=== PATIENT | male | born 1930 | race Caucasian/White ===

== ENCOUNTER 2016-08-24 18:02 | Inpatient (IN) | payer OTHER, BC ==
[2016-08-24] MEDS ORDERED: ASPIRIN 81 MG CHEWABLE TABLETS PO ONE (18:15)
--- NOTE | 2016-08-24 18:15 | PDOC ---
History of Present Illness <Heidi Handy - Last Filed: 08/24/16 23:27> <ColeKarine - Last Filed: 08/25/16 03:20> - General Stated Complaint: DEFIBRILLATOR SHOCK Time Seen by Provider: 08/24/16 18:14 - History of Present Illness Initial Comments: 08/24/16 19:49 Patient is an 86 year old male with a past medical hx of [place] (1999) on coumadin, Coronary disease, s/p cardiac stents, Defibrillator pacemaker, CHF, HTN, HLD, ulcerative colitis s/p colectomy and kidney stones who presents to the ED complaining of lightheadedness and and pain at the ICD site. [place] defibrillator go off. He notes he was seen here on 08/03 for the same complaint. He states he was feeling fine and had no complaints prior to his defibrillator going off, but is now experiencing pain at the ICD site and lightheadedness. The patient denies SOB, fever, chills The patient denies nausea, vomiting, diarrhea The patient denies dysuria, frequency Allergies: Azithromycin, codeine Past surgical history: Right colectomy, pacemaker, cardiac stents Social history: No alcohol, tobacco or drug use PCP - Dr. Love Barrel Drum Cutter: Dr. Ramirez (Heidi Handy) Past History <Heidi Handy - Last Filed: 08/24/16 23:27> - Past Medical History Anemia: No Asthma: No Cancer: Yes (MOLE TO BACK: 1972) Cardiac Disorders: Yes (CAD, [place] w/ stents) CVA: No COPD: No CHF: Yes Dementia: No Diabetes: No GI Disorders: Yes (ulcerative colitis with total colectomy and ileostomy) Disorders: Yes (kidney stones) HTN: Yes Hypercholesterolemia: Yes Liver Disease: No Psychiatric Problems: Yes (ANXIETY/DEPRESSION.) Seizures: No Thyroid Disease: No - Surgical History Abdominal Surgery: Yes Appendectomy: No Cardiac Surgery: Yes (pacemaker/defibrillator 2008) Cholecystectomy: No GI Surgery: Yes (total colectomy.) Lung Surgery: No Neurologic Surgery: No Orthopedic Surgery: Yes (PINS IN FRACTURED ARM AND WRIST) - Immunization History Immunization Up to Date: Yes - Psycho/Social/Smoking Cessation Hx Anxiety: Yes Suicidal Ideation: No Smoking Status: Yes Smoking History: Former smoker Have you smoked in the past 12 months: No Number of Cigarettes Smoked Daily: 0 If you are a former smoker, when did you quit?: 1972 Information on smoking cessation initiated: No Hx Alcohol Use: No Drug/Substance Use Hx: No Substance Use Type: None Hx Substance Use Treatment: No <Karine Galvan - Last Filed: 08/25/16 03:20> - Past Medical History Allergies/Adverse Reactions: Allergies Allergy/AdvReac Type Severity Reaction Status Date / Time azithromycin [From Zithromax] AdvReac Mild Vomiting Verified 08/24/16 18:05 codeine [Codeine] AdvReac Mild Verified 08/24/16 18:05 dust Allergy Severe Itching Uncoded 08/24/16 18:05 Home Medications: Ambulatory Orders Aspirin Coated [Ecotrin -] 81 mg PO DAILY 12/12/13 Furosemide [Lasix -] 20 mg PO DAILY 12/12/13 Metoprolol Succinate [Toprol XL -] 25 mg PO DAILY 12/12/13 Simvastatin [Zocor -] 20 mg PO HS 12/12/13 Alprazolam [Xanax] 0.5 mg PO BID 12/20/14 Dicyclomine HCl [Bentyl] 20 mg PO DAILY 12/20/14 Spironolactone 25 mg PO DAILY 01/13/15 Venlafaxine HCl ER [Effexor Xr -] 37.5 mg PO BID 01/13/15 Warfarin Sodium [Coumadin] 5 mg PO MOTUWETHFR 01/13/15 Cholestyramine (with Sugar) [Cholestyramine Powder] 378 gm PO BID 03/17/16 Vitamin B Complex [B Complex] 1 each PO DAILY 03/17/16 Gabapentin 100 mg PO QID #120 capsule 03/18/16 Tamsulosin HCl [Flomax] 0.4 mg PO DAILY 08/03/16 Warfarin Sodium [Coumadin] 2.5 mg PO SUSA 08/03/16 Cardiac Specific PMH - Complaint Specific PMHX Abdominal Aortic Aneurysm: No Cardiac Arrhythmia: Yes Pacemaker: Yes <Karine Galvan - Last Filed: 08/25/16 03:20> Review of Systems - Review of Systems Able to Perform ROS?: Yes <Heidi Handy - Last Filed: 08/24/16 23:27> <Karine Galvan - Last Filed: 08/25/16 03:20> - Review of Systems Comments:: 08/24/16 19:50 CONSTITUTIONAL: Absent: fever, chills, diaphoresis, generalized weakness, malaise, loss of appetite HEENT: Absent: rhinorrhea, nasal congestion, throat pain, throat swelling, difficulty swallowing, mouth swelling, ear pain, eye pain, visual Changes CARDIOVASCULAR: +Chest pain Absent: syncope, palpitations, irregular heart rate, lightheadedness, peripheral edema RESPIRATORY: Absent: cough, shortness of breath, dyspnea with exertion, orthopnea, wheezing, stridor, hemoptysis GASTROINTESTINAL: Absent: abdominal pain, abdominal distension, nausea, vomiting, diarrhea, constipation, melena, hematochezia GENITOURINARY: Absent: dysuria, frequency, urgency, hesitancy, hematuria, flank pain, genital pain MUSCULOSKELETAL: Absent: myalgia, arthralgia, joint swelling SKIN: Absent: rash, itching, pallor HEMATOLOGIC/IMMUNOLOGIC: Absent: easy bleeding, easy bruising, lymphadenopathy, frequent infections ENDOCRINE: Absent: unexplained weight gain, unexplained weight loss, heat intolerance, cold intolerance NEUROLOGIC: +Lightheadedness Absent: headache, focal weakness or paresthesias, dizziness, unsteady gait, seizure, mental status changes, bladder or bowel incontinence PSYCHIATRIC: Absent: anxiety, depression, suicidal or homicidal ideation, hallucinations. (Heidi Handy) *Physical Exam <Heidi Handy - Last Filed: 08/24/16 23:27> <Karine Galvan - Last Filed: 08/25/16 03:20> - Vital Signs Last Vital Signs Temp Pulse Resp BP Pulse Ox 99 F 62 18 111/70 100 08/24/16 18:07 08/24/16 18:07 08/24/16 18:07 08/24/16 18:07 08/24/16 18:15 - Physical Exam Comments: 08/24/16 20:17 GENERAL: Well developed, well nourished. Awake and alert. No acute distress. HEENT: Normocephalic, atraumatic. PERRLA, EOMI. No conjunctival pallor. Sclera are non- icteric. Moist mucous membranes. Oropharynx is clear. NECK: Supple. Full ROM. No JVD. Carotid pulses 2+ and symmetric, without bruits. No thyromegaly. No lymphadenopathy. CARDIOVASCULAR: Regular rate and rhythm. No murmurs, rubs, or gallops. Distal pulses are 2+ and symmetric. PULMONARY: No evidence of respiratory distress. Lungs clear to auscultation bilaterally. No wheezing, rales or rhonchi. ABDOMINAL: Soft. Non-tender. Non-distended. No rebound or guarding. No organomegaly. Normoactive bowel sounds. MUSCULOSKELETAL Normal range of motion at all joints. No bony deformities or tenderness. No CVA tenderness. EXTREMITIES: +1 pitting edema lower extremities. No cyanosis. No clubbing.No calf tenderness. SKIN: Warm and dry. Normal capillary refill. No rashes. No jaundice. NEUROLOGICAL: Alert, awake, appropriate. Cranial nerves 2-12 intact. No deficits to light touch and temperature in face, upper extremities and lower extremities. No motor deficits in the in face, upper extremities and lower extremities. Normoreflexic in the upper and lower extremities. Normal speech. Gait is normal without ataxia. PSYCHIATRIC: Cooperative. Good eye contact. Appropriate mood and affect. (Heidi Handy) Heart Score/ECG Review <Heidi Handy - Last Filed: 08/24/16 23:27> - History History: Slightly suspicious - Electrocardiogram EKG: Non specific repolarization disturbance - Age Age: >/= 65 - Risk Factors Risk Factors Heart Score: Yes Hx Hypercholesterolemia, Yes Hx Hypertension Based on the list above the patient has:: >/=3 risk factors or Hx atherosclerotic disease - Troponin Troponin: </= normal limit (pt has electronic paced rhythm @ 104 /he had his ICD fo off this afternoon) - Score Heart Score - Total: 5 <Karine Galvan - Last Filed: 08/25/16 03:20> - ECG Impressions Comment:: 08/24/16 18:56 EKG performed at 1812. Read and interpreted by Dr. Galvan. Electronic ventricular pacemaker. Rate of 104 bpm. (Heidi Handy) ED Treatment Course - LABORATORY CBC & Chemistry Diagram: 08/24/16 18:44 08/24/16 19:22 <Heidi Handy - Last Filed: 08/24/16 23:27> - LABORATORY CBC & Chemistry Diagram: 08/24/16 18:44 08/24/16 19:22 <Karine Galvan - Last Filed: 08/25/16 03:20> - ADDITIONAL ORDERS Additional order review: Laboratory Results 08/24/16 08/24/16 08/24/16 19:22 19:22 18:44 INR Sodium 142 Cancelled Potassium 4.3 Cancelled Chloride 114 H Cancelled Carbon Dioxide 21 Cancelled Anion Gap 7 L Cancelled BUN 24 H Cancelled Creatinine 1.6 H D Cancelled Creat Clearance w eGFR 41.29 Cancelled Random Glucose 105 Cancelled Calcium 8.5 Cancelled Magnesium 2.1 Cancelled Total Bilirubin 0.3 D Cancelled AST 21 Cancelled ALT 21 Cancelled Alkaline Phosphatase 48 Cancelled Creatine Kinase 74 Cancelled Troponin I 0.04 D Cancelled B-Natriuretic Peptide Cancelled Total Protein 6.5 Cancelled Albumin 3.6 Cancelled 08/24/16 18:44 INR 1.28 H Sodium Potassium Chloride Carbon Dioxide Anion Gap BUN Creatinine Creat Clearance w eGFR Random Glucose Calcium Magnesium Total Bilirubin AST ALT Alkaline Phosphatase Creatine Kinase Troponin I B-Natriuretic Peptide Total Protein Albumin 08/24/16 18:44 RBC 4.53 MCV 87.0 MCHC 31.8 L RDW 15.2 MPV 8.8 Neutrophils % 74.7 Lymphocytes % 15.2 D Monocytes % 8.1 Eosinophils % 1.3 D Basophils % 0.7 - RADIOLOGY Radiology Studies Ordered: Category Date Time Status CHEST X-RAY PORTABLE* [RAD] Stat Radiology 08/24/16 18:16 Completed Radiograph Interpretation: 08/24/16 20:44 Chest X-Ray Since 08/03/2016, the cardiac silhouette remains slightly enlarged with unfolding of the aortic arch. Minimal bibasal atelectatic changes are present. Left-sided pacer with leads again noted unchanged in position. Mild degenerative changes in the right shoulder joint Impression: No significant interval change. Mild cardiomegaly without evidence of acute lung disease Reported By: Stephanie Donato MD 08/24/16 0309 (Heidi Handy) - Medications Given in the ED: ED Medications Discontinued Medications Generic Name Dose Route Start Last Admin Trade Name Freq PRN Reason Stop Dose Admin Aspirin 162 mg 08/24/16 18:15 08/24/16 18:22 Asa - PO 08/24/16 18:16 162 mg ONCE ONE Administration Medical Decision Making <Heidi Handy - Last Filed: 08/24/16 23:27> <Karine Galvan - Last Filed: 08/25/16 03:20> - Medical Decision Making 08/24/16 23:[address] Valle at 21:30, awaiting call back Dr. Valle called back at 21:47, patients case was discussed. (Heidi Handy) 08/25/16 03:18 86-year-old male with an ICD that discharged today is being admitted for interrogation of his ICD by [employer]. I did speak with someone from [employer] and they expect to see him later in the morning No signs of acute ischemia on EKG Patient had negative cardiac enzymes Labs reviewed Case discussed with Lauri Kyle and Dr. Valle -admitted to telemetry (Karine Galvan) *DC/Admit/Observation/Transfer <Heidi Handy - Last Filed: 08/24/16 23:27> - Discharge Dispostion Admit: Yes <Karine Galvan - Last Filed: 08/25/16 03:20> Diagnosis at time of Disposition: ICD (implantable cardioverter-defibrillator) discharge Coronary artery disease Qualifiers: Coronary Disease-Associated Artery/Lesion type: [place] artery [place] vs. transplanted heart: [place] heart Associated angina: without angina Qualified Code(s): I25.10 - Atherosclerotic heart disease of [place] coronary artery without angina pectoris - Discharge Dispostion Decision to Admit order Date/Time: Decision to Admit Order Category Date Time Status Decision to Admit to Hospital Routine Phy Order 08/24/16 20:24 Ordered - Referrals - Attestations Scribe Attestion: 08/24/16 19:50 Documentation prepared by Heidi Handy, acting as medical supply technician for Karine Galvan MD/. (Heidi Handy)
[2016-08-24] MEDS ORDERED: ASPIRIN 81 MG CHEWABLE TABLETS ONE (18:22)
[2016-08-24 18:51] LABS: BASOPHIL 0.7 % (0-2.0); EOSINOPHIL 1.3 % (0-4.5); MCH 27.7 pg (25.7-33.7); MCHC 31.8 g/dl (32.0-35.9); MEAN PLT VOLUME 8.8 fl (7.5-11.1); NEUTROPHILS 74.7 % (42.8-82.8); PLATELET COUNT 168 K/MM3 (134-434); RDW 15.2 % (11.9-15.9); WHITE BLOOD COUNT 5.6 K/mm3 (4.0-10.0)
[2016-08-24 19:01] LABS: INR 1.28 (0.82-1.09); PROTHROMBIN TIME (PATIENT) 14.2 SEC (9.98-11.88)
--- NOTE | 2016-08-24 19:28 | CONSULT ---
Consult Consult Specialty:: Cardiology Referred by:: Douglas Love MD Reason for Consultation:: Post ICD discharge - History of Present Illness Chief Complaint: Post ICD discharge History of Present Illness: Patient is a 86 year old male with past medical history of CAD s/p anterior wall DE, s/p PCI, angina pectoris, HTN/HCVD, paroxysmal afib, CKD, LV systolic dysfunction with h/o failure s/p HYDROLOGY PROFESSOR-D pacemaker, TIA, gout, s/p total colectomy for ulcerative colitis, s/p right nephrectomy for carcinoma recent hospitalization for appropriate ICD discharge referable to [place] 175 failed ATP burst, received 31 J shock presents for same. He denies dyspnea, true syncope, orthopnea, PND, LE edema or change in exercise capacity. Reports medication and diet compliance, had Toprol XL uptitrated during previous hospitalization. Allergies: Azithromycin, codeine Past surgical history: Right colectomy, pacemaker, cardiac stents Social history: No alcohol, tobacco or drug use PCP - Dr. Love Supervisor Nut Processing: Dr. Ramirez Orthopedics - Dr. Hein - History Source History Provided By: Patient Limitations to Obtaining History: No Limitations - Past Medical History Cardio/Vascular: Yes: AFIB, CAD, CHF, DE Gastrointestinal: Yes: GERD, Inflamatory Bowel Disease - Past Surgical History Past Surgical History: Yes: Colectomy, Nephrectomy (Right ), Permanent Pacemaker , Stent - Alcohol/Substance Use Hx Alcohol Use: No - Smoking History Smoking history: Former smoker Have you smoked in the past 12 months: No Aproximately how many cigarettes per day: 0 If you are a former smoker, when did you quit?: 1972 Home Medications - Allergies Allergies/Adverse Reactions: Allergies Allergy/AdvReac Type Severity Reaction Status Date / Time azithromycin [From Zithromax] AdvReac Mild Vomiting Verified 08/24/16 18:05 codeine [Codeine] AdvReac Mild Verified 08/24/16 18:05 dust Allergy Severe Itching Uncoded 08/24/16 18:05 - Home Medications Home Medications: Ambulatory Orders Aspirin Coated [Ecotrin -] 81 mg PO DAILY 12/12/13 Furosemide [Lasix -] 20 mg PO DAILY 12/12/13 Metoprolol Succinate [Toprol XL -] 25 mg PO DAILY 12/12/13 Simvastatin [Zocor -] 20 mg PO HS 12/12/13 Alprazolam [Xanax] 0.5 mg PO BID 12/20/14 Dicyclomine HCl [Bentyl] 20 mg PO DAILY 12/20/14 Spironolactone 25 mg PO DAILY 01/13/15 Venlafaxine HCl ER [Effexor Xr -] 37.5 mg PO BID 01/13/15 Warfarin Sodium [Coumadin] 5 mg PO MOTUWETHFR 01/13/15 Cholestyramine (with Sugar) [Cholestyramine Powder] 378 gm PO BID 03/17/16 Vitamin B Complex [B Complex] 1 each PO DAILY 03/17/16 Gabapentin 100 mg PO QID #120 capsule 03/18/16 Tamsulosin HCl [Flomax] 0.4 mg PO DAILY 08/03/16 Warfarin Sodium [Coumadin] 2.5 mg PO SUSA 08/03/16 Review of Systems - Review of Systems Cardiovascular: reports: Other (ICD discharge) Vital Signs: Vital Signs Temperature 99 F 08/24/16 18:07 Pulse Rate 62 08/24/16 18:07 Respiratory Rate 18 08/24/16 18:07 Blood Pressure 111/70 08/24/16 18:07 O2 Sat by Pulse Oximetry (%) 100 08/24/16 18:15 Constitutional: Yes: No Distress, Calm Neck: Yes: Supple Respiratory: Yes: Regular, Diminished Gastrointestinal: Yes: Normal Bowel Sounds, Soft Cardiovascular: Yes: Regular Rate and Rhythm JVD: No Carotid Bruit: No Heart Sounds: Yes: S1, S2 Murmur: Yes: Systolic Murmur, Grade 1 Edema: No - Other Data Labs, Other Data: CBC, BMP 08/24/16 18:44 08/24/16 18:44 INR, PTT INR 1.28 (0.82-1.09) H 08/24/16 18:44 Troponin, BNP 08/24/16 18:44 Troponin I Cancelled B-Natriuretic Peptide Cancelled Troponin, BNP 08/24/16 18:44 Troponin I Cancelled B-Natriuretic Peptide Cancelled NSR @ 104 Problem List - Problems (1) Coronary artery disease Code(s): I25.10 - ATHSCL HEART DISEASE OF [place] CORONARY ARTERY W/O ANG PCTRS Qualifiers: Coronary Disease-Associated Artery/Lesion type: [place] artery [place] vs. transplanted heart: [place] heart Associated angina: without angina Qualified Code(s): I25.10 - Atherosclerotic heart disease of [place] coronary artery without angina pectoris (2) Hyperlipidemia Code(s): E78.5 - HYPERLIPIDEMIA, UNSPECIFIED Qualifiers: Hyperlipidemia type: pure hypercholesterolemia Qualified Code(s): E78.0 - Pure hypercholesterolemia (3) Hypertensive cardiomegaly without heart failure Code(s): I11.9 - HYPERTENSIVE HEART DISEASE WITHOUT HEART FAILURE (4) ICD (implantable cardioverter-defibrillator) discharge Code(s): Z45.02 - ENCNTR FOR ADJUST AND MGMT OF AUTOMATIC IMPLNTBL CARD DEFIB (5) Old anterior myocardial infarction Code(s): I25.2 - OLD MYOCARDIAL INFARCTION (6) Paroxysmal atrial fibrillation Code(s): I48.0 - PAROXYSMAL ATRIAL FIBRILLATION (7) S/P coronary angioplasty Code(s): Z98.61 - CORONARY ANGIOPLASTY STATUS (8) Sustained VT (ventricular tachycardia) Code(s): I47.2 - VENTRICULAR TACHYCARDIA (9) Systolic dysfunction without heart failure Code(s): I51.9 - HEART DISEASE, UNSPECIFIED Assessment/Plan 1. s/p ICD discharge awaiting device interrogation 2. CAD h/o anterior wall DE s/p PCI 3. LV systolic dysfunction with h/o failure s/p HYDROLOGY PROFESSOR-D 4. PAF->SR on anticoagulation with subtherapeutic INR 5. CKD 6. h/o TIA 7. HTN, chol 8. BPH s/p green laser TURP 9. Acute on CKD improved P:1. Continue Lasix 20 qd, increase Toprol XL 25 bid, Lipitor 10 qhs, cholestyramine 4 gm tid, Aldactone 25 qd, resume losartan 25 qd once renal fxn stabilizes, dose coumadin 5 qhs per INR, d/c ASA while on coumadin as CAD is stable 2. F/u ICD interrogration 3. If VT recurs despite medical therapy, for consideration of VT ablation vs antiarrhythmic therapy. 4. Thank you for consultative opportunity
[2016-08-24 19:59] LABS: ALBUMIN 3.6 g/dl (3.4-5.0); BILIRUBIN,TOTAL 0.3 mg/dL (0.2-1.0); CALCIUM 8.5 mg/dL (8.5-10.1); CREATININE 1.6 mg/dL (0.7-1.3); TOT PROT 6.5 g/dl (6.4-8.2)
[2016-08-24 20:12] LABS: MAGNESIUM 2.1 mg/dL (1.8-2.4); TROPONIN I 0.04 ng/ml (0.00-0.05)
[2016-08-24] MEDS ORDERED: METOPROLOL SUCCINATE 25 MG TAB.SR.24H (FP) PO SCH (22:00)
[2016-08-24] MEDS ORDERED: METOPROLOL SUCCINATE 50 MG TAB.SR.24H (FP) ONE (22:11)
[2016-08-25 00:10] LABS: TROPONIN I 0.04 ng/ml (0.00-0.05)
[2016-08-25 03:36] LABS: TROPONIN I 0.05 ng/ml (0.00-0.05)
[2016-08-25] MEDS: CHOLESTYRAMINE/SUCROSE 4 GM PACKET PO SCH ×3 (08:47→17:25)
[2016-08-25] MEDS: TAMSULOSIN HCL 0.4 MG CAP.ER.24H (FP) PO SCH (08:47)
[2016-08-25] MEDS: ALPRAZolam 0.25 MG TABLET PO SCH ×3 (08:54→22:53)
[2016-08-25] MEDS ORDERED: ALPRAZolam 0.25 MG TABLET ONE (08:54)
[2016-08-25 08:57] LABS: BASOPHIL 0.7 % (0-2.0); MCH 28.7 pg (25.7-33.7); MCHC 32.7 g/dl (32.0-35.9); MEAN CELL VOLUME 87.8 fl (80-96); MEAN PLT VOLUME 8.4 fl (7.5-11.1); NEUTROPHILS 68.1 % (42.8-82.8); PLATELET COUNT 147 K/MM3 (134-434); RDW 15.3 % (11.9-15.9)
[2016-08-25 09:12] LABS: INR 1.25 (0.82-1.09); PROTHROMBIN TIME (PATIENT) 13.8 SEC (9.98-11.88)
[2016-08-25 09:24] LABS: ALBUMIN 4.1 g/dl (3.4-5.0); BILIRUBIN,TOTAL 0.9 mg/dL (0.2-1.0); CREATININE 1.3 mg/dL (0.7-1.3); TOT PROT 7.3 g/dl (6.4-8.2)
--- NOTE | 2016-08-25 09:57 | PN ---
Progress Note, Physician History of Present Illness: SCANNER OPERATOR-D interrogation confirms VT @ 176 bpm post ATPx1 and 31J shock 08/24/2016. No further events in house. - Current Medication List Current Medications: Active Medications Alprazolam (Xanax -) 0.5 mg PO BID [facility] Last Admin: 08/25/16 08:54 Dose: 0.5 mg Atorvastatin Calcium (Lipitor -) 10 mg PO HS [facility] Cholestyramine Resin (Questran Packet -) 4 gm PO TIDCM [facility] Last Admin: 08/25/16 08:47 Dose: 4 gm Furosemide (Lasix -) 20 mg PO DAILY [facility] Metoprolol Succinate (Toprol Xl -) 25 mg PO BID [facility] Spironolactone (Aldactone -) 25 mg PO DAILY [facility] Tamsulosin HCl (Flomax -) 0.4 mg PO DAILY@0830 [facility] Last Admin: 08/25/16 08:47 Dose: 0.4 mg Venlafaxine HCl (Effexor Xr -) 37.5 mg PO BID [facility] Warfarin Sodium (Coumadin -) 5 mg PO DAILY@1800 [facility] - Objective Vital Signs: Vital Signs Temperature 97 F L 08/25/16 07:44 Pulse Rate 80 08/25/16 07:44 Respiratory Rate 18 08/25/16 07:44 Blood Pressure 158/83 08/25/16 07:44 O2 Sat by Pulse Oximetry (%) 99 08/25/16 07:44 Constitutional: Yes: No Distress, Calm Neck: Yes: Supple Cardiovascular: Yes: Regular Rate and Rhythm, Murmur (1/6 SM) Respiratory: Yes: Regular, CTA Bilaterally Gastrointestinal: Yes: Normal Bowel Sounds, Soft Edema: No Labs: CBC, BMP 08/25/16 08:10 08/25/16 08:10 INR, PTT INR 1.25 (0.82-1.09) H 08/25/16 08:10 Problem List - Problems (1) Coronary artery disease Code(s): I25.10 - ATHSCL HEART DISEASE OF [place] CORONARY ARTERY W/O ANG PCTRS Qualifiers: Coronary Disease-Associated Artery/Lesion type: [place] artery [place] vs. transplanted heart: [place] heart Associated angina: without angina Qualified Code(s): I25.10 - Atherosclerotic heart disease of [place] coronary artery without angina pectoris (2) Hyperlipidemia Code(s): E78.5 - HYPERLIPIDEMIA, UNSPECIFIED Qualifiers: Hyperlipidemia type: pure hypercholesterolemia Qualified Code(s): E78.0 - Pure hypercholesterolemia (3) Hypertensive cardiomegaly without heart failure Code(s): I11.9 - HYPERTENSIVE HEART DISEASE WITHOUT HEART FAILURE (4) ICD (implantable cardioverter-defibrillator) discharge Code(s): Z45.02 - ENCNTR FOR ADJUST AND MGMT OF AUTOMATIC IMPLNTBL CARD DEFIB (5) Old anterior myocardial infarction Code(s): I25.2 - OLD MYOCARDIAL INFARCTION (6) Paroxysmal atrial fibrillation Code(s): I48.0 - PAROXYSMAL ATRIAL FIBRILLATION (7) S/P coronary angioplasty Code(s): Z98.61 - CORONARY ANGIOPLASTY STATUS (8) Sustained VT (ventricular tachycardia) Code(s): I47.2 - VENTRICULAR TACHYCARDIA (9) Systolic dysfunction without heart failure Code(s): I51.9 - HEART DISEASE, UNSPECIFIED Assessment/Plan 1. s/p ICD discharge awaiting device interrogation 2. CAD h/o anterior wall [place] s/p PCI 3. LV systolic dysfunction with h/o failure s/p SCANNER OPERATOR-D 4. PAF->SR on anticoagulation with subtherapeutic INR 5. CKD 6. h/o TIA 7. HTN, chol 8. BPH s/p green laser TURP 9. Acute on CKD improved P:1. Continue Lasix 20 qd, Toprol XL 25 bid, Lipitor 10 qhs, cholestyramine 4 gm tid, Aldactone 25 qd, resume losartan 25 qd now that renal fxn stabilized, dose coumadin 5 qhs per INR, d/c ASA while on coumadin as CAD is stable, consider Entresto as outpatient 2. If VT recurs despite medical therapy, for consideration of VT ablation vs antiarrhythmic therapy.
[2016-08-25] MEDS: FUROSEMIDE 20 MG TABLET (FP) PO SCH (09:59)
[2016-08-25] MEDS: VENLAFAXINE HCL 37.5 MG E.R. CAPSULE (FP) PO SCH ×2 (09:59→22:53)
[2016-08-25] MEDS: SPIRONOLACTONE 25 MG TABLET (FP) PO SCH (09:59)
[2016-08-25] MEDS: METOPROLOL SUCCINATE 25 MG TAB.SR.24H (FP) PO SCH ×2 (09:59→22:53)
[2016-08-25] MEDS: WARFARIN NA 5 MG TABLET (UD) PO SCH ×2 (10:00→17:22)
[2016-08-25] MEDS ORDERED: LOSARTAN POTASSIUM 25 MG TABLET PO SCH (10:15)
[2016-08-25] MEDS ORDERED: WARFARIN NA 5 MG TABLET (UD) PO ONE (10:15)
--- NOTE | 2016-08-25 10:18 | PN ---
Progress Note, Physician Chief Complaint: Pt seen and examined no new complaints today no chest pain,no dizziness - Current Medication List Current Medications: Active Medications Alprazolam (Xanax -) 0.5 mg PO BID [facility] Last Admin: 08/25/16 09:59 Dose: Not Given Atorvastatin Calcium (Lipitor -) 10 mg PO HS [facility] Cholestyramine Resin (Questran Packet -) 4 gm PO TIDCM [facility] Last Admin: 08/25/16 08:47 Dose: 4 gm Furosemide (Lasix -) 20 mg PO DAILY [facility] Last Admin: 08/25/16 09:59 Dose: 20 mg Losartan Potassium (Cozaar -) 25 mg PO DAILY [facility] Metoprolol Succinate (Toprol Xl -) 25 mg PO BID [facility] Last Admin: 08/25/16 09:59 Dose: 25 mg Spironolactone (Aldactone -) 25 mg PO DAILY [facility] Last Admin: 08/25/16 09:59 Dose: 25 mg Tamsulosin HCl (Flomax -) 0.4 mg PO DAILY@0830 [facility] Last Admin: 08/25/16 08:47 Dose: 0.4 mg Venlafaxine HCl (Effexor Xr -) 37.5 mg PO BID [facility] Last Admin: 08/25/16 09:59 Dose: 37.5 mg Warfarin Sodium (Coumadin -) 5 mg PO DAILY@1800 [facility] Last Admin: 08/25/16 10:00 Dose: 5 mg Warfarin Sodium (Coumadin -) 5 mg PO NOW ONE Stop: 08/25/16 10:16 - Objective Vital Signs: Vital Signs Temperature 97 F L 08/25/16 07:44 Pulse Rate 80 08/25/16 07:44 Respiratory Rate 18 08/25/16 07:44 Blood Pressure 158/83 08/25/16 07:44 O2 Sat by Pulse Oximetry (%) 99 08/25/16 07:44 Constitutional: Yes: No Distress Eyes: Yes: Conjunctiva Clear HENT: Yes: Atraumatic Neck: Yes: Supple, Trachea Midline Cardiovascular: Yes: Regular Rate and Rhythm Respiratory: Yes: Regular, CTA Bilaterally Gastrointestinal: Yes: Normal Bowel Sounds, Soft Musculoskeletal: Yes: WNL Extremities: Yes: WNL Edema: No Peripheral Pulses WNL: Yes Neurological: Yes: WNL, Alert, Oriented Psychiatric: Yes: WNL, Alert Labs: CBC, BMP 08/25/16 08:10 08/25/16 08:10 INR, PTT INR 1.25 (0.82-1.09) H 08/25/16 08:10 Assessment/Plan S/p Icd discharge HTN CAD,hypercholestrolemia,s/p angioplasty PAF PLAN for ICD interrogation continue medications ,monitor labs Will f/u cardiology rec
[2016-08-25] MEDS ORDERED: LOSARTAN POTASSIUM 25 MG TABLET ONE (10:31)
--- NOTE | 2016-08-25 10:53 | HP ---
DATE OF ADMISSION: DATE OF DICTATION: 08/25/2016 HISTORY OF PRESENT ILLNESS: Patient is an 86-year-old male with a past medical history of coronary artery disease, [place] with stent placement, patient is on Coumadin, status post a defibrillator, pacemaker, congestive heart failure, hypertension, hypercholesterolemia, ulcerative colitis, status post colectomy, kidney stone, presented to the emergency room with the complaints of lightheadedness and slight pain at the ICD site. As per the patient[place] he felt his defibrillator go off and patient came to the emergency room for evaluation. Patient had a similar episode on August 03. Patient experienced mild pain at the ICD site and lightheadedness. No history of chest pain per se, shortness of breath, or palpitation. No fever. No chills. No nausea. No vomiting. No diarrhea. No dysuria. PAST MEDICAL HISTORY: History of skin change to the mole on the back, coronary artery disease, status post stent placement, congestive heart failure, ulcerative colitis, status post colectomy, kidney stone, hypertension, hypercholesterolemia, anxiety, depression. SURGICAL HISTORY: Had a history of a colectomy, pacemaker placement, cardiac stent placement. SOCIAL HISTORY: No alcohol. No tobacco. No drug. Patient lives with the . ALLERGIES: AZITHROMYCIN and CODEINE. REVIEW OF SYSTEMS: General: Patient has slight lightheadedness and pain at the ICD site. Cardiovascular: History of coronary artery disease. No chest pain. No palpitation. Respiratory: Nothing significant. Gastroenterology: No diarrhea. No vomiting. History of ulcerative colitis. Genitourinary: History of kidney stone. Neurological: Patient had history of anxiety. PHYSICAL EXAMINATION:Vital Signs: On examination of the patient in the emergency room, temperature 99 per minute, pulse rate 62, blood pressure 111/70, respiration 18, saturation 100%. General: Patient well developed, awake, alert, no acute distress. Chest: Clear. Pacemaker palpable on the left side of the chest wall. Cardiovascular: Regular heart rate. No murmur. Abdomen: Soft and nontender. No distention. Bowel sounds present. Extremities: No edema. MEDICATIONS: Reviewed. Patient is on aspirin 81 mg, Lasix 20 mg daily, Toprol XL 25 mg p.o. daily, Zocor 20 mg p.o. h.s., Xanax 0.5 mg p.o. b.i.d., Bentyl 20 mg p.o. daily, spironolactone 25 mg p.o. daily, Effexor XR 37.5 mg p.o. b.i.d., Coumadin 5 mg p.o., cholestyramine powder 378 g p.o. b.i.d., vitamin B complex, gabapentin 100 mg p.o. q.i.d., Flomax 0.4 mg p.o. daily. LABORATORIES: CBC: Normal. CMP: BUN 24, creatinine 1.6, sugar 105, magnesium level 2.1, AST, ALT normal. Cardiac enzymes: Troponin 0.04. Total protein 6.5. EKG: Electronic ventricular pacemaker, rate 104 per minute. Chest x-ray shows cardiomegaly, no acute infiltrate, pacemaker in place. Patient was seen by Cardiology in the emergency room and they recommended to increase the Toprol dose 25 mg p.o. b.i.d. and continue Lipitor and Aldactone 25 mg p.o. daily and recommended to hold the valsartan until the BUN and creatinine are stable, so patient admitted to telemetry with admitting diagnoses of: 1. Defibrillator went off, implantable cardioverter-defibrillator shocked. 2. Hypertension. 3. Coronary artery disease. 4. Hypercholesterolemia. 5. Atrial fibrillation. 6. Status post implantable cardioverter-defibrillator discharge. PLAN: Patient awaiting for the device interrogation. Continue the medication. on hold. Coumadin 5 mg p.o. h.s. Continue the home medication except the valsartan. Patient stable. Rinku [id number]
[2016-08-25 11:14] VITALS: BMI 11.9
[2016-08-25] MEDS ORDERED: PT OWN MED DRAWER 7, Y5N ONE ×2 (17:23→17:59)
[2016-08-25] MEDS ORDERED: ATORVASTATIN CA 10 MG TABLET (FP) PO SCH (22:00)
[2016-08-26] MEDS ORDERED: CHOLESTYRAMINE/ASPARTAME 4 GM PACKET PO SCH (03:09)
[2016-08-26 07:47] LABS: INR 1.28 (0.82-1.09); PROTHROMBIN TIME (PATIENT) 14.1 SEC (9.98-11.88)
[2016-08-26] MEDS ORDERED: PT OWN MED DRAWER 7, Y5N ONE ×2 (08:15→09:28)
[2016-08-26 08:26] VITALS: BP 103/45; PULSE 76; TEMP 97.6
[2016-08-26] MEDS: TAMSULOSIN HCL 0.4 MG CAP.ER.24H (FP) PO SCH (08:30)
[2016-08-26 09:19] LABS: MCH 28.2 pg (25.7-33.7); MCHC 32.3 g/dl (32.0-35.9); MEAN CELL VOLUME 87.2 fl (80-96); MEAN PLT VOLUME 8.8 fl (7.5-11.1); PLATELET COUNT 131 K/MM3 (134-434); RDW 14.9 % (11.9-15.9); WHITE BLOOD COUNT 5.3 K/mm3 (4.0-10.0)
--- NOTE | 2016-08-26 09:19 | PN ---
Progress Note, Physician Chief Complaint: Pt seen and examined,s/p interrogation of pacemaker no new complaints today no chest pain,no dizziness - Current Medication List Current Medications: Active Medications Alprazolam (Xanax -) 0.5 mg PO BID [facility] Last Admin: 08/25/16 22:53 Dose: 0.5 mg Atorvastatin Calcium (Lipitor -) 10 mg PO HS [facility] Last Admin: 08/25/16 22:53 Dose: 10 mg Cholestyramine Resin (Questran Light Packet -) 4 gm PO TIDCM [facility] Last Admin: 08/26/16 08:29 Dose: 4 gm Furosemide (Lasix -) 20 mg PO DAILY [facility] Last Admin: 08/25/16 09:59 Dose: 20 mg Metoprolol Succinate (Toprol Xl -) 25 mg PO BID [facility] Last Admin: 08/25/16 22:53 Dose: 25 mg Spironolactone (Aldactone -) 25 mg PO DAILY [facility] Last Admin: 08/25/16 09:59 Dose: 25 mg Tamsulosin HCl (Flomax -) 0.4 mg PO DAILY@0830 [facility] Last Admin: 08/26/16 08:30 Dose: 0.4 mg Venlafaxine HCl (Effexor Xr -) 37.5 mg PO BID [facility] Last Admin: 08/25/16 22:53 Dose: 37.5 mg Warfarin Sodium (Coumadin -) 5 mg PO DAILY@1800 [facility] Last Admin: 08/25/16 17:22 Dose: Not Given - Objective Vital Signs: Vital Signs Temperature 97.6 F 08/26/16 08:25 Pulse Rate 76 08/26/16 08:25 Respiratory Rate 16 08/26/16 08:25 Blood Pressure 103/45 08/26/16 08:25 O2 Sat by Pulse Oximetry (%) 95 08/26/16 08:25 Constitutional: Yes: No Distress Eyes: Yes: Conjunctiva Clear HENT: Yes: Atraumatic Neck: Yes: Supple, Trachea Midline Cardiovascular: Yes: Regular Rate and Rhythm Respiratory: Yes: Regular, CTA Bilaterally Gastrointestinal: Yes: Normal Bowel Sounds, Soft Musculoskeletal: Yes: WNL Extremities: Yes: WNL Edema: No Peripheral Pulses WNL: Yes Neurological: Yes: WNL, Alert, Oriented ...Motor Strength: WNL Psychiatric: Yes: WNL Labs: CBC, BMP 08/25/16 08:10 INR, PTT INR 1.28 (0.82-1.09) H 08/26/16 05:35 Assessment/Plan S/p Icd discharge,s/p interrogation,assymptomatic HTN CAD,hypercholestrolemia,s/p angioplasty PAF PLAN d/c home continue medications f/u with cardiology as OP
[2016-08-26] MEDS: ALPRAZolam 0.25 MG TABLET PO SCH (09:32)
[2016-08-26] MEDS: SPIRONOLACTONE 25 MG TABLET (FP) PO SCH (09:32)
[2016-08-26] MEDS: FUROSEMIDE 20 MG TABLET (FP) PO SCH (09:32)
[2016-08-26] MEDS: METOPROLOL SUCCINATE 25 MG TAB.SR.24H (FP) PO SCH (09:32)
--- NOTE | 2016-08-26 09:32 | PN ---
Progress Note, Physician Chief Complaint: Events noted Not in distress this am History of Present Illness: Patient was seen and examined. Awake and alert. Chart was reviewed Denies chest pain, SOB or palpitation. No further ICD therapy in hospital. ICD interrogation noted - Current Medication List Current Medications: Active Medications Alprazolam (Xanax -) 0.5 mg PO BID [facility] Last Admin: 08/25/16 22:53 Dose: 0.5 mg Atorvastatin Calcium (Lipitor -) 10 mg PO HS [facility] Last Admin: 08/25/16 22:53 Dose: 10 mg Cholestyramine Resin (Questran Light Packet -) 4 gm PO TIDCM [facility] Last Admin: 08/26/16 08:29 Dose: 4 gm Furosemide (Lasix -) 20 mg PO DAILY [facility] Last Admin: 08/25/16 09:59 Dose: 20 mg Metoprolol Succinate (Toprol Xl -) 25 mg PO BID [facility] Last Admin: 08/25/16 22:53 Dose: 25 mg Spironolactone (Aldactone -) 25 mg PO DAILY [facility] Last Admin: 08/25/16 09:59 Dose: 25 mg Tamsulosin HCl (Flomax -) 0.4 mg PO DAILY@0830 [facility] Last Admin: 08/26/16 08:30 Dose: 0.4 mg Venlafaxine HCl (Effexor Xr -) 37.5 mg PO BID [facility] Last Admin: 08/25/16 22:53 Dose: 37.5 mg Warfarin Sodium (Coumadin -) 5 mg PO DAILY@1800 [facility] Last Admin: 08/25/16 17:22 Dose: Not Given - Objective Vital Signs: Vital Signs Temperature 97.6 F 08/26/16 08:25 Pulse Rate 76 08/26/16 08:25 Respiratory Rate 16 08/26/16 08:25 Blood Pressure 103/45 08/26/16 08:25 O2 Sat by Pulse Oximetry (%) 95 08/26/16 08:25 Neck: Yes: Supple Cardiovascular: Yes: Regular Rate and Rhythm, Murmur (Soft SM), S1, S2 Respiratory: Yes: CTA Bilaterally Gastrointestinal: Yes: Normal Bowel Sounds, Soft. No: Tenderness Edema: No Additional Findings/Remarks: - Review of Systems Constitutional: denies: Chills, Fever Cardiovascular: denies: Chest Pain, Palpitations, Shortness of Breath Respiratory: denies: SOB. denies: Cough, Hemoptysis, Orthopnea, PND Gastrointestinal: denies: Abdominal Pain, Constipation, Diarrhea, Melena, Nausea , Rectal Bleeding, Vomiting Genitourinary: denies: Dysuria Musculoskeletal: denies: Joint Pain Neurological: denies: Dizziness, Headache, Seizure, Syncope Labs: CBC, BMP 08/26/16 09:04 08/25/16 08:10 INR, PTT INR 1.28 (0.82-1.09) H 08/26/16 05:35 Problem List - Problems (1) Coronary artery disease Code(s): I25.10 - ATHSCL HEART DISEASE OF [place] CORONARY ARTERY W/O ANG PCTRS Qualifiers: Coronary Disease-Associated Artery/Lesion type: robinson artery [place] vs. transplanted heart: robinson heart Associated angina: without angina Qualified Code(s): I25.10 - Atherosclerotic heart disease of robinson coronary artery without angina pectoris (2) ICD (implantable cardioverter-defibrillator) discharge Code(s): Z45.02 - ENCNTR FOR ADJUST AND MGMT OF AUTOMATIC IMPLNTBL CARD DEFIB (3) [id number] kidney injury Code(s): N17.9 - ACUTE KIDNEY FAILURE, UNSPECIFIED N18.9 - CHRONIC KIDNEY DISEASE, UNSPECIFIED (4) Hyperlipidemia Code(s): E78.5 - HYPERLIPIDEMIA, UNSPECIFIED Qualifiers: Hyperlipidemia type: pure hypercholesterolemia Qualified Code(s): E78.0 - Pure hypercholesterolemia (5) Hypertensive cardiomegaly without heart failure Code(s): I11.9 - HYPERTENSIVE HEART DISEASE WITHOUT HEART FAILURE (6) Old anterior myocardial infarction Code(s): I25.2 - OLD MYOCARDIAL INFARCTION (7) Paroxysmal atrial fibrillation Code(s): I48.0 - PAROXYSMAL ATRIAL FIBRILLATION (8) S/P coronary angioplasty Code(s): Z98.61 - CORONARY ANGIOPLASTY STATUS (9) Systolic dysfunction without heart failure Code(s): I51.9 - HEART DISEASE, UNSPECIFIED Assessment/Plan 1. Post ICD discharge - due to PSVT 2. CAD h/o anterior wall [place] s/p PCI 3. LV systolic dysfunction with h/o failure s/p CORPORATE SAFETY COORDINATOR-D 4. PAF now in sinus rhythm on anticoagulation 5. CKD 6. History of TIA 7. HTN 8. Hypercholesterolemia 9. BPH s/p green laser TURP 10. Acute on CKD PLAN: 1. Continue Lasix 20 mg QD, Toprol XL 25 mg BID (increased), Lipitor 10 mg QHS, Cholestyramine 4 gm TID, Aldactone 25 mg QD. 2. Resume losartan 25 mg QD once renal function stabilizes in 2-3 days. Continue Coumadin per INR. Consider Entresto as outpatient 3. Consider further evaluation such as EP study +/- ablation as outpatient. Patient is to follow up with Dr. Ramirez in the office Discharge home Alberto Cabral MD.
[2016-08-26] MEDS: VENLAFAXINE HCL 37.5 MG E.R. CAPSULE (FP) PO SCH (09:33)
--- NOTE | 2016-08-26 09:56 | DS ---
Physical Examination Vital Signs: Vital Signs Temperature 97.6 F 08/26/16 08:25 Pulse Rate 76 08/26/16 08:25 Respiratory Rate 16 08/26/16 08:25 Blood Pressure 103/45 08/26/16 08:25 O2 Sat by Pulse Oximetry (%) 95 08/26/16 08:25 Labs: CBC, BMP 08/26/16 09:04 08/25/16 08:10 Discharge Summary Reason For Visit: ICD/CAD Current Active Problems Coronary artery disease (Acute) ICD (implantable cardioverter-defibrillator) discharge (Acute) HTN Hypercholestrolemia Hospital Course: PT admitted withICD discharge and slight discomfort at chest Labs were nl,cardiac enzymes were negative,Ekg and xray chest were NL Pt was followed by cardiology.Creatinine level was 1.6 so losartan held .Toprol dose increased to 25 mg po bid S/P ICD interrogation done.Pt has no complaints today.Pt was stable on the floor ,discharged home in a stable condition and rec to f/u with cardiology as OP Condition: Good - Instructions Referrals: Douglas Love MD [Primary Care Provider] - Disposition: HOME - Home Medications Comprehensive Discharge Medication List: Ambulatory Orders Aspirin Coated [Ecotrin -] 81 mg PO DAILY 12/12/13 Furosemide [Lasix -] 20 mg PO DAILY 12/12/13 Simvastatin [Zocor -] 20 mg PO HS 12/12/13 Alprazolam [Xanax] 0.5 mg PO BID 12/20/14 Dicyclomine HCl [Bentyl] 20 mg PO DAILY 12/20/14 Spironolactone 25 mg PO DAILY 01/13/15 Venlafaxine HCl ER [Effexor Xr -] 37.5 mg PO BID 01/13/15 Warfarin Sodium [Coumadin] 5 mg PO MOTUWETHFR 01/13/15 Cholestyramine (with Sugar) [Cholestyramine Powder] 378 gm PO BID 03/17/16 Vitamin B Complex [B Complex] 1 each PO DAILY 03/17/16 Gabapentin 100 mg PO QID #120 capsule 03/18/16 Tamsulosin HCl [Flomax] 0.4 mg PO DAILY 08/03/16 Metoprolol Succinate [Toprol XL -] 25 mg PO BID #30 tab.sr.24h 08/26/16
[2016-08-26 11:05] LABS: ALBUMIN 3.5 g/dl (3.4-5.0); BILIRUBIN,TOTAL 0.6 mg/dL (0.2-1.0); CALCIUM 8.4 mg/dL (8.5-10.1); CREATININE 1.3 mg/dL (0.7-1.3); TOT PROT 6.2 g/dl (6.4-8.2)
[2016-08-26 11:09] LABS: TROPONIN I 0.02 ng/ml (0.00-0.05)
--- NOTE | 2016-08-26 15:17 | EKG ---
Test Reason : Blood Pressure : / mmHG Vent. Rate : 104 BPM Atrial Rate : 104 BPM P-R Int : 082 ms QRS Dur : 174 ms QT Int : 418 ms P-R-T Axes : 000 254 071 degrees QTc Int : 549 ms POOR DATA QUALITY, INTERPRETATION MAY BE ADVERSELY AFFECTED ELECTRONIC VENTRICULAR PACEMAKER WHEN COMPARED WITH ECG OF 03-AUG-2016 18:16, VENT. RATE HAS INCREASED BY 2 BPM Confirmed by SHANE DOVE, DARREN ([id number]) on 08/26/2016 3:17:08 PM Referred By: Confirmed By:DARREN LYNN MD
== END 2016-08-26 12:53 | disposition home or self-care (01) | DRG 309 ==
LOC: JER 18:02 → JERBED 20:51 → J4W 08-25 12:00
PROVIDERS: ADMIT Family Medicine; ATTEND Family Medicine
DX: I47.1 Supraventricular tachycardia (principal); N17.9 Acute kidney failure, unspecified; I13.10 Hypertensive heart and chronic kidney disease without heart failure, with stage 1 through stage 4 chronic kidney disease, or unspecified chronic kidney disease; N18.9 Chronic kidney disease, unspecified; I25.118 Atherosclerotic heart disease of native coronary artery with other forms of angina pectoris; I48.0 Paroxysmal atrial fibrillation; M10.9 Gout, unspecified; K21.9 Gastro-esophageal reflux disease without esophagitis; I25.2 Old myocardial infarction; N40.0 Benign prostatic hyperplasia without lower urinary tract symptoms; E78.00 Pure hypercholesterolemia, unspecified; Z87.891 Personal history of nicotine dependence; Z90.5 Acquired absence of kidney; Z86.73 Personal history of transient ischemic attack (TIA), and cerebral infarction without residual deficits; Z95.0 Presence of cardiac pacemaker; Z95.5 Presence of coronary angioplasty implant and graft
CPT/HCPCS: 36415; 71010-TC; 80053; 82550; 83735; 84484; 85025; 85027; 85610; 93005; 93010; 99285-25

== ENCOUNTER 2016-09-23 19:32 | Inpatient (IN) | payer OTHER, BC, MEDICARE ==
--- NOTE | 2016-09-23 19:33 | PDOC ---
History of Present Illness - General History Source: EMS, Family Exam Limitations: Clinical Condition - History of Present Illness Initial Comments: 09/23/16 20:12 The patient is an 86 year old male, with a significant past medical history of AFib(on coumadin and aspirin), CAD, GA (stents), CHF, ulcerative colitis(total colectomy and ileostomy), kidney stones, HTN, HLD, anxiety, and depression, who presents to the emergency department BIBA s/p possible unwitnessed CVA. Per EMS , the patient was found to have focal weakness to the right upper and lower extremities and aphasia. As per son in law, the last time the patient was seen awake and fully oriented was at 14:00 before he went to take a nap. EMS states when the patient awoke he experienced slurred speech, left sided facial droop, and right sided hemiplegia. The family reports the patient is normally able to ambulate on his own and is verbally responsive. The patient is on a pacemaker/ defibrillator. EMS states, the family reports the patient defibrillator fired off 2 times within the past 2 weeks, and is usually seen at [facility] for this. The patients history is limited due to current clinical condition. Allergies: Azithromycin, codeine, dust Past Surgical History: Pacemaker/defibrillator (2008), total colectomy, and pins in fractured arm and wrist Social History: Non-smoker. No ETOH or drug use reported. PCP: Dr. Love ([phone]) Fur Blowing Machine Attendant: Dr. Ramirez ([phone]) Neurologist: Dr. Garcia ([phone]) <Dayron Martin - Last Filed: 09/23/16 20:45> - General History Source: Patient, EMS <RolandOli avilez - Last Filed: 09/29/16 19:46> - General Stated Complaint: STROKE Time Seen by Provider: 09/23/16 19:33 NIH Stroke Scale - Last Known Well Date/Time & Onset Date Last Known Well: 09/23/16 Time Last Known Well: 14:00 - Initial Evaluation Level of consciousness: Alert Ask patient the month and their age: Answers one correctly Ask patient to open & close eyes; make fist and let go: Obeys one correctly Best gaze (horizontal eye movement): Partial gaze palsy Visual field testing: No visual field loss Facial paresis (Show teeth/raise eyebrows/close eyes tight): Minor paralysis ( flattened nasolabial fold, asymmetry on smiling) Motor Function: Left Arm: Some effort against gravity Motor Function: Right Arm: No movement Motor Function: Left Leg: Normal (extends leg 30 degrees for 5 seconds without drift) Motor Function: Right Leg: No movement Limb Ataxia: Present in two limbs Sensory(Use pinprick test arms,legs,trunk,face/side to side): Normal Best language (Describe picture, name items, read sentences): Mild to moderate aphasia Dysarthria (read several words): Mild to moderate slurring of words Extinction and Inattention: No abnormality - Total Score NIH Stroke Scale Score: 18 <Oli Solorio - Last Filed: 09/29/16 19:46> tPA Exclusion checklist 3-4.5h - Time Elapsed Date last known well: 09/23/16 Time last known well: 14:00 Elaspsed time: 6 Day(s) and 5 Hour(s) and 43 Minutes - Thrombolytic Therapy Candidate Is patient eligible for thrombolytic therapy: No - Exclusion Criteria 3-4.5 hr SBP greater than 185 or DBP greater than 110mmHg despite tx: No Recent IC/spinal surgery,head trauma or stroke<3mos.: No Hx IC hemorrhage, IC neoplasm, AV malformation or aneurysm: No Active internal bleeding: No Blding diathesis(low plt ct, inc PTT,INR>1.7 or use of NOAC): No CT demonstrates multilobar infarct(>1/3 cerebral hemiphere): No Arterial puncture at noncompressible site in previous 7 days: No Blood glucose concentration less than 50mg/dL (2.7mmol/L): No - Relative Exclusion Criteria 3-4.5 hr Life expectancy <1 yr or severe co-morbid illness: No : No Patient/family refused: No Rapid improvement: No Stroke severity too mild: No Recent acute GA (w/in previous 3 months): No Seizure at onset with postictal residual neuro impairments: No Major surgery or serious trauma w/in previous 14 days: No Recent GI or hemorrhage (w/in previous 21 days): No - Add'l Relative Exclusion 3-4.5 hr Age > 80: No Hx of both diabetes AND prior ischemic stroke: No Taking an oral anticoagulant regardless of INR: No NIHSS >25: No - Ineligibility reason(s) Reasons No tPA given: Outside of window - delayed arrival (spoke to Dr. Cobb covereing Dr. 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) Cardiac Disorders: Yes (CAD, GA w/ stents) CVA: No COPD: No CHF: Yes Dementia: No Diabetes: No GI Disorders: Yes (ulcerative colitis with total colectomy and ileostomy) Disorders: Yes (kidney stones) HTN: Yes Hypercholesterolemia: Yes Liver Disease: No Psychiatric Problems: Yes (ANXIETY/DEPRESSION.) Seizures: No Thyroid Disease: No - Surgical History Abdominal Surgery: Yes Appendectomy: No Cardiac Surgery: Yes (pacemaker/defibrillator 2008) Cholecystectomy: No GI Surgery: Yes (total colectomy.) Lung Surgery: No Neurologic Surgery: No Orthopedic Surgery: Yes (PINS IN FRACTURED ARM AND WRIST) - Immunization History Immunization Up to Date: Yes - Psycho/Social/Smoking Cessation Hx Anxiety: Yes Suicidal Ideation: No Smoking Status: Yes Smoking History: Former smoker Have you smoked in the past 12 months: No Number of Cigarettes Smoked Daily: 0 If you are a former smoker, when did you quit?: 1972 Hx Alcohol Use: No Drug/Substance Use Hx: No Substance Use Type: None Hx Substance Use Treatment: No <Oli Solorio - Last Filed: 09/29/16 19:46> - Past Medical History Allergies/Adverse Reactions: Allergies Allergy/AdvReac Type Severity Reaction Status Date / Time azithromycin [From Zithromax] AdvReac Mild Vomiting Verified 09/23/16 19:53 codeine [Codeine] AdvReac Mild Verified 09/23/16 19:53 dust Allergy Severe Itching Uncoded 09/23/16 19:53 Home Medications: Ambulatory Orders Aspirin Coated [Ecotrin -] 81 mg PO DAILY 12/12/13 Furosemide [Lasix -] 20 mg PO DAILY 12/12/13 Simvastatin [Zocor -] 20 mg PO HS 12/12/13 Dicyclomine HCl [Bentyl] 20 mg PO DAILY 05/01/15 Spironolactone 25 mg PO DAILY 01/13/15 Venlafaxine HCl ER [Effexor Xr -] 37.5 mg PO BID 01/13/15 Warfarin Sodium [Coumadin] 5 mg PO [id number] 01/13/15 Cholestyramine (with Sugar) [Cholestyramine Powder] 378 gm PO BID 03/17/16 Vitamin B Complex [B Complex] 1 each PO DAILY 03/17/16 Tamsulosin HCl [Flomax] 0.4 mg PO DAILY 08/03/16 Metoprolol Succinate [Toprol XL -] 25 mg PO BID #30 tab.sr.24h 08/26/16 Acetaminophen [Tylenol -] 500 mg PO Q4H PRN 09/23/16 Alprazolam [Alprazolam Xr] 0.5 mg PO BID 09/23/16 Amiodarone HCl 200 mg PO DAILY 09/23/16 Cholecalciferol (Vitamin D3) [Vitamin D3 -] 400 unit PO DAILY 09/23/16 Warfarin Sodium [Coumadin] 2.5 mg PO SUTUTH 09/23/16 Review of Systems - Review of Systems Able to Perform ROS?: No Comments:: 09/23/16 20:13 Limited due to clinical condition. <Dayron Martin - Last Filed: 09/23/16 20:45> *Physical Exam - Vital Signs Last Vital Signs Temp Pulse Resp BP Pulse Ox 74 18 150/77 98 09/23/16 19:51 09/23/16 19:51 09/23/16 19:51 09/23/16 19:51 - Physical Exam Comments: 09/23/16 20:26 GENERAL: Well developed, well nourished. Awake and alert. HEENT: Normocephalic, atraumatic. PERRLA, EOMI. No conjunctival pallor. Sclera are non- icteric. Moist mucous membranes. Oropharynx is clear. NECK: Supple. Full ROM. No JVD. Carotid pulses 2+ and symmetric, without bruits. No thyromegaly. No lymphadenopathy. CARDIOVASCULAR: Regular rate and rhythm. No murmurs, rubs, or gallops. Distal pulses are 2+ and symmetric. PULMONARY: No evidence of respiratory distress. Lungs clear to auscultation bilaterally. No wheezing, rales or rhonchi. ABDOMINAL: Soft. Non-tender. Non-distended. No rebound or guarding. No organomegaly. Normoactive bowel sounds. MUSCULOSKELETAL Normal range of motion at all joints. No bony deformities or tenderness. No CVA tenderness. EXTREMITIES: No cyanosis. No clubbing. No edema. No calf tenderness. SKIN: Warm and dry. Normal capillary refill. No rashes. No jaundice. NEUROLOGICAL: Slurred speech. Slight left sided facial droop. Right upper and lower extremity hemiplegia. 3/5 strength in the left upper extremity, and 5/5 strength in the left lower extremity. PSYCHIATRIC: Cooperative. Good eye contact. Appropriate mood and affect. <Dayron Martin - Last Filed: 09/23/16 20:45> Heart Score/ECG Review - ECG Impressions Comment:: 09/23/16 20:45 Vent. Rate: 77 bpm IMPRESSION: AV dial-paced rhythm. Biventricular pacemaker detected. <Dayron Martin - Last Filed: 09/23/16 20:45> ED Treatment Course - LABORATORY CBC & Chemistry Diagram: 09/23/16 19:14 09/23/16 19:14 - ADDITIONAL ORDERS Additional order review: 09/23/16 19:14 RBC 4.28 MCV 87.1 MCHC 32.5 RDW 14.9 MPV 8.2 Neutrophils % 74.8 Lymphocytes % 15.6 D Monocytes % 7.3 Eosinophils % 1.9 Basophils % 0.4 - RADIOLOGY Radiograph Interpretation: 09/23/16 20:28 EXAM: Head CT INTERPRETED BY: Dr. Donato REVIEWED BY: Dr. Solorio IMPRESSION: No gross acute intracranial pathology is identified. There is suggestion of interval mild ectasia/aneurysmal dilatation of the right cavernous carotid artery when compared to the left. A nonemergent MRA of the brain is recommended. EXAM: CXR INTERPRETED BY: Dr. Donato REVIEWED BY: Dr. Solorio IMPRESSION: No significant interval change or acute lung disease is present. <Dayron Martin - Last Filed: 09/23/16 20:45> - LABORATORY CBC & Chemistry Diagram: 09/24/16 05:35 09/24/16 05:35 <Oli Solorio - Last Filed: 09/29/16 19:46> Medical Decision Making - Medical Decision Making 09/23/16 20:35 First call placed to Dr. Love at 19:37. Case discussed at this time. First call placed to Dr Garcia at 19:40. Dr. Cobb is president [employer]. Awaiting call back. Case discussed with Dr. Cobb at 19:45. <Dayron Martin - Last Filed: 09/23/16 20:45> - Medical Decision Making 09/29/16 19:46 Dr. Solorio: The scribe's documentation has been prepared under my direction and personally reviewed by me in its entirery. I confirm that the note above accurately reflects all work, treatment, procedures, and medical decision making performed by me. <Oli Solorio - Last Filed: 09/29/16 19:46> *DC/Admit/Observation/Transfer - Attestations Scribe Attestion: 09/23/16 20:21 Documentation prepared by Dayron Martin, acting as durable medical equipment repairer for Oli Solorio DO. <Dayron Martin - Last Filed: 09/23/16 20:45> - Discharge Dispostion Admit: Yes <Oli Solorio - Last Filed: 09/29/16 19:46> Diagnosis at time of Disposition: Cerebrovascular accident (CVA) Qualifiers: CVA mechanism: embolism Precerebral and cerebral artery: middle cerebral artery , left Qualified Code(s): I63.412 - Cerebral infarction due to embolism of left middle cerebral artery - Referrals
[2016-09-23] MEDS: SODIUM CHLORIDE 1,000 ML IV SCH (19:49)
[2016-09-23 19:56] LABS: BASOPHIL 0.4 % (0-2.0); EOSINOPHIL 1.9 % (0-4.5); MCH 28.3 pg (25.7-33.7); MCHC 32.5 g/dl (32.0-35.9); MEAN CELL VOLUME 87.1 fl (80-96); MEAN PLT VOLUME 8.2 fl (7.5-11.1); NEUTROPHILS 74.8 % (42.8-82.8); PLATELET COUNT 141 K/MM3 (134-434); RDW 14.9 % (11.9-15.9); WHITE BLOOD COUNT 6.1 K/mm3 (4.0-10.0)
[2016-09-23 20:05] LABS: INR 1.59 (0.82-1.09); PROTHROMBIN TIME (PATIENT) 17.6 SEC (9.98-11.88)
[2016-09-23 20:16] LABS: ALBUMIN 3.9 g/dl (3.4-5.0); BILIRUBIN,TOTAL 0.4 mg/dL (0.2-1.0); CALCIUM 8.7 mg/dL (8.5-10.1); CREATININE 1.7 mg/dL (0.7-1.3); TOT PROT 6.9 g/dl (6.4-8.2)
[2016-09-23 20:17] LABS: TROPONIN I 0.02 ng/ml (0.00-0.05)
[2016-09-23 23:21] LABS: URINE APPEARANCE SLCLOUDY; URINE BILIRUBIN NEGATIVE (NEGATIVE); URINE COLOR LTYELLOW; URINE GLUCOSE (UA) NEGATIVE (NEGATIVE); URINE KETONE NEGATIVE (NEGATIVE); URINE LEUK ESTERASE NEGATIVE (NEGATIVE); URINE NITRITE NEGATIVE (NEGATIVE); URINE PROTEIN NEGATIVE (NEGATIVE); URINE UROBILINOGEN NEGATIVE E.U./dl (0.2-1.0)
[2016-09-23 23:27] LABS: URINE BLOOD 2+ (NEGATIVE)
[2016-09-23 23:29] LABS: URINE HYALINE CAST 4 /lpf; URINE MUCUS RARE; URINE RBC 62 /hpf (0-3); URINE WBC 1 /hpf (3-5)
--- NOTE | 2016-09-24 05:17 | HOSP ---
Physical Examination Vital Signs: Vital Signs Temperature Pulse Rate 80 09/23/16 22:33 Respiratory Rate 18 09/23/16 22:33 Blood Pressure 159/74 09/23/16 22:33 O2 Sat by Pulse Oximetry (%) 97 09/23/16 22:33 Hospitalist Encounter Assessment: Was paged by the nurse to inform that patient requires franklin as he was unable to void. Nurse mentioned she informed Dr. Love and he told her to ask the hospitalist to take care of the problem. Hence patient was seen and examined at bed side. Patient had 700mls of urine on bladder scan at bed side. Under sterile environment, tried placing franklin 14 F and 16F and 14F &16F coude catheters. Initially, there was no resistance, but met resistance and unable to pass beyond prostate. No urine obtained. Catheters all removed. Advised nurse to inform Dr. Love that urology consult will be required. Visit type - Emergency Visit Emergency Visit: Yes ED Registration Date: 09/23/16 Care time: The patient presented to the Emergency Department on the above date and was hospitalized for further evaluation of their emergent condition. - New Patient This patient is new to me today: Yes Date on this admission: 09/24/16 - Critical Care Critical Care patient: No
[2016-09-24 05:20] VITALS: BMI 25.8
[2016-09-24 07:12] LABS: MCH 28.6 pg (25.7-33.7); MCHC 32.9 g/dl (32.0-35.9); MEAN PLT VOLUME 8.3 fl (7.5-11.1); PLATELET COUNT 127 K/MM3 (134-434); RDW 14.8 % (11.9-15.9); WHITE BLOOD COUNT 5.8 K/mm3 (4.0-10.0)
[2016-09-24 07:33] LABS: ALBUMIN 3.6 g/dl (3.4-5.0); CALCIUM 8.3 mg/dL (8.5-10.1); CREATININE 1.3 mg/dL (0.7-1.3)
[2016-09-24 07:35] LABS: BILIRUBIN,TOTAL 0.6 mg/dL (0.2-1.0); TOT PROT 6.4 g/dl (6.4-8.2)
[2016-09-24 07:36] LABS: INR 1.6 (0.82-1.09); PROTHROMBIN TIME (PATIENT) 17.8 SEC (9.98-11.88)
[2016-09-24] MEDS ORDERED: XANAX 0.5 MG PO SCH (10:00)
[2016-09-24] MEDS: CHOLESTYRAMINE/ASPARTAME 4 GM PACKET PO SCH ×3 (10:00→22:30)
--- NOTE | 2016-09-24 10:34 | EKG ---
Test Reason : Blood Pressure : / mmHG Vent. Rate : 077 BPM Atrial Rate : 077 BPM P-R Int : 126 ms QRS Dur : 202 ms QT Int : 522 ms P-R-T Axes : 071 173 078 degrees QTc Int : 590 ms AV dual-paced rhythm Biventricular pacemaker detected ABNORMAL ECG WHEN COMPARED WITH ECG OF 24-AUG-2016 18:12, VENT. RATE HAS DECREASED BY 27 BPM Confirmed by CRISELDA FINN MD ([id number]) on 09/24/2016 10:34:25 AM Referred By: Confirmed By:CRISELDA FINN MD
--- NOTE | 2016-09-24 10:58 | HP ---
DATE OF ADMISSION: DATE OF DICTATION: 09/24/2016 HISTORY OF PRESENT ILLNESS: This is an 86-year-old male known to me for many years. He is diagnosed to have atrial fibrillation on Coumadin, ASHD status post catheterization and CABG and stent insertion. He also had colectomy for ulcerative colitis prophylaxis. He presented to the ER with complaints of right-sided weakness. He had a CT scan which was unremarkable. His INR was 1.6. Patient was admitted with a diagnosis of acute stroke. PHYSICAL EXAMINATION: General: He is nonverbal today. He understands. Vital signs: BP 150/80, pulse 70, respirations 20, temperature 98. HEENT: Unremarkable. Neck: Supple. No JVD. Lungs: Clear. Heart: S1, S2 normal. No S3, S4. Abdomen: Soft. Extremities: Legs no edema. Neurologic: Full-blown right hemiparesis present. LABORATORY REPORTS: WBC 6.1, hemoglobin 12, platelets 141. Chemistry unremarkable. Creatinine 1.3. Sugar 102. LFTs normal. INR 1.6. EKG to be evaluated. IMPRESSION: Acute cerebrovascular accident, arteriosclerotic heart disease, atrial fibrillation. PLAN: Continue the same treatment. Coumadin increased to 10 mg and an extra dose today. Consults are requested, neurology and cardiology. Rinku [id number]
--- NOTE | 2016-09-24 12:00 | CONSULT ---
Admitting History and Physical - Primary Care Physician PCP: Douglas Love - Admission History of Present Illness: Per EMR: "History of Present Illness Initial Comments: 09/23/16 20:12 The patient is an 86 year old male, with a significant past medical history of AFib(on coumadin and aspirin), CAD, [place] (stents), CHF, ulcerative colitis(total colectomy and ileostomy), kidney stones, HTN, HLD, anxiety, and depression, who presents to the emergency department BIBA s/p possible unwitnessed CVA. Per EMS , the patient was found to have focal weakness to the right upper and lower extremities and aphasia. As per son in law, the last time the patient was seen awake and fully oriented was at 14:00 before he went to take a nap. EMS states when the patient awoke he experienced slurred speech, left sided facial droop, and right sided hemiplegia. The family reports the patient is normally able to ambulate on his own and is verbally responsive. The patient is on a pacemaker/ defibrillator. EMS states, the family reports the patient defibrillator fired off 2 times within the past 2 weeks, and is usually seen at [place] for this. The patients history is limited due to current clinical condition." History Source: Patient, Medical Record Limitations to Obtaining History: Clinical Condition, Other (Dysarthria/Aphasia) - Past Medical History Cardiovascular: Yes: AFIB, CAD, CHF, [place] Gastrointestinal: Yes: GERD, Inflamatory Bowel Disease - Past Surgical History Past Surgical History: Yes: Colectomy, Nephrectomy (Right ), Permanent Pacemaker , Stent - Smoking History Smoking history: Former smoker Have you smoked in the past 12 months: No Aproximately how many cigarettes per day: 0 If you are a former smoker, when did you quit?: 1972 - Alcohol/Substance Use Hx Alcohol Use: No History - Admission Reason For Visit: CEREBROVASCULAR ACCIDENT(CVA0 - Diagnostics X-ray: Report Reviewed CT Scan: Report Reviewed - General Mental Status: Alert and Oriented, Awake and Alert, Able to Follow Commands Attention: Distractible, Mild Impairment Ability to Follow Directions: Fair Head/Neck Control: Fair - Hearing Hearing: Impaired, Both Hearing Aide: Yes (has hearing aid remote) With Patient: Yes Speech Evaluation - Communication Primary Language: MALAY Communication: Yes: Simple Responses, Dysarthria, Aphasia, Hearing Deficit Oral Expression Ability: Yes: Moderate Impairment - Speech Production Dysarthria: Yes: Flaccid Able to Make Needs Known: Yes: Moderately Impaired Intelligibility: Yes: Moderately Impaired - Speech Characteristics Voice Loudness: Mildly Soft/Quiet Voice Pitch: Yes: Normal Voice Phonatory-based Quality: Yes: Dysphonia (mild) Speech Pattern: Impaired Speech Clarity: < 50% Nasal Resonance: Normal Articulation: Yes: Imprecise Rate of Speech: Too Fast - Language/Auditory Comprehension Follows: Yes: 1 Stage Simple Commands Observation: Able to respond to yes/no queries: Yes, Comprehends Conversational Speech: Yes - Language/Verbal Expression Aphasia: Yes: Anomia, Paraphrasic Errors, Apraxia Able to Respond to Simple Queries: Yes: Moderately Impaired Able to Communicate Wants and Needs: Yes: Moderately Impaired Functional Communication Status: Yes: Moderately Impaired - Swallow Evaluation/Bedside Assessment Current Nutritional Intake: NPO Oral Secretions: Yes: WFL Dentition: Yes: Dental Appliance Upper, Dental Appliance Lower, Dental Fit Adequate Facial Symmetry at Rest: Facial Droop Right Facial Symmetry on Retraction: Facial Droop Right Sensation: Reduced Right Pucker Lips: Droops Right Smile: Droops Right Lingual Speed of Movement: Reduced Lingual Movement Strgth Against Opposition: Reduced Velopharyngeal Movement: Normal Laryngeal Elevation: Impaired Laryngeal Movement: Reduced Excursion, Labored,delay initiation, Reduced Velocity Rate of Intake: WFL Bolus Size: WFL Labial Seal: Impaired Right Chewing: WFL Oral Prep Time: Increased A-P Transit: Impaired Pocketing: Present Right Timing of Swallow: Delayed Coughing/Throat Clear: Yes (thin liquid) Recommendations - Speech Evaluation, Impression/Plan Impression: Pt presents with Dysarthria, Dysphagia, Aphasia with good orientation. Pt is aware of flaccid right side, however not it's lack of function, attempting to place his dentures in his right hand to put in his mouth. - Disposition [facility] to: [facility] (Excellent rehab candidate) - Dysphagia Impressions/Plan Swallowing Skills: Impaired Dysphagia Impressions: Mild Impairment, Moderate Impairment, Ongoing Evaluation *Silent aspiration: cannot be R/O at bedside Dysphagia Treatment Plan: Small Bites, Chin Tuck/Down, Safe Rate, 1/2 tsp. at a time, Elevate HOB during feed Recommendations: Modified Barium Swallow (if cough,congestion, throat clearing.) , Other (family educated on cva, aphasia, dysarthria,dysphagia.) - Recommendations Diet Consistency: Dysphagia Pureed Medication Administration: Crushed with applesauce Liquids: [place] Thick
--- NOTE | 2016-09-24 12:31 | CON.NEURO ---
Consult Consult Specialty:: NEUROLOGY - History of Present Illness Chief Complaint: right side weakness, aphasia History of Present Illness: 86 year old male, with a significant past medical history of AFib(on coumadin and aspirin), CAD, MD (stents), CHF, ulcerative colitis(total colectomy and ileostomy), kidney stones, HTN, HLD, anxiety, and depression, was admitted yesterday for sudden right side weakness. Last time the patient was seen awake and fully oriented was at 14:00 before he went to take a nap. EMS states when the patient awoke he experienced slurred speech, left sided facial droop, and right sided hemiplegia. The family reports the patient is normally able to ambulate on his own and is verbally responsive. The patient is on a pacemaker/ defibrillator. EMS states, the family reports the patient defibrillator fired off 2 times within the past 2 weeks, and is usually seen at [place] for this. The patient's INR was 1.6 in ED. The patient was not a candidate for ivtpa as he was outside of the window . LSN was 2pm. - Past Medical History Cardio/Vascular: Yes: AFIB, CAD, CHF, [place] Gastrointestinal: Yes: GERD, Inflamatory Bowel Disease - Past Surgical History Past Surgical History: Yes: Colectomy, Nephrectomy (Right ), Permanent Pacemaker , Stent - Alcohol/Substance Use Hx Alcohol Use: No - Smoking History Smoking history: Former smoker Have you smoked in the past 12 months: No Aproximately how many cigarettes per day: 0 If you are a former smoker, when did you quit?: 1972 Home Medications - Allergies Allergies/Adverse Reactions: Allergies Allergy/AdvReac Type Severity Reaction Status Date / Time azithromycin [From Zithromax] AdvReac Mild Vomiting Verified 09/23/16 19:53 codeine [Codeine] AdvReac Mild Verified 09/23/16 19:53 dust Allergy Severe Itching Uncoded 09/23/16 19:53 - Home Medications Home Medications: Ambulatory Orders Aspirin Coated [Ecotrin -] 81 mg PO DAILY 12/12/13 Furosemide [Lasix -] 20 mg PO DAILY 12/12/13 Simvastatin [Zocor -] 20 mg PO HS 12/12/13 Dicyclomine HCl [Bentyl] 20 mg PO DAILY 12/20/14 Spironolactone 25 mg PO DAILY 01/13/15 Venlafaxine HCl ER [Effexor Xr -] 37.5 mg PO BID 01/13/15 Warfarin Sodium [Coumadin] 5 mg PO MOWEFRSA 01/13/15 Cholestyramine (with Sugar) [Cholestyramine Powder] 378 gm PO BID 03/17/16 Vitamin B Complex [B Complex] 1 each PO DAILY 03/17/16 Tamsulosin HCl [Flomax] 0.4 mg PO DAILY 08/03/16 Metoprolol Succinate [Toprol XL -] 25 mg PO BID #30 tab.sr.24h 08/26/16 Acetaminophen [Tylenol -] 500 mg PO Q4H PRN 09/23/16 Alprazolam [Alprazolam Xr] 0.5 mg PO BID 09/23/16 Amiodarone HCl 200 mg PO DAILY 09/23/16 Cholecalciferol (Vitamin D3) [Vitamin D3 -] 400 unit PO DAILY 09/23/16 Warfarin Sodium [Coumadin] 2.5 mg PO SUTUTH 09/23/16 Physical Exam-Neuro Vital Signs: Vital Signs Temperature 97.6 F 09/24/16 06:00 Pulse Rate 70 09/24/16 06:00 Respiratory Rate 18 09/24/16 06:00 Blood Pressure 150/80 09/24/16 06:00 O2 Sat by Pulse Oximetry (%) 94 L 09/23/16 23:45 Constitutional: Yes: Well Nourished, No Distress, Calm Neck: Yes: Supple, Trachea Midline Cardiovascular: Yes: Regular Rate and Rhythm, S1, S2 Respiratory: Yes: Regular, CTA Bilaterally Gastrointestinal: Yes: WNL, Normal Bowel Sounds, Soft Renal/: Yes: WNL Musculoskeletal: Yes: WNL Edema: Yes Edema: LLE: 1+ Psychiatric: Yes: Alert Labs: CBC, BMP 09/24/16 05:35 09/24/16 05:35 INR, PTT INR 1.60 (0.82-1.09) H 09/24/16 05:35 - Neuro Exam Level Of Consciousness: Yes: Oriented to Person Eyes: Yes: PERRLA Speech: Broca's Aphasia Dominant Hand: Right Cranial Nerves II-XII Intact: No (right dense hemiplegia, slurred speech dysarthria, expressive aphasi.facial droop) Babinski: Absent Response to light touch: Abnormal Response to pain prick: Abnormal Response to temperature: Abnormal Coordination: Normal: Finger to Nose Motor Strength: 0/5: Right Arm, 1/5: Right Leg, 5/5: Left Arm, Left Leg Gait: Ataxia, Deferred Assessment/Plan 86 year old male, with a significant past medical history of AFib(on coumadin and aspirin), CAD, MD (stents), CHF, ulcerative colitis(total colectomy and ileostomy), kidney stones, HTN, HLD, anxiety, and depression, was admitted yesterday for sudden right side weakness. Last time the patient was seen awake and fully oriented was at 14:00 before he went to take a nap. EMS states when the patient awoke he experienced slurred speech, left sided facial droop, and right sided hemiplegia. The family reports the patient is normally able to ambulate on his own and is verbally responsive. The patient is on a pacemaker/ defibrillator. EMS states, the family reports the patient defibrillator fired off 2 times within the past 2 weeks, and is usually seen at [place] for this. The patient's INR was 1.6 in ED. The patient was not a candidate for ivtpa as he was outside of the window . LSN was 2pm. Impression: acute ischemic stroke due to subtherapeutic coumadin INR 1.6 Plan: - MRI brain stroke protocol, MRA head and neck - coumadin, ASA, statin, DVT prophylaxis - PT/OT/ST - rehab consult. - echocardiogram, lipids profile, HbA1C - yasmeen thank you for this consult. will follow
--- NOTE | 2016-09-24 12:50 | CON.GU ---
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 Harp at [facility] who was adm w R sided weakness due to acute CVA. He was found to have elevated post void residual and hospitalist was unable to insert franklin and cons req. He is now voiding w/o issues. - History Source History Provided By: Family Member, Medical Record Limitations to Obtaining History: No Limitations - Past Medical History Cardio/Vascular: Yes: AFIB, CAD, CHF, [place] Gastrointestinal: Yes: GERD, Inflamatory Bowel Disease - Past Surgical History Past Surgical History: Yes: Colectomy, Nephrectomy (Right ), Permanent Pacemaker , Stent - Alcohol/Substance Use Hx Alcohol Use: No - Smoking History Smoking history: Former smoker Have you smoked in the past 12 months: No Aproximately how many cigarettes per day: 0 If you are a former smoker, when did you quit?: 1972 Home Medications - Allergies Allergies/Adverse Reactions: Allergies Allergy/AdvReac Type Severity Reaction Status Date / Time azithromycin [From Zithromax] AdvReac Mild Vomiting Verified 09/23/16 19:53 codeine [Codeine] AdvReac Mild Verified 09/23/16 19:53 dust Allergy Severe Itching Uncoded 09/23/16 19:53 - Home Medications Home Medications: Ambulatory Orders Aspirin Coated [Ecotrin -] 81 mg PO DAILY 12/12/13 Furosemide [Lasix -] 20 mg PO DAILY 12/12/13 Simvastatin [Zocor -] 20 mg PO HS 12/12/13 Dicyclomine HCl [Bentyl] 20 mg PO DAILY 12/20/14 Spironolactone 25 mg PO DAILY 01/13/15 Venlafaxine HCl ER [Effexor Xr -] 37.5 mg PO BID 01/13/15 Warfarin Sodium [Coumadin] 5 mg PO MOWEFRSA 01/13/15 Cholestyramine (with Sugar) [Cholestyramine Powder] 378 gm PO BID 03/17/16 Vitamin B Complex [B Complex] 1 each PO DAILY 03/17/16 Tamsulosin HCl [Flomax] 0.4 mg PO DAILY 08/03/16 Metoprolol Succinate [Toprol XL -] 25 mg PO BID #30 tab.sr.24h 08/26/16 Acetaminophen [Tylenol -] 500 mg PO Q4H PRN 09/23/16 Alprazolam [Alprazolam Xr] 0.5 mg PO BID 09/23/16 Amiodarone HCl 200 mg PO DAILY 09/23/16 Cholecalciferol (Vitamin D3) [Vitamin D3 -] 400 unit PO DAILY 09/23/16 Warfarin Sodium [Coumadin] 2.5 mg PO SUTUTH 09/23/16 Review of Systems - Review of Systems Genitourinary: reports: No Symptoms Physical Exam- Vital Signs: Vital Signs Temperature 97.6 F 09/24/16 06:00 Pulse Rate 70 09/24/16 06:00 Respiratory Rate 18 09/24/16 06:00 Blood Pressure 150/80 09/24/16 06:00 O2 Sat by Pulse Oximetry (%) 94 L 09/23/16 23:45 Renal/: No: Bladder Distention Labs: CBC, BMP 09/24/16 05:35 09/24/16 05:35 Assessment/Plan Imp: acute CVA, afib on anticoagulation, incomplete bladder emptying, BPH, hx of urethral stricture. Rec: pt appears to be voiding adequately now. I will attempt gentle urethral dilation w filliforms and followers however this may cause hematuria in this pt on coumadin.
--- NOTE | 2016-09-24 13:48 | CONS ---
DATE OF CONSULTATION: 09/24/2016 TIME OF CONSULTATION: 12:05 p.m. REQUESTING PHYSICIAN: Douglas Love MD CHIEF COMPLAINT: Right hemiplegia associated with speech abnormalities. HISTORY: The patient is an 86-year-old white gentleman with longstanding history of coronary artery disease status post anterior wall myocardial infarction status post PCI/stenting, severe left ventricular systolic dysfunction, status post ICD/CRP, history of paroxysmal atrial fibrillation, hypertension, hyperlipidemia, history of TIA, status post ileostomy following total colectomy for colitis, recent history of ICD discharges due to underlying narrow-complex tachycardia. The patient was brought to the emergency room with sudden onset of right hemiplegia and speech disturbance. No history of fall or loss of consciousness. No history of chest pain or discomfort. No history of recurrence of palpitations. No history of ICD discharges. No history of recent lightheadedness, dizziness, or syncope. PAST HISTORY: As mentioned in the history of present illness. PAST SURGICAL HISTORY: History of green light laser for BPH. Status post total colectomy and ileostomy. Status post surgery on the arm for fracture site uncertain. SOCIAL HISTORY: . Presently there is no history of smoking or ethanol use. No history of excessive use of caffeine. FAMILY HISTORY: Not available. ALLERGIES: Intolerance to CODEINE, DUST, and AZITHROMYCIN. CURRENT MEDICATIONS: As follows: 1. Flomax 0.4 mg p.o. daily. 2. Amiodarone 200 mg p.o. daily. 3. Warfarin dose to be adjusted according to INR. 4. Effexor 37.5 mg b.i.d. 5. Bentyl 20 mg p.o. daily. 6. Xanax 0.5 mg b.i.d. 7. Toprol XL 25 mg p.o. b.i.d. 8. Cholestyramine 8 g p.o. b.i.d. 9. Lipitor 10 mg p.o. daily. 10. Lasix 20 mg p.o. daily. 11. Spironolactone 25 mg p.o. daily. 12. Aspirin 81 mg p.o. daily. 13. Multivitamin 1 p.o. daily. 14. Vitamin D3 take 400 international units p.o. daily. REVIEW OF SYSTEMS: Constitutional: No history of chills, fever, or night sweats available. HEENT: No known history of headaches, visual disturbances, epistaxis, hoarseness, tinnitus, or deafness. Cardiovascular: See history of present illness. Respiratory: No history of cough, expectoration, or hemoptysis reported. Gastrointestinal: See history of present illness. No history of nausea, vomiting, melena, or hemoptysis. Musculoskeletal: No history of myalgias or arthralgias. Neurologic: See history of present illness. No history of seizures. Endocrine: No history of polyuria or polydipsia reported. No history of intolerance to cold or warm weather. PHYSICAL EXAMINATION: General: An 86-year-old gentleman who is lethargic who was dysarthric and has expressive aphasia. There is no pallor, cyanosis, clubbing, or jaundice. Vital Signs: Weight 163.2 pounds, blood pressure 150/18 mmHg, pulse 70 beats per minute and regular, respirations 18 per minute, temperature 97.6 degrees Fahrenheit, oxygen saturation 94% on room air. Neck: Supple. No jugular venous distention. Carotids are equal. Upstrokes are normal. No clear cut bruits are heard. No thyromegaly is present. Heart: PMI is in the 5th intercostal space. No heaves or thrills. S1, S2 are normal. Grade 1/6 apical systolic murmur is heard. No diastolic murmur or gallops are heard. Lungs: Clear on auscultation. Abdomen: Soft, nontender. No hepatosplenomegaly is appreciated. There is a functioning ileostomy and well-healed surgical scar. Bowel sounds are present. Extremities: No calf tenderness or dependent edema. Pulses are equal. LABORATORY DATA: September 24, 2016: WBC count 5800, hemoglobin 11.8 g/dL, platelet count 127,000. Normal differential. Sodium 141, potassium 4.2, chloride 109, CO2 is 22 mmol/L, BUN 21, creatinine 1.3 mg/dL. Creatinine on September 23, 2016 was 1.7 and BUN 25. Random glucose 102 mg/dL. Normal liver function tests. Troponin 0.02, total cholesterol 120, triglycerides 120, LDL cholesterol 60, HDL cholesterol 48. ECG September 23, 2016 revealed AV sequential pacemaker to be functioning appropriately with consistent capture. CT scan on September 23, 2016: Impression: No gross, acute intracranial pathologies identified. There is suggestion of interval mild ectasia aneurysmal dilation of the right carotid artery when compared to the left. X-ray chest portable since prior x-ray chest dated August 24, 2016 there remains mild cardiomegaly with unfolding of the aortic aneurysm, left-sided pacer with 2 leads again seen. Lung is clear. IMPRESSION: 1. Acute cerebrovascular accident with right hemiplegia and expressive aphasia. Etiology to be determined. 2. Paroxysmal atrial fibrillation. 3. Status post anterior wall myocardial infarction status post percutaneous coronary intervention/stenting. 4. Severe left ventricular systolic dysfunction. 5. Status post implantable cardioverter-defibrillator and cardiac resynchronization therapy. 6. Status post implantable cardioverter-defibrillator discharge for narrow-complex tachycardia. 7. Hypertension, hypertensive cardiovascular disease, currently normotensive. 8. History of colitis status post total colectomy and ileostomy. 9. Hyperlipidemia. 10. History of depression and anxiety disorder. 11. History of transient ischemic attack. RECOMMENDATIONS: 1. Follow up CT of the head. 2. Continue current cardiac therapy. 3. Follow up CBC and platelet count. 4. Maintain INR in therapeutic range. If necessary, short-term use of heparin provided. Neurologist concurs. 5. Amiodarone level. 6. Neurologic evaluation is pending. 7. Pacemaker interrogation. 8. Carotid Doppler. 9. T3, T4, TSH. PROGNOSIS: Critical. Thank you for your referral. Yours sincerely, IDALIA DAWN M.D. [id number]
[2016-09-24] MEDS ORDERED: PT OWN MED DRAWER 7, Y5N ONE (14:15)
[2016-09-24] MEDS: TAMSULOSIN HCL 0.4 MG CAP.ER.24H (FP) PO SCH (14:16)
[2016-09-24] MEDS: AMIODARONE HCL 200 MG TABLET (FP) PO SCH (14:16)
--- NOTE | 2016-09-24 14:16 | PROC ---
Procedure Note Procedure: urethral dilation w filliforms and followers and w guidewire and Henok dilators unsuccessful due to urethral stricture at bulbar area. Pt voided spontaneously without difficulty and his bladder is not distended. He denies suprapubic discomfort. Will observe voiding pattern and start bactrim ds. If he is unable to void he will need cystoscopy, internal urethrotomy and franklin cath insertion however this is risky while on coumadin and immediately after acute CVA.
[2016-09-24] MEDS: CHOLECALCIFEROL (VITAMIN D3) 400 UNIT TABLET (FP) PO SCH (14:17)
[2016-09-24] MEDS: VENLAFAXINE HCL 37.5 MG TABLET PO SCH ×2 (14:17→22:30)
[2016-09-24] MEDS: ASPIRIN 81 MG CHEWABLE TABLETS PO SCH (14:18)
[2016-09-24] MEDS: METOPROLOL SUCCINATE 25 MG TAB.SR.24H (FP) PO SCH ×2 (14:18→22:30)
[2016-09-24] MEDS: SPIRONOLACTONE 25 MG TABLET (FP) PO SCH (14:24)
[2016-09-24] MEDS: FUROSEMIDE 20 MG TABLET (FP) PO SCH (14:24)
[2016-09-24] MEDS: VITAMIN B COMPLEX W/C COMBO TABLET (FP) PO SCH (17:55)
[2016-09-24] MEDS: DICYCLOMINE HCL 20 MG TABLET PO SCH (17:55)
[2016-09-24] MEDS: WARFARIN NA 5 MG TABLET (UD) PO SCH (17:56)
[2016-09-24] MEDS ORDERED: WARFARIN NA 2 MG TABLET (UD) PO ONE (18:00)
[2016-09-24] MEDS: ALPRAZolam 0.25 MG TABLET PO SCH (22:30)
[2016-09-24] MEDS: SODIUM CHLORIDE 1,000 ML IV SCH (22:30)
[2016-09-24] MEDS: ATORVASTATIN CA 10 MG TABLET (FP) PO SCH (22:30)
[2016-09-24] MEDS: SULFAMETHOXAZOLE/TRIMETHOPRIM 800MG/160MG D.S. TABLET PO SCH (22:30)
--- NOTE | 2016-09-25 08:21 | PN ---
Progress Note (short form) - Note Progress Note: F/U Pt w/o c/o, speaking more clearly today, denies difficulty voiding or SP pain. VSS afeb abd= soft NT, no palpable bladder Imp: acute CVA, afib on coumadin, urethral stricture, incomplete bladder emptying Rec: cont to observe voiding pattern. Cystoscopy and internal urethrotomy after medically cleared and off anticoagulation.
--- NOTE | 2016-09-25 09:23 | PN ---
Progress Note, Physician Chief Complaint: Rt side weakness History of Present Illness: Admitted with Rt hemiplegia - Current Medication List Current Medications: Active Medications Alprazolam (Xanax -) 0.5 mg PO BID [facility] Last Admin: 09/24/16 22:30 Dose: 0.5 mg Amiodarone HCl (Cordarone -) 200 mg PO DAILY [facility] Last Admin: 09/24/16 14:16 Dose: 200 mg Aspirin (Asa -) 81 mg PO DAILY [facility] Last Admin: 09/24/16 14:18 Dose: 81 mg Atorvastatin Calcium (Lipitor -) 10 mg PO HS [facility] Last Admin: 09/24/16 22:30 Dose: 10 mg Cholecalciferol (Vitamin D3 -) 400 unit PO DAILY [facility] Last Admin: 09/24/16 14:17 Dose: 400 unit Cholestyramine Resin (Questran Light Packet -) 8 gm PO BID [facility] Last Admin: 09/24/16 22:30 Dose: 8 gm Dicyclomine HCl (Bentyl -) 20 mg PO DAILY [facility] Last Admin: 09/24/16 17:55 Dose: 20 mg Furosemide (Lasix -) 20 mg PO DAILY [facility] Last Admin: 09/24/16 14:24 Dose: Not Given Sodium Chloride (Normal Saline -) 1,000 mls @ 42 mls/hr IV ASDIR [facility] Last Admin: 09/24/16 22:30 Dose: 42 mls/hr Metoprolol Succinate (Toprol Xl -) 25 mg PO BID [facility] Last Admin: 09/24/16 22:30 Dose: Not Given Multivitamins (Total B With C -) 1 each PO DAILY [facility] Last Admin: 09/24/16 17:55 Dose: 1 each Spironolactone (Aldactone -) 25 mg PO DAILY [facility] Last Admin: 09/24/16 14:24 Dose: Not Given Tamsulosin HCl (Flomax -) 0.4 mg PO DAILY@0830 [facility] Last Admin: 09/24/16 14:16 Dose: 0.4 mg Trimethoprim/Sulfamethoxazole (Bactrim Ds -) 1 each PO BID [facility] Last Admin: 09/24/16 22:30 Dose: 1 each Venlafaxine HCl (Effexor -) 37.5 mg PO BID [facility] Last Admin: 09/24/16 22:30 Dose: 37.5 mg Warfarin Sodium (Coumadin -) 2.5 mg PO SuTuTh@1800 [facility] Warfarin Sodium (Coumadin -) 5 mg PO MoWeFrSa@1800 [facility] Last Admin: 09/24/16 17:56 Dose: 5 mg - Objective Vital Signs: Vital Signs Temperature 97.4 F L 09/25/16 06:00 Pulse Rate 74 09/25/16 06:00 Respiratory Rate 18 09/25/16 06:00 Blood Pressure 120/54 09/25/16 06:00 O2 Sat by Pulse Oximetry (%) 96 09/24/16 22:00 Constitutional: Yes: No Distress Eyes: Yes: WNL HENT: Yes: WNL Neck: Yes: WNL Cardiovascular: Yes: Regular Rate and Rhythm Respiratory: Yes: Regular Gastrointestinal: Yes: Normal Bowel Sounds ...Rectal Exam: Yes: Deferred Genitourinary: Yes: WNL Neurological: Yes: Alert, Other (Rt hemiplegia) Labs: CBC, BMP 09/24/16 05:35 09/24/16 05:35 INR, PTT INR 1.60 (0.82-1.09) H 09/24/16 05:35
[2016-09-25] MEDS: METOPROLOL SUCCINATE 25 MG TAB.SR.24H (FP) PO SCH ×2 (10:33→21:38)
[2016-09-25] MEDS: ASPIRIN 81 MG CHEWABLE TABLETS PO SCH (10:34)
[2016-09-25] MEDS: FUROSEMIDE 20 MG TABLET (FP) PO SCH (10:34)
[2016-09-25] MEDS: SPIRONOLACTONE 25 MG TABLET (FP) PO SCH (10:34)
[2016-09-25] MEDS: CHOLECALCIFEROL (VITAMIN D3) 400 UNIT TABLET (FP) PO SCH (10:34)
[2016-09-25] MEDS: AMIODARONE HCL 200 MG TABLET (FP) PO SCH (10:35)
[2016-09-25] MEDS: VITAMIN B COMPLEX W/C COMBO TABLET (FP) PO SCH (10:35)
[2016-09-25] MEDS: DICYCLOMINE HCL 20 MG TABLET PO SCH (10:35)
[2016-09-25] MEDS: VENLAFAXINE HCL 37.5 MG TABLET PO SCH ×2 (10:35→21:38)
[2016-09-25] MEDS: ALPRAZolam 0.25 MG TABLET PO SCH ×2 (10:35→21:54)
[2016-09-25] MEDS: TAMSULOSIN HCL 0.4 MG CAP.ER.24H (FP) PO SCH (10:35)
[2016-09-25] MEDS: SULFAMETHOXAZOLE/TRIMETHOPRIM 800MG/160MG D.S. TABLET PO SCH ×2 (10:35→21:38)
[2016-09-25] MEDS: CHOLESTYRAMINE/ASPARTAME 4 GM PACKET PO SCH ×2 (10:48→21:38)
[2016-09-25] MEDS: WARFARIN NA 5 MG TABLET (UD) PO SCH (17:54)
[2016-09-25] MEDS ORDERED: PT OWN MED DRAWER 7, Y5N ONE (21:35)
[2016-09-25] MEDS: SODIUM CHLORIDE 1,000 ML IV SCH (21:38)
[2016-09-25] MEDS: ATORVASTATIN CA 10 MG TABLET (FP) PO SCH (21:38)
[2016-09-26 08:56] LABS: INR 2.47 (0.82-1.09); PROTHROMBIN TIME (PATIENT) 27.7 SEC (9.98-11.88)
--- NOTE | 2016-09-26 09:15 | PN ---
Progress Note, Physician History of Present Illness: Continued right-sided hemiparesis, facial droop and dysarthria. - Current Medication List Current Medications: Active Medications Alprazolam (Xanax -) 0.5 mg PO BID [facility] Last Admin: 09/25/16 21:54 Dose: Not Given Amiodarone HCl (Cordarone -) 200 mg PO DAILY [facility] Last Admin: 09/25/16 10:35 Dose: 200 mg Aspirin (Asa -) 81 mg PO DAILY [facility] Last Admin: 09/25/16 10:34 Dose: 81 mg Atorvastatin Calcium (Lipitor -) 10 mg PO HS [facility] Last Admin: 09/25/16 21:38 Dose: 10 mg Cholecalciferol (Vitamin D3 -) 400 unit PO DAILY [facility] Last Admin: 09/25/16 10:34 Dose: 400 unit Cholestyramine Resin (Questran Light Packet -) 8 gm PO BID [facility] Last Admin: 09/25/16 21:38 Dose: 8 gm Dicyclomine HCl (Bentyl -) 20 mg PO DAILY [facility] Last Admin: 09/25/16 10:35 Dose: 20 mg Furosemide (Lasix -) 20 mg PO DAILY [facility] Last Admin: 09/25/16 10:34 Dose: Not Given Sodium Chloride (Normal Saline -) 1,000 mls @ 42 mls/hr IV ASDIR [facility] Last Admin: 09/25/16 21:38 Dose: 42 mls/hr Metoprolol Succinate (Toprol Xl -) 25 mg PO BID [facility] Last Admin: 09/25/16 21:38 Dose: 25 mg Multivitamins (Total B With C -) 1 each PO DAILY [facility] Last Admin: 09/25/16 10:35 Dose: 1 each Spironolactone (Aldactone -) 25 mg PO DAILY [facility] Last Admin: 09/25/16 10:34 Dose: Not Given Tamsulosin HCl (Flomax -) 0.4 mg PO DAILY@0830 [facility] Last Admin: 09/25/16 10:35 Dose: 0.4 mg Trimethoprim/Sulfamethoxazole (Bactrim Ds -) 1 each PO BID [facility] Last Admin: 09/25/16 21:38 Dose: 1 each Venlafaxine HCl (Effexor -) 37.5 mg PO BID [facility] Last Admin: 09/25/16 21:38 Dose: 37.5 mg Warfarin Sodium (Coumadin -) 2.5 mg PO SuTuTh@1800 [facility] Warfarin Sodium (Coumadin -) 5 mg PO MoWeFrSa@1800 [facility] Last Admin: 09/25/16 17:54 Dose: 5 mg - Objective Vital Signs: Vital Signs Temperature 98.6 F 09/26/16 06:00 Pulse Rate 73 09/26/16 06:00 Respiratory Rate 18 09/26/16 06:00 Blood Pressure 141/77 09/26/16 06:00 O2 Sat by Pulse Oximetry (%) 95 09/25/16 20:58 Constitutional: Yes: No Distress, Calm Neck: Yes: Supple Cardiovascular: Yes: Regular Rate and Rhythm Respiratory: Yes: Regular, Diminished Gastrointestinal: Yes: Normal Bowel Sounds, Soft Edema: No Labs: CBC, BMP 09/24/16 05:35 09/24/16 05:35 INR, PTT INR 2.47 (0.82-1.09) H D 09/26/16 06:00 Problem List - Problems (1) Cerebrovascular accident (CVA) Code(s): I63.9 - CEREBRAL INFARCTION, UNSPECIFIED Qualifiers: CVA mechanism: embolism Precerebral and cerebral artery: middle cerebral artery, left Qualified Code(s): I63.412 - Cerebral infarction due to embolism of left middle cerebral artery (2) [id number] kidney injury Code(s): N17.9 - ACUTE KIDNEY FAILURE, UNSPECIFIED N18.9 - CHRONIC KIDNEY DISEASE, UNSPECIFIED (3) Coronary artery disease Code(s): I25.10 - ATHSCL HEART DISEASE OF [place] CORONARY ARTERY W/O ANG PCTRS Qualifiers: Coronary Disease-Associated Artery/Lesion type: [place] artery [place] vs. transplanted heart: [place] heart Associated angina: without angina Qualified Code(s): I25.10 - Atherosclerotic heart disease of [place] coronary artery without angina pectoris (4) Hyperlipidemia Code(s): E78.5 - HYPERLIPIDEMIA, UNSPECIFIED Qualifiers: Hyperlipidemia type: pure hypercholesterolemia Qualified Code(s): E78.0 - Pure hypercholesterolemia (5) Hypertensive cardiomegaly without heart failure Code(s): I11.9 - HYPERTENSIVE HEART DISEASE WITHOUT HEART FAILURE (6) Old anterior myocardial infarction Code(s): I25.2 - OLD MYOCARDIAL INFARCTION (7) Paroxysmal atrial fibrillation Code(s): I48.0 - PAROXYSMAL ATRIAL FIBRILLATION (8) S/P coronary angioplasty Code(s): Z98.61 - CORONARY ANGIOPLASTY STATUS (9) Systolic dysfunction without heart failure Code(s): I51.9 - HEART DISEASE, UNSPECIFIED (10) 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 Acute ischemic stroke with slurred speech, left sided facial droop, and right sided hemiplegia in context of subtherapeutic coumadin INR 1.6 2. Paroxysmal atrial fibrillation now with therapeutic INR 3. CAD s/p [place], s/p PCI (stent), angina pectoris 4. Severe LV systolic dysfunction 5. Sustained VT s/p TROLLEY CAR OPERATOR-D 6. HTN/HCVD 7. Hyperlipidemia 8. Urethral stricture unsuccessful dilatation trial recommended for eventual cystoscopy and internal urethrotomy 9. Acute on CKD improved P:1. Dose coumadin per INR 2-3, ASA 81 qd, continue Amio 200 qd, Lipitor 10 qhs , Questran 8 bid, Lasix 20 qd, Toprol 25 bid, Aldactone 25 qd 2. Placed on Bactrim per urology 3. MRI brain stroke protocol, MRA head and neck, echocardiogram, lipids profile , HbA1C 4. PT/OT/ST, rehab
[2016-09-26] MEDS ORDERED: PT OWN MED DRAWER 7, Y5N ONE ×2 (09:58→21:56)
[2016-09-26] MEDS: SULFAMETHOXAZOLE/TRIMETHOPRIM 800MG/160MG D.S. TABLET PO SCH ×2 (10:15→21:56)
[2016-09-26] MEDS: CHOLECALCIFEROL (VITAMIN D3) 400 UNIT TABLET (FP) PO SCH (10:15)
[2016-09-26] MEDS: ASPIRIN 81 MG CHEWABLE TABLETS PO SCH (10:16)
[2016-09-26] MEDS: ALPRAZolam 0.25 MG TABLET PO SCH ×2 (10:16→22:03)
[2016-09-26] MEDS: VITAMIN B COMPLEX W/C COMBO TABLET (FP) PO SCH (10:16)
[2016-09-26] MEDS: AMIODARONE HCL 200 MG TABLET (FP) PO SCH (10:16)
[2016-09-26] MEDS: VENLAFAXINE HCL 37.5 MG TABLET PO SCH ×2 (10:16→21:56)
[2016-09-26] MEDS: METOPROLOL SUCCINATE 25 MG TAB.SR.24H (FP) PO SCH ×2 (10:16→21:56)
[2016-09-26] MEDS: TAMSULOSIN HCL 0.4 MG CAP.ER.24H (FP) PO SCH (10:16)
[2016-09-26] MEDS: DICYCLOMINE HCL 20 MG TABLET PO SCH (10:17)
[2016-09-26] MEDS: SPIRONOLACTONE 25 MG TABLET (FP) PO SCH (10:17)
[2016-09-26] MEDS: FUROSEMIDE 20 MG TABLET (FP) PO SCH (10:17)
[2016-09-26] MEDS: CHOLESTYRAMINE/ASPARTAME 4 GM PACKET PO SCH ×2 (10:17→21:56)
--- NOTE | 2016-09-26 12:07 | PN ---
Progress Note, Physician History of Present Illness: Rt hemiparesis and dysarthria persists - Current Medication List Current Medications: Active Medications Alprazolam (Xanax -) 0.5 mg PO BID [facility] Last Admin: 09/26/16 10:16 Dose: 0.5 mg Amiodarone HCl (Cordarone -) 200 mg PO DAILY [facility] Last Admin: 09/26/16 10:16 Dose: 200 mg Aspirin (Asa -) 81 mg PO DAILY [facility] Last Admin: 09/26/16 10:16 Dose: 81 mg Atorvastatin Calcium (Lipitor -) 10 mg PO HS [facility] Last Admin: 09/25/16 21:38 Dose: 10 mg Cholecalciferol (Vitamin D3 -) 400 unit PO DAILY [facility] Last Admin: 09/26/16 10:15 Dose: 400 unit Cholestyramine Resin (Questran Light Packet -) 8 gm PO BID [facility] Last Admin: 09/26/16 10:17 Dose: 8 gm Dicyclomine HCl (Bentyl -) 20 mg PO DAILY [facility] Last Admin: 09/26/16 10:17 Dose: 20 mg Furosemide (Lasix -) 20 mg PO DAILY [facility] Last Admin: 09/26/16 10:17 Dose: Not Given Sodium Chloride (Normal Saline -) 1,000 mls @ 42 mls/hr IV ASDIR [facility] Last Admin: 09/25/16 21:38 Dose: 42 mls/hr Metoprolol Succinate (Toprol Xl -) 25 mg PO BID [facility] Last Admin: 09/26/16 10:16 Dose: Not Given Multivitamins (Total B With C -) 1 each PO DAILY [facility] Last Admin: 09/26/16 10:16 Dose: 1 each Spironolactone (Aldactone -) 25 mg PO DAILY [facility] Last Admin: 09/26/16 10:17 Dose: Not Given Tamsulosin HCl (Flomax -) 0.4 mg PO DAILY@0830 [facility] Last Admin: 09/26/16 10:16 Dose: 0.4 mg Trimethoprim/Sulfamethoxazole (Bactrim Ds -) 1 each PO BID [facility] Last Admin: 09/26/16 10:15 Dose: 1 each Venlafaxine HCl (Effexor -) 37.5 mg PO BID [facility] Last Admin: 09/26/16 10:16 Dose: 37.5 mg Warfarin Sodium (Coumadin -) 2.5 mg PO SuTuTh@1800 [facility] Warfarin Sodium (Coumadin -) 5 mg PO MoWeFrSa@1800 [facility] Last Admin: 09/25/16 17:54 Dose: 5 mg - Objective Vital Signs: Vital Signs Temperature 98.7 F 09/26/16 10:15 Pulse Rate 81 09/26/16 10:15 Respiratory Rate 20 09/26/16 10:15 Blood Pressure 129/76 09/26/16 10:15 O2 Sat by Pulse Oximetry (%) 95 09/25/16 20:58 Constitutional: Yes: No Distress Eyes: Yes: WNL HENT: Yes: WNL Neck: Yes: WNL Cardiovascular: Yes: WNL Respiratory: Yes: Regular Gastrointestinal: Yes: WNL ...Rectal Exam: Yes: Deferred Genitourinary: Yes: Pandya Present Breast(s): Yes: WNL Edema: No Neurological: Yes: Other (Rt hemiparesis persists) Labs: CBC, BMP 09/24/16 05:35 09/24/16 05:35 INR, PTT INR 2.47 (0.82-1.09) H D 09/26/16 06:00 Assessment/Plan INR 2.6 continue same dose of coumadin DC iv fluids
[2016-09-26] MEDS: WARFARIN NA 2.5 MG TABLET (FP) PO SCH (18:14)
[2016-09-26] MEDS: ATORVASTATIN CA 10 MG TABLET (FP) PO SCH (21:56)
[2016-09-27 07:52] LABS: INR 2.77 (0.82-1.09); PROTHROMBIN TIME (PATIENT) 31.1 SEC (9.98-11.88)
[2016-09-27] MEDS: ASPIRIN 81 MG CHEWABLE TABLETS PO SCH (09:43)
[2016-09-27] MEDS: ALPRAZolam 0.25 MG TABLET PO SCH ×2 (09:43→21:37)
[2016-09-27] MEDS: FUROSEMIDE 20 MG TABLET (FP) PO SCH (09:43)
[2016-09-27] MEDS: METOPROLOL SUCCINATE 25 MG TAB.SR.24H (FP) PO SCH ×2 (09:43→21:37)
[2016-09-27] MEDS: CHOLECALCIFEROL (VITAMIN D3) 400 UNIT TABLET (FP) PO SCH (09:43)
[2016-09-27] MEDS: SPIRONOLACTONE 25 MG TABLET (FP) PO SCH (09:43)
[2016-09-27] MEDS: SULFAMETHOXAZOLE/TRIMETHOPRIM 800MG/160MG D.S. TABLET PO SCH ×2 (09:43→21:37)
[2016-09-27] MEDS: VITAMIN B COMPLEX W/C COMBO TABLET (FP) PO SCH (09:44)
[2016-09-27] MEDS: AMIODARONE HCL 200 MG TABLET (FP) PO SCH (09:44)
[2016-09-27] MEDS: CHOLESTYRAMINE/ASPARTAME 4 GM PACKET PO SCH ×2 (09:45→21:37)
[2016-09-27] MEDS: VENLAFAXINE HCL 37.5 MG TABLET PO SCH ×2 (09:45→21:37)
[2016-09-27] MEDS: DICYCLOMINE HCL 20 MG TABLET PO SCH (09:45)
[2016-09-27] MEDS: TAMSULOSIN HCL 0.4 MG CAP.ER.24H (FP) PO SCH (10:34)
--- NOTE | 2016-09-27 10:39 | PN ---
Progress Note, Physician Chief Complaint: Right sided hemiparesis and dysarthria History of Present Illness: Patient was seen and examined. Awake and alert. Chart was reviewed Above events noted Denies chest pain or SOB - Current Medication List Current Medications: Active Medications Alprazolam (Xanax -) 0.5 mg PO BID [facility] Last Admin: 09/27/16 09:43 Dose: 0.5 mg Amiodarone HCl (Cordarone -) 200 mg PO DAILY [facility] Last Admin: 09/27/16 09:44 Dose: 200 mg Aspirin (Asa -) 81 mg PO DAILY [facility] Last Admin: 09/27/16 09:43 Dose: 81 mg Atorvastatin Calcium (Lipitor -) 10 mg PO HS [facility] Last Admin: 09/26/16 21:56 Dose: 10 mg Cholecalciferol (Vitamin D3 -) 400 unit PO DAILY [facility] Last Admin: 09/27/16 09:43 Dose: 400 unit Cholestyramine Resin (Questran Light Packet -) 8 gm PO BID [facility] Last Admin: 09/27/16 09:45 Dose: 8 gm Dicyclomine HCl (Bentyl -) 20 mg PO DAILY [facility] Last Admin: 09/27/16 09:45 Dose: 20 mg Furosemide (Lasix -) 20 mg PO DAILY [facility] Last Admin: 09/27/16 09:43 Dose: 20 mg Metoprolol Succinate (Toprol Xl -) 25 mg PO BID [facility] Last Admin: 09/27/16 09:43 Dose: 25 mg Multivitamins (Total B With C -) 1 each PO DAILY [facility] Last Admin: 09/27/16 09:44 Dose: 1 each Spironolactone (Aldactone -) 25 mg PO DAILY [facility] Last Admin: 09/27/16 09:43 Dose: 25 mg Tamsulosin HCl (Flomax -) 0.4 mg PO DAILY@0830 [facility] Last Admin: 09/27/16 10:34 Dose: 0.4 mg Trimethoprim/Sulfamethoxazole (Bactrim Ds -) 1 each PO BID [facility] Last Admin: 09/27/16 09:43 Dose: 1 each Venlafaxine HCl (Effexor -) 37.5 mg PO BID [facility] Last Admin: 09/27/16 09:45 Dose: 37.5 mg Warfarin Sodium (Coumadin -) 2.5 mg PO SuTuTh@1800 [facility] Last Admin: 09/26/16 18:14 Dose: 2.5 mg Warfarin Sodium (Coumadin -) 5 mg PO MoWeFrSa@1800 [facility] Last Admin: 09/25/16 17:54 Dose: 5 mg - Objective Vital Signs: Vital Signs Temperature 98.7 F 09/27/16 05:59 Pulse Rate 76 09/27/16 05:59 Respiratory Rate 18 09/27/16 05:59 Blood Pressure 158/88 09/27/16 05:59 O2 Sat by Pulse Oximetry (%) 94 L 09/26/16 20:44 Neck: Yes: Supple Cardiovascular: Yes: Regular Rate and Rhythm, S1, S2 Respiratory: Yes: CTA Bilaterally Gastrointestinal: Yes: Normal Bowel Sounds, Soft. No: Tenderness Edema: No Labs: INR, PTT INR 2.77 (0.82-1.09) H 09/27/16 06:20 Assessment/Plan 1. Acute ischemic stroke with slurred speech, left sided facial droop and right sided hemiplegia in context of subtherapeutic INR 2. Paroxysmal atrial fibrillation 3. CAD s/p [place], s/p PCI (stent), angina pectoris 4. Severe LV systolic dysfunction 5. Sustained VT s/p PETROLEUM BLENDING PLANT OPERATOR-D 6. HTN/HCVD 7. Hyperlipidemia 8. Urethral stricture unsuccessful dilatation 9. Acute on CKD improved PLAN: 1. Continue coumadin and to keep INR 2-3, ASA 81 mg QD, Amiodarone 200 mg QD, Lipitor 10 mg QHS, Lasix 20 mg QD, Toprol 25 mg BID and Aldactone 25 mg QD 2. Antibiotics 3. Transthoracic echocardiography 4. Neuro evaluation in progress 5. PT and rehab eventually Further plans are to follow Alberto Cabral MD
--- NOTE | 2016-09-27 14:49 | PN ---
Progress Note, Physician History of Present Illness: 86 yo admitted with acute infarct with stroke care and evaluation done by Dr Martin Today the patient is alert with dysarthria but no obvious aphasia. There is a dense right side hemiplegia and he is oriented to place and date Acute cerebral infarction Suggest rehab when medically stable for transfer. - Current Medication List Current Medications: Active Medications Alprazolam (Xanax -) 0.5 mg PO BID [facility] Last Admin: 09/27/16 09:43 Dose: 0.5 mg Amiodarone HCl (Cordarone -) 200 mg PO DAILY [facility] Last Admin: 09/27/16 09:44 Dose: 200 mg Aspirin (Asa -) 81 mg PO DAILY [facility] Last Admin: 09/27/16 09:43 Dose: 81 mg Atorvastatin Calcium (Lipitor -) 10 mg PO HS [facility] Last Admin: 09/26/16 21:56 Dose: 10 mg Cholecalciferol (Vitamin D3 -) 400 unit PO DAILY [facility] Last Admin: 09/27/16 09:43 Dose: 400 unit Cholestyramine Resin (Questran Light Packet -) 8 gm PO BID [facility] Last Admin: 09/27/16 09:45 Dose: 8 gm Dicyclomine HCl (Bentyl -) 20 mg PO DAILY [facility] Last Admin: 09/27/16 09:45 Dose: 20 mg Furosemide (Lasix -) 20 mg PO DAILY [facility] Last Admin: 09/27/16 09:43 Dose: 20 mg Metoprolol Succinate (Toprol Xl -) 25 mg PO BID [facility] Last Admin: 09/27/16 09:43 Dose: 25 mg Multivitamins (Total B With C -) 1 each PO DAILY [facility] Last Admin: 09/27/16 09:44 Dose: 1 each Spironolactone (Aldactone -) 25 mg PO DAILY [facility] Last Admin: 09/27/16 09:43 Dose: 25 mg Tamsulosin HCl (Flomax -) 0.4 mg PO DAILY@0830 [facility] Last Admin: 09/27/16 10:34 Dose: 0.4 mg Trimethoprim/Sulfamethoxazole (Bactrim Ds -) 1 each PO BID [facility] Last Admin: 09/27/16 09:43 Dose: 1 each Venlafaxine HCl (Effexor -) 37.5 mg PO BID [facility] Last Admin: 09/27/16 09:45 Dose: 37.5 mg Warfarin Sodium (Coumadin -) 2.5 mg PO SuTuTh@1800 [facility] Last Admin: 09/26/16 18:14 Dose: 2.5 mg Warfarin Sodium (Coumadin -) 5 mg PO MoWeFrSa@1800 [facility] Last Admin: 09/25/16 17:54 Dose: 5 mg - Objective Vital Signs: Vital Signs Temperature 98.7 F 09/27/16 05:59 Pulse Rate 76 09/27/16 05:59 Respiratory Rate 18 09/27/16 10:00 Blood Pressure 158/88 09/27/16 05:59 O2 Sat by Pulse Oximetry (%) 94 L 09/27/16 10:00 Labs: CBC, BMP 09/24/16 05:35 09/24/16 05:35 INR, PTT INR 2.77 (0.82-1.09) H 09/27/16 06:20
[2016-09-27] MEDS: WARFARIN NA 5 MG TABLET (UD) PO SCH (17:28)
[2016-09-27] MEDS: ATORVASTATIN CA 10 MG TABLET (FP) PO SCH (21:37)
--- NOTE | 2016-09-28 06:57 | PN ---
Progress Note (short form) - Note Progress Note: Chief Complaint: Events noted, notes reviewed, awake and alert, right sided hemiparesis and dysarthria is persistent, in acute distress History of Present Illness: Seen and examined on telemetry. Events noted, notes reviewed, awake and alert, right sided hemiparesis and dysarthria is persistent, in acute distress - Current Medication List Current Medications Alprazolam (Xanax -) 0.5 mg PO BID [facility] Last Admin: 09/27/16 21:37 Dose: 0.5 mg Amiodarone HCl (Cordarone -) 200 mg PO DAILY [facility] Last Admin: 09/27/16 09:44 Dose: 200 mg Aspirin (Asa -) 81 mg PO DAILY [facility] Last Admin: 09/27/16 09:43 Dose: 81 mg Atorvastatin Calcium (Lipitor -) 10 mg PO HS [facility] Last Admin: 09/27/16 21:37 Dose: 10 mg Cholecalciferol (Vitamin D3 -) 400 unit PO DAILY [facility] Last Admin: 09/27/16 09:43 Dose: 400 unit Cholestyramine Resin (Questran Light Packet -) 8 gm PO BID [facility] Last Admin: 09/27/16 21:37 Dose: 8 gm Dicyclomine HCl (Bentyl -) 20 mg PO DAILY [facility] Last Admin: 09/27/16 09:45 Dose: 20 mg Furosemide (Lasix -) 20 mg PO DAILY [facility] Last Admin: 09/27/16 09:43 Dose: 20 mg Metoprolol Succinate (Toprol Xl -) 25 mg PO BID [facility] Last Admin: 09/27/16 21:37 Dose: 25 mg Multivitamins (Total B With C -) 1 each PO DAILY [facility] Last Admin: 09/27/16 09:44 Dose: 1 each Spironolactone (Aldactone -) 25 mg PO DAILY [facility] Last Admin: 09/27/16 09:43 Dose: 25 mg Tamsulosin HCl (Flomax -) 0.4 mg PO DAILY@0830 [facility] Last Admin: 09/27/16 10:34 Dose: 0.4 mg Trimethoprim/Sulfamethoxazole (Bactrim Ds -) 1 each PO BID [facility] Last Admin: 09/27/16 21:37 Dose: 1 each Venlafaxine HCl (Effexor -) 37.5 mg PO BID [facility] Last Admin: 09/27/16 21:37 Dose: 37.5 mg Warfarin Sodium (Coumadin -) 2.5 mg PO SuTuTh@1800 [facility] Last Admin: 09/26/16 18:14 Dose: 2.5 mg Warfarin Sodium (Coumadin -) 5 mg PO MoWeFrSa@1800 [facility] Last Admin: 09/27/16 17:28 Dose: 5 mg Review of Systems: Unable to obtain, related to to the above noted dysarthria - Objective Vital Signs: Last Vital Signs Temp Pulse Resp BP Pulse Ox 97.5 F L 82 18 151/82 94 L 09/28/16 06:00 09/28/16 06:00 09/28/16 06:00 09/28/16 06:00 09/27/16 21:00 Neck: Supple Negative JVD No Bruit Cardiovascular: S1 S2 Regular Rate and Rhythm2 Respiratory: Clear to A&P Bilaterally Gastrointestinal: Soft Benign Normal Bowel Sounds Ext: No Edema Labs: CBC, BMP 09/24/16 05:35 09/24/16 05:35 INR, PTT INR 2.77 (0.82-1.09) H 09/27/16 06:20 Assessment/Plan ASSESSMENT: 1. Acute ischemic stroke with residual deficit in context of sub-therapeutic INR 2. Paroxysmal atrial fibrillation [id number] score of 6 3. CAD post CO/PCI (stent), angina pectoris 4. Severe LV systolic dysfunction with chronic class I-II NYHA classification LV failure, compensated 5. Sustained VT post TECHNOLOGY SUPPORT ANALYST-D 6. HTN 7. Hyperlipidemia 8. Urethral stricture post unsuccessful dilatation 9. Acute on CKD PLAN: 1. Continue Coumadin with caution and maintain INR 2-3 2. Continue ASA 3. Continue Toprol XL 4. Continue Amiodarone 5. Continue Lipitor 6. Continue Lasix and Aldactone with close monitoring of renal function 7. Obtain echocardiogram 8. PT initiation Christine Isaac MD
[2016-09-28] MEDS ORDERED: PT OWN MED DRAWER 7, Y5N ONE ×2 (09:10→21:02)
[2016-09-28] MEDS: FUROSEMIDE 20 MG TABLET (FP) PO SCH (09:25)
[2016-09-28] MEDS: METOPROLOL SUCCINATE 25 MG TAB.SR.24H (FP) PO SCH ×2 (09:25→21:07)
[2016-09-28] MEDS: CHOLECALCIFEROL (VITAMIN D3) 400 UNIT TABLET (FP) PO SCH (09:25)
[2016-09-28] MEDS: VENLAFAXINE HCL 37.5 MG TABLET PO SCH ×2 (09:25→21:06)
[2016-09-28] MEDS: AMIODARONE HCL 200 MG TABLET (FP) PO SCH (09:25)
[2016-09-28] MEDS: ALPRAZolam 0.25 MG TABLET PO SCH ×2 (09:25→21:06)
[2016-09-28] MEDS: SPIRONOLACTONE 25 MG TABLET (FP) PO SCH (09:25)
[2016-09-28] MEDS: ASPIRIN 81 MG CHEWABLE TABLETS PO SCH (09:25)
[2016-09-28] MEDS: SULFAMETHOXAZOLE/TRIMETHOPRIM 800MG/160MG D.S. TABLET PO SCH ×2 (09:25→21:06)
[2016-09-28] MEDS: TAMSULOSIN HCL 0.4 MG CAP.ER.24H (FP) PO SCH (09:25)
[2016-09-28] MEDS: DICYCLOMINE HCL 20 MG TABLET PO SCH (09:27)
[2016-09-28] MEDS: CHOLESTYRAMINE/ASPARTAME 4 GM PACKET PO SCH ×2 (09:27→21:07)
--- NOTE | 2016-09-28 09:36 | PN ---
Progress Note, Physician History of Present Illness: CVA with Rt hemiplegia - Current Medication List Current Medications: Active Medications Alprazolam (Xanax -) 0.5 mg PO BID [facility] Last Admin: 09/27/16 21:37 Dose: 0.5 mg Amiodarone HCl (Cordarone -) 200 mg PO DAILY [facility] Last Admin: 09/27/16 09:44 Dose: 200 mg Aspirin (Asa -) 81 mg PO DAILY [facility] Last Admin: 09/27/16 09:43 Dose: 81 mg Atorvastatin Calcium (Lipitor -) 10 mg PO HS [facility] Last Admin: 09/27/16 21:37 Dose: 10 mg Cholecalciferol (Vitamin D3 -) 400 unit PO DAILY [facility] Last Admin: 09/27/16 09:43 Dose: 400 unit Cholestyramine Resin (Questran Light Packet -) 8 gm PO BID [facility] Last Admin: 09/27/16 21:37 Dose: 8 gm Dicyclomine HCl (Bentyl -) 20 mg PO DAILY [facility] Last Admin: 09/27/16 09:45 Dose: 20 mg Furosemide (Lasix -) 20 mg PO DAILY [facility] Last Admin: 09/27/16 09:43 Dose: 20 mg Metoprolol Succinate (Toprol Xl -) 25 mg PO BID [facility] Last Admin: 09/27/16 21:37 Dose: 25 mg Multivitamins (Total B With C -) 1 each PO DAILY [facility] Last Admin: 09/27/16 09:44 Dose: 1 each Spironolactone (Aldactone -) 25 mg PO DAILY [facility] Last Admin: 09/27/16 09:43 Dose: 25 mg Tamsulosin HCl (Flomax -) 0.4 mg PO DAILY@0830 [facility] Last Admin: 09/27/16 10:34 Dose: 0.4 mg Trimethoprim/Sulfamethoxazole (Bactrim Ds -) 1 each PO BID [facility] Last Admin: 09/27/16 21:37 Dose: 1 each Venlafaxine HCl (Effexor -) 37.5 mg PO BID [facility] Last Admin: 09/27/16 21:37 Dose: 37.5 mg Warfarin Sodium (Coumadin -) 2.5 mg PO SuTuTh@1800 [facility] Last Admin: 09/26/16 18:14 Dose: 2.5 mg Warfarin Sodium (Coumadin -) 5 mg PO MoWeFrSa@1800 [facility] Last Admin: 09/27/16 17:28 Dose: 5 mg - Objective Vital Signs: Vital Signs Temperature 97.5 F L 09/28/16 06:00 Pulse Rate 82 09/28/16 06:00 Respiratory Rate 18 09/28/16 06:00 Blood Pressure 151/82 09/28/16 06:00 O2 Sat by Pulse Oximetry (%) 94 L 09/27/16 21:00 Constitutional: Yes: Mild Distress Eyes: Yes: WNL HENT: Yes: WNL Neck: Yes: WNL Cardiovascular: Yes: Regular Rate and Rhythm Respiratory: Yes: Regular Gastrointestinal: Yes: Normal Bowel Sounds Genitourinary: Yes: WNL Peripheral Pulses WNL: Yes Neurological: Yes: Other (Rt hemiplegia) Labs: CBC, BMP 09/24/16 05:35 09/24/16 05:35 INR, PTT INR 2.77 (0.82-1.09) H 09/27/16 06:20
[2016-09-28] MEDS: VITAMIN B COMPLEX W/C COMBO TABLET (FP) PO SCH (09:37)
[2016-09-28] MEDS: WARFARIN NA 2.5 MG TABLET (FP) PO SCH (17:22)
[2016-09-28] MEDS: ATORVASTATIN CA 10 MG TABLET (FP) PO SCH (21:07)
--- NOTE | 2016-09-29 09:37 | PN ---
Progress Note, Physician History of Present Illness: CVA and ASHD - Current Medication List Current Medications: Active Medications Alprazolam (Xanax -) 0.5 mg PO BID [facility] Last Admin: 09/28/16 21:06 Dose: 0.5 mg Amiodarone HCl (Cordarone -) 200 mg PO DAILY [facility] Last Admin: 09/28/16 09:25 Dose: 200 mg Aspirin (Asa -) 81 mg PO DAILY [facility] Last Admin: 09/28/16 09:25 Dose: 81 mg Atorvastatin Calcium (Lipitor -) 10 mg PO HS [facility] Last Admin: 09/28/16 21:07 Dose: 10 mg Cholecalciferol (Vitamin D3 -) 400 unit PO DAILY [facility] Last Admin: 09/28/16 09:25 Dose: 400 unit Cholestyramine Resin (Questran Light Packet -) 8 gm PO BID [facility] Last Admin: 09/28/16 21:07 Dose: 8 gm Dicyclomine HCl (Bentyl -) 20 mg PO DAILY [facility] Last Admin: 09/28/16 09:27 Dose: 20 mg Furosemide (Lasix -) 20 mg PO DAILY [facility] Last Admin: 09/28/16 09:25 Dose: 20 mg Metoprolol Succinate (Toprol Xl -) 25 mg PO BID [facility] Last Admin: 09/28/16 21:07 Dose: 25 mg Multivitamins (Total B With C -) 1 each PO DAILY [facility] Last Admin: 09/28/16 09:37 Dose: 1 each Spironolactone (Aldactone -) 25 mg PO DAILY [facility] Last Admin: 09/28/16 09:25 Dose: 25 mg Tamsulosin HCl (Flomax -) 0.4 mg PO DAILY@0830 [facility] Last Admin: 09/28/16 09:25 Dose: 0.4 mg Trimethoprim/Sulfamethoxazole (Bactrim Ds -) 1 each PO BID [facility] Last Admin: 09/28/16 21:06 Dose: 1 each Venlafaxine HCl (Effexor -) 37.5 mg PO BID [facility] Last Admin: 09/28/16 21:06 Dose: 37.5 mg Warfarin Sodium (Coumadin -) 2.5 mg PO SuTuTh@1800 [facility] Last Admin: 09/28/16 17:22 Dose: 2.5 mg Warfarin Sodium (Coumadin -) 5 mg PO MoWeFrSa@1800 [facility] Last Admin: 09/27/16 17:28 Dose: 5 mg - Objective Vital Signs: Vital Signs Temperature 98.1 F 09/29/16 06:00 Pulse Rate 20 L 09/29/16 06:00 Respiratory Rate 20 09/29/16 06:00 Blood Pressure 155/89 09/29/16 06:00 O2 Sat by Pulse Oximetry (%) 94 L 09/28/16 21:00 Constitutional: Yes: Anxious Eyes: Yes: WNL HENT: Yes: WNL Neck: Yes: WNL Respiratory: Yes: Regular Gastrointestinal: Yes: Normal Bowel Sounds ...Rectal Exam: Yes: Deferred Genitourinary: Yes: WNL Edema: No Neurological: Yes: Other (Rt hemiplegia) Labs: CBC, BMP 09/24/16 05:35 09/24/16 05:35 INR, PTT INR 2.77 (0.82-1.09) H 09/27/16 06:20 Assessment/Plan SNF placement
[2016-09-29] MEDS ORDERED: PT OWN MED DRAWER 7, Y5N ONE ×3 (09:46→21:18)
[2016-09-29] MEDS: AMIODARONE HCL 200 MG TABLET (FP) PO SCH (10:09)
[2016-09-29] MEDS: DICYCLOMINE HCL 20 MG TABLET PO SCH (10:09)
[2016-09-29] MEDS: TAMSULOSIN HCL 0.4 MG CAP.ER.24H (FP) PO SCH (10:09)
[2016-09-29] MEDS: FUROSEMIDE 20 MG TABLET (FP) PO SCH (10:09)
[2016-09-29] MEDS: VENLAFAXINE HCL 37.5 MG TABLET PO SCH ×2 (10:09→21:20)
[2016-09-29] MEDS: SPIRONOLACTONE 25 MG TABLET (FP) PO SCH (10:09)
[2016-09-29] MEDS: CHOLESTYRAMINE/ASPARTAME 4 GM PACKET PO SCH ×2 (10:09→21:20)
[2016-09-29] MEDS: ASPIRIN 81 MG CHEWABLE TABLETS PO SCH (10:09)
[2016-09-29] MEDS: SULFAMETHOXAZOLE/TRIMETHOPRIM 800MG/160MG D.S. TABLET PO SCH ×2 (10:09→21:20)
[2016-09-29] MEDS: METOPROLOL SUCCINATE 25 MG TAB.SR.24H (FP) PO SCH ×2 (10:09→21:20)
[2016-09-29] MEDS: CHOLECALCIFEROL (VITAMIN D3) 400 UNIT TABLET (FP) PO SCH (10:09)
[2016-09-29] MEDS: VITAMIN B COMPLEX W/C COMBO TABLET (FP) PO SCH (10:09)
[2016-09-29] MEDS: ALPRAZolam 0.25 MG TABLET PO SCH ×2 (10:10→21:20)
--- NOTE | 2016-09-29 14:03 | PN ---
Progress Note (short form) - Note Progress Note: S: 86 year old male, with history of coronary artery disease s/p AK s/p PCI/ stenting, sever left ventricular systolic dysfunction s/p ICD/CRP, hyperlipidemia, hypertension, history of TIA, s/p ileostomy following total colectomy for colitis. Recent ICD discharges fro narrow complex tachycardia. Admitted for dense right hemipregia. Patient continues to have dense right hemipregia, is lethargic, has speech difficulties. Active Medications Generic Name Dose Route Start Last Admin Trade Name Freq PRN Reason Stop Dose Admin Alprazolam 0.5 mg 09/24/16 22:00 09/29/16 10:10 Xanax - PO 0.5 mg BID [facility] Administration Amiodarone HCl 200 mg 09/24/16 10:00 09/29/16 10:09 Cordarone - PO 200 mg DAILY [facility] Administration Aspirin 81 mg 09/24/16 10:00 09/29/16 10:09 Asa - PO 81 mg DAILY [facility] Administration Atorvastatin Calcium 10 mg 09/24/16 22:00 09/28/16 21:07 Lipitor - PO 10 mg HS [facility] Administration Cholecalciferol 400 unit 09/24/16 10:00 09/29/16 10:09 Vitamin D3 - PO 400 unit DAILY [facility] Administration Cholestyramine Resin 8 gm 09/24/16 10:00 09/29/16 10:09 Questran Light Packet - PO 8 gm BID [facility] Administration Dicyclomine HCl 20 mg 09/24/16 10:00 09/29/16 10:09 Bentyl - PO 20 mg DAILY [facility] Administration Furosemide 20 mg 09/24/16 10:00 09/29/16 10:09 Lasix - PO 20 mg DAILY [facility] Administration Metoprolol Succinate 25 mg 09/24/16 10:00 09/29/16 10:09 Toprol Xl - PO 25 mg BID [facility] Administration Multivitamins 1 each 09/24/16 10:00 09/29/16 10:09 Total B With C - PO 1 each DAILY [facility] Administration Spironolactone 25 mg 09/24/16 10:00 09/29/16 10:09 Aldactone - PO 25 mg DAILY [facility] Administration Tamsulosin HCl 0.4 mg 09/24/16 08:30 09/29/16 10:09 Flomax - PO 0.4 mg DAILY@0830 [facility] Administration Trimethoprim/Sulfamethoxazole 1 each 09/24/16 22:00 09/29/16 10:09 Bactrim Ds - PO 1 each BID [facility] Administration Venlafaxine HCl 37.5 mg 09/24/16 10:00 09/29/16 10:09 Effexor - PO 37.5 mg BID [facility] Administration Warfarin Sodium 2.5 mg 09/26/16 18:00 09/28/16 17:22 Coumadin - PO 2.5 mg SuTuTh@1800 [facility] Administration Warfarin Sodium 5 mg 09/24/16 18:00 09/27/16 17:28 Coumadin - PO 5 mg MoWeFrSa@1800 [facility] Administration O: 86 year old male, patient is lethargic but arousable, has significant speech disfunction. Last Vital Signs Temp Pulse Resp BP Pulse Ox 99.5 F 92 Regular 20 142/84 94 L 09/29/16 10:00 09/29/16 10:00 09/29/16 10:00 09/29/16 10:00 09/29/16 09:00 Neck: Supple, no JVD, negative HJR, carotids were equal and upstrokes were normal, no thyromegaly appreciated. Heart: PMI was in the 5th intercostal space, no heaves or thrills, S1 and S2 were normal. No murmurs or gallops were appreciated. Lungs: Coarse breath sounds. No expiratory wheeze or crepitations were heard. Abdomen: Soft, nontender, no hepatosplenomegaly appreciated, and no palpable masses were felt. Well healed surgical scars and a functioning ileostomy. Extremities: No calf tenderness or dependent edema. Pulses are normal. CBC, BMP 09/24/16 05:35 09/24/16 05:35 Impression: (1) Cerebrovascular accident (CVA), with dense right hemiplegia Code(s): I63.9 - CEREBRAL INFARCTION, UNSPECIFIED Qualifiers: CVA mechanism: embolism Precerebral and cerebral artery: middle cerebral artery, left Qualified Code(s): I63.412 - Cerebral infarction due to embolism of left middle cerebral artery (2) Coronary artery disease s/p PCI/stenting Code(s): I25.10 - ATHSCL HEART DISEASE OF [place] CORONARY ARTERY W/O ANG PCTRS Qualifiers: Coronary Disease-Associated Artery/Lesion type: [place] artery [place] vs. transplanted heart: [place] heart Associated angina: without angina Qualified Code(s): I25.10 - Atherosclerotic heart disease of [place] coronary artery without angina pectoris (3) Chronic kidney injury Code(s): N18.9 - CHRONIC KIDNEY DISEASE, UNSPECIFIED (4) Severe left ventricular Systolic dysfunction Code(s): I51.9 - HEART DISEASE, UNSPECIFIED (5) Old anterior myocardial infarction Code(s): I25.2 - OLD MYOCARDIAL INFARCTION (6) Hyperlipidemia Code(s): E78.5 - HYPERLIPIDEMIA, UNSPECIFIED Qualifiers: Hyperlipidemia type: pure hypercholesterolemia Qualified Code(s): E78.0 - Pure hypercholesterolemia (7) Hypertensive cardiomegaly without heart failure Code(s): I11.9 - HYPERTENSIVE HEART DISEASE WITHOUT HEART FAILURE (8) Paroxysmal atrial fibrillation Code(s): I48.0 - PAROXYSMAL ATRIAL FIBRILLATION (9) Biventricular automatic implantable cardioverter defibrillator in situ Code(s): Z95.810 - PRESENCE OF AUTOMATIC (IMPLANTABLE) CARDIAC DEFIBRILLATOR (10) Febrile state Recommendations: 1. Appropriate cultures. 2. Continue current cardiac medication. 3. Follow up CBC. Prognosis: Critical Attestation: Documentation prepared by Oli Naik, acting as durable medical equipment technician for Melvin Ramirez MD.
[2016-09-29] MEDS ORDERED: ACETAMINOPHEN 325 MG TABLET (FP) ONE (17:19)
[2016-09-29] MEDS ORDERED: ACETAMINOPHEN 325 MG TABLET (FP) PO PRN (17:37)
[2016-09-29] MEDS ORDERED: AMPICILLIN NA/SULBACTAM NA 1.5 GM/100 ML PRE-DOCKED IVPB ONE (17:45)
[2016-09-29] MEDS: WARFARIN NA 5 MG TABLET (UD) PO SCH (17:55)
[2016-09-29 19:07] LABS: PROTHROMBIN TIME (PATIENT) 53.8 SEC (9.98-11.88)
[2016-09-29 19:14] LABS: INR 4.74 (0.82-1.09)
[2016-09-29] MEDS: ATORVASTATIN CA 10 MG TABLET (FP) PO SCH (21:20)
[2016-09-30] MEDS ORDERED: AMPICILLIN NA/SULBACTAM NA 1.5 GM/100 ML PRE-DOCKED IVPB SCH (02:00)
[2016-09-30] MEDS: ALPRAZolam 0.25 MG TABLET PO SCH ×2 (10:48→21:31)
[2016-09-30] MEDS: CHOLESTYRAMINE/ASPARTAME 4 GM PACKET PO SCH ×2 (10:48→21:31)
[2016-09-30] MEDS: SULFAMETHOXAZOLE/TRIMETHOPRIM 800MG/160MG D.S. TABLET PO SCH ×2 (10:48→21:31)
[2016-09-30] MEDS: METOPROLOL SUCCINATE 25 MG TAB.SR.24H (FP) PO SCH ×2 (10:48→21:31)
[2016-09-30] MEDS: CHOLECALCIFEROL (VITAMIN D3) 400 UNIT TABLET (FP) PO SCH (10:48)
[2016-09-30] MEDS: TAMSULOSIN HCL 0.4 MG CAP.ER.24H (FP) PO SCH (10:48)
[2016-09-30] MEDS: AMIODARONE HCL 200 MG TABLET (FP) PO SCH (10:48)
[2016-09-30] MEDS: ASPIRIN 81 MG CHEWABLE TABLETS PO SCH (10:48)
[2016-09-30] MEDS: VENLAFAXINE HCL 37.5 MG TABLET PO SCH ×2 (10:49→21:31)
[2016-09-30] MEDS: FUROSEMIDE 20 MG TABLET (FP) PO SCH (10:49)
[2016-09-30] MEDS: SPIRONOLACTONE 25 MG TABLET (FP) PO SCH (10:49)
[2016-09-30] MEDS: VITAMIN B COMPLEX W/C COMBO TABLET (FP) PO SCH (10:49)
[2016-09-30] MEDS: DICYCLOMINE HCL 20 MG TABLET PO SCH (10:50)
--- NOTE | 2016-09-30 14:12 | CONSULT ---
Consult Consult Specialty:: infectious diseases Reason for Consultation:: fever - History of Present Illness History of Present Illness: 6 year old male, with a significant past medical history of AFib(on coumadin and aspirin), CAD, AR (stents), CHF, ulcerative colitis(total colectomy and ileostomy), kidney stones, HTN, HLD, anxiety, and depression, who presents to the emergency department BIBA s/p possible unwitnessed CVA. Per EMS, the patient was found to have focal weakness to the right upper and lower extremities and aphasia. As per son in law, the last time the patient was seen awake and fully oriented was at 14:00 before he went to take a nap. EMS states when the patient awoke he experienced slurred speech, left sided facial droop, and right sided hemiplegia. The family reports the patient is normally able to ambulate on his own and is verbally responsive. The patient is on a pacemaker/ defibrillator. EMS states, the family reports the patient defibrillator fired off 2 times within the past 2 weeks, and is usually seen at [place] for this. The patients history is limited due to current clinical condition. history taken from the chart as patient unable to give history patient spiked fever and was started on iv abx there is history of bed bug bite patient received unasyn currently patient is stable has no fevers also of note patient has diffuse rash over his back and buttocks - History Source History Provided By: Medical Record Limitations to Obtaining History: Clinical Condition - Past Medical History Cardio/Vascular: Yes: AFIB, CAD, CHF, AR Gastrointestinal: Yes: GERD, Inflamatory Bowel Disease - Past Surgical History Past Surgical History: Yes: Colectomy, Nephrectomy (Right ), Permanent Pacemaker , Stent - Alcohol/Substance Use Hx Alcohol Use: No - Smoking History Smoking history: Former smoker Have you smoked in the past 12 months: No Aproximately how many cigarettes per day: 0 If you are a former smoker, when did you quit?: 1972 Home Medications - Allergies Allergies/Adverse Reactions: Allergies Allergy/AdvReac Type Severity Reaction Status Date / Time azithromycin [From Zithromax] AdvReac Mild Vomiting Verified 09/23/16 19:53 codeine [Codeine] AdvReac Mild Verified 09/23/16 19:53 dust Allergy Severe Itching Uncoded 09/23/16 19:53 - Home Medications Home Medications: Ambulatory Orders Aspirin Coated [Ecotrin -] 81 mg PO DAILY 12/12/13 Furosemide [Lasix -] 20 mg PO DAILY 12/12/13 Simvastatin [Zocor -] 20 mg PO HS 12/12/13 Dicyclomine HCl [Bentyl] 20 mg PO DAILY 12/20/14 Spironolactone 25 mg PO DAILY 01/13/15 Venlafaxine HCl ER [Effexor Xr -] 37.5 mg PO BID 01/13/15 Warfarin Sodium [Coumadin] 5 mg PO MOWEFRSA 01/13/15 Cholestyramine (with Sugar) [Cholestyramine Powder] 378 gm PO BID 03/17/16 Vitamin B Complex [B Complex] 1 each PO DAILY 03/17/16 Tamsulosin HCl [Flomax] 0.4 mg PO DAILY 08/03/16 Metoprolol Succinate [Toprol XL -] 25 mg PO BID #30 tab.sr.24h 08/26/16 Acetaminophen [Tylenol -] 500 mg PO Q4H PRN 09/23/16 Alprazolam [Alprazolam Xr] 0.5 mg PO BID 09/23/16 Amiodarone HCl 200 mg PO DAILY 09/23/16 Cholecalciferol (Vitamin D3) [Vitamin D3 -] 400 unit PO DAILY 09/23/16 Warfarin Sodium [Coumadin] 2.5 mg PO SUTUTH 09/23/16 Review of Systems Unable to obtain ROS, reason: unable to obtain Physical Exam Vital Signs: Vital Signs Temperature 99.7 F H 09/30/16 05:41 Pulse Rate 84 09/30/16 10:59 Respiratory Rate 20 09/30/16 10:59 Blood Pressure 133/70 09/30/16 10:59 O2 Sat by Pulse Oximetry (%) 95 09/29/16 20:40 Constitutional: Yes: Mild Distress, Other Eyes: Yes: Conjunctiva Clear HENT: Yes: Atraumatic Neck: Yes: Supple Cardiovascular: Yes: Regular Rate and Rhythm Respiratory: Yes: Regular, Poor Air Entry Gastrointestinal: Yes: Normal Bowel Sounds, Soft Extremities: Yes: Other (rt sided hemiparesis) Neurological: Yes: Alert, Other Psychiatric: Yes: Alert, Other Labs: CBC, BMP 09/24/16 05:35 09/24/16 05:35 Imaging - Results Chest X-ray: Report Reviewed, Image Reviewed Cat Scan: Report Reviewed, Image Reviewed Assessment/Plan Problem List - Problems (1) Cerebrovascular accident (CVA) Code(s): I63.9 - CEREBRAL INFARCTION, UNSPECIFIED Qualifiers: Qualified Code(s): I63.412 - Cerebral infarction due to embolism of left middle cerebral artery (2) Coronary artery disease Code(s): I25.10 - ATHSCL HEART DISEASE OF [place] CORONARY ARTERY W/O ANG PCTRS Qualifiers: Qualified Code(s): I25.10 - Atherosclerotic heart disease of [place] coronary artery without angina pectoris (3) Hyperlipidemia Code(s): E78.5 - HYPERLIPIDEMIA, UNSPECIFIED Qualifiers: Qualified Code(s): E78.0 - Pure hypercholesterolemia (4) Hypertensive cardiomegaly without heart failure Code(s): I11.9 - HYPERTENSIVE HEART DISEASE WITHOUT HEART FAILURE (5) Old anterior myocardial infarction Code(s): I25.2 - OLD MYOCARDIAL INFARCTION (6) Paroxysmal atrial fibrillation Code(s): I48.0 - PAROXYSMAL ATRIAL FIBRILLATION (7) S/P coronary angioplasty Code(s): Z98.61 - CORONARY ANGIOPLASTY STATUS (8) Systolic dysfunction without heart failure Code(s): I51.9 - HEART DISEASE, UNSPECIFIED (9) Biventricular automatic implantable cardioverter defibrillator in situ Code(s): Z95.810 - PRESENCE OF AUTOMATIC (IMPLANTABLE) CARDIAC DEFIBRILLATOR (10) Subtherapeutic anticoagulation Code(s): Z51.81 - ENCOUNTER FOR THERAPEUTIC DRUG LEVEL MONITORING Z79.01 - SKILLED NURSING (CURRENT) USE OF ANTICOAGULANTS (11) Urethral stricture Code(s): N35.9 - URETHRAL STRICTURE, UNSPECIFIED Qualifiers: Qualified Code(s): N35.8 - Other urethral stricture 12 fever 13 rash plan the fever is probably non infectious rash i think is from contact will not start any abx at this moment
[2016-09-30] MEDS ORDERED: diphenhydrAMINE HCL 25 MG CAPSULE (FP) PO PRN (14:52)
[2016-09-30 17:32] LABS: PROTHROMBIN TIME (PATIENT) 52.8 SEC (9.98-11.88)
[2016-09-30 17:40] LABS: INR 4.65 (0.82-1.09)
[2016-09-30] MEDS: WARFARIN NA 2.5 MG TABLET (FP) PO SCH (17:47)
[2016-09-30] MEDS ORDERED: PT OWN MED DRAWER 7, Y5N ONE (21:27)
[2016-09-30] MEDS: ATORVASTATIN CA 10 MG TABLET (FP) PO SCH (21:31)
[2016-10-01 08:22] LABS: PROTHROMBIN TIME (PATIENT) 57.4 SEC (9.98-11.88)
[2016-10-01 09:07] LABS: INR 5.05 (0.82-1.09)
--- NOTE | 2016-10-01 09:47 | DS ---
Physical Examination Vital Signs: Vital Signs Temperature 97.9 F 10/01/16 06:00 Pulse Rate 95 H 10/01/16 06:00 Respiratory Rate 20 10/01/16 06:00 Blood Pressure 130/76 10/01/16 06:00 O2 Sat by Pulse Oximetry (%) 94 L 09/30/16 20:48 Findings/Remarks: IND 5 coumadin on hold DC isolation Constitutional: Yes: Anxious Eyes: Yes: WNL HENT: Yes: WNL Neck: Yes: WNL Cardiovascular: Yes: Regular Rate and Rhythm Respiratory: Yes: Regular Gastrointestinal: Yes: WNL ...Rectal Exam: Yes: Deferred Renal/: Yes: WNL Edema: No Neurological: Yes: Other (CVA with Rt hemiplegia) Labs: CBC, BMP 09/24/16 05:35 09/24/16 05:35 Discharge Summary Reason For Visit: CEREBROVASCULAR ACCIDENT(CVA0 Current Active Problems Biventricular automatic implantable cardioverter defibrillator in situ (Acute) Cerebrovascular accident (CVA) (Acute) Subtherapeutic anticoagulation (Acute) Urethral stricture (Acute) - Instructions Referrals: Douglas Love MD [Primary Care Provider] - - Home Medications Comprehensive Discharge Medication List: Ambulatory Orders Aspirin Coated [Ecotrin -] 81 mg PO DAILY 12/12/13 Furosemide [Lasix -] 20 mg PO DAILY 12/12/13 Simvastatin [Zocor -] 20 mg PO HS 12/12/13 Dicyclomine HCl [Bentyl] 20 mg PO DAILY 12/20/14 Spironolactone 25 mg PO DAILY 01/13/15 Venlafaxine HCl ER [Effexor Xr -] 37.5 mg PO BID 01/13/15 Warfarin Sodium [Coumadin] 5 mg PO MOWEFRSA 01/13/15 Cholestyramine (with Sugar) [Cholestyramine Powder] 378 gm PO BID 03/17/16 Vitamin B Complex [B Complex] 1 each PO DAILY 03/17/16 Tamsulosin HCl [Flomax] 0.4 mg PO DAILY 08/03/16 Metoprolol Succinate [Toprol XL -] 25 mg PO BID #30 tab.sr.24h 08/26/16 Acetaminophen [Tylenol -] 500 mg PO Q4H PRN 09/23/16 Alprazolam [Alprazolam Xr] 0.5 mg PO BID 09/23/16 Amiodarone HCl 200 mg PO DAILY 09/23/16 Cholecalciferol (Vitamin D3) [Vitamin D3 -] 400 unit PO DAILY 09/23/16 Warfarin Sodium [Coumadin] 2.5 mg PO SUTUTH 09/23/16
[2016-10-01] MEDS: ALPRAZolam 0.25 MG TABLET PO SCH ×2 (10:40→22:06)
[2016-10-01] MEDS: CHOLESTYRAMINE/ASPARTAME 4 GM PACKET PO SCH ×2 (10:42→22:06)
[2016-10-01] MEDS: SPIRONOLACTONE 25 MG TABLET (FP) PO SCH (10:42)
[2016-10-01] MEDS: METOPROLOL SUCCINATE 25 MG TAB.SR.24H (FP) PO SCH ×2 (10:43→22:06)
[2016-10-01] MEDS: FUROSEMIDE 20 MG TABLET (FP) PO SCH (10:43)
[2016-10-01] MEDS: SULFAMETHOXAZOLE/TRIMETHOPRIM 800MG/160MG D.S. TABLET PO SCH ×2 (10:43→22:06)
[2016-10-01] MEDS: AMIODARONE HCL 200 MG TABLET (FP) PO SCH (10:43)
[2016-10-01] MEDS: TAMSULOSIN HCL 0.4 MG CAP.ER.24H (FP) PO SCH (10:43)
[2016-10-01] MEDS: CHOLECALCIFEROL (VITAMIN D3) 400 UNIT TABLET (FP) PO SCH (10:43)
[2016-10-01] MEDS: VITAMIN B COMPLEX W/C COMBO TABLET (FP) PO SCH (10:44)
[2016-10-01] MEDS: VENLAFAXINE HCL 37.5 MG TABLET PO SCH ×2 (10:44→22:06)
[2016-10-01] MEDS: DICYCLOMINE HCL 10 MG CAPSULE PO SCH (10:44)
--- NOTE | 2016-10-01 10:55 | PN ---
Progress Note, Physician History of Present Illness: Continued right-sided hemiparesis, facial droop and dysarthria. - Current Medication List Current Medications: Active Medications Acetaminophen (Tylenol -) 650 mg PO Q6H PRN PRN Reason: FEVER OR PAIN Last Admin: 09/29/16 17:52 Dose: 650 mg Alprazolam (Xanax -) 0.5 mg PO BID [facility] Last Admin: 09/30/16 21:31 Dose: 0.5 mg Amiodarone HCl (Cordarone -) 200 mg PO DAILY [facility] Last Admin: 09/30/16 10:48 Dose: 200 mg Ampicillin Sodium/Sulbactam Sodium (Unasyn 1.5 Gm (Pre-Docked)) 1.5 gm IVPB Q8H -IV [facility] Aspirin (Asa -) 81 mg PO DAILY [facility] Last Admin: 09/30/16 10:48 Dose: 81 mg Atorvastatin Calcium (Lipitor -) 10 mg PO HS [facility] Last Admin: 09/30/16 21:31 Dose: 10 mg Cholecalciferol (Vitamin D3 -) 400 unit PO DAILY [facility] Last Admin: 09/30/16 10:48 Dose: 400 unit Cholestyramine Resin (Questran Light Packet -) 8 gm PO BID [facility] Last Admin: 09/30/16 21:31 Dose: 8 gm Dicyclomine HCl (Bentyl -) 20 mg PO DAILY [facility] Diphenhydramine HCl (Benadryl -) 25 mg PO TID PRN Furosemide (Lasix -) 20 mg PO DAILY [facility] Last Admin: 09/30/16 10:49 Dose: 20 mg Metoprolol Succinate (Toprol Xl -) 25 mg PO BID [facility] Last Admin: 09/30/16 21:31 Dose: 25 mg Multivitamins (Total B With C -) 1 each PO DAILY [facility] Last Admin: 09/30/16 10:49 Dose: 1 each Spironolactone (Aldactone -) 25 mg PO DAILY [facility] Last Admin: 09/30/16 10:49 Dose: 25 mg Tamsulosin HCl (Flomax -) 0.4 mg PO DAILY@0830 [facility] Last Admin: 09/30/16 10:48 Dose: 0.4 mg Trimethoprim/Sulfamethoxazole (Bactrim Ds -) 1 each PO BID [facility] Last Admin: 09/30/16 21:31 Dose: 1 each Venlafaxine HCl (Effexor -) 37.5 mg PO BID [facility] Last Admin: 09/30/16 21:31 Dose: 37.5 mg Warfarin Sodium (Coumadin -) 2.5 mg PO SuTuTh@1800 [facility] Last Admin: 09/30/16 17:47 Dose: Not Given Warfarin Sodium (Coumadin -) 5 mg PO MoWeFrSa@1800 [facility] - Objective Vital Signs: Vital Signs Temperature 97.9 F 10/01/16 06:00 Pulse Rate 95 H 10/01/16 06:00 Respiratory Rate 20 10/01/16 06:00 Blood Pressure 130/76 10/01/16 06:00 O2 Sat by Pulse Oximetry (%) 94 L 09/30/16 20:48 Constitutional: Yes: No Distress, Calm Neck: Yes: Supple Cardiovascular: Yes: Regular Rate and Rhythm Respiratory: Yes: Regular, Diminished Gastrointestinal: Yes: Normal Bowel Sounds, Soft Edema: No Neurological: Yes: Weakness (Right hemiparesis) Labs: CBC, BMP 09/24/16 05:35 09/24/16 05:35 INR, PTT INR 5.05 (0.82-1.09) H* 10/01/16 06:30 - ....Imaging EKG: Report Reviewed (SR paced) Problem List - Problems (1) Cerebrovascular accident (CVA) Code(s): I63.9 - CEREBRAL INFARCTION, UNSPECIFIED Qualifiers: Qualified Code(s): I63.412 - Cerebral infarction due to embolism of left middle cerebral artery (2) Coronary artery disease Code(s): I25.10 - ATHSCL HEART DISEASE OF [place] CORONARY ARTERY W/O ANG PCTRS Qualifiers: Qualified Code(s): I25.10 - Atherosclerotic heart disease of [place] coronary artery without angina pectoris (3) Hyperlipidemia Code(s): E78.5 - HYPERLIPIDEMIA, UNSPECIFIED Qualifiers: Qualified Code(s): E78.0 - Pure hypercholesterolemia (4) Hypertensive cardiomegaly without heart failure Code(s): I11.9 - HYPERTENSIVE HEART DISEASE WITHOUT HEART FAILURE (5) Old anterior myocardial infarction Code(s): I25.2 - OLD MYOCARDIAL INFARCTION (6) Paroxysmal atrial fibrillation Code(s): I48.0 - PAROXYSMAL ATRIAL FIBRILLATION (7) S/P coronary angioplasty Code(s): Z98.61 - CORONARY ANGIOPLASTY STATUS (8) Systolic dysfunction without heart failure Code(s): I51.9 - HEART DISEASE, UNSPECIFIED (9) Biventricular automatic implantable cardioverter defibrillator in situ Code(s): Z95.810 - PRESENCE OF AUTOMATIC (IMPLANTABLE) CARDIAC DEFIBRILLATOR (10) Subtherapeutic anticoagulation Code(s): Z51.81 - ENCOUNTER FOR THERAPEUTIC DRUG LEVEL MONITORING Z79.01 - MEMBERSHIP CORRESPONDENT (CURRENT) USE OF ANTICOAGULANTS (11) Urethral stricture Code(s): N35.9 - URETHRAL STRICTURE, UNSPECIFIED Qualifiers: Qualified Code(s): N35.8 - Other urethral stricture Assessment/Plan 09/28/2016 Severe global HK, mild MR, ICD lead 1. Acute ischemic stroke with slurred speech, left sided facial droop and right sided hemiplegia in context of subtherapeutic INR 2. Paroxysmal atrial fibrillation now with supratherapeutic INR 3. CAD s/p VA, s/p PCI (stent), angina pectoris 4. Severe LV systolic dysfunction 5. Sustained VT s/p PRESIDENT + PUBLISHER-D 6. HTN/HCVD 7. Hyperlipidemia 8. Urethral stricture unsuccessful dilatation 9. Acute on CKD improved PLAN: 1. Hold coumadin per INR 2-3, ASA 81 mg QD, Amiodarone 200 mg QD, Lipitor 10 mg QHS, Questran 8 bid, Lasix 20 mg QD, Toprol 25 mg BID and Aldactone 25 mg QD 2. Complete antibiotic course 3. PT and rehab eventually
[2016-10-01] MEDS: ASPIRIN 81 MG CHEWABLE TABLETS PO SCH (14:25)
[2016-10-01] MEDS ORDERED: WARFARIN NA 5 MG TABLET (UD) PO SCH (18:00)
[2016-10-01] MEDS ORDERED: PT OWN MED DRAWER 7, Y5N ONE (21:51)
[2016-10-01] MEDS: ATORVASTATIN CA 10 MG TABLET (FP) PO SCH (22:06)
[2016-10-02 07:51] LABS: INR 3.99 (0.82-1.09); PROTHROMBIN TIME (PATIENT) 45.1 SEC (9.98-11.88)
--- NOTE | 2016-10-02 10:19 | PN ---
Progress Note (short form) - Note Progress Note: Chief Complaint: Events noted, notes reviewed, awake and alert, right sided hemiparesis and dysarthria persists, awaiting rehab placement History of Present Illness: Seen and examined on telemetry. Events noted, notes reviewed, awake and alert, right sided hemiparesis and dysarthria persists, awaiting rehab placement INR noted, no indication for SCD utilization since patient is fully A/C with Coumadin Echocardiography revealed severe LV systolic dysfunction, valvular regurgitation could not be assessed - Current Medication List Current Medications Acetaminophen (Tylenol -) 650 mg PO Q6H PRN PRN Reason: FEVER OR PAIN Last Admin: 09/29/16 17:52 Dose: 650 mg Alprazolam (Xanax -) 0.5 mg PO BID [facility] Last Admin: 10/01/16 22:06 Dose: 0.5 mg Amiodarone HCl (Cordarone -) 200 mg PO DAILY [facility] Last Admin: 10/01/16 10:43 Dose: 200 mg Ampicillin Sodium/Sulbactam Sodium (Unasyn 1.5 Gm (Pre-Docked)) 1.5 gm IVPB Q8H -IV [facility] Aspirin (Asa -) 81 mg PO DAILY [facility] Last Admin: 10/01/16 14:25 Dose: 81 mg Atorvastatin Calcium (Lipitor -) 10 mg PO HS [facility] Last Admin: 10/01/16 22:06 Dose: 10 mg Cholecalciferol (Vitamin D3 -) 400 unit PO DAILY [facility] Last Admin: 10/01/16 10:43 Dose: 400 unit Cholestyramine Resin (Questran Light Packet -) 8 gm PO BID [facility] Last Admin: 10/01/16 22:06 Dose: 8 gm Dicyclomine HCl (Bentyl -) 20 mg PO DAILY [facility] Last Admin: 10/01/16 10:44 Dose: 20 mg Diphenhydramine HCl (Benadryl -) 25 mg PO TID PRN Furosemide (Lasix -) 20 mg PO DAILY [facility] Last Admin: 10/01/16 10:43 Dose: 20 mg Metoprolol Succinate (Toprol Xl -) 25 mg PO BID [facility] Last Admin: 10/01/16 22:06 Dose: 25 mg Multivitamins (Total B With C -) 1 each PO DAILY [facility] Last Admin: 10/01/16 10:44 Dose: 1 each Spironolactone (Aldactone -) 25 mg PO DAILY [facility] Last Admin: 10/01/16 10:42 Dose: 25 mg Tamsulosin HCl (Flomax -) 0.4 mg PO DAILY@0830 [facility] Last Admin: 10/01/16 10:43 Dose: 0.4 mg Trimethoprim/Sulfamethoxazole (Bactrim Ds -) 1 each PO BID [facility] Last Admin: 10/01/16 22:06 Dose: 1 each Venlafaxine HCl (Effexor -) 37.5 mg PO BID [facility] Last Admin: 10/01/16 22:06 Dose: 37.5 mg Review of Systems: Unable to obtain, related to to the above noted dysarthria - Objective Vital Signs: Last Vital Signs Temp Pulse Resp BP Pulse Ox 97.5 F L 93 H 20 129/72 95 10/02/16 05:38 10/02/16 05:38 10/02/16 05:38 10/02/16 05:38 10/01/16 21:00 Neck: Supple Negative JVD No Bruit Cardiovascular: S1 S2 Regular Rate and Rhythm Respiratory: Clear to A&P Bilaterally Gastrointestinal: Soft Benign Normal Bowel Sounds Ext: No Edema Labs: CBC, BMP 09/24/16 05:35 09/24/16 05:35 INR, PTT INR 3.99 (0.82-1.09) H 10/02/16 06:10 Assessment/Plan ASSESSMENT: 1. Acute ischemic stroke with residual deficit in context of sub-therapeutic INR , currently supra-therapeutic INR 2. Paroxysmal atrial fibrillation [id number] score of 7 3. CAD post [place]/PCI (stent), angina pectoris 4. Severe LV systolic dysfunction with chronic class I-II NYHA classification LV failure, compensated 5. Sustained VT post [employer]THLET[employer]ACH-D 6. HTN 7. Hyperlipidemia 8. Urethral stricture post unsuccessful dilatation 9. Acute on CKD PLAN: 1. Continue Coumadin with caution and maintain INR 2-3 2. Continue ASA with caution 3. Continue Toprol XL 4. Continue Amiodarone 5. Continue Lipitor 6. Continue Lasix and Aldactone with close monitoring of renal function 7. Await rehab placement 8. D/C SCD's as noted above 9. May D/C monitoring from cardiovascular point of view Christine Isaac MD
[2016-10-02] MEDS: CHOLECALCIFEROL (VITAMIN D3) 400 UNIT TABLET (FP) PO SCH (10:28)
[2016-10-02] MEDS: ASPIRIN 81 MG CHEWABLE TABLETS PO SCH (10:28)
[2016-10-02] MEDS: CHOLESTYRAMINE/ASPARTAME 4 GM PACKET PO SCH ×2 (10:28→21:45)
[2016-10-02] MEDS: VITAMIN B COMPLEX W/C COMBO TABLET (FP) PO SCH (10:28)
[2016-10-02] MEDS: ALPRAZolam 0.25 MG TABLET PO SCH ×2 (10:28→21:52)
[2016-10-02] MEDS: DICYCLOMINE HCL 10 MG CAPSULE PO SCH (10:28)
[2016-10-02] MEDS: SULFAMETHOXAZOLE/TRIMETHOPRIM 800MG/160MG D.S. TABLET PO SCH ×2 (10:29→21:44)
[2016-10-02] MEDS: AMIODARONE HCL 200 MG TABLET (FP) PO SCH (10:29)
[2016-10-02] MEDS: VENLAFAXINE HCL 37.5 MG TABLET PO SCH ×2 (10:29→22:52)
[2016-10-02] MEDS: FUROSEMIDE 20 MG TABLET (FP) PO SCH (10:29)
[2016-10-02] MEDS: SPIRONOLACTONE 25 MG TABLET (FP) PO SCH (10:29)
[2016-10-02] MEDS: TAMSULOSIN HCL 0.4 MG CAP.ER.24H (FP) PO SCH (10:29)
[2016-10-02] MEDS: METOPROLOL SUCCINATE 25 MG TAB.SR.24H (FP) PO SCH ×2 (10:30→21:44)
--- NOTE | 2016-10-02 13:06 | PN ---
Progress Note, Physician History of Present Illness: CVA with Rt hemiplegia - Current Medication List Current Medications: Active Medications Acetaminophen (Tylenol -) 650 mg PO Q6H PRN PRN Reason: FEVER OR PAIN Last Admin: 09/29/16 17:52 Dose: 650 mg Alprazolam (Xanax -) 0.5 mg PO BID [facility] Last Admin: 10/02/16 10:28 Dose: 0.5 mg Amiodarone HCl (Cordarone -) 200 mg PO DAILY [facility] Last Admin: 10/02/16 10:29 Dose: 200 mg Ampicillin Sodium/Sulbactam Sodium (Unasyn 1.5 Gm (Pre-Docked)) 1.5 gm IVPB Q8H -IV [facility] Aspirin (Asa -) 81 mg PO DAILY [facility] Last Admin: 10/02/16 10:28 Dose: 81 mg Atorvastatin Calcium (Lipitor -) 10 mg PO HS [facility] Last Admin: 10/01/16 22:06 Dose: 10 mg Cholecalciferol (Vitamin D3 -) 400 unit PO DAILY [facility] Last Admin: 10/02/16 10:28 Dose: 400 unit Cholestyramine Resin (Questran Light Packet -) 8 gm PO BID [facility] Last Admin: 10/02/16 10:28 Dose: 8 gm Dicyclomine HCl (Bentyl -) 20 mg PO DAILY [facility] Last Admin: 10/02/16 10:28 Dose: 20 mg Diphenhydramine HCl (Benadryl -) 25 mg PO TID PRN Furosemide (Lasix -) 20 mg PO DAILY [facility] Last Admin: 10/02/16 10:29 Dose: 20 mg Metoprolol Succinate (Toprol Xl -) 25 mg PO BID [facility] Last Admin: 10/02/16 10:30 Dose: 25 mg Multivitamins (Total B With C -) 1 each PO DAILY [facility] Last Admin: 10/02/16 10:28 Dose: 1 each Spironolactone (Aldactone -) 25 mg PO DAILY [facility] Last Admin: 10/02/16 10:29 Dose: 25 mg Tamsulosin HCl (Flomax -) 0.4 mg PO DAILY@0830 [facility] Last Admin: 10/02/16 10:29 Dose: 0.4 mg Trimethoprim/Sulfamethoxazole (Bactrim Ds -) 1 each PO BID [facility] Last Admin: 10/02/16 10:29 Dose: 1 each Venlafaxine HCl (Effexor -) 37.5 mg PO BID [facility] Last Admin: 10/02/16 10:29 Dose: 37.5 mg - Objective Vital Signs: Vital Signs Temperature 99.3 F 10/02/16 10:48 Pulse Rate 96 H 10/02/16 10:48 Respiratory Rate 22 10/02/16 10:48 Blood Pressure 134/78 10/02/16 10:48 O2 Sat by Pulse Oximetry (%) 95 10/01/16 21:00 Constitutional: Yes: Anxious Eyes: Yes: WNL HENT: Yes: WNL Neck: Yes: WNL Cardiovascular: Yes: WNL Respiratory: Yes: WNL Gastrointestinal: Yes: WNL ...Rectal Exam: Yes: Deferred Breast(s): Yes: WNL Musculoskeletal: Yes: Muscle Weakness Neurological: Yes: Weakness, Other (Rt hemiplegia) Labs: CBC, BMP 09/24/16 05:35 09/24/16 05:35 INR, PTT INR 3.99 (0.82-1.09) H 10/02/16 06:10
--- NOTE | 2016-10-02 15:53 | PN ---
Progress Note, Physician History of Present Illness: stable no new events - Current Medication List Current Medications: Active Medications Acetaminophen (Tylenol -) 650 mg PO Q6H PRN PRN Reason: FEVER OR PAIN Last Admin: 09/29/16 17:52 Dose: 650 mg Alprazolam (Xanax -) 0.5 mg PO BID [facility] Last Admin: 10/02/16 10:28 Dose: 0.5 mg Amiodarone HCl (Cordarone -) 200 mg PO DAILY [facility] Last Admin: 10/02/16 10:29 Dose: 200 mg Ampicillin Sodium/Sulbactam Sodium (Unasyn 1.5 Gm (Pre-Docked)) 1.5 gm IVPB Q8H -IV [facility] Aspirin (Asa -) 81 mg PO DAILY [facility] Last Admin: 10/02/16 10:28 Dose: 81 mg Atorvastatin Calcium (Lipitor -) 10 mg PO HS [facility] Last Admin: 10/01/16 22:06 Dose: 10 mg Cholecalciferol (Vitamin D3 -) 400 unit PO DAILY [facility] Last Admin: 10/02/16 10:28 Dose: 400 unit Cholestyramine Resin (Questran Light Packet -) 8 gm PO BID [facility] Last Admin: 10/02/16 10:28 Dose: 8 gm Dicyclomine HCl (Bentyl -) 20 mg PO DAILY [facility] Last Admin: 10/02/16 10:28 Dose: 20 mg Diphenhydramine HCl (Benadryl -) 25 mg PO TID PRN Furosemide (Lasix -) 20 mg PO DAILY [facility] Last Admin: 10/02/16 10:29 Dose: 20 mg Metoprolol Succinate (Toprol Xl -) 25 mg PO BID [facility] Last Admin: 10/02/16 10:30 Dose: 25 mg Multivitamins (Total B With C -) 1 each PO DAILY [facility] Last Admin: 10/02/16 10:28 Dose: 1 each Spironolactone (Aldactone -) 25 mg PO DAILY [facility] Last Admin: 10/02/16 10:29 Dose: 25 mg Tamsulosin HCl (Flomax -) 0.4 mg PO DAILY@0830 [facility] Last Admin: 10/02/16 10:29 Dose: 0.4 mg Trimethoprim/Sulfamethoxazole (Bactrim Ds -) 1 each PO BID [facility] Last Admin: 10/02/16 10:29 Dose: 1 each Venlafaxine HCl (Effexor -) 37.5 mg PO BID [facility] Last Admin: 10/02/16 10:29 Dose: 37.5 mg - Objective Vital Signs: Vital Signs Temperature 98.9 F 10/02/16 14:00 Pulse Rate 100 H 10/02/16 14:00 Respiratory Rate 22 10/02/16 14:00 Blood Pressure 110/68 10/02/16 14:00 O2 Sat by Pulse Oximetry (%) 95 10/01/16 21:00 Constitutional: Yes: No Distress, Calm Respiratory: Yes: Regular, Poor Air Entry Gastrointestinal: Yes: Normal Bowel Sounds, Soft Musculoskeletal: Yes: Other Extremities: Yes: Other Neurological: Yes: Alert, Other Psychiatric: Yes: Alert Labs: CBC, BMP 09/24/16 05:35 09/24/16 05:35 INR, PTT INR 3.99 (0.82-1.09) H 10/02/16 06:10 Assessment/Plan Problem List - Problems (1) Cerebrovascular accident (CVA) Code(s): I63.9 - CEREBRAL INFARCTION, UNSPECIFIED Qualifiers: Qualified Code(s): I63.412 - Cerebral infarction due to embolism of left middle cerebral artery (2) Coronary artery disease Code(s): I25.10 - ATHSCL HEART DISEASE OF [place] CORONARY ARTERY W/O ANG PCTRS Qualifiers: Qualified Code(s): I25.10 - Atherosclerotic heart disease of [place] coronary artery without angina pectoris (3) Hyperlipidemia Code(s): E78.5 - HYPERLIPIDEMIA, UNSPECIFIED Qualifiers: Qualified Code(s): E78.0 - Pure hypercholesterolemia (4) Hypertensive cardiomegaly without heart failure Code(s): I11.9 - HYPERTENSIVE HEART DISEASE WITHOUT HEART FAILURE (5) Old anterior myocardial infarction Code(s): I25.2 - OLD MYOCARDIAL INFARCTION (6) Paroxysmal atrial fibrillation Code(s): I48.0 - PAROXYSMAL ATRIAL FIBRILLATION (7) S/P coronary angioplasty Code(s): Z98.61 - CORONARY ANGIOPLASTY STATUS (8) Systolic dysfunction without heart failure Code(s): I51.9 - HEART DISEASE, UNSPECIFIED (9) Biventricular automatic implantable cardioverter defibrillator in situ Code(s): Z95.810 - PRESENCE OF AUTOMATIC (IMPLANTABLE) CARDIAC DEFIBRILLATOR (10) Subtherapeutic anticoagulation Code(s): Z51.81 - ENCOUNTER FOR THERAPEUTIC DRUG LEVEL MONITORING Z79.01 - [facility] (CURRENT) USE OF ANTICOAGULANTS (11) Urethral stricture Code(s): N35.9 - URETHRAL STRICTURE, UNSPECIFIED Qualifiers: Qualified Code(s): N35.8 - Other urethral stricture 12 fever 13 rash plan continue supportiver measures no new issues
[2016-10-02] MEDS: ATORVASTATIN CA 10 MG TABLET (FP) PO SCH (22:52)
[2016-10-03 08:05] LABS: INR 3.46 (0.82-1.09)
--- NOTE | 2016-10-03 09:05 | PN ---
Progress Note (short form) - Note Progress Note: Chief Complaint: Events noted, notes reviewed, awake and alert in no distress, right sided hemiparesis and dysarthria persists, awaiting rehab placement History of Present Illness: Seen and examined on telemetry. Events noted, notes reviewed, awake and alert in no distress, right sided hemiparesis and dysarthria persists, awaiting rehab placement Echocardiography revealed severe LV systolic dysfunction, valvular regurgitation could not be assessed - Current Medication List Current Medications Acetaminophen (Tylenol -) 650 mg PO Q6H PRN PRN Reason: FEVER OR PAIN Last Admin: 09/29/16 17:52 Dose: 650 mg Alprazolam (Xanax -) 0.5 mg PO BID [facility] Last Admin: 10/02/16 21:52 Dose: 0.5 mg Amiodarone HCl (Cordarone -) 200 mg PO DAILY [facility] Last Admin: 10/02/16 10:29 Dose: 200 mg Ampicillin Sodium/Sulbactam Sodium (Unasyn 1.5 Gm (Pre-Docked)) 1.5 gm IVPB Q8H -IV [facility] Aspirin (Asa -) 81 mg PO DAILY [facility] Last Admin: 10/02/16 10:28 Dose: 81 mg Atorvastatin Calcium (Lipitor -) 10 mg PO HS [facility] Last Admin: 10/02/16 22:52 Dose: 10 mg Cholecalciferol (Vitamin D3 -) 400 unit PO DAILY [facility] Last Admin: 10/02/16 10:28 Dose: 400 unit Cholestyramine Resin (Questran Light Packet -) 8 gm PO BID [facility] Last Admin: 10/02/16 21:45 Dose: 8 gm Dicyclomine HCl (Bentyl -) 20 mg PO DAILY [facility] Last Admin: 10/02/16 10:28 Dose: 20 mg Diphenhydramine HCl (Benadryl -) 25 mg PO TID PRN Furosemide (Lasix -) 20 mg PO DAILY [facility] Last Admin: 10/02/16 10:29 Dose: 20 mg Metoprolol Succinate (Toprol Xl -) 25 mg PO BID [facility] Last Admin: 10/02/16 21:44 Dose: 25 mg Multivitamins (Total B With C -) 1 each PO DAILY [facility] Last Admin: 10/02/16 10:28 Dose: 1 each Spironolactone (Aldactone -) 25 mg PO DAILY [facility] Last Admin: 10/02/16 10:29 Dose: 25 mg Tamsulosin HCl (Flomax -) 0.4 mg PO DAILY@0830 [facility] Last Admin: 10/02/16 10:29 Dose: 0.4 mg Trimethoprim/Sulfamethoxazole (Bactrim Ds -) 1 each PO BID [facility] Last Admin: 10/02/16 21:44 Dose: 1 each Venlafaxine HCl (Effexor -) 37.5 mg PO BID [facility] Last Admin: 10/02/16 22:52 Dose: 37.5 mg Review of Systems: Unable to obtain, related to to the above noted dysarthria - Objective Vital Signs: Last Vital Signs Temp Pulse Resp BP Pulse Ox 98.1 F 105 H 20 114/70 98 10/03/16 06:00 10/03/16 06:00 10/03/16 06:00 10/03/16 06:00 10/02/16 22:57 Neck: Supple Negative JVD No Bruit Cardiovascular: S1 S2 Regular Rate and Rhythm Respiratory: Clear to A&P Bilaterally Gastrointestinal: Soft Benign Normal Bowel Sounds Ext: No Edema Labs: CBC, BMP 09/24/16 05:35 09/24/16 05:35 INR, PTT INR 3.46 (0.82-1.09) H 10/03/16 06:20 Assessment/Plan ASSESSMENT: 1. Acute ischemic stroke with residual deficit in context of sub-therapeutic INR , currently supra-therapeutic INR 2. Paroxysmal atrial fibrillation [id number] score of 7 3. CAD post [place]/PCI (stent), angina pectoris 4. Severe LV systolic dysfunction with chronic class I-II NYHA classification LV failure, compensated 5. Sustained VT post [employer]-D 6. HTN 7. Hyperlipidemia 8. Urethral stricture post unsuccessful dilatation 9. Acute on CKD PLAN: 1. Continue Coumadin with caution and maintain INR 2-3, hold today's dose 2. Continue ASA with caution 3. Continue Toprol XL 4. Continue Amiodarone 5. Continue Lipitor 6. Continue Lasix and Aldactone with close monitoring of renal function 7. Await rehab placement Christine Isaac MD
[2016-10-03] MEDS: TAMSULOSIN HCL 0.4 MG CAP.ER.24H (FP) PO SCH (09:30)
[2016-10-03] MEDS ORDERED: PT OWN MED DRAWER 7, Y5N ONE ×2 (10:24→22:52)
[2016-10-03] MEDS: ALPRAZolam 0.25 MG TABLET PO SCH ×2 (10:40→22:53)
[2016-10-03] MEDS: SPIRONOLACTONE 25 MG TABLET (FP) PO SCH (10:40)
[2016-10-03] MEDS: SULFAMETHOXAZOLE/TRIMETHOPRIM 800MG/160MG D.S. TABLET PO SCH ×2 (10:40→22:53)
[2016-10-03] MEDS: METOPROLOL SUCCINATE 25 MG TAB.SR.24H (FP) PO SCH ×2 (10:41→22:53)
[2016-10-03] MEDS: FUROSEMIDE 20 MG TABLET (FP) PO SCH (10:41)
[2016-10-03] MEDS: VENLAFAXINE HCL 37.5 MG TABLET PO SCH ×2 (10:41→22:53)
[2016-10-03] MEDS: VITAMIN B COMPLEX W/C COMBO TABLET (FP) PO SCH (10:41)
[2016-10-03] MEDS: CHOLECALCIFEROL (VITAMIN D3) 400 UNIT TABLET (FP) PO SCH (10:41)
[2016-10-03] MEDS: DICYCLOMINE HCL 10 MG CAPSULE PO SCH (10:41)
[2016-10-03] MEDS: AMIODARONE HCL 200 MG TABLET (FP) PO SCH (10:41)
[2016-10-03] MEDS: CHOLESTYRAMINE/ASPARTAME 4 GM PACKET PO SCH ×2 (10:42→22:53)
[2016-10-03] MEDS: ASPIRIN 81 MG CHEWABLE TABLETS PO SCH (10:42)
--- NOTE | 2016-10-03 15:12 | PN ---
Progress Note, Physician Chief Complaint: disarthria persists History of Present Illness: CVA with Rt oswaldo - Current Medication List Current Medications: Active Medications Acetaminophen (Tylenol -) 650 mg PO Q6H PRN PRN Reason: FEVER OR PAIN Last Admin: 09/29/16 17:52 Dose: 650 mg Alprazolam (Xanax -) 0.5 mg PO BID [facility] Last Admin: 10/03/16 10:40 Dose: 0.5 mg Amiodarone HCl (Cordarone -) 200 mg PO DAILY [facility] Last Admin: 10/03/16 10:41 Dose: 200 mg Ampicillin Sodium/Sulbactam Sodium (Unasyn 1.5 Gm (Pre-Docked)) 1.5 gm IVPB Q8H -IV [facility] Aspirin (Asa -) 81 mg PO DAILY [facility] Last Admin: 10/03/16 10:42 Dose: 81 mg Atorvastatin Calcium (Lipitor -) 10 mg PO HS [facility] Last Admin: 10/02/16 22:52 Dose: 10 mg Cholecalciferol (Vitamin D3 -) 400 unit PO DAILY [facility] Last Admin: 10/03/16 10:41 Dose: 400 unit Cholestyramine Resin (Questran Light Packet -) 8 gm PO BID [facility] Last Admin: 10/03/16 10:42 Dose: 8 gm Dicyclomine HCl (Bentyl -) 20 mg PO DAILY [facility] Last Admin: 10/03/16 10:41 Dose: 20 mg Diphenhydramine HCl (Benadryl -) 25 mg PO TID PRN Furosemide (Lasix -) 20 mg PO DAILY [facility] Last Admin: 10/03/16 10:41 Dose: 20 mg Metoprolol Succinate (Toprol Xl -) 25 mg PO BID [facility] Last Admin: 10/03/16 10:41 Dose: 25 mg Multivitamins (Total B With C -) 1 each PO DAILY [facility] Last Admin: 10/03/16 10:41 Dose: 1 each Spironolactone (Aldactone -) 25 mg PO DAILY [facility] Last Admin: 10/03/16 10:40 Dose: 25 mg Tamsulosin HCl (Flomax -) 0.4 mg PO DAILY@0830 [facility] Last Admin: 10/03/16 09:30 Dose: 0.4 mg Trimethoprim/Sulfamethoxazole (Bactrim Ds -) 1 each PO BID [facility] Last Admin: 10/03/16 10:40 Dose: 1 each Venlafaxine HCl (Effexor -) 37.5 mg PO BID [facility] Last Admin: 10/03/16 10:41 Dose: 37.5 mg - Objective Vital Signs: Vital Signs Temperature 97.9 F 10/03/16 14:00 Pulse Rate 97 H 10/03/16 14:00 Respiratory Rate 20 10/03/16 14:00 Blood Pressure 118/83 10/03/16 14:00 O2 Sat by Pulse Oximetry (%) 98 10/03/16 09:00 Constitutional: Yes: Anxious Eyes: Yes: WNL HENT: Yes: WNL Neck: Yes: WNL Cardiovascular: Yes: WNL Respiratory: Yes: WNL Gastrointestinal: Yes: Normal Bowel Sounds ...Rectal Exam: Yes: Deferred Musculoskeletal: Yes: Muscle Weakness Neurological: Yes: Alert Psychiatric: Yes: Alert Labs: CBC, BMP 09/24/16 05:35 09/24/16 05:35 INR, PTT INR 3.46 (0.82-1.09) H 10/03/16 06:20 Assessment/Plan For placement
--- NOTE | 2016-10-03 15:24 | PN ---
Progress Note, Physician History of Present Illness: stable no new events - Current Medication List Current Medications: Active Medications Acetaminophen (Tylenol -) 650 mg PO Q6H PRN PRN Reason: FEVER OR PAIN Last Admin: 09/29/16 17:52 Dose: 650 mg Alprazolam (Xanax -) 0.5 mg PO BID [facility] Last Admin: 10/03/16 10:40 Dose: 0.5 mg Amiodarone HCl (Cordarone -) 200 mg PO DAILY [facility] Last Admin: 10/03/16 10:41 Dose: 200 mg Ampicillin Sodium/Sulbactam Sodium (Unasyn 1.5 Gm (Pre-Docked)) 1.5 gm IVPB Q8H -IV [facility] Aspirin (Asa -) 81 mg PO DAILY [facility] Last Admin: 10/03/16 10:42 Dose: 81 mg Atorvastatin Calcium (Lipitor -) 10 mg PO HS [facility] Last Admin: 10/02/16 22:52 Dose: 10 mg Cholecalciferol (Vitamin D3 -) 400 unit PO DAILY [facility] Last Admin: 10/03/16 10:41 Dose: 400 unit Cholestyramine Resin (Questran Light Packet -) 8 gm PO BID [facility] Last Admin: 10/03/16 10:42 Dose: 8 gm Dicyclomine HCl (Bentyl -) 20 mg PO DAILY [facility] Last Admin: 10/03/16 10:41 Dose: 20 mg Diphenhydramine HCl (Benadryl -) 25 mg PO TID PRN Furosemide (Lasix -) 20 mg PO DAILY [facility] Last Admin: 10/03/16 10:41 Dose: 20 mg Metoprolol Succinate (Toprol Xl -) 25 mg PO BID [facility] Last Admin: 10/03/16 10:41 Dose: 25 mg Multivitamins (Total B With C -) 1 each PO DAILY [facility] Last Admin: 10/03/16 10:41 Dose: 1 each Spironolactone (Aldactone -) 25 mg PO DAILY [facility] Last Admin: 10/03/16 10:40 Dose: 25 mg Tamsulosin HCl (Flomax -) 0.4 mg PO DAILY@0830 [facility] Last Admin: 10/03/16 09:30 Dose: 0.4 mg Trimethoprim/Sulfamethoxazole (Bactrim Ds -) 1 each PO BID [facility] Last Admin: 10/03/16 10:40 Dose: 1 each Venlafaxine HCl (Effexor -) 37.5 mg PO BID [facility] Last Admin: 10/03/16 10:41 Dose: 37.5 mg - Objective Vital Signs: Vital Signs Temperature 97.9 F 10/03/16 14:00 Pulse Rate 97 H 10/03/16 14:00 Respiratory Rate 20 10/03/16 14:00 Blood Pressure 118/83 10/03/16 14:00 O2 Sat by Pulse Oximetry (%) 98 10/03/16 09:00 Constitutional: Yes: No Distress Cardiovascular: Yes: Regular Rate and Rhythm Respiratory: Yes: Regular, CTA Bilaterally Gastrointestinal: Yes: Normal Bowel Sounds, Soft Musculoskeletal: Yes: Other Extremities: Yes: Other Neurological: Yes: Alert, Other Psychiatric: Yes: Alert Labs: CBC, BMP 09/24/16 05:35 09/24/16 05:35 INR, PTT INR 3.46 (0.82-1.09) H 10/03/16 06:20 Assessment/Plan Problem List - Problems (1) Cerebrovascular accident (CVA) Code(s): I63.9 - CEREBRAL INFARCTION, UNSPECIFIED Qualifiers: Qualified Code(s): I63.412 - Cerebral infarction due to embolism of left middle cerebral artery (2) Coronary artery disease Code(s): I25.10 - ATHSCL HEART DISEASE OF [place] CORONARY ARTERY W/O ANG PCTRS Qualifiers: Qualified Code(s): I25.10 - Atherosclerotic heart disease of [place] coronary artery without angina pectoris (3) Hyperlipidemia Code(s): E78.5 - HYPERLIPIDEMIA, UNSPECIFIED Qualifiers: Qualified Code(s): E78.0 - Pure hypercholesterolemia (4) Hypertensive cardiomegaly without heart failure Code(s): I11.9 - HYPERTENSIVE HEART DISEASE WITHOUT HEART FAILURE (5) Old anterior myocardial infarction Code(s): I25.2 - OLD MYOCARDIAL INFARCTION (6) Paroxysmal atrial fibrillation Code(s): I48.0 - PAROXYSMAL ATRIAL FIBRILLATION (7) S/P coronary angioplasty Code(s): Z98.61 - CORONARY ANGIOPLASTY STATUS (8) Systolic dysfunction without heart failure Code(s): I51.9 - HEART DISEASE, UNSPECIFIED (9) Biventricular automatic implantable cardioverter defibrillator in situ Code(s): Z95.810 - PRESENCE OF AUTOMATIC (IMPLANTABLE) CARDIAC DEFIBRILLATOR (10) Subtherapeutic anticoagulation Code(s): Z51.81 - ENCOUNTER FOR THERAPEUTIC DRUG LEVEL MONITORING Z79.01 - [employer] (CURRENT) USE OF ANTICOAGULANTS (11) Urethral stricture Code(s): N35.9 - URETHRAL STRICTURE, UNSPECIFIED Qualifiers: Qualified Code(s): N35.8 - Other urethral stricture 12 fever 13 rash plan continue supportiver measures no new issues
[2016-10-03] MEDS: ATORVASTATIN CA 10 MG TABLET (FP) PO SCH (22:53)
--- NOTE | 2016-10-04 09:37 | DS ---
Physical Examination Vital Signs: Vital Signs Temperature 97.4 F L 10/04/16 06:00 Pulse Rate 109 H 10/04/16 06:00 Respiratory Rate 16 10/04/16 06:00 Blood Pressure 106/61 10/04/16 06:00 O2 Sat by Pulse Oximetry (%) 93 L 10/03/16 21:00 Findings/Remarks: Diabetic ,ASHD ,CHF admitted with CVA and Rt hemiparesis Constitutional: Yes: No Distress Eyes: Yes: WNL HENT: Yes: WNL Neck: Yes: WNL Cardiovascular: Yes: Pulse Irregular Respiratory: Yes: WNL Gastrointestinal: Yes: WNL ...Rectal Exam: Yes: Deferred Breast(s): Yes: WNL Musculoskeletal: Yes: Muscle Weakness Edema: No Peripheral Pulses WNL: Yes Integumentary: Yes: WNL Neurological: Yes: Dysarthria, Weakness Labs: CBC, BMP 09/24/16 05:35 09/24/16 05:35 Discharge Summary Reason For Visit: CEREBROVASCULAR ACCIDENT(CVA0 Current Active Problems Biventricular automatic implantable cardioverter defibrillator in situ (Acute) Cerebrovascular accident (CVA) (Acute) Subtherapeutic anticoagulation (Acute) Urethral stricture (Acute) Condition: Stable - Instructions Referrals: Douglas Love MD [Primary Care Provider] - Disposition: INTERMEDIATE FACILITY - Home Medications Comprehensive Discharge Medication List: Ambulatory Orders Aspirin Coated [Ecotrin -] 81 mg PO DAILY 12/12/13 Furosemide [Lasix -] 20 mg PO DAILY 12/12/13 Simvastatin [Zocor -] 20 mg PO HS 12/12/13 Dicyclomine HCl [Bentyl] 20 mg PO DAILY 12/20/14 Spironolactone 25 mg PO DAILY 01/13/15 Venlafaxine HCl ER [Effexor Xr -] 37.5 mg PO BID 01/13/15 Warfarin Sodium [Coumadin] 5 mg PO [id number] 01/13/15 Cholestyramine (with Sugar) [Cholestyramine Powder] 378 gm PO BID 03/17/16 Vitamin B Complex [B Complex] 1 each PO DAILY 03/17/16 Tamsulosin HCl [Flomax] 0.4 mg PO DAILY 08/03/16 Metoprolol Succinate [Toprol XL -] 25 mg PO BID #30 tab.sr.24h 08/26/16 Acetaminophen [Tylenol -] 500 mg PO Q4H PRN 09/23/16 Alprazolam [Alprazolam Xr] 0.5 mg PO BID 09/23/16 Amiodarone HCl 200 mg PO DAILY 09/23/16 Cholecalciferol (Vitamin D3) [Vitamin D3 -] 400 unit PO DAILY 09/23/16 Warfarin Sodium [Coumadin] 2.5 mg PO SUTUTH 09/23/16
[2016-10-04 10:43] LABS: MCH 28.2 pg (25.7-33.7); MCHC 31.6 g/dl (32.0-35.9); MEAN CELL VOLUME 89.4 fl (80-96); MEAN PLT VOLUME 8.9 fl (7.5-11.1); PLATELET COUNT 279 K/MM3 (134-434); RDW 15.6 % (11.9-15.9); WHITE BLOOD COUNT 13.7 K/mm3 (4.0-10.0)
[2016-10-04] MEDS ORDERED: PT OWN MED DRAWER 7, Y5N ONE ×2 (10:46→21:58)
[2016-10-04] MEDS: TAMSULOSIN HCL 0.4 MG CAP.ER.24H (FP) PO SCH (10:53)
[2016-10-04] MEDS: SPIRONOLACTONE 25 MG TABLET (FP) PO SCH (10:54)
[2016-10-04] MEDS: ASPIRIN 81 MG CHEWABLE TABLETS PO SCH (10:54)
[2016-10-04] MEDS: SULFAMETHOXAZOLE/TRIMETHOPRIM 800MG/160MG D.S. TABLET PO SCH ×2 (10:55→22:06)
[2016-10-04] MEDS: DICYCLOMINE HCL 10 MG CAPSULE PO SCH (10:56)
[2016-10-04] MEDS: AMIODARONE HCL 200 MG TABLET (FP) PO SCH (10:57)
[2016-10-04] MEDS: FUROSEMIDE 20 MG TABLET (FP) PO SCH (10:58)
[2016-10-04] MEDS: VENLAFAXINE HCL 37.5 MG TABLET PO SCH ×2 (10:58→22:06)
[2016-10-04] MEDS: CHOLESTYRAMINE/ASPARTAME 4 GM PACKET PO SCH ×2 (10:59→22:07)
[2016-10-04] MEDS: CHOLECALCIFEROL (VITAMIN D3) 400 UNIT TABLET (FP) PO SCH (11:00)
[2016-10-04] MEDS: VITAMIN B COMPLEX W/C COMBO TABLET (FP) PO SCH (11:00)
[2016-10-04] MEDS: METOPROLOL SUCCINATE 25 MG TAB.SR.24H (FP) PO SCH ×2 (11:00→22:06)
[2016-10-04] MEDS: ALPRAZolam 0.25 MG TABLET PO SCH ×2 (11:01→22:06)
[2016-10-04 11:09] LABS: ALBUMIN 3.7 g/dl (3.4-5.0); BILIRUBIN,TOTAL 0.4 mg/dL (0.2-1.0); CALCIUM 9.7 mg/dL (8.5-10.1); CREATININE 3.1 mg/dL (0.7-1.3); TOT PROT 7.5 g/dl (6.4-8.2)
--- NOTE | 2016-10-04 11:09 | PN ---
Progress Note, Physician History of Present Illness: Continued right-sided hemiplegia. - Current Medication List Current Medications: Active Medications Acetaminophen (Tylenol -) 650 mg PO Q6H PRN PRN Reason: FEVER OR PAIN Last Admin: 09/29/16 17:52 Dose: 650 mg Alprazolam (Xanax -) 0.5 mg PO BID [facility] Last Admin: 10/04/16 11:01 Dose: 0.5 mg Amiodarone HCl (Cordarone -) 200 mg PO DAILY [facility] Last Admin: 10/04/16 10:57 Dose: 200 mg Aspirin (Asa -) 81 mg PO DAILY [facility] Last Admin: 10/04/16 10:54 Dose: 81 mg Atorvastatin Calcium (Lipitor -) 10 mg PO HS [facility] Last Admin: 10/03/16 22:53 Dose: 10 mg Cholecalciferol (Vitamin D3 -) 400 unit PO DAILY [facility] Last Admin: 10/04/16 11:00 Dose: 400 unit Cholestyramine Resin (Questran Light Packet -) 8 gm PO BID [facility] Last Admin: 10/04/16 10:59 Dose: 8 gm Dicyclomine HCl (Bentyl -) 20 mg PO DAILY [facility] Last Admin: 10/04/16 10:56 Dose: 20 mg Diphenhydramine HCl (Benadryl -) 25 mg PO TID PRN Furosemide (Lasix -) 20 mg PO DAILY [facility] Last Admin: 10/04/16 10:58 Dose: 20 mg Metoprolol Succinate (Toprol Xl -) 25 mg PO BID [facility] Last Admin: 10/04/16 11:00 Dose: 25 mg Multivitamins (Total B With C -) 1 each PO DAILY [facility] Last Admin: 10/04/16 11:00 Dose: 1 each Spironolactone (Aldactone -) 25 mg PO DAILY [facility] Last Admin: 10/04/16 10:54 Dose: 25 mg Tamsulosin HCl (Flomax -) 0.4 mg PO DAILY@0830 [facility] Last Admin: 10/04/16 10:53 Dose: 0.4 mg Trimethoprim/Sulfamethoxazole (Bactrim Ds -) 1 each PO BID [facility] Last Admin: 10/04/16 10:55 Dose: 1 each Venlafaxine HCl (Effexor -) 37.5 mg PO BID [facility] Last Admin: 10/04/16 10:58 Dose: 37.5 mg - Objective Vital Signs: Vital Signs Temperature 97.4 F L 10/04/16 06:00 Pulse Rate 109 H 10/04/16 06:00 Respiratory Rate 16 10/04/16 06:00 Blood Pressure 106/61 10/04/16 06:00 O2 Sat by Pulse Oximetry (%) 93 L 10/03/16 21:00 Constitutional: Yes: No Distress, Calm Neck: Yes: Supple Cardiovascular: Yes: Regular Rate and Rhythm Respiratory: Yes: Regular, Diminished Gastrointestinal: Yes: Normal Bowel Sounds, Soft Edema: No Neurological: Yes: Weakness (Right sided hemiplegia) Labs: CBC, BMP 10/04/16 10:15 INR, PTT INR 3.46 (0.82-1.09) H 10/03/16 06:20 - ....Imaging EKG: Report Reviewed (Tele: AV paced) Problem List - Problems (1) Cerebrovascular accident (CVA) Code(s): I63.9 - CEREBRAL INFARCTION, UNSPECIFIED Qualifiers: Qualified Code(s): I63.412 - Cerebral infarction due to embolism of left middle cerebral artery (2) Coronary artery disease Code(s): I25.10 - ATHSCL HEART DISEASE OF [place] CORONARY ARTERY W/O ANG PCTRS Qualifiers: Qualified Code(s): I25.10 - Atherosclerotic heart disease of [place] coronary artery without angina pectoris (3) Hyperlipidemia Code(s): E78.5 - HYPERLIPIDEMIA, UNSPECIFIED Qualifiers: Qualified Code(s): E78.0 - Pure hypercholesterolemia (4) Hypertensive cardiomegaly without heart failure Code(s): I11.9 - HYPERTENSIVE HEART DISEASE WITHOUT HEART FAILURE (5) Old anterior myocardial infarction Code(s): I25.2 - OLD MYOCARDIAL INFARCTION (6) Paroxysmal atrial fibrillation Code(s): I48.0 - PAROXYSMAL ATRIAL FIBRILLATION (7) S/P coronary angioplasty Code(s): Z98.61 - CORONARY ANGIOPLASTY STATUS (8) Systolic dysfunction without heart failure Code(s): I51.9 - HEART DISEASE, UNSPECIFIED (9) Biventricular automatic implantable cardioverter defibrillator in situ Code(s): Z95.810 - PRESENCE OF AUTOMATIC (IMPLANTABLE) CARDIAC DEFIBRILLATOR (10) Subtherapeutic anticoagulation Code(s): Z51.81 - ENCOUNTER FOR THERAPEUTIC DRUG LEVEL MONITORING Z79.01 - [facility] (CURRENT) USE OF ANTICOAGULANTS (11) Urethral stricture Code(s): N35.9 - URETHRAL STRICTURE, UNSPECIFIED Qualifiers: Qualified Code(s): N35.8 - Other urethral stricture Assessment/Plan 09/28/2016 Severe global HK, mild MR, ICD lead 1. Acute ischemic stroke with slurred speech, left sided facial droop and right sided hemiplegia in context of subtherapeutic INR 2. Paroxysmal atrial fibrillation now with supratherapeutic INR 3. CAD s/p NH, s/p PCI (stent), angina pectoris 4. Severe LV systolic dysfunction 5. Sustained VT s/p CREDIT CARD ASSOCIATE-D 6. HTN/HCVD 7. Hyperlipidemia 8. Urethral stricture unsuccessful dilatation 9. Acute on CKD improved PLAN: 1. Dose coumadin per INR 2-3, ASA 81 mg QD, Amiodarone 200 mg QD, Lipitor 10 mg QHS, Questran 8 bid, Lasix 20 mg QD, Toprol 25 mg BID and Aldactone 25 mg QD 2. Complete antibiotic course 3. PT and rehab eventually
[2016-10-04 11:34] LABS: INR 3.51 (0.82-1.09); PROTHROMBIN TIME (PATIENT) 39.6 SEC (9.98-11.88)
[2016-10-04 12:49] LABS: CREATININE 3.4 mg/dL (0.7-1.3)
[2016-10-04 12:50] LABS: CALCIUM 9.8 mg/dL (8.5-10.1)
[2016-10-04 12:51] LABS: ALBUMIN 3.8 g/dl (3.4-5.0); BILIRUBIN,TOTAL 0.5 mg/dL (0.2-1.0); TOT PROT 7.7 g/dl (6.4-8.2)
[2016-10-04] MEDS ORDERED: DEXTROSE 5%-0.45% SALINE 1,000 ML IV SCH (12:55)
--- NOTE | 2016-10-04 16:39 | PN ---
Progress Note, Physician History of Present Illness: mentlally stable patient blood work - Current Medication List Current Medications: Active Medications Acetaminophen (Tylenol -) 650 mg PO Q6H PRN PRN Reason: FEVER OR PAIN Last Admin: 09/29/16 17:52 Dose: 650 mg Alprazolam (Xanax -) 0.5 mg PO BID [facility] Last Admin: 10/04/16 11:01 Dose: 0.5 mg Amiodarone HCl (Cordarone -) 200 mg PO DAILY [facility] Last Admin: 10/04/16 10:57 Dose: 200 mg Aspirin (Asa -) 81 mg PO DAILY [facility] Last Admin: 10/04/16 10:54 Dose: 81 mg Atorvastatin Calcium (Lipitor -) 10 mg PO HS [facility] Last Admin: 10/03/16 22:53 Dose: 10 mg Cholecalciferol (Vitamin D3 -) 400 unit PO DAILY [facility] Last Admin: 10/04/16 11:00 Dose: 400 unit Cholestyramine Resin (Questran Light Packet -) 8 gm PO BID [facility] Last Admin: 10/04/16 10:59 Dose: 8 gm Dicyclomine HCl (Bentyl -) 20 mg PO DAILY [facility] Last Admin: 10/04/16 10:56 Dose: 20 mg Diphenhydramine HCl (Benadryl -) 25 mg PO TID PRN Furosemide (Lasix -) 20 mg PO DAILY [facility] Last Admin: 10/04/16 10:58 Dose: 20 mg Dextrose/Sodium Chloride (D5-1/2ns -) 1,000 mls @ 80 mls/hr IV ASDIR [facility] Metoprolol Succinate (Toprol Xl -) 25 mg PO BID [facility] Last Admin: 10/04/16 11:00 Dose: 25 mg Multivitamins (Total B With C -) 1 each PO DAILY [facility] Last Admin: 10/04/16 11:00 Dose: 1 each Spironolactone (Aldactone -) 25 mg PO DAILY [facility] Last Admin: 10/04/16 10:54 Dose: 25 mg Tamsulosin HCl (Flomax -) 0.4 mg PO DAILY@0830 [facility] Last Admin: 10/04/16 10:53 Dose: 0.4 mg Trimethoprim/Sulfamethoxazole (Bactrim Ds -) 1 each PO BID [facility] Last Admin: 10/04/16 10:55 Dose: 1 each Venlafaxine HCl (Effexor -) 37.5 mg PO BID [facility] Last Admin: 10/04/16 10:58 Dose: 37.5 mg - Objective Vital Signs: Vital Signs Temperature 99.6 F 10/04/16 14:45 Pulse Rate 103 H 10/04/16 14:45 Respiratory Rate 22 10/04/16 14:45 Blood Pressure 113/63 10/04/16 14:45 O2 Sat by Pulse Oximetry (%) 93 L 10/04/16 11:14 Constitutional: Yes: Calm Neck: Yes: Supple Cardiovascular: Yes: Regular Rate and Rhythm Respiratory: Yes: Regular, Poor Air Entry Gastrointestinal: Yes: Normal Bowel Sounds, Soft Musculoskeletal: Yes: WNL Extremities: Yes: WNL Neurological: Yes: Alert, Other Labs: CBC, BMP 10/04/16 10:15 10/04/16 12:43 INR, PTT INR 3.51 (0.82-1.09) H 10/04/16 10:15 Assessment/Plan Problem List - Problems (1) Cerebrovascular accident (CVA) Code(s): I63.9 - CEREBRAL INFARCTION, UNSPECIFIED Qualifiers: Qualified Code(s): I63.412 - Cerebral infarction due to embolism of left middle cerebral artery (2) Coronary artery disease Code(s): I25.10 - ATHSCL HEART DISEASE OF [place] CORONARY ARTERY W/O ANG PCTRS Qualifiers: Qualified Code(s): I25.10 - Atherosclerotic heart disease of [place] coronary artery without angina pectoris (3) Hyperlipidemia Code(s): E78.5 - HYPERLIPIDEMIA, UNSPECIFIED Qualifiers: Qualified Code(s): E78.0 - Pure hypercholesterolemia (4) Hypertensive cardiomegaly without heart failure Code(s): I11.9 - HYPERTENSIVE HEART DISEASE WITHOUT HEART FAILURE (5) Old anterior myocardial infarction Code(s): I25.2 - OLD MYOCARDIAL INFARCTION (6) Paroxysmal atrial fibrillation Code(s): I48.0 - PAROXYSMAL ATRIAL FIBRILLATION (7) S/P coronary angioplasty Code(s): Z98.61 - CORONARY ANGIOPLASTY STATUS (8) Systolic dysfunction without heart failure Code(s): I51.9 - HEART DISEASE, UNSPECIFIED (9) 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
[2016-10-04 18:06] LABS: URINE APPEARANCE TURBID; URINE BILIRUBIN NEGATIVE (NEGATIVE); URINE BLOOD NEGATIVE (NEGATIVE); URINE COLOR DKYELLOW; URINE GLUCOSE (UA) NEGATIVE (NEGATIVE); URINE KETONE NEGATIVE (NEGATIVE); URINE LEUK ESTERASE NEGATIVE (NEGATIVE); URINE NITRITE NEGATIVE (NEGATIVE); URINE PROTEIN NEGATIVE (NEGATIVE); URINE UROBILINOGEN NEGATIVE E.U./dl (0.2-1.0)
[2016-10-04] MEDS: ATORVASTATIN CA 10 MG TABLET (FP) PO SCH (22:06)
[2016-10-05 07:28] LABS: MCH 28.3 pg (25.7-33.7); MCHC 31.4 g/dl (32.0-35.9); MEAN CELL VOLUME 90.3 fl (80-96); PLATELET COUNT 259 K/MM3 (134-434); RDW 15.7 % (11.9-15.9)
[2016-10-05 07:45] LABS: INR 3.26 (0.82-1.09); PROTHROMBIN TIME (PATIENT) 36.7 SEC (9.98-11.88)
[2016-10-05 08:02] LABS: ALBUMIN 3.5 g/dl (3.4-5.0); CALCIUM 9.1 mg/dL (8.5-10.1)
[2016-10-05 08:07] LABS: BILIRUBIN,TOTAL 0.6 mg/dL (0.2-1.0); CREATININE 3.9 mg/dL (0.7-1.3); TOT PROT 6.8 g/dl (6.4-8.2)
[2016-10-05 09:22] LABS: PLATELET ESTIMATE ADEQUATE (NORMAL)
--- NOTE | 2016-10-05 09:22 | PN ---
Progress Note, Physician Chief Complaint: Yesterdays events noted History of Present Illness: Case discussed with Dr Shiakh ,no source of infection identified Advise to start zosyn - Current Medication List Current Medications: Active Medications Acetaminophen (Tylenol -) 650 mg PO Q6H PRN PRN Reason: FEVER OR PAIN Last Admin: 09/29/16 17:52 Dose: 650 mg Alprazolam (Xanax -) 0.5 mg PO BID [facility] Last Admin: 10/04/16 22:06 Dose: 0.5 mg Amiodarone HCl (Cordarone -) 200 mg PO DAILY [facility] Last Admin: 10/04/16 10:57 Dose: 200 mg Aspirin (Asa -) 81 mg PO DAILY [facility] Last Admin: 10/04/16 10:54 Dose: 81 mg Atorvastatin Calcium (Lipitor -) 10 mg PO HS [facility] Last Admin: 10/04/16 22:06 Dose: 10 mg Cholecalciferol (Vitamin D3 -) 400 unit PO DAILY [facility] Last Admin: 10/04/16 11:00 Dose: 400 unit Cholestyramine Resin (Questran Light Packet -) 8 gm PO BID [facility] Last Admin: 10/04/16 22:07 Dose: 8 gm Dicyclomine HCl (Bentyl -) 20 mg PO DAILY [facility] Last Admin: 10/04/16 10:56 Dose: 20 mg Diphenhydramine HCl (Benadryl -) 25 mg PO TID PRN Furosemide (Lasix -) 20 mg PO DAILY [facility] Last Admin: 10/04/16 10:58 Dose: 20 mg Dextrose/Sodium Chloride (D5-1/2ns -) 1,000 mls @ 80 mls/hr IV ASDIR [facility] Last Admin: 10/04/16 13:30 Dose: 80 mls/hr Metoprolol Succinate (Toprol Xl -) 25 mg PO BID [facility] Last Admin: 10/04/16 22:06 Dose: 25 mg Multivitamins (Total B With C -) 1 each PO DAILY [facility] Last Admin: 10/04/16 11:00 Dose: 1 each Spironolactone (Aldactone -) 25 mg PO DAILY [facility] Last Admin: 10/04/16 10:54 Dose: 25 mg Tamsulosin HCl (Flomax -) 0.4 mg PO DAILY@0830 [facility] Last Admin: 10/04/16 10:53 Dose: 0.4 mg Trimethoprim/Sulfamethoxazole (Bactrim Ds -) 1 each PO BID [facility] Last Admin: 10/04/16 22:06 Dose: 1 each Venlafaxine HCl (Effexor -) 37.5 mg PO BID [facility] Last Admin: 10/04/16 22:06 Dose: 37.5 mg - Objective Vital Signs: Vital Signs Temperature 98.4 F 10/05/16 06:00 Pulse Rate 108 H 10/05/16 06:00 Respiratory Rate 18 10/05/16 06:00 Blood Pressure 113/75 10/05/16 06:00 O2 Sat by Pulse Oximetry (%) 95 10/04/16 23:45 Constitutional: Yes: Anxious Eyes: Yes: WNL HENT: Yes: WNL Neck: Yes: WNL Cardiovascular: Yes: Regular Rate and Rhythm Respiratory: Yes: On Nasal O2 ...Rectal Exam: Yes: Deferred Genitourinary: Yes: Incontinence Breast(s): Yes: WNL Edema: No Integumentary: Yes: WNL Neurological: Yes: Weakness Psychiatric: Yes: Alert Labs: CBC, BMP 10/05/16 05:35 10/05/16 05:35 INR, PTT INR 3.26 (0.82-1.09) H 10/05/16 05:35 Assessment/Plan Nephrology consult Dr Lucio
[2016-10-05] MEDS ORDERED: DEXTROSE 5%-WATER - 1,000 ML IV SCH (09:45)
--- NOTE | 2016-10-05 09:45 | PN ---
Progress Note (short form) - Note Progress Note: Chief Complaint: Events noted, notes reviewed, awake and alert in no distress, right sided hemiparesis and dysarthria persists, renal function and LFT's noted , evaluation in progress History of Present Illness: Seen and examined on telemetry. Events noted, notes reviewed, awake and alert in no distress, right sided hemiparesis and dysarthria persists, renal function and LFT's noted, evaluation in progress Renal failure probably Bactrim induced considering timing of initiation Echocardiography revealed severe LV systolic dysfunction, valvular regurgitation could not be assessed - Current Medication List Current Medications Acetaminophen (Tylenol -) 650 mg PO Q6H PRN PRN Reason: FEVER OR PAIN Last Admin: 09/29/16 17:52 Dose: 650 mg Alprazolam (Xanax -) 0.5 mg PO BID [facility] Last Admin: 10/04/16 22:06 Dose: 0.5 mg Amiodarone HCl (Cordarone -) 200 mg PO DAILY [facility] Last Admin: 10/04/16 10:57 Dose: 200 mg Aspirin (Asa -) 81 mg PO DAILY [facility] Last Admin: 10/04/16 10:54 Dose: 81 mg Atorvastatin Calcium (Lipitor -) 10 mg PO HS [facility] Last Admin: 10/04/16 22:06 Dose: 10 mg Cholecalciferol (Vitamin D3 -) 400 unit PO DAILY [facility] Last Admin: 10/04/16 11:00 Dose: 400 unit Cholestyramine Resin (Questran Light Packet -) 8 gm PO BID [facility] Last Admin: 10/04/16 22:07 Dose: 8 gm Dicyclomine HCl (Bentyl -) 20 mg PO DAILY [facility] Last Admin: 10/04/16 10:56 Dose: 20 mg Diphenhydramine HCl (Benadryl -) 25 mg PO TID PRN Furosemide (Lasix -) 20 mg PO DAILY [facility] Last Admin: 10/04/16 10:58 Dose: 20 mg Piperacillin Sod/Tazobactam (Sod 2.25 gm/ Dextrose) 50 mls @ 100 mls/hr IVPB BID [facility] PRN Reason: Protocol Dextrose (D5w -) 1,000 mls @ 100 mls/hr IV .Q10H [facility] Metoprolol Succinate (Toprol Xl -) 25 mg PO BID [facility] Last Admin: 10/04/16 22:06 Dose: 25 mg Multivitamins (Total B With C -) 1 each PO DAILY [facility] Last Admin: 10/04/16 11:00 Dose: 1 each Spironolactone (Aldactone -) 25 mg PO DAILY [facility] Last Admin: 10/04/16 10:54 Dose: 25 mg Tamsulosin HCl (Flomax -) 0.4 mg PO DAILY@0830 [facility] Last Admin: 10/04/16 10:53 Dose: 0.4 mg Trimethoprim/Sulfamethoxazole (Bactrim Ds -) 1 each PO BID [facility] Last Admin: 10/04/16 22:06 Dose: 1 each Venlafaxine HCl (Effexor -) 37.5 mg PO BID [facility] Last Admin: 10/04/16 22:06 Dose: 37.5 mg Review of Systems: Unable to obtain, related to to the above noted dysarthria - Objective Vital Signs: Last Vital Signs Temp Pulse Resp BP Pulse Ox 98.4 F 108 H 18 113/75 95 10/05/16 06:00 10/05/16 06:00 10/05/16 06:00 10/05/16 06:00 10/04/16 23:45 Neck: Supple Negative JVD No Bruit Cardiovascular: S1 S2 Regular Rate and Rhythm Respiratory: Diminished Breath Sounds at the Bases Gastrointestinal: Soft Benign Normal Bowel Sounds Ext: No Edema Labs: CBC, BMP 10/05/16 05:35 10/05/16 05:35 INR, PTT INR 3.26 (0.82-1.09) H 10/05/16 05:35 Hepatic Panel Total Bilirubin 0.6 mg/dL (0.2-1.0) 10/05/16 05:35 AST 126 U/L (15-37) H 10/05/16 05:35 ALT 247 U/L (12-78) H 10/05/16 05:35 Alkaline Phosphatase 57 U/L (45-117) 10/05/16 05:35 Albumin 3.5 g/dl (3.4-5.0) 10/05/16 05:35 Assessment/Plan ASSESSMENT: 1. Acute on chronic renal failure, probably Bactrim related 2. Acute ischemic stroke with residual deficit in context of sub-therapeutic INR , currently supra-therapeutic INR 3. Paroxysmal atrial fibrillation [id number] score of 7 4. CAD post MA/PCI (stent), angina pectoris 5. Severe LV systolic dysfunction with chronic class I-II NYHA classification LV failure, compensated 6. Sustained VT post CLAY TEMPERER-D 7. HTN 8. Hyperlipidemia 9. Abnormal LFT's, etiology to be determined 10. History of urethral stricture post unsuccessful dilatation PLAN: 1. Continue Coumadin with caution and maintain INR 2-3, hold today's dose 2. Continue ASA with caution 3. Continue Lopressor 4. May have to hold Amiodarone related to the above noted abnormal LFT's 5. Hold Lipitor 6. Hold Lasix and Aldactone 7. D/C Bactrim 8. Initiate IV fluids with caution, PERLA Isaac MD
[2016-10-05] MEDS ORDERED: SODIUM CHLORIDE 1,000 ML IV SCH (10:00)
[2016-10-05] MEDS ORDERED: PIPERACILLIN/TAZOB 2.25 GM/50 ML PRE-DOCKED BAG IVPB ONE (10:00)
--- NOTE | 2016-10-05 10:08 | CONSULT ---
Consult - text type - Consultation Consultation Note: Renal Consult for RAMON This is a 86 year old Gentleman with PMhx of Afib on Coumadin, CAD s/p stents, CHF, Ulcerative Colitis s/p total colectomy, Kidney stones, Hypertension, Depression presented with focal weakness and found to have acute CVA and now with RAMON with BUN/Cr of 125/3.9 with baseline Cr of 1.3 to 1.5. Pt is awake and alert but non-verbal and not able to provide history. Pt was seen by urology earlier this admission for difficult to inset franklin catheter. Pt incontant as per nursing staff and voiding into diaper. On IVF currently. Was on Lasix and Aldactone up to yesterday. Pt is also on Bactrium. PMhx: as above Allergies: NKDA Family Hx: Unknown Social Hx: unknown ROS: unable to obtain because of clincal status Home Meds: Home Medications Medication Instructions Recorded Aspirin Coated [Ecotrin -] 81 mg PO DAILY 12/12/13 Furosemide [Lasix -] 20 mg PO DAILY 12/12/13 Simvastatin [Zocor -] 20 mg PO HS 12/12/13 Dicyclomine HCl [Bentyl] 20 mg PO DAILY 12/20/14 Spironolactone 25 mg PO DAILY 01/13/15 Venlafaxine HCl ER [Effexor Xr -] 37.5 mg PO BID 01/13/15 Warfarin Sodium [Coumadin] 5 mg PO [id number] 01/13/15 Cholestyramine (with Sugar) 378 gm PO BID 03/17/16 [Cholestyramine Powder] Vitamin B Complex [B Complex] 1 each PO DAILY 03/17/16 Tamsulosin HCl [Flomax] 0.4 mg PO DAILY 08/03/16 Metoprolol Succinate [Toprol XL -] 25 mg PO BID #30 tab.sr.24h 08/26/16 Acetaminophen [Tylenol -] 500 mg PO Q4H PRN 09/23/16 Alprazolam [Alprazolam Xr] 0.5 mg PO BID 09/23/16 Amiodarone HCl 200 mg PO DAILY 09/23/16 Cholecalciferol (Vitamin D3) 400 unit PO DAILY 09/23/16 [Vitamin D3 -] Warfarin Sodium [Coumadin] 2.5 mg PO [facility] 02/02/17 Vital Signs Temperature 98.4 F 10/05/16 06:00 Pulse Rate 108 H 10/05/16 06:00 Respiratory Rate 18 10/05/16 06:00 Blood Pressure 113/75 10/05/16 06:00 O2 Sat by Pulse Oximetry (%) 95 10/04/16 23:45 Intake & Output 10/02/16 10/03/16 10/04/16 10/05/16 23:59 23:59 23:59 23:59 Intake Total 200 220 120 Balance 200 220 120 Gen: NAD, awake HEENT: NC/AT, Dry MM, No JVD CVS: irregular, No M/R Lungs: Dec Bs lung bases, no rales or wheeze Abd: soft, + tenderness over the lower abd Ext: No edema, clubbing or cyanosis : + bladder distension, + tenderness Neuro: Non-verbal CBC, BMP 10/05/16 05:35 10/05/16 05:35 Laboratory Tests 09/24/16 10/04/16 10/04/16 05:35 10:15 12:43 BUN 21 H 104 H D 110 H* Creatinine 1.3 D 3.1 H D 3.4 H 10/05/16 05:35 BUN 125 H* Creatinine 3.9 H Current Medications Acetaminophen (Tylenol -) 650 mg PO Q6H PRN PRN Reason: FEVER OR PAIN Last Admin: 09/29/16 17:52 Dose: 650 mg Alprazolam (Xanax -) 0.5 mg PO BID [facility] Last Admin: 10/04/16 22:06 Dose: 0.5 mg Amiodarone HCl (Cordarone -) 200 mg PO DAILY [facility] Last Admin: 10/04/16 10:57 Dose: 200 mg Aspirin (Asa -) 81 mg PO DAILY [facility] Last Admin: 10/04/16 10:54 Dose: 81 mg Cholecalciferol (Vitamin D3 -) 400 unit PO DAILY [facility] Last Admin: 10/04/16 11:00 Dose: 400 unit Cholestyramine Resin (Questran Light Packet -) 8 gm PO BID [facility] Last Admin: 10/04/16 22:07 Dose: 8 gm Dicyclomine HCl (Bentyl -) 20 mg PO DAILY [facility] Last Admin: 10/04/16 10:56 Dose: 20 mg Diphenhydramine HCl (Benadryl -) 25 mg PO TID PRN Piperacillin Sod/Tazobactam Sod (Zosyn 2.25gm Ivpb (Pre-Docked)) 50 mls @ 100 mls/hr IVPB BID [facility] PRN Reason: Protocol Sodium Chloride (Normal Saline -) 1,000 mls @ 83 mls/hr IV ASDIR [facility] Metoprolol Succinate (Toprol Xl -) 25 mg PO BID [facility] Last Admin: 10/04/16 22:06 Dose: 25 mg Multivitamins (Total B With C -) 1 each PO DAILY [facility] Last Admin: 10/04/16 11:00 Dose: 1 each Tamsulosin HCl (Flomax -) 0.4 mg PO DAILY@0830 [facility] Last Admin: 10/04/16 10:53 Dose: 0.4 mg Trimethoprim/Sulfamethoxazole (Bactrim Ds -) 1 each PO BID [facility] Last Admin: 10/04/16 22:06 Dose: 1 each Venlafaxine HCl (Effexor -) 37.5 mg PO BID [facility] Last Admin: 10/04/16 22:06 Dose: 37.5 mg A/P 86 year old Gentleman with PMhx of Afib on Coumadin, CAD s/p stents, CHF, Ulcerative Colitis s/p total colectomy, Kidney stones, Hypertension, Depression presented with focal weakness and found to have acute CVA and now with RAMON with BUN/Cr of 125/3.9 with baseline Cr of 1.3 to 1.5. #Acute on Chronic Renal Insuffiency Etiology Obstructive vs. Volume depletion vs. AIN Check Bladder Scan, Kidney/Bladder US r/o obstruction Urology follow up if pt has obstruction Check FeUrea, UCPR UA without protein or sediment continue isotonic IVF but increase rate to 100cc per hour Hold Bactrium for risk of AIN, check Urine Eios Dose all meds for Cr Cl less then 10 No acute indication for FIELD TECHNICAL SUPPORT CONSULTANT at this time #Hyperkalemia Secondary to renal failure +/- Bactrium Hold Bactrium for now if possible Continue isotonic saline address obstruction if present Trend K Q12h for now #Hypernatremia from poor oral intake + diuretics holding diuretics for now continue isotonic saline #Acute CVA continue management as per Cardiology and Neurology supportive care Thank you for this referral Will follow Waylon Mcmanus DO
[2016-10-05] MEDS: SODIUM CHLORIDE 1,000 ML IV SCH (12:00)
--- NOTE | 2016-10-05 12:11 | PN ---
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 Significant change since my last evaluation, at which time pt was Aphasic,anomia ,apraxia, dysarthria but verbal speaking in phrases. Pt was able to tolerate puree and nectar thick liquids. Comprehension and orientation were good. [facility] was recommended. POt now is NON VERBAL, attempting to verbalize. Non Vocal. Seems slightly SOB. Medication noted in oral cavity on soft and hard palate. Dry oral caviuty. Mouth breathing. Responsive cough with sip of nectar thick liquid. IMP: Per Nursing, Tuesday pt was somewhat communicative and verbal, with speech deficits. Deterioration in function. Elevated WBC. Suspect aspiration at this time. r/o metabolic encephalopathy, adversely affecting speech/language,swallowing vs new cva/extension. REC: NPO including medication CXR Neurology f/u [facility]/elevate HOB Monitor neurologic/pulmnonary status. MBS was improved before PO initiation.
--- NOTE | 2016-10-05 13:42 | PN ---
Progress Note (short form) - Note Progress Note: NEUROLOGY 86 year old male, with a significant past medical history of AFib(on coumadin and aspirin), CAD, ID (stents), CHF, ulcerative colitis(total colectomy and ileostomy), kidney stones, HTN, HLD, anxiety, and depression, was admitted for sudden right side weakness. He was seen by Dr. Meng and then Dr. Cobb. Today , I was called due to change in mental status. Reportedly was less responsive and had undergoing care for CVA. Patient not following commands but awake and alert. Has not had recent CT head and will order to evaluate CVA progression. On ASA 81mg. Also Getting Zosyn for infection which may be causing mental status change as well. Active Medications Acetaminophen (Tylenol -) 650 mg PO Q6H PRN PRN Reason: FEVER OR PAIN Last Admin: 09/29/16 17:52 Dose: 650 mg Alprazolam (Xanax -) 0.5 mg PO BID [facility] Last Admin: 10/04/16 22:06 Dose: 0.5 mg Amiodarone HCl (Cordarone -) 200 mg PO DAILY [facility] Last Admin: 10/04/16 10:57 Dose: 200 mg Aspirin (Asa -) 81 mg PO DAILY [facility] Last Admin: 10/04/16 10:54 Dose: 81 mg Cholecalciferol (Vitamin D3 -) 400 unit PO DAILY [facility] Last Admin: 10/04/16 11:00 Dose: 400 unit Cholestyramine Resin (Questran Light Packet -) 8 gm PO BID [facility] Last Admin: 10/04/16 22:07 Dose: 8 gm Dicyclomine HCl (Bentyl -) 20 mg PO DAILY [facility] Last Admin: 10/04/16 10:56 Dose: 20 mg Diphenhydramine HCl (Benadryl -) 25 mg PO TID PRN Piperacillin Sod/Tazobactam Sod (Zosyn 2.25gm Ivpb (Pre-Docked)) 50 mls @ 100 mls/hr IVPB BID [facility] PRN Reason: Protocol Sodium Chloride (Normal Saline -) 1,000 mls @ 100 mls/hr IV ASDIR [facility] Metoprolol Succinate (Toprol Xl -) 25 mg PO BID [facility] Last Admin: 10/04/16 22:06 Dose: 25 mg Multivitamins (Total B With C -) 1 each PO DAILY [facility] Last Admin: 10/04/16 11:00 Dose: 1 each Tamsulosin HCl (Flomax -) 0.4 mg PO DAILY@0830 [facility] Last Admin: 10/04/16 10:53 Dose: 0.4 mg Venlafaxine HCl (Effexor -) 37.5 mg PO BID [facility] Last Admin: 10/04/16 22:06 Dose: 37.5 mg Physical Exam-Neuro Vital Signs: Vital Signs Temperature 97.6 F 09/24/16 06:00 Pulse Rate 70 09/24/16 06:00 Respiratory Rate 18 09/24/16 06:00 Blood Pressure 150/80 09/24/16 06:00 O2 Sat by Pulse Oximetry (%) 94 L 09/23/16 23:45 Constitutional: Yes: Well Nourished, No Distress, Calm Neck: Yes: Supple, Trachea Midline Cardiovascular: Yes: Regular Rate and Rhythm, S1, S2 Respiratory: Yes: Regular, CTA Bilaterally Gastrointestinal: Yes: WNL, Normal Bowel Sounds, Soft Renal/: Yes: WNL Musculoskeletal: Yes: WNL Edema: Yes Edema: LLE: 1+ Psychiatric: Yes: Alert Labs: CBCD WBC 21.0 K/mm3 (4.0-10.0) H D 10/05/16 05:35 RBC 5.15 M/mm3 (4.00-5.60) 10/05/16 05:35 Hgb 14.6 GM/dL (11.7-16.9) 10/05/16 05:35 Hct 46.5 % (35.4-49) 10/05/16 05:35 MCV 90.3 fl (80-96) 10/05/16 05:35 MCHC 31.4 g/dl (32.0-35.9) L 10/05/16 05:35 RDW 15.7 % (11.9-15.9) 10/05/16 05:35 Plt Count 259 K/MM3 (134-434) 10/05/16 05:35 MPV 9.0 fl (7.5-11.1) 10/05/16 05:35 CMP Sodium 155 mmol/L (136-145) H 10/05/16 05:35 Potassium 5.6 mmol/L (3.5-5.1) H 10/05/16 05:35 Chloride 125 mmol/L (98-107) H 10/05/16 05:35 Carbon Dioxide 20 mmol/L (21-32) L 10/05/16 05:35 Anion Gap 10 (8-16) 10/05/16 05:35 BUN 125 mg/dL (7-18) H* 10/05/16 05:35 Creatinine 3.9 mg/dL (0.7-1.3) H 10/05/16 05:35 Creat Clearance w eGFR 14.77 (>60) 10/05/16 05:35 Calcium 9.1 mg/dL (8.5-10.1) 10/05/16 05:35 Total Bilirubin 0.6 mg/dL (0.2-1.0) 10/05/16 05:35 AST 126 U/L (15-37) H 10/05/16 05:35 ALT 247 U/L (12-78) H 10/05/16 05:35 Alkaline Phosphatase 57 U/L (45-117) 10/05/16 05:35 Total Protein 6.8 g/dl (6.4-8.2) 10/05/16 05:35 Albumin 3.5 g/dl (3.4-5.0) 10/05/16 05:35 - Neuro Exam Level Of Consciousness: Yes: Awake and alert Eyes: Yes: PERRLA Speech: Broca's Aphasia Dominant Hand: Right Cranial Nerves II-XII Intact: No (right dense hemiplegia, slurred speech dysarthria, expressive aphasi.facial droop) Babinski: Absent Response to light touch: Abnormal Response to pain prick: Abnormal Response to temperature: Abnormal Coordination: Normal: Finger to Nose Motor Strength: 0/5: Right Arm, 1/5: Right Leg, 5/5: Left Arm, Left Leg Gait: Ataxia, Deferred Assessment/Plan 86 year old male, with a significant past medical history of AFib(on coumadin and aspirin), CAD, ID (stents), CHF, ulcerative colitis(total colectomy and ileostomy), kidney stones, HTN, HLD, anxiety, and depression, was admitted for sudden right side weakness. He was seen by Dr. Meng and then Dr. Cobb. Today , I was called due to change in mental status, toxic metabolic encephalopthy. Reportedly was less responsive and had undergoing care for CVA. Patient not following commands but awake and alert. Has not had recent CT head and will order to evaluate CVA progression. On ASA 81mg. Also Getting Zosyn for infection which may be causing mental status change as well, wbc 21. Continue medical mgmt of infection. Monitor electrolyte disturbances. Fall precautions. Will re-evaluate after CT head.
[2016-10-05] MEDS: ASPIRIN 81 MG CHEWABLE TABLETS PO SCH (14:00)
[2016-10-05] MEDS: TAMSULOSIN HCL 0.4 MG CAP.ER.24H (FP) PO SCH (14:00)
[2016-10-05] MEDS: AMIODARONE HCL 200 MG TABLET (FP) PO SCH (14:01)
[2016-10-05] MEDS: VENLAFAXINE HCL 37.5 MG TABLET PO SCH ×2 (14:01→21:38)
[2016-10-05] MEDS: CHOLECALCIFEROL (VITAMIN D3) 400 UNIT TABLET (FP) PO SCH (14:01)
[2016-10-05] MEDS: METOPROLOL SUCCINATE 25 MG TAB.SR.24H (FP) PO SCH ×2 (14:01→21:38)
[2016-10-05] MEDS: DICYCLOMINE HCL 10 MG CAPSULE PO SCH (14:01)
[2016-10-05] MEDS: CHOLESTYRAMINE/ASPARTAME 4 GM PACKET PO SCH ×2 (14:01→21:38)
[2016-10-05] MEDS: VITAMIN B COMPLEX W/C COMBO TABLET (FP) PO SCH (14:01)
[2016-10-05] MEDS: ALPRAZolam 0.25 MG TABLET PO SCH ×2 (14:02→21:38)
--- NOTE | 2016-10-05 15:09 | PN ---
Progress Note, Physician History of Present Illness: patient stable no new issues wbc keeps on increasing patient looks clinically stable - Current Medication List Current Medications: Active Medications Acetaminophen (Tylenol -) 650 mg PO Q6H PRN PRN Reason: FEVER OR PAIN Last Admin: 09/29/16 17:52 Dose: 650 mg Alprazolam (Xanax -) 0.5 mg PO BID [facility] Last Admin: 10/05/16 14:02 Dose: Not Given Amiodarone HCl (Cordarone -) 200 mg PO DAILY [facility] Last Admin: 10/05/16 14:01 Dose: Not Given Aspirin (Asa -) 81 mg PO DAILY [facility] Last Admin: 10/05/16 14:00 Dose: Not Given Cholecalciferol (Vitamin D3 -) 400 unit PO DAILY [facility] Last Admin: 10/05/16 14:01 Dose: Not Given Cholestyramine Resin (Questran Light Packet -) 8 gm PO BID [facility] Last Admin: 10/05/16 14:01 Dose: Not Given Dicyclomine HCl (Bentyl -) 20 mg PO DAILY [facility] Last Admin: 10/05/16 14:01 Dose: Not Given Diphenhydramine HCl (Benadryl -) 25 mg PO TID PRN Sodium Chloride (Normal Saline -) 1,000 mls @ 100 mls/hr IV ASDIR [facility] Metoprolol Succinate (Toprol Xl -) 25 mg PO BID [facility] Last Admin: 10/05/16 14:01 Dose: Not Given Multivitamins (Total B With C -) 1 each PO DAILY [facility] Last Admin: 10/05/16 14:01 Dose: Not Given Tamsulosin HCl (Flomax -) 0.4 mg PO DAILY@0830 [facility] Last Admin: 10/05/16 14:00 Dose: Not Given Venlafaxine HCl (Effexor -) 37.5 mg PO BID [facility] Last Admin: 10/05/16 14:01 Dose: Not Given - Objective Vital Signs: Vital Signs Temperature 98.4 F 10/05/16 06:00 Pulse Rate 108 H 10/05/16 06:00 Respiratory Rate 18 10/05/16 06:00 Blood Pressure 113/75 10/05/16 06:00 O2 Sat by Pulse Oximetry (%) 95 10/04/16 23:45 Constitutional: Yes: Calm Eyes: Yes: Conjunctiva Clear Cardiovascular: Yes: Regular Rate and Rhythm Respiratory: Yes: Regular, Poor Air Entry Gastrointestinal: Yes: Normal Bowel Sounds, Soft Musculoskeletal: Yes: Other Extremities: Yes: Other Neurological: Yes: Alert, Other Labs: CBC, BMP 10/05/16 05:35 10/05/16 05:35 INR, PTT INR 3.26 (0.82-1.09) H 10/05/16 05:35 Assessment/Plan Problem List - Problems (1) Cerebrovascular accident (CVA) Code(s): I63.9 - CEREBRAL INFARCTION, UNSPECIFIED Qualifiers: Qualified Code(s): I63.412 - Cerebral infarction due to embolism of left middle cerebral artery (2) Coronary artery disease Code(s): I25.10 - ATHSCL HEART DISEASE OF [place] CORONARY ARTERY W/O ANG PCTRS Qualifiers: Qualified Code(s): I25.10 - Atherosclerotic heart disease of [place] coronary artery without angina pectoris (3) Hyperlipidemia Code(s): E78.5 - HYPERLIPIDEMIA, UNSPECIFIED Qualifiers: Qualified Code(s): E78.0 - Pure hypercholesterolemia (4) Hypertensive cardiomegaly without heart failure Code(s): I11.9 - HYPERTENSIVE HEART DISEASE WITHOUT HEART FAILURE (5) Old anterior myocardial infarction Code(s): I25.2 - OLD MYOCARDIAL INFARCTION (6) Paroxysmal atrial fibrillation Code(s): I48.0 - PAROXYSMAL ATRIAL FIBRILLATION (7) S/P coronary angioplasty Code(s): Z98.61 - CORONARY ANGIOPLASTY STATUS (8) Systolic dysfunction without heart failure Code(s): I51.9 - HEART DISEASE, UNSPECIFIED (9) Biventricular automatic implantable cardioverter defibrillator in situ Code(s): Z95.810 - PRESENCE OF AUTOMATIC (IMPLANTABLE) CARDIAC DEFIBRILLATOR (10) Subtherapeutic anticoagulation Code(s): Z51.81 - ENCOUNTER FOR THERAPEUTIC DRUG LEVEL MONITORING Z79.01 - SKILLED NURSING (CURRENT) USE OF ANTICOAGULANTS (11) Urethral stricture Code(s): N35.9 - URETHRAL STRICTURE, UNSPECIFIED Qualifiers: Qualified Code(s): N35.8 - Other urethral stricture 12 fever 13 rash arf leukocytosis dehydration plan wbc has increased will start patient on zosyn await for renal input continue monitoring if patient has any dirrhoea to send for cdiff
[2016-10-05 16:04] LABS: CREATININE 3.7 mg/dL (0.7-1.3)
[2016-10-05] MEDS: PIPERACILLIN/TAZOB 2.25 GM 50 ML IVPB SCH (18:55)
[2016-10-05] MEDS ORDERED: PIPERACILLIN/TAZOB 2.25 GM 50 ML IVPB SCH (22:00)
[2016-10-06] MEDS: SODIUM CHLORIDE 1,000 ML IV SCH (00:01)
[2016-10-06] MEDS: PIPERACILLIN/TAZOB 2.25 GM 50 ML IVPB SCH ×3 (01:42→17:32)
[2016-10-06 07:27] LABS: BASOPHIL 0.6 % (0-2.0); EOSINOPHIL 3.1 % (0-4.5); MCH 28.5 pg (25.7-33.7); MCHC 31.2 g/dl (32.0-35.9); MEAN CELL VOLUME 91.3 fl (80-96); MEAN PLT VOLUME 8.9 fl (7.5-11.1); NEUTROPHILS 81.6 % (42.8-82.8); PLATELET COUNT 196 K/MM3 (134-434); RDW 15.7 % (11.9-15.9); WHITE BLOOD COUNT 13.9 K/mm3 (4.0-10.0)
[2016-10-06 08:02] LABS: ALBUMIN 3.2 g/dl (3.4-5.0); BILIRUBIN,TOTAL 0.6 mg/dL (0.2-1.0); CREATININE 3.2 mg/dL (0.7-1.3); MAGNESIUM 3.6 mg/dL (1.8-2.4); TOT PROT 6.5 g/dl (6.4-8.2)
[2016-10-06] MEDS ORDERED: PT OWN MED DRAWER 7, Y5N ONE (09:00)
--- NOTE | 2016-10-06 09:06 | PN ---
Progress Note, Physician Chief Complaint: More lethargic History of Present Illness: CT of head showed infarct L internal capsule area X ray chest Neg - Current Medication List Current Medications: Active Medications Acetaminophen (Tylenol -) 650 mg PO Q6H PRN PRN Reason: FEVER OR PAIN Last Admin: 09/29/16 17:52 Dose: 650 mg Alprazolam (Xanax -) 0.5 mg PO BID [facility] Last Admin: 10/05/16 21:38 Dose: Not Given Amiodarone HCl (Cordarone -) 200 mg PO DAILY [facility] Last Admin: 10/05/16 14:01 Dose: Not Given Aspirin (Asa -) 81 mg PO DAILY [facility] Last Admin: 10/05/16 14:00 Dose: Not Given Cholecalciferol (Vitamin D3 -) 400 unit PO DAILY [facility] Last Admin: 10/05/16 14:01 Dose: Not Given Cholestyramine Resin (Questran Light Packet -) 8 gm PO BID [facility] Last Admin: 10/05/16 21:38 Dose: Not Given Dicyclomine HCl (Bentyl -) 20 mg PO DAILY [facility] Last Admin: 10/05/16 14:01 Dose: Not Given Diphenhydramine HCl (Benadryl -) 25 mg PO TID PRN Sodium Chloride (Normal Saline -) 1,000 mls @ 100 mls/hr IV ASDIR [facility] Last Admin: 10/06/16 00:01 Dose: 100 mls/hr Piperacillin Sod/Tazobactam Sod (Zosyn 2.25gm Ivpb (Pre-Docked)) 50 mls @ 100 mls/hr IVPB Q8H-IV [facility] PRN Reason: Protocol Last Admin: 10/06/16 01:42 Dose: 100 mls/hr Metoprolol Succinate (Toprol Xl -) 25 mg PO BID [facility] Last Admin: 10/05/16 21:38 Dose: Not Given Multivitamins (Total B With C -) 1 each PO DAILY [facility] Last Admin: 10/05/16 14:01 Dose: Not Given Tamsulosin HCl (Flomax -) 0.4 mg PO DAILY@0830 [facility] Last Admin: 10/05/16 14:00 Dose: Not Given Venlafaxine HCl (Effexor -) 37.5 mg PO BID [facility] Last Admin: 10/05/16 21:38 Dose: Not Given - Objective Vital Signs: Vital Signs Temperature 97.4 F L 10/06/16 06:06 Pulse Rate 96 H 10/06/16 06:06 Respiratory Rate 18 10/06/16 06:06 Blood Pressure 113/65 10/06/16 06:06 O2 Sat by Pulse Oximetry (%) 96 10/05/16 21:00 Constitutional: Yes: Mild Distress Eyes: Yes: WNL HENT: Yes: WNL Neck: Yes: WNL Cardiovascular: Yes: Pulse Irregular Respiratory: Yes: Regular Gastrointestinal: Yes: Normal Bowel Sounds ...Rectal Exam: Yes: Deferred Genitourinary: Yes: Incontinence Breast(s): Yes: WNL Peripheral Pulses WNL: Yes Psychiatric: Yes: Alert Labs: CBC, BMP 10/06/16 06:10 10/06/16 06:10 INR, PTT INR 3.26 (0.82-1.09) H 10/05/16 05:35
[2016-10-06] MEDS ORDERED: DEXTROSE 5%-1/3 NS - 500 ML IV SCH (09:15)
[2016-10-06] MEDS: CHOLECALCIFEROL (VITAMIN D3) 400 UNIT TABLET (FP) PO SCH (09:27)
[2016-10-06] MEDS: ASPIRIN 81 MG CHEWABLE TABLETS PO SCH (09:27)
[2016-10-06] MEDS: METOPROLOL SUCCINATE 25 MG TAB.SR.24H (FP) PO SCH ×2 (09:27→21:44)
[2016-10-06] MEDS: TAMSULOSIN HCL 0.4 MG CAP.ER.24H (FP) PO SCH (09:27)
[2016-10-06] MEDS: AMIODARONE HCL 200 MG TABLET (FP) PO SCH (09:27)
[2016-10-06] MEDS: VENLAFAXINE HCL 37.5 MG TABLET PO SCH ×2 (09:29→21:43)
[2016-10-06] MEDS: VITAMIN B COMPLEX W/C COMBO TABLET (FP) PO SCH (09:29)
--- NOTE | 2016-10-06 10:50 | PN ---
Progress Note, Physician History of Present Illness: Continued right-sided hemiplegia, deterioration in mental status and oral intake. - Current Medication List Current Medications: Active Medications Acetaminophen (Tylenol -) 650 mg PO Q6H PRN PRN Reason: FEVER OR PAIN Last Admin: 09/29/16 17:52 Dose: 650 mg Amiodarone HCl (Cordarone -) 200 mg PO DAILY [facility] Last Admin: 10/06/16 09:27 Dose: 200 mg Aspirin (Asa -) 81 mg PO DAILY [facility] Last Admin: 10/06/16 09:27 Dose: 81 mg Cholecalciferol (Vitamin D3 -) 400 unit PO DAILY [facility] Last Admin: 10/06/16 09:27 Dose: 400 unit Piperacillin Sod/Tazobactam Sod (Zosyn 2.25gm Ivpb (Pre-Docked)) 50 mls @ 100 mls/hr IVPB Q8H-IV [facility] PRN Reason: Protocol Last Admin: 10/06/16 09:26 Dose: 100 mls/hr Dextrose/Sodium Chloride (D5-1/3ns -) 500 mls @ 100 mls/hr IV ASDIR [facility] Last Admin: 10/06/16 09:29 Dose: 100 mls/hr Metoprolol Succinate (Toprol Xl -) 25 mg PO BID [facility] Last Admin: 10/06/16 09:27 Dose: 25 mg Multivitamins (Total B With C -) 1 each PO DAILY [facility] Last Admin: 10/06/16 09:29 Dose: 1 each Tamsulosin HCl (Flomax -) 0.4 mg PO DAILY@0830 [facility] Last Admin: 10/06/16 09:27 Dose: 0.4 mg Venlafaxine HCl (Effexor -) 37.5 mg PO BID [facility] Last Admin: 10/06/16 09:29 Dose: 37.5 mg - Objective Vital Signs: Vital Signs Temperature 97.4 F L 10/06/16 06:06 Pulse Rate 96 H 10/06/16 06:06 Respiratory Rate 18 10/06/16 06:06 Blood Pressure 113/65 10/06/16 06:06 O2 Sat by Pulse Oximetry (%) 96 10/05/16 21:00 Constitutional: Yes: No Distress, Calm Neck: Yes: Supple Cardiovascular: Yes: Regular Rate and Rhythm Respiratory: Yes: Regular, Diminished Gastrointestinal: Yes: Soft, Hypoactive Bowel Sounds Edema: No Labs: CBC, BMP 10/06/16 06:10 10/06/16 06:10 INR, PTT INR 3.26 (0.82-1.09) H 10/05/16 05:35 Problem List - Problems (1) Cerebrovascular accident (CVA) Code(s): I63.9 - CEREBRAL INFARCTION, UNSPECIFIED Qualifiers: Qualified Code(s): I63.412 - Cerebral infarction due to embolism of left middle cerebral artery (2) Coronary artery disease Code(s): I25.10 - ATHSCL HEART DISEASE OF [place] CORONARY ARTERY W/O ANG PCTRS Qualifiers: Qualified Code(s): I25.10 - Atherosclerotic heart disease of [place] coronary artery without angina pectoris (3) Hyperlipidemia Code(s): E78.5 - HYPERLIPIDEMIA, UNSPECIFIED Qualifiers: Qualified Code(s): E78.0 - Pure hypercholesterolemia (4) Hypertensive cardiomegaly without heart failure Code(s): I11.9 - HYPERTENSIVE HEART DISEASE WITHOUT HEART FAILURE (5) Old anterior myocardial infarction Code(s): I25.2 - OLD MYOCARDIAL INFARCTION (6) Paroxysmal atrial fibrillation Code(s): I48.0 - PAROXYSMAL ATRIAL FIBRILLATION (7) S/P coronary angioplasty Code(s): Z98.61 - CORONARY ANGIOPLASTY STATUS (8) Systolic dysfunction without heart failure Code(s): I51.9 - HEART DISEASE, UNSPECIFIED (9) Biventricular automatic implantable cardioverter defibrillator in situ Code(s): Z95.810 - PRESENCE OF AUTOMATIC (IMPLANTABLE) CARDIAC DEFIBRILLATOR (10) Subtherapeutic anticoagulation Code(s): Z51.81 - ENCOUNTER FOR THERAPEUTIC DRUG LEVEL MONITORING Z79.01 - INSPECTOR ALUMINUM [employer]AT (CURRENT) USE OF ANTICOAGULANTS (11) Urethral stricture Code(s): N35.9 - URETHRAL STRICTURE, UNSPECIFIED Qualifiers: Qualified Code(s): N35.8 - Other urethral stricture Assessment/Plan 09/28/2016 Severe global HK, mild MR, ICD lead 10/05/2016 HCT New posterior limb left internal capsule stroke 1. Toxic metabolic encephelopathy 2. Acute ischemic stroke with slurred speech, left sided facial droop and right sided hemiplegia in context of subtherapeutic INR 3. Paroxysmal atrial fibrillation now with supratherapeutic INR 4. CAD s/p UT, s/p PCI (stent), angina pectoris 5. Severe LV systolic dysfunction 6. Sustained VT s/p [employer]-D 7. HTN/HCVD 8. Hyperlipidemia 9. Urethral stricture unsuccessful dilatation 10. Acute on CKD referable to hypovolemia, Bactrim use improving, hypernatremia PLAN: 1. Dose coumadin per INR 2-3, ASA 81 mg QD, Amiodarone 200 mg QD, Toprol 25 mg BID, off Lipitor and Questran 2. Off diuretics, volume and free water repletion with f/u renal fxn, electrolytes 3. Empiric abx course for aspiration 4. NGT for enteral nutrition and meds if patient remains NPO, MBS in future
--- NOTE | 2016-10-06 11:02 | PN ---
Progress Note (short form) - Note Progress Note: NEUROLOGY 86 year old male, with a significant past medical history of AFib(on coumadin and aspirin), CAD, IN (stents), CHF, ulcerative colitis(total colectomy and ileostomy), kidney stones, HTN, HLD, anxiety, and depression, was admitted for sudden right side weakness. He was seen by Dr. Meng and then Dr. Cobb. Today , I was called due to change in mental status. Reportedly was less responsive and had undergoing care for CVA. Ct head completed and showed hypodensity in L capsule, new since CT 2 weeks ago. On ASA 81mg, and would recommend switch to aggrenox if no contraindications. Also Getting Zosyn for infection which may be causing mental status change as well. More awake and alert today, more responsive. Active Medications Acetaminophen (Tylenol -) 650 mg PO Q6H PRN PRN Reason: FEVER OR PAIN Last Admin: 09/29/16 17:52 Dose: 650 mg Amiodarone HCl (Cordarone -) 200 mg PO DAILY [facility] Last Admin: 10/06/16 09:27 Dose: 200 mg Aspirin (Asa -) 81 mg PO DAILY [facility] Last Admin: 10/06/16 09:27 Dose: 81 mg Cholecalciferol (Vitamin D3 -) 400 unit PO DAILY [facility] Last Admin: 10/06/16 09:27 Dose: 400 unit Piperacillin Sod/Tazobactam Sod (Zosyn 2.25gm Ivpb (Pre-Docked)) 50 mls @ 100 mls/hr IVPB Q8H-IV [facility] PRN Reason: Protocol Last Admin: 10/06/16 09:26 Dose: 100 mls/hr Dextrose/Sodium Chloride (D5-1/3ns -) 500 mls @ 100 mls/hr IV ASDIR [facility] Last Admin: 10/06/16 09:29 Dose: 100 mls/hr Metoprolol Succinate (Toprol Xl -) 25 mg PO BID [facility] Last Admin: 10/06/16 09:27 Dose: 25 mg Multivitamins (Total B With C -) 1 each PO DAILY [facility] Last Admin: 10/06/16 09:29 Dose: 1 each Tamsulosin HCl (Flomax -) 0.4 mg PO DAILY@0830 [facility] Last Admin: 10/06/16 09:27 Dose: 0.4 mg Venlafaxine HCl (Effexor -) 37.5 mg PO BID [facility] Last Admin: 10/06/16 09:29 Dose: 37.5 mg Physical Exam-Neuro Vital Signs: Vital Signs Temperature 97.4 F L 10/06/16 06:06 Pulse Rate 96 H 10/06/16 06:06 Respiratory Rate 18 10/06/16 06:06 Blood Pressure 113/65 10/06/16 06:06 O2 Sat by Pulse Oximetry (%) 96 10/05/16 21:00 Constitutional: Yes: Well Nourished, No Distress, Calm Neck: Yes: Supple, Trachea Midline Cardiovascular: Yes: Regular Rate and Rhythm, S1, S2 Respiratory: Yes: Regular, CTA Bilaterally Gastrointestinal: Yes: WNL, Normal Bowel Sounds, Soft Renal/: Yes: WNL Musculoskeletal: Yes: WNL Edema: Yes Edema: LLE: 1+ Psychiatric: Yes: Alert Labs: CBCD WBC 21.0 K/mm3 (4.0-10.0) H D 10/05/16 05:35 RBC 5.15 M/mm3 (4.00-5.60) 10/05/16 05:35 Hgb 14.6 GM/dL (11.7-16.9) 10/05/16 05:35 Hct 46.5 % (35.4-49) 10/05/16 05:35 MCV 90.3 fl (80-96) 10/05/16 05:35 MCHC 31.4 g/dl (32.0-35.9) L 10/05/16 05:35 RDW 15.7 % (11.9-15.9) 10/05/16 05:35 Plt Count 259 K/MM3 (134-434) 10/05/16 05:35 MPV 9.0 fl (7.5-11.1) 10/05/16 05:35 CMP Sodium 155 mmol/L (136-145) H 10/05/16 05:35 Potassium 5.6 mmol/L (3.5-5.1) H 10/05/16 05:35 Chloride 125 mmol/L (98-107) H 10/05/16 05:35 Carbon Dioxide 20 mmol/L (21-32) L 10/05/16 05:35 Anion Gap 10 (8-16) 10/05/16 05:35 BUN 125 mg/dL (7-18) H* 10/05/16 05:35 Creatinine 3.9 mg/dL (0.7-1.3) H 10/05/16 05:35 Creat Clearance w eGFR 14.77 (>60) 10/05/16 05:35 Calcium 9.1 mg/dL (8.5-10.1) 10/05/16 05:35 Total Bilirubin 0.6 mg/dL (0.2-1.0) 10/05/16 05:35 AST 126 U/L (15-37) H 10/05/16 05:35 ALT 247 U/L (12-78) H 10/05/16 05:35 Alkaline Phosphatase 57 U/L (45-117) 10/05/16 05:35 Total Protein 6.8 g/dl (6.4-8.2) 10/05/16 05:35 Albumin 3.5 g/dl (3.4-5.0) 10/05/16 05:35 - Neuro Exam Level Of Consciousness: Yes: Awake and alert Eyes: Yes: PERRLA Speech: Broca's Aphasia Dominant Hand: Right Cranial Nerves II-XII Intact: No (right dense hemiplegia, slurred speech dysarthria, expressive aphasi.facial droop) Babinski: Absent Response to light touch: Abnormal Response to pain prick: Abnormal Response to temperature: Abnormal Coordination: Normal: Finger to Nose Motor Strength: 0/5: Right Arm, 1/5: Right Leg, 5/5: Left Arm, Left Leg Gait: Ataxia, Deferred Assessment/Plan 89 year old male, with a significant past medical history of AFib(on coumadin and aspirin), CAD, IN (stents), CHF, ulcerative colitis(total colectomy and ileostomy), kidney stones, HTN, HLD, anxiety, and depression, was admitted for sudden right side weakness. He was seen by Dr. Meng and then Dr. Cobb. Today , I was called due to change in mental status. Reportedly was less responsive and had undergoing care for CVA. Ct head completed and showed hypodensity in L capsule, new since CT 2 weeks ago. On ASA 81mg, and would recommend switch to aggrenox if no contraindications. Also Getting Zosyn for infection which may be causing mental status change as well. More awake and alert today, more responsive. Continue medical mgmt of infection. Monitor electrolyte disturbances. Fall precautions. Consider switch Aggrenox instead of ASA 81mg if PCP and cardiology ok with this.
--- NOTE | 2016-10-06 11:57 | PN ---
Progress Note (short form) - Note Progress Note: Renal Follow up for RAMON/Hypernatremia Pt seen and examined at the bedside awake and alert non-verbal denies any pain does report urination no sob on IVF Vital Signs Temperature 97.4 F L 10/06/16 06:06 Pulse Rate 96 H 10/06/16 06:06 Respiratory Rate 18 10/06/16 06:06 Blood Pressure 113/65 10/06/16 06:06 O2 Sat by Pulse Oximetry (%) 96 10/05/16 21:00 Intake & Output 10/03/16 10/04/16 10/05/16 10/06/16 23:59 23:59 23:59 23:59 Intake Total 220 120 0 1250 Output Total 200 Balance 220 120 0 1050 Gen: NAD, awake HEENT: Dry MM CVS: irregular, No M/R Lungs: Dec Bs lung bases, no rales or wheeze Abd: soft, No tenderness Ext: No edema, clubbing or cyanosis Neuro: Non-verbal CBC, BMP 10/06/16 06:10 10/06/16 06:10 Laboratory Tests 10/06/16 10/06/16 10/06/16 05:45 05:45 05:45 Calcium Phosphorus Magnesium Albumin Urine Eosinophils Pending U Random Total Protein Ur Random Sodium 19 Ur Random Urea Nitrogn 1298 Urine Creatinine 10/06/16 10/06/16 10/06/16 05:45 05:45 06:10 Calcium 9.0 Phosphorus 4.0 Magnesium 3.6 H D Albumin 3.2 L Urine Eosinophils U Random Total Protein 45 H Ur Random Sodium Ur Random Urea Nitrogn Urine Creatinine 82.9 Current Medications Acetaminophen (Tylenol -) 650 mg PO Q6H PRN PRN Reason: FEVER OR PAIN Last Admin: 09/29/16 17:52 Dose: 650 mg Amiodarone HCl (Cordarone -) 200 mg PO DAILY [facility] Last Admin: 10/06/16 09:27 Dose: 200 mg Aspirin (Asa -) 81 mg PO DAILY [facility] Last Admin: 10/06/16 09:27 Dose: 81 mg Cholecalciferol (Vitamin D3 -) 400 unit PO DAILY [facility] Last Admin: 10/06/16 09:27 Dose: 400 unit Piperacillin Sod/Tazobactam Sod (Zosyn 2.25gm Ivpb (Pre-Docked)) 50 mls @ 100 mls/hr IVPB Q8H-IV ELFEGO PRN Reason: Protocol Last Admin: 10/06/16 09:26 Dose: 100 mls/hr Dextrose/Sodium Chloride (D5-1/3ns -) 500 mls @ 125 mls/hr IV ASDIR [facility] Metoprolol Succinate (Toprol Xl -) 25 mg PO BID [facility] Last Admin: 10/06/16 09:27 Dose: 25 mg Multivitamins (Total B With C -) 1 each PO DAILY [facility] Last Admin: 10/06/16 09:29 Dose: 1 each Tamsulosin HCl (Flomax -) 0.8 mg PO DAILY@0830 [facility] Venlafaxine HCl (Effexor -) 37.5 mg PO BID [facility] Last Admin: 10/06/16 09:29 Dose: 37.5 mg Warfarin Sodium (Coumadin -) 3 mg PO ONCE@1800 ONE Stop: 10/06/16 18:01 A/P 86 year old Gentleman with PMhx of Afib on Coumadin, CAD s/p stents, CHF, Ulcerative Colitis s/p total colectomy, Kidney stones, Hypertension, Depression presented with focal weakness and found to have acute CVA and now with RAMON with BUN/Cr of 125/3.9 with baseline Cr of 1.3 to 1.5. #Acute on Chronic Renal Insuffiency Etiology Obstructive vs. Volume depletion vs. AIN Renal US only saw one kidney that was w/o hydronephrosis + Bladder distension BUN/Cr with mild improvement on isotonic saline continue to hold diuretics, Bactrium Urology follow up for retention Increase flomax to 0.8mg Daily #Hyperkalemia Secondary to renal failure +/- Bactrium improved no acute intervention neeed continue to trend #Hypernatremia Water deficit is 6L ? Central DI given recent CVA vs. continued effect of diuretics and salt loading from isotonic saline Agree with changing to 1/3 NS but increase rate to 125cc per hour Repeat Na this evening check urine and serum OSM r/o DI Goal rate of correction is ~8 per day #Acute CVA continue management as per Cardiology and Neurology supportive care Waylon Mcmanus DO
[2016-10-06] MEDS: DEXTROSE 5%-1/3 NS - 500 ML IV SCH (12:21)
--- NOTE | 2016-10-06 12:30 | PN ---
Progress Note, ROLLING ATTENDANT - Note Progress Note: Repeat CT new non hem infarct in posterior limb of left internal capsule. Pt is now more verbal than yesterday, however voice is severely dysphonic. He is oriented and comprehends speech if he hears it. (Hearing aids were brought home by family) Word errors may not be paraphasic but rather secondary to apraxia. Pt is dysathric as well, with right facial involvement. Swallow is VERY delayed, sometimes 10+ seconds, possibly sec to apraxia as well as weakness. However, once tiggered, fair vom/rom of laryngeal function. MBS would be beneficial before initiating PO intake. Selected Entries 10/04/16 10/04/16 10/04/16 06:00 14:45 15:43 Breakfast 25% Lunch 25% Supper Temperature 97.4 F L 99.6 F 10/04/16 10/04/16 10/05/16 18:00 22:00 02:00 Breakfast Lunch Supper 50% Temperature 99.4 F 98.3 F 99.2 F 10/05/16 10/05/16 10/05/16 06:00 15:20 15:30 Breakfast Lunch NPO Supper Temperature 98.4 F 97.9 F 10/05/16 10/05/16 10/05/16 18:00 21:00 22:54 Breakfast Lunch Supper NPO NPO Temperature 98.2 F 97.4 F L 10/06/16 10/06/16 06:06 11:00 Breakfast NPO Lunch Supper Temperature 97.4 F L Laboratory Tests 10/04/16 10/05/16 10/06/16 10:15 05:35 06:10 WBC 13.7 H D 21.0 H D 13.9 H D CXR (-) Educated family on performance, swallowing and speech function. They report that pt was verbal, with unintelligible words, speaking in phrases, o x 3, with onset of lethargy, cough, and speech/swallow changes observed on 10/04 and .
[2016-10-06 16:51] LABS: INR 3.53 (0.82-1.09); PROTHROMBIN TIME (PATIENT) 39.9 SEC (9.98-11.88)
--- NOTE | 2016-10-06 17:21 | PN ---
Progress Note, Physician History of Present Illness: patient looking much better no events labs improving - Current Medication List Current Medications: Active Medications Acetaminophen (Tylenol -) 650 mg PO Q6H PRN PRN Reason: FEVER OR PAIN Last Admin: 09/29/16 17:52 Dose: 650 mg Amiodarone HCl (Cordarone -) 200 mg PO DAILY [facility] Last Admin: 10/06/16 09:27 Dose: 200 mg Aspirin (Asa -) 81 mg PO DAILY [facility] Last Admin: 10/06/16 09:27 Dose: 81 mg Cholecalciferol (Vitamin D3 -) 400 unit PO DAILY [facility] Last Admin: 10/06/16 09:27 Dose: 400 unit Piperacillin Sod/Tazobactam Sod (Zosyn 2.25gm Ivpb (Pre-Docked)) 50 mls @ 100 mls/hr IVPB Q8H-IV [place]FEGO PRN Reason: Protocol Last Admin: 10/06/16 09:26 Dose: 100 mls/hr Dextrose/Sodium Chloride (D5-1/3ns -) 500 mls @ 125 mls/hr IV ASDIR [facility] Last Admin: 10/06/16 12:21 Dose: 125 mls/hr Metoprolol Succinate (Toprol Xl -) 25 mg PO BID [facility] Last Admin: 10/06/16 09:27 Dose: 25 mg Multivitamins (Total B With C -) 1 each PO DAILY [facility] Last Admin: 10/06/16 09:29 Dose: 1 each Tamsulosin HCl (Flomax -) 0.8 mg PO DAILY@0830 [facility] Venlafaxine HCl (Effexor -) 37.5 mg PO BID [facility] Last Admin: 10/06/16 09:29 Dose: 37.5 mg Warfarin Sodium (Coumadin -) 3 mg PO ONCE@1800 ONE Stop: 10/06/16 18:01 - Objective Vital Signs: Vital Signs Temperature 98.0 F 10/06/16 14:30 Pulse Rate 98 H 10/06/16 14:30 Respiratory Rate 18 10/06/16 14:30 Blood Pressure 106/69 10/06/16 14:30 O2 Sat by Pulse Oximetry (%) 96 10/06/16 10:00 Constitutional: Yes: No Distress, Calm Cardiovascular: Yes: Regular Rate and Rhythm Respiratory: Yes: Regular, Poor Air Entry Gastrointestinal: Yes: Normal Bowel Sounds, Soft Musculoskeletal: Yes: Other Extremities: Yes: Other Neurological: Yes: Alert, Other Psychiatric: Yes: Alert Labs: CBC, BMP 10/06/16 06:10 INR, PTT INR 3.53 (0.82-1.09) H 10/06/16 15:30 Assessment/Plan Problem List - Problems (1) Cerebrovascular accident (CVA) Code(s): I63.9 - CEREBRAL INFARCTION, UNSPECIFIED Qualifiers: Qualified Code(s): I63.412 - Cerebral infarction due to embolism of left middle cerebral artery (2) Coronary artery disease Code(s): I25.10 - ATHSCL HEART DISEASE OF [place] CORONARY ARTERY W/O ANG PCTRS Qualifiers: Qualified Code(s): I25.10 - Atherosclerotic heart disease of [place] coronary artery without angina pectoris (3) Hyperlipidemia Code(s): E78.5 - HYPERLIPIDEMIA, UNSPECIFIED Qualifiers: Qualified Code(s): E78.0 - Pure hypercholesterolemia (4) Hypertensive cardiomegaly without heart failure Code(s): I11.9 - HYPERTENSIVE HEART DISEASE WITHOUT HEART FAILURE (5) Old anterior myocardial infarction Code(s): I25.2 - OLD MYOCARDIAL INFARCTION (6) Paroxysmal atrial fibrillation Code(s): I48.0 - PAROXYSMAL ATRIAL FIBRILLATION (7) S/P coronary angioplasty Code(s): Z98.61 - CORONARY ANGIOPLASTY STATUS (8) Systolic dysfunction without heart failure Code(s): I51.9 - HEART DISEASE, UNSPECIFIED (9) Biventricular automatic implantable cardioverter defibrillator in situ Code(s): Z95.810 - PRESENCE OF AUTOMATIC (IMPLANTABLE) CARDIAC DEFIBRILLATOR (10) Subtherapeutic anticoagulation Code(s): Z51.81 - ENCOUNTER FOR THERAPEUTIC DRUG LEVEL MONITORING Z79.01 - DIRECTOR OF ROOMS (CURRENT) USE OF ANTICOAGULANTS (11) Urethral stricture Code(s): N35.9 - URETHRAL STRICTURE, UNSPECIFIED Qualifiers: Qualified Code(s): N35.8 - Other urethral stricture 12 fever 13 rash arf leukocytosis dehydration plan wbc trending down renal on case continue abx continue monitoring
[2016-10-06] MEDS ORDERED: WARFARIN NA 3 MG TABLET PO ONE (18:00)
[2016-10-06 18:02] LABS: CALCIUM 8.7 mg/dL (8.5-10.1); CREATININE 2.9 mg/dL (0.7-1.3)
[2016-10-07] MEDS: DEXTROSE 5%-1/3 NS - 500 ML IV SCH (00:34)
[2016-10-07] MEDS: PIPERACILLIN/TAZOB 2.25 GM 50 ML IVPB SCH ×3 (01:24→18:00)
[2016-10-07 07:16] LABS: MCH 28.6 pg (25.7-33.7); MCHC 31.2 g/dl (32.0-35.9); MEAN CELL VOLUME 91.5 fl (80-96); MEAN PLT VOLUME 8.7 fl (7.5-11.1); PLATELET COUNT 167 K/MM3 (134-434); WHITE BLOOD COUNT 10.2 K/mm3 (4.0-10.0)
[2016-10-07 07:48] LABS: ALBUMIN 2.9 g/dl (3.4-5.0); BILIRUBIN,TOTAL 0.7 mg/dL (0.2-1.0); CALCIUM 8.7 mg/dL (8.5-10.1); CREATININE 2.4 mg/dL (0.7-1.3); TOT PROT 5.9 g/dl (6.4-8.2)
[2016-10-07 07:55] LABS: INR 3.79 (0.82-1.09); PROTHROMBIN TIME (PATIENT) 42.8 SEC (9.98-11.88)
[2016-10-07] MEDS ORDERED: PT OWN MED DRAWER 7, Y5N ONE ×2 (08:31→22:15)
[2016-10-07] MEDS: VITAMIN B COMPLEX W/C COMBO TABLET (FP) PO SCH (09:14)
[2016-10-07] MEDS: VENLAFAXINE HCL 37.5 MG TABLET PO SCH ×2 (09:18→22:18)
[2016-10-07] MEDS: TAMSULOSIN HCL 0.4 MG CAP.ER.24H (FP) PO SCH (09:20)
[2016-10-07] MEDS: METOPROLOL SUCCINATE 25 MG TAB.SR.24H (FP) PO SCH ×2 (09:20→22:17)
[2016-10-07] MEDS: AMIODARONE HCL 200 MG TABLET (FP) PO SCH (09:21)
[2016-10-07] MEDS: CHOLECALCIFEROL (VITAMIN D3) 400 UNIT TABLET (FP) PO SCH (09:21)
[2016-10-07] MEDS: ASPIRIN 81 MG CHEWABLE TABLETS PO SCH (09:27)
--- NOTE | 2016-10-07 09:29 | PN ---
Progress Note, Physician History of Present Illness: More awake CVA Sepsis and dehydration - Current Medication List Current Medications: Active Medications Acetaminophen (Tylenol -) 650 mg PO Q6H PRN PRN Reason: FEVER OR PAIN Last Admin: 09/29/16 17:52 Dose: 650 mg Amiodarone HCl (Cordarone -) 200 mg PO DAILY [facility] Last Admin: 10/06/16 09:27 Dose: 200 mg Aspirin (Asa -) 81 mg PO DAILY [facility] Last Admin: 10/06/16 09:27 Dose: 81 mg Cholecalciferol (Vitamin D3 -) 400 unit PO DAILY [facility] Last Admin: 10/06/16 09:27 Dose: 400 unit Piperacillin Sod/Tazobactam Sod (Zosyn 2.25gm Ivpb (Pre-Docked)) 50 mls @ 100 mls/hr IVPB Q8H-IV ELFEGO PRN Reason: Protocol Last Admin: 10/07/16 01:24 Dose: 100 mls/hr Dextrose/Sodium Chloride (D5-1/3ns -) 500 mls @ 125 mls/hr IV ASDIR [facility] Last Admin: 10/07/16 00:34 Dose: 125 mls/hr Metoprolol Succinate (Toprol Xl -) 25 mg PO BID [facility] Last Admin: 10/06/16 21:44 Dose: 25 mg Multivitamins (Total B With C -) 1 each PO DAILY [facility] Last Admin: 10/06/16 09:29 Dose: 1 each Tamsulosin HCl (Flomax -) 0.8 mg PO DAILY@0830 [facility] Venlafaxine HCl (Effexor -) 37.5 mg PO BID [facility] Last Admin: 10/06/16 21:43 Dose: 37.5 mg - Objective Vital Signs: Vital Signs Temperature 97.8 F 10/07/16 06:00 Pulse Rate 82 10/07/16 06:00 Respiratory Rate 18 10/07/16 06:00 Blood Pressure 132/81 10/07/16 06:00 O2 Sat by Pulse Oximetry (%) 89 L 10/06/16 21:00 Constitutional: Yes: Anxious Eyes: Yes: WNL HENT: Yes: WNL Neck: Yes: WNL Cardiovascular: Yes: Regular Rate and Rhythm Respiratory: Yes: WNL ...Rectal Exam: Yes: Deferred Genitourinary: Yes: Incontinence Musculoskeletal: Yes: Muscle Weakness Edema: No Peripheral Pulses WNL: Yes Neurological: Yes: Alert Psychiatric: Yes: Alert Labs: CBC, BMP 10/07/16 05:35 10/07/16 05:35 INR, PTT INR 3.79 (0.82-1.09) H 10/07/16 05:35 Assessment/Plan Barrium swallow
--- NOTE | 2016-10-07 09:37 | PN ---
Progress Note (short form) - Note Progress Note: NEUROLOGY 86 year old male, with a significant past medical history of AFib(on coumadin and aspirin), CAD, [place] (stents), CHF, ulcerative colitis(total colectomy and ileostomy), kidney stones, HTN, HLD, anxiety, and depression, was admitted for sudden right side weakness. He was seen by Dr. Meng and then Dr. Cobb. Today , I was called due to change in mental status. Reportedly was less responsive and had undergoing care for CVA. Ct head completed and showed hypodensity in L capsule, new since CT 2 weeks ago. On ASA 81mg, and spoke with PCP and patient is already on Warfarin. It was not on med list due to high INR and therefore, would not want to increase bleed risk with Aggrenox. Also Getting Zosyn for infection which may be causing mental status change as well. More awake and alert today, more responsive. Active Medications Acetaminophen (Tylenol -) 650 mg PO Q6H PRN PRN Reason: FEVER OR PAIN Last Admin: 09/29/16 17:52 Dose: 650 mg Amiodarone HCl (Cordarone -) 200 mg PO DAILY [facility] Last Admin: 10/07/16 09:21 Dose: 200 mg Aspirin (Asa -) 81 mg PO DAILY [facility] Last Admin: 10/07/16 09:27 Dose: 81 mg Cholecalciferol (Vitamin D3 -) 400 unit PO DAILY [facility] Last Admin: 10/07/16 09:21 Dose: 400 unit Piperacillin Sod/Tazobactam Sod (Zosyn 2.25gm Ivpb (Pre-Docked)) 50 mls @ 100 mls/hr IVPB Q8H-IV [place]FEGO PRN Reason: Protocol Last Admin: 10/07/16 09:14 Dose: 100 mls/hr Dextrose/Sodium Chloride (D5-1/3ns -) 500 mls @ 125 mls/hr IV ASDIR [facility] Last Admin: 10/07/16 00:34 Dose: 125 mls/hr Metoprolol Succinate (Toprol Xl -) 25 mg PO BID [facility] Last Admin: 10/07/16 09:20 Dose: 25 mg Multivitamins (Total B With C -) 1 each PO DAILY [facility] Last Admin: 10/07/16 09:14 Dose: 1 each Tamsulosin HCl (Flomax -) 0.8 mg PO DAILY@0830 [facility] Last Admin: 10/07/16 09:20 Dose: 0.8 mg Venlafaxine HCl (Effexor -) 37.5 mg PO BID [facility] Last Admin: 10/07/16 09:18 Dose: 37.5 mg Physical Exam-Neuro Last Vital Signs Temp Pulse Resp BP Pulse Ox 97.8 F 82 18 132/81 89 L 10/07/16 06:00 10/07/16 06:00 10/07/16 06:00 10/07/16 06:00 10/06/16 21:00 Constitutional: Yes: Well Nourished, No Distress, Calm Neck: Yes: Supple, Trachea Midline Cardiovascular: Yes: Regular Rate and Rhythm, S1, S2 Respiratory: Yes: Regular, CTA Bilaterally Gastrointestinal: Yes: WNL, Normal Bowel Sounds, Soft Renal/: Yes: WNL Musculoskeletal: Yes: WNL Edema: Yes Edema: LLE: 1+ Psychiatric: Yes: Alert Labs: CBCD CBCD WBC 10.2 K/mm3 (4.0-10.0) H 10/07/16 05:35 RBC 4.55 M/mm3 (4.00-5.60) 10/07/16 05:35 Hgb 13.0 GM/dL (11.7-16.9) 10/07/16 05:35 Hct 41.7 % (35.4-49) 10/07/16 05:35 MCV 91.5 fl (80-96) 10/07/16 05:35 MCHC 31.2 g/dl (32.0-35.9) L 10/07/16 05:35 RDW 16.0 % (11.9-15.9) H 10/07/16 05:35 Plt Count 167 K/MM3 (134-434) 10/07/16 05:35 MPV 8.7 fl (7.5-11.1) 10/07/16 05:35 CMP Sodium 161 mmol/L (136-145) H* 10/07/16 05:35 Potassium 4.1 mmol/L (3.5-5.1) 10/07/16 05:35 Chloride 131 mmol/L (98-107) H 10/07/16 05:35 Carbon Dioxide 20 mmol/L (21-32) L 10/07/16 05:35 Anion Gap 10 (8-16) 10/07/16 05:35 BUN 74 mg/dL (7-18) H D 10/07/16 05:35 Creatinine 2.4 mg/dL (0.7-1.3) H 10/07/16 05:35 Creat Clearance w eGFR 25.86 (>60) 10/07/16 05:35 Calcium 8.7 mg/dL (8.5-10.1) 10/07/16 05:35 Total Bilirubin 0.7 mg/dL (0.2-1.0) 10/07/16 05:35 AST 79 U/L (15-37) H 10/07/16 05:35 ALT 169 U/L (12-78) H 10/07/16 05:35 Alkaline Phosphatase 48 U/L (45-117) 10/07/16 05:35 Total Protein 5.9 g/dl (6.4-8.2) L 10/07/16 05:35 Albumin 2.9 g/dl (3.4-5.0) L 10/07/16 05:35 - Neuro Exam Level Of Consciousness: Yes: Awake and alert Eyes: Yes: PERRLA Speech: Broca's Aphasia Dominant Hand: Right Cranial Nerves II-XII Intact: No (right dense hemiplegia, slurred speech dysarthria, expressive aphasi.facial droop) Babinski: Absent Response to light touch: Abnormal Response to pain prick: Abnormal Response to temperature: Abnormal Coordination: Normal: Finger to Nose Motor Strength: 0/5: Right Arm, 1/5: Right Leg, 5/5: Left Arm, Left Leg Gait: Ataxia, Deferred Assessment/Plan 86 year old male, with a significant past medical history of AFib(on coumadin and aspirin), CAD, [place] (stents), CHF, ulcerative colitis(total colectomy and ileostomy), kidney stones, HTN, HLD, anxiety, and depression, was admitted for sudden right side weakness. He was seen by Dr. Meng and then Dr. Cobb. Today , I was called due to change in mental status. Reportedly was less responsive and had undergoing care for CVA. Ct head completed and showed hypodensity in L capsule, new since CT 2 weeks ago. On ASA 81mg, and spoke with PCP and patient is already on Warfarin. It was not on med list due to high INR and therefore, would not want to increase bleed risk with Aggrenox. Also Getting Zosyn for infection which may be causing mental status change as well. More awake and alert today, more responsive. Continue medical mgmt of infection. Monitor electrolyte disturbances. Fall precautions. Consider switch Aggrenox instead of ASA 81mg if PCP and cardiology ok with this.
[2016-10-07] MEDS ORDERED: DEXTROSE 5%-WATER - 1,000 ML IV SCH (11:30)
--- NOTE | 2016-10-07 11:33 | PN ---
Progress Note (short form) - Note Progress Note: Renal Follow up for RAMON/Hypernatremia Pt seen and examined at the bedside awake, non-verbal no overnight events no respiratory distress on IVF Vital Signs Temperature 98.1 F 10/07/16 10:00 Pulse Rate 78 10/07/16 10:00 Respiratory Rate 18 10/07/16 10:00 Blood Pressure 125/68 10/07/16 10:00 O2 Sat by Pulse Oximetry (%) 89 L 10/07/16 10:00 Intake & Output 10/04/16 10/05/16 10/06/16 10/07/16 23:59 23:59 23:59 23:59 Intake Total 120 0 1250 1500 Output Total 200 Balance 120 0 1050 1500 Gen: NAD, awake HEENT: Dry MM CVS: irregular, No M/R Lungs: Dec Bs lung bases, no rales or wheeze Abd: soft, No tenderness Ext: No edema, clubbing or cyanosis CBC, BMP 10/07/16 05:35 10/07/16 05:35 Laboratory Tests 10/07/16 05:35 Calcium 8.7 Albumin 2.9 L Current Medications Acetaminophen (Tylenol -) 650 mg PO Q6H PRN PRN Reason: FEVER OR PAIN Last Admin: 09/29/16 17:52 Dose: 650 mg Amiodarone HCl (Cordarone -) 200 mg PO DAILY [facility] Last Admin: 10/07/16 09:21 Dose: 200 mg Aspirin (Asa -) 81 mg PO DAILY [facility] Last Admin: 10/07/16 09:27 Dose: 81 mg Cholecalciferol (Vitamin D3 -) 400 unit PO DAILY [facility] Last Admin: 10/07/16 09:21 Dose: 400 unit Piperacillin Sod/Tazobactam Sod (Zosyn 2.25gm Ivpb (Pre-Docked)) 50 mls @ 100 mls/hr IVPB Q8H-IV ELFEGO PRN Reason: Protocol Last Admin: 10/07/16 09:14 Dose: 100 mls/hr Dextrose (D5w -) 1,000 mls @ 83 mls/hr IV .Q12H3M [facility] Metoprolol Succinate (Toprol Xl -) 25 mg PO BID [facility] Last Admin: 10/07/16 09:20 Dose: 25 mg Multivitamins (Total B With C -) 1 each PO DAILY [facility] Last Admin: 10/07/16 09:14 Dose: 1 each Tamsulosin HCl (Flomax -) 0.8 mg PO DAILY@0830 [facility] Last Admin: 10/07/16 09:20 Dose: 0.8 mg Venlafaxine HCl (Effexor -) 37.5 mg PO BID [facility] Last Admin: 10/07/16 09:18 Dose: 37.5 mg A/P 86 year old Gentleman with PMhx of Afib on Coumadin, CAD s/p stents, CHF, Ulcerative Colitis s/p total colectomy, Kidney stones, Hypertension, Depression presented with focal weakness and found to have acute CVA and now with RAMON with BUN/Cr of 125/3.9 with baseline Cr of 1.3 to 1.5. #Acute on Chronic Renal Insufficiency Etiology Obstructive vs. Volume depletion vs. AIN Urine studies consistent with volume depletion Urine Eios are pending off Bactrium pt voiding, continue increased dose of flomax urology follow up Change IVF to D5W (limit salt infusion given severely reduced LVEF) #Hyperkalemia Secondary to renal failure +/- Bactrium No improved and stable #Hypernatremia Water deficit if ~6L still Urine studies rule out DI as urine OSM is appropriately elevated Change IVF to D5W at 84cc per hour Goal rate of correction 6-8 per day Repeat BMP in the evening if pt passes swallow eval can encourage oral water intake #Acute CVA continue management as per Cardiology and Neurology supportive care Waylon Mcmanus DO
--- NOTE | 2016-10-07 14:45 | PN ---
Progress Note, Physician History of Present Illness: Continued right-sided hemiplegia, mental status improved today, failed swallow eval. - Current Medication List Current Medications: Active Medications Acetaminophen (Tylenol -) 650 mg PO Q6H PRN PRN Reason: FEVER OR PAIN Last Admin: 09/29/16 17:52 Dose: 650 mg Amiodarone HCl (Cordarone -) 200 mg PO DAILY [facility] Last Admin: 10/07/16 09:21 Dose: 200 mg Aspirin (Asa -) 81 mg PO DAILY [facility] Last Admin: 10/07/16 09:27 Dose: 81 mg Cholecalciferol (Vitamin D3 -) 400 unit PO DAILY [facility] Last Admin: 10/07/16 09:21 Dose: 400 unit Piperacillin Sod/Tazobactam Sod (Zosyn 2.25gm Ivpb (Pre-Docked)) 50 mls @ 100 mls/hr IVPB Q8H-IV [facility]FEGO PRN Reason: Protocol Last Admin: 10/07/16 09:14 Dose: 100 mls/hr Dextrose (D5w -) 1,000 mls @ 83 mls/hr IV .Q12H3M [facility] Metoprolol Succinate (Toprol Xl -) 25 mg PO BID [facility] Last Admin: 10/07/16 09:20 Dose: 25 mg Multivitamins (Total B With C -) 1 each PO DAILY [facility] Last Admin: 10/07/16 09:14 Dose: 1 each Tamsulosin HCl (Flomax -) 0.8 mg PO DAILY@0830 [facility] Last Admin: 10/07/16 09:20 Dose: 0.8 mg Venlafaxine HCl (Effexor -) 37.5 mg PO BID [facility] Last Admin: 10/07/16 09:18 Dose: 37.5 mg - Objective Vital Signs: Vital Signs Temperature 98.1 F 10/07/16 10:00 Pulse Rate 78 10/07/16 10:00 Respiratory Rate 18 10/07/16 10:00 Blood Pressure 125/68 10/07/16 10:00 O2 Sat by Pulse Oximetry (%) 89 L 10/07/16 10:00 Constitutional: Yes: No Distress, Calm Neck: Yes: Supple Cardiovascular: Yes: Regular Rate and Rhythm Respiratory: Yes: Regular, Diminished Gastrointestinal: Yes: Normal Bowel Sounds, Soft Edema: No Neurological: Yes: Weakness (Right hemiplegia) Labs: CBC, BMP 10/07/16 05:35 10/07/16 05:35 INR, PTT INR 3.79 (0.82-1.09) H 10/07/16 05:35 Problem List - Problems (1) Cerebrovascular accident (CVA) Code(s): I63.9 - CEREBRAL INFARCTION, UNSPECIFIED Qualifiers: Qualified Code(s): I63.412 - Cerebral infarction due to embolism of left middle cerebral artery (2) Coronary artery disease Code(s): I25.10 - ATHSCL HEART DISEASE OF [place] CORONARY ARTERY W/O ANG PCTRS Qualifiers: Qualified Code(s): I25.10 - Atherosclerotic heart disease of [place] coronary artery without angina pectoris (3) Hyperlipidemia Code(s): E78.5 - HYPERLIPIDEMIA, UNSPECIFIED Qualifiers: Qualified Code(s): E78.0 - Pure hypercholesterolemia (4) Hypertensive cardiomegaly without heart failure Code(s): I11.9 - HYPERTENSIVE HEART DISEASE WITHOUT HEART FAILURE (5) Old anterior myocardial infarction Code(s): I25.2 - OLD MYOCARDIAL INFARCTION (6) Paroxysmal atrial fibrillation Code(s): I48.0 - PAROXYSMAL ATRIAL FIBRILLATION (7) S/P coronary angioplasty Code(s): Z98.61 - CORONARY ANGIOPLASTY STATUS (8) Systolic dysfunction without heart failure Code(s): I51.9 - HEART DISEASE, UNSPECIFIED (9) Biventricular automatic implantable cardioverter defibrillator in situ Code(s): Z95.810 - PRESENCE OF AUTOMATIC (IMPLANTABLE) CARDIAC DEFIBRILLATOR (10) Subtherapeutic anticoagulation Code(s): Z51.81 - ENCOUNTER FOR THERAPEUTIC DRUG LEVEL MONITORING Z79.01 - ASSISTED (CURRENT) USE OF ANTICOAGULANTS (11) Urethral stricture Code(s): N35.9 - URETHRAL STRICTURE, UNSPECIFIED Qualifiers: Qualified Code(s): N35.8 - Other urethral stricture Assessment/Plan 09/28/2016 Severe global HK, mild MR, ICD lead 10/05/2016 HCT New posterior limb left internal capsule stroke 1. Toxic metabolic encephelopathy improving 2. Acute ischemic stroke with slurred speech, left sided facial droop and right sided hemiplegia in context of subtherapeutic INR 3. Paroxysmal atrial fibrillation now with supratherapeutic INR 4. CAD s/p [place], s/p PCI (stent), angina pectoris 5. Severe LV systolic dysfunction 6. Sustained VT s/p [employer]-D 7. HTN/HCVD 8. Hyperlipidemia 9. Urethral stricture unsuccessful dilatation 10. Acute on CKD referable to hypovolemia, Bactrim use improving, hypernatremia PLAN: 1. Dose coumadin per INR 2-3, ASA 81 mg QD, Amiodarone 200 mg QD, Toprol 25 mg BID, off Lipitor and Questran 2. Off diuretics, volume and free water repletion with f/u renal fxn, electrolytes 3. Empiric abx course for aspiration 4. Recommend PEG once INR acceptable for enteral nutrition and meds as patient remains aspiration risk
--- NOTE | 2016-10-07 17:55 | PN ---
Progress Note, Physician History of Present Illness: stable no new events - Current Medication List Current Medications: Active Medications Acetaminophen (Tylenol -) 650 mg PO Q6H PRN PRN Reason: FEVER OR PAIN Last Admin: 09/29/16 17:52 Dose: 650 mg Amiodarone HCl (Cordarone -) 200 mg PO DAILY [facility] Last Admin: 10/07/16 09:21 Dose: 200 mg Aspirin (Asa -) 81 mg PO DAILY [facility] Last Admin: 10/07/16 09:27 Dose: 81 mg Cholecalciferol (Vitamin D3 -) 400 unit PO DAILY [facility] Last Admin: 10/07/16 09:21 Dose: 400 unit Piperacillin Sod/Tazobactam Sod (Zosyn 2.25gm Ivpb (Pre-Docked)) 50 mls @ 100 mls/hr IVPB Q8H-IV [facility] PRN Reason: Protocol Last Admin: 10/07/16 09:14 Dose: 100 mls/hr Dextrose (D5w -) 1,000 mls @ 83 mls/hr IV .Q12H3M [facility] Metoprolol Succinate (Toprol Xl -) 25 mg PO BID [facility] Last Admin: 10/07/16 09:20 Dose: 25 mg Multivitamins (Total B With C -) 1 each PO DAILY [facility] Last Admin: 10/07/16 09:14 Dose: 1 each Tamsulosin HCl (Flomax -) 0.8 mg PO DAILY@0830 [facility] Last Admin: 10/07/16 09:20 Dose: 0.8 mg Venlafaxine HCl (Effexor -) 37.5 mg PO BID [facility] Last Admin: 10/07/16 09:18 Dose: 37.5 mg - Objective Vital Signs: Vital Signs Temperature 97.4 F L 10/07/16 14:45 Pulse Rate 77 10/07/16 14:45 Respiratory Rate 16 10/07/16 14:45 Blood Pressure 105/66 10/07/16 14:45 O2 Sat by Pulse Oximetry (%) 89 L 10/07/16 10:00 Constitutional: Yes: No Distress, Calm Cardiovascular: Yes: Regular Rate and Rhythm Respiratory: Yes: Regular, Other Gastrointestinal: Yes: Normal Bowel Sounds, Soft Musculoskeletal: Yes: WNL Extremities: Yes: WNL Neurological: Yes: Alert, Other Labs: CBC, BMP 10/07/16 05:35 10/07/16 05:35 INR, PTT INR 3.79 (0.82-1.09) H 10/07/16 05:35 Assessment/Plan Problem List - Problems (1) Cerebrovascular accident (CVA) Code(s): I63.9 - CEREBRAL INFARCTION, UNSPECIFIED Qualifiers: Qualified Code(s): I63.412 - Cerebral infarction due to embolism of left middle cerebral artery (2) Coronary artery disease Code(s): I25.10 - ATHSCL HEART DISEASE OF [place] CORONARY ARTERY W/O ANG PCTRS Qualifiers: Qualified Code(s): I25.10 - Atherosclerotic heart disease of [place] coronary artery without angina pectoris (3) Hyperlipidemia Code(s): E78.5 - HYPERLIPIDEMIA, UNSPECIFIED Qualifiers: Qualified Code(s): E78.0 - Pure hypercholesterolemia (4) Hypertensive cardiomegaly without heart failure Code(s): I11.9 - HYPERTENSIVE HEART DISEASE WITHOUT HEART FAILURE (5) Old anterior myocardial infarction Code(s): I25.2 - OLD MYOCARDIAL INFARCTION (6) Paroxysmal atrial fibrillation Code(s): I48.0 - PAROXYSMAL ATRIAL FIBRILLATION (7) S/P coronary angioplasty Code(s): Z98.61 - CORONARY ANGIOPLASTY STATUS (8) Systolic dysfunction without heart failure Code(s): I51.9 - HEART DISEASE, UNSPECIFIED (9) Biventricular automatic implantable cardioverter defibrillator in situ Code(s): Z95.810 - PRESENCE OF AUTOMATIC (IMPLANTABLE) CARDIAC DEFIBRILLATOR (10) Subtherapeutic anticoagulation Code(s): Z51.81 - ENCOUNTER FOR THERAPEUTIC DRUG LEVEL MONITORING Z79.01 - LONG-TERM (CURRENT) USE OF ANTICOAGULANTS (11) Urethral stricture Code(s): N35.9 - URETHRAL STRICTURE, UNSPECIFIED Qualifiers: Qualified Code(s): N35.8 - Other urethral stricture 12 fever 13 rash arf leukocytosis dehydration plan wbc trending down renal on case continue abx continue monitoring overall patient is stable
[2016-10-08] MEDS: PIPERACILLIN/TAZOB 2.25 GM 50 ML IVPB SCH ×3 (01:50→17:47)
--- NOTE | 2016-10-08 09:11 | PN ---
Progress Note, Physician Chief Complaint: More awake History of Present Illness: Case discussed with Michell,patient can aspirate advised PEG - Current Medication List Current Medications: Active Medications Acetaminophen (Tylenol -) 650 mg PO Q6H PRN PRN Reason: FEVER OR PAIN Last Admin: 09/29/16 17:52 Dose: 650 mg Amiodarone HCl (Cordarone -) 200 mg PO DAILY [facility] Last Admin: 10/07/16 09:21 Dose: 200 mg Aspirin (Asa -) 81 mg PO DAILY [facility] Last Admin: 10/07/16 09:27 Dose: 81 mg Cholecalciferol (Vitamin D3 -) 400 unit PO DAILY [facility] Last Admin: 10/07/16 09:21 Dose: 400 unit Piperacillin Sod/Tazobactam Sod (Zosyn 2.25gm Ivpb (Pre-Docked)) 50 mls @ 100 mls/hr IVPB Q8H-IV [facility] PRN Reason: Protocol Last Admin: 10/08/16 01:50 Dose: 100 mls/hr Dextrose (D5w -) 1,000 mls @ 83 mls/hr IV .Q12H3M [facility] Metoprolol Succinate (Toprol Xl -) 25 mg PO BID [facility] Last Admin: 10/07/16 22:17 Dose: 25 mg Multivitamins (Total B With C -) 1 each PO DAILY [facility] Last Admin: 10/07/16 09:14 Dose: 1 each Tamsulosin HCl (Flomax -) 0.8 mg PO DAILY@0830 [facility] Last Admin: 10/07/16 09:20 Dose: 0.8 mg Venlafaxine HCl (Effexor -) 37.5 mg PO BID [facility] Last Admin: 10/07/16 22:18 Dose: 37.5 mg - Objective Vital Signs: Vital Signs Temperature 97.8 F 10/08/16 05:36 Pulse Rate 72 10/08/16 05:36 Respiratory Rate 18 10/08/16 05:36 Blood Pressure 125/76 10/08/16 05:36 O2 Sat by Pulse Oximetry (%) 94 L 10/07/16 21:00 Constitutional: Yes: Anxious Eyes: Yes: WNL HENT: Yes: WNL Neck: Yes: WNL Cardiovascular: Yes: WNL Respiratory: Yes: WNL Gastrointestinal: Yes: Soft Genitourinary: Yes: WNL Breast(s): Yes: WNL Edema: No Integumentary: Yes: WNL Neurological: Yes: Alert Labs: CBC, BMP 10/07/16 05:35 10/07/16 05:35 INR, PTT INR 3.79 (0.82-1.09) H 10/07/16 05:35
--- NOTE | 2016-10-08 10:03 | PN ---
Progress Note (short form) - Note Progress Note: NEUROLOGY 86 year old male, with a significant past medical history of AFib(on coumadin and aspirin), CAD, AR (stents), CHF, ulcerative colitis(total colectomy and ileostomy), kidney stones, HTN, HLD, anxiety, and depression, was admitted for sudden right side weakness. He was seen by Dr. Meng and then Dr. Cobb. Today , I was called due to change in mental status. Reportedly was less responsive and had undergoing care for CVA. Ct head completed and showed hypodensity in L capsule. On ASA 81mg, and spoke with PCP and patient is already on Warfarin. It was not on med list due to high INR and therefore, would not want to increase bleed risk with Aggrenox. Also Getting Zosyn for infection which may be causing mental status change as well. Very well appearing today, interactive with examiner and family at bedside. Spoke to daughter in detail at bedside. Being considered for PEG tube but waiting for INR to normalize. Active Medications Acetaminophen (Tylenol -) 650 mg PO Q6H PRN PRN Reason: FEVER OR PAIN Last Admin: 09/29/16 17:52 Dose: 650 mg Amiodarone HCl (Cordarone -) 200 mg PO DAILY [facility] Last Admin: 10/07/16 09:21 Dose: 200 mg Aspirin (Asa -) 81 mg PO DAILY [facility] Last Admin: 10/07/16 09:27 Dose: 81 mg Cholecalciferol (Vitamin D3 -) 400 unit PO DAILY [facility] Last Admin: 10/07/16 09:21 Dose: 400 unit Piperacillin Sod/Tazobactam Sod (Zosyn 2.25gm Ivpb (Pre-Docked)) 50 mls @ 100 mls/hr IVPB Q8H-IV [facility] PRN Reason: Protocol Last Admin: 10/08/16 01:50 Dose: 100 mls/hr Amino Acids (Clinimix -) 1,000 mls @ 84 mls/hr IV Q12H [facility] Metoprolol Succinate (Toprol Xl -) 25 mg PO BID [facility] Last Admin: 10/07/16 22:17 Dose: 25 mg Multivitamins (Total B With C -) 1 each PO DAILY [facility] Last Admin: 10/07/16 09:14 Dose: 1 each Tamsulosin HCl (Flomax -) 0.8 mg PO DAILY@0830 [facility] Last Admin: 10/07/16 09:20 Dose: 0.8 mg Venlafaxine HCl (Effexor -) 37.5 mg PO BID [facility] Last Admin: 10/07/16 22:18 Dose: 37.5 mg Physical Exam-Neuro Last Vital Signs Temp Pulse Resp BP Pulse Ox 97.8 F 72 18 125/76 94 L 10/08/16 05:36 10/08/16 05:36 10/08/16 05:36 10/08/16 05:36 10/07/16 21:00 Constitutional: Yes: Well Nourished, No Distress, Calm Neck: Yes: Supple, Trachea Midline Cardiovascular: Yes: Regular Rate and Rhythm, S1, S2 Respiratory: Yes: Regular, CTA Bilaterally Gastrointestinal: Yes: WNL, Normal Bowel Sounds, Soft Renal/: Yes: WNL Musculoskeletal: Yes: WNL Edema: Yes Edema: LLE: 1+ Psychiatric: Yes: Alert Labs: CBCD WBC 10.2 K/mm3 (4.0-10.0) H 10/07/16 05:35 RBC 4.55 M/mm3 (4.00-5.60) 10/07/16 05:35 Hgb 13.0 GM/dL (11.7-16.9) 10/07/16 05:35 Hct 41.7 % (35.4-49) 10/07/16 05:35 MCV 91.5 fl (80-96) 10/07/16 05:35 MCHC 31.2 g/dl (32.0-35.9) L 10/07/16 05:35 RDW 16.0 % (11.9-15.9) H 10/07/16 05:35 Plt Count 167 K/MM3 (134-434) 10/07/16 05:35 MPV 8.7 fl (7.5-11.1) 10/07/16 05:35 CMP Sodium 161 mmol/L (136-145) H* 10/07/16 05:35 Potassium 4.1 mmol/L (3.5-5.1) 10/07/16 05:35 Chloride 131 mmol/L (98-107) H 10/07/16 05:35 Carbon Dioxide 20 mmol/L (21-32) L 10/07/16 05:35 Anion Gap 10 (8-16) 10/07/16 05:35 BUN 74 mg/dL (7-18) H D 10/07/16 05:35 Creatinine 2.4 mg/dL (0.7-1.3) H 10/07/16 05:35 Creat Clearance w eGFR 25.86 (>60) 10/07/16 05:35 Calcium 8.7 mg/dL (8.5-10.1) 10/07/16 05:35 Total Bilirubin 0.7 mg/dL (0.2-1.0) 10/07/16 05:35 AST 79 U/L (15-37) H 10/07/16 05:35 ALT 169 U/L (12-78) H 10/07/16 05:35 Alkaline Phosphatase 48 U/L (45-117) 10/07/16 05:35 Total Protein 5.9 g/dl (6.4-8.2) L 10/07/16 05:35 Albumin 2.9 g/dl (3.4-5.0) L 10/07/16 05:35 - Neuro Exam Level Of Consciousness: Yes: Awake and alert Eyes: Yes: PERRLA Speech: Broca's Aphasia Dominant Hand: Right Cranial Nerves II-XII Intact: No (right dense hemiplegia, slurred speech dysarthria, expressive aphasi.facial droop) Babinski: Absent Response to light touch: Abnormal Response to pain prick: Abnormal Response to temperature: Abnormal Coordination: Normal: Finger to Nose Motor Strength: 0/5: Right Arm, 1/5: Right Leg, 5/5: Left Arm, Left Leg Gait: Ataxia, Deferred Assessment/Plan 86 year old male, with a significant past medical history of AFib(on coumadin and aspirin), CAD, AR (stents), CHF, ulcerative colitis(total colectomy and ileostomy), kidney stones, HTN, HLD, anxiety, and depression, was admitted for sudden right side weakness. He was seen by Dr. Meng and then Dr. Cobb. Today , I was called due to change in mental status. Reportedly was less responsive and had undergoing care for CVA. Ct head completed and showed hypodensity in L capsule, new since CT 2 weeks ago. On ASA 81mg, and spoke with PCP and patient is already on Warfarin. It was not on med list due to high INR and therefore, would not want to increase bleed risk with Aggrenox. Also Getting Zosyn for infection which may be causing mental status change as well. edwina well appearing today, interactive with examiner and family at bedside. Spoke to daughter in detail at bedside. Being considered for PEG tube but waiting for INR to normalize. Continue medical mgmt of infection. Monitor electrolyte disturbances. Fall precautions. Consider switch Aggrenox instead of ASA 81mg if PCP and cardiology ok with this.
[2016-10-08] MEDS: AMINO ACIDS 4.25%/D5W 1,000 ML IV SCH ×2 (10:17→23:32)
[2016-10-08] MEDS: AMIODARONE HCL 200 MG TABLET (FP) PO SCH (10:20)
[2016-10-08] MEDS: CHOLECALCIFEROL (VITAMIN D3) 400 UNIT TABLET (FP) PO SCH (10:20)
[2016-10-08] MEDS: METOPROLOL SUCCINATE 25 MG TAB.SR.24H (FP) PO SCH ×2 (10:20→21:46)
[2016-10-08] MEDS: TAMSULOSIN HCL 0.4 MG CAP.ER.24H (FP) PO SCH (10:21)
[2016-10-08] MEDS: ASPIRIN 81 MG CHEWABLE TABLETS PO SCH (10:21)
[2016-10-08] MEDS ORDERED: PT OWN MED DRAWER 7, Y5N ONE (10:24)
[2016-10-08] MEDS: VITAMIN B COMPLEX W/C COMBO TABLET (FP) PO SCH (10:25)
[2016-10-08] MEDS: VENLAFAXINE HCL 37.5 MG TABLET PO SCH ×2 (10:25→21:46)
[2016-10-08 11:17] LABS: CALCIUM 8.3 mg/dL (8.5-10.1); CREATININE 1.8 mg/dL (0.7-1.3)
--- NOTE | 2016-10-08 11:43 | CON.GI ---
Consult Consult Specialty:: Gastroenterology Referred by:: Dr. 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 Yesterday he had a swallowing evaluation with Lissa Asif that revealed a propensity to aspirate. I have been asked to assess for a PEG tube. His daughter Selina is at the bedside and is his health care proxy. I discussed Gm's situation with Selina, her and with Gm and how he could nutritionally benefit from enteral nutrition which this can afford. I discussed the potential cardiovascular risk of the stress of the PEG procedure including informing them of the risks of infection, hemorrhage and peritonitis if he avulses the tube. They have given a mutual informed consent. Gm is s/p total colectomy with López ileostomy creation for ulcerative colitis. he had an EGD with my associate Dr Estrada on 03/14/15 which was normal. He also had a right nephrectomy for cancer. - History Source History Provided By: Patient, Family Member, Medical Record Limitations to Obtaining History: Clinical Condition - Past Medical History [employer]PERATIONS ASSOC[employer]ATE: Yes: CVA (left internal capsule and putamen) Cardio/Vascular: Yes: AFIB, CAD, CHF, HTN, MT (09/01), Other (Defibrillator/PPM) Pulmonary: Yes: Other (right lung nodule) Gastrointestinal: Yes: GERD, Inflamatory Bowel Disease (ulcerative colitis leading to total colectomy and Jordan's ileostomy) Renal/: Yes: BPH, Cancer (right renal cancer excision), Renal Calculi, Other ( urethral stricture dilations) Musculoskeletal: Yes: Osteoarthritis, Other (lumbar spinal stenosis) - Past Surgical History Past Surgical History: Yes: Colectomy (ulcerative colitis leading to total colectomy and Jordan's ileostomy), Nephrectomy (Right ), Permanent Pacemaker, Stent, TURP (green light turp 01/03 with urethral dilation), Upper Endoscopy Additional Surgical History: RUE fracture surgery - Alcohol/Substance Use Hx Alcohol Use: No - Smoking History Smoking history: Former smoker Have you smoked in the past 12 months: No Aproximately how many cigarettes per day: 0 If you are a former smoker, when did you quit?: 1972 - Social History Usual Living Arrangement: With Spouse ADL: Independent 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 Place of : [facility] History of Recent Travel: No Home Medications - Allergies Allergies/Adverse Reactions: Allergies Allergy/AdvReac Type Severity Reaction Status Date / Time azithromycin [From Zithromax] AdvReac Mild Vomiting Verified 09/23/16 19:53 codeine [Codeine] AdvReac Mild Verified 09/23/16 19:53 dust Allergy Severe Itching Uncoded 09/23/16 19:53 - Home Medications Home Medications: Ambulatory Orders Aspirin Coated [Ecotrin -] 81 mg PO DAILY 12/12/13 Furosemide [Lasix -] 20 mg PO DAILY 12/12/13 Simvastatin [Zocor -] 20 mg PO HS 12/12/13 Dicyclomine HCl [Bentyl] 20 mg PO DAILY 12/20/14 Spironolactone 25 mg PO DAILY 01/13/15 Venlafaxine HCl ER [Effexor Xr -] 37.5 mg PO BID 01/13/15 Warfarin Sodium [Coumadin] 5 mg PO MOWEFRSA 01/13/15 Cholestyramine (with Sugar) [Cholestyramine Powder] 378 gm PO BID 03/17/16 Vitamin B Complex [B Complex] 1 each PO DAILY 03/17/16 Tamsulosin HCl [Flomax] 0.4 mg PO DAILY 08/03/16 Metoprolol Succinate [Toprol XL -] 25 mg PO BID #30 tab.sr.24h 08/26/16 Acetaminophen [Tylenol -] 500 mg PO Q4H PRN 09/23/16 Alprazolam [Alprazolam Xr] 0.5 mg PO BID 09/23/16 Amiodarone HCl 200 mg PO DAILY 09/23/16 Cholecalciferol (Vitamin D3) [Vitamin D3 -] 400 unit PO DAILY 09/23/16 Warfarin Sodium [Coumadin] 2.5 mg PO SUTUTH 09/23/16 Family Disease History - Family Disease History Family Disease History: Heart Disease: Father ( MT 70), Mother (colon cancer 86), CA: Mother, Brother (pancreatic cancer, cerebral aneurysm), Other: Brother Physical Exam-GI Vital Signs: Vital Signs Temperature 97.8 F 10/08/16 05:36 Pulse Rate 72 10/08/16 05:36 Respiratory Rate 18 10/08/16 05:36 Blood Pressure 125/76 10/08/16 05:36 O2 Sat by Pulse Oximetry (%) 94 L 10/07/16 21:00 CBC,CMP WBC 10.2 K/mm3 (4.0-10.0) H 10/07/16 05:35 RBC 4.55 M/mm3 (4.00-5.60) 10/07/16 05:35 Hgb 13.0 GM/dL (11.7-16.9) 10/07/16 05:35 Hct 41.7 % (35.4-49) 10/07/16 05:35 MCV 91.5 fl (80-96) 10/07/16 05:35 MCHC 31.2 g/dl (32.0-35.9) L 10/07/16 05:35 RDW 16.0 % (11.9-15.9) H 10/07/16 05:35 Plt Count 167 K/MM3 (134-434) 10/07/16 05:35 MPV 8.7 fl (7.5-11.1) 10/07/16 05:35 Neutrophils % 81.6 % (42.8-82.8) 10/06/16 06:10 Lymphocytes % 9.1 % (8-40) D 10/06/16 06:10 Monocytes % 5.6 % (3.8-10.2) 10/06/16 06:10 Eosinophils % 3.1 % (0-4.5) 10/06/16 06:10 Basophils % 0.6 % (0-2.0) 10/06/16 06:10 Band Neutrophils 1.0 % (0-10) 10/05/16 05:35 Differential Comment Manual diff done 10/05/16 05:35 Platelet Estimate Adequate (NORMAL) 10/05/16 05:35 Sodium 157 mmol/L (136-145) H 10/08/16 10:15 Potassium 3.7 mmol/L (3.5-5.1) 10/08/16 10:15 Chloride 127 mmol/L (98-107) H 10/08/16 10:15 Carbon Dioxide 21 mmol/L (21-32) 10/08/16 10:15 Anion Gap 9 (8-16) 10/08/16 10:15 BUN 46 mg/dL (7-18) H D 10/08/16 10:15 Creatinine 1.8 mg/dL (0.7-1.3) H D 10/08/16 10:15 Creat Clearance w eGFR 25.86 (>60) 10/07/16 05:35 Random Glucose 112 mg/dL (74-106) H 10/08/16 10:15 Serum Osmolality 369 mosm/kg (278-305) H 10/06/16 06:10 Calcium 8.3 mg/dL (8.5-10.1) L 10/08/16 10:15 Phosphorus 4.0 mg/dL (2.5-4.9) 10/06/16 06:10 Magnesium 3.6 mg/dL (1.8-2.4) H D 10/06/16 06:10 Total Bilirubin 0.7 mg/dL (0.2-1.0) 10/07/16 05:35 AST 79 U/L (15-37) H 10/07/16 05:35 ALT 169 U/L (12-78) H 10/07/16 05:35 Alkaline Phosphatase 48 U/L (45-117) 10/07/16 05:35 Creatine Kinase 69 IU/L (39-308) 09/23/16 19:14 Troponin I 0.02 ng/ml (0.00-0.05) 09/23/16 19:14 Total Protein 5.9 g/dl (6.4-8.2) L 10/07/16 05:35 Albumin 2.9 g/dl (3.4-5.0) L 10/07/16 05:35 Triglycerides 120 mg/dL (35-160) D 09/23/16 19:14 Cholesterol 120 mg/dL (50-200) 09/23/16 19:14 Total LDL Cholesterol 60 mg/dL (5-100) 09/23/16 19:14 HDL Cholesterol 48 mg/dL (40-60) 09/23/16 19:14 TSH 0.63 uIU/ml (0.358-3.74) 09/27/16 06:20 Current Medications Generic Name Dose Route Start Last Admin Trade Name Freq PRN Reason Stop Dose Admin Acetaminophen 650 mg 09/29/16 17:37 09/29/16 17:52 Tylenol - PO 650 mg Q6H PRN Administration FEVER OR PAIN Amiodarone HCl 200 mg 09/24/16 10:00 10/08/16 10:20 Cordarone - PO 200 mg DAILY [facility] Administration Aspirin 81 mg 09/24/16 10:00 10/08/16 10:21 Asa - PO 81 mg DAILY [facility] Administration Cholecalciferol 400 unit 09/24/16 10:00 10/08/16 10:20 Vitamin D3 - PO 400 unit DAILY [facility] Administration Piperacillin Sod/Tazobactam Sod 50 mls @ 100 mls/hr 10/05/16 18:00 10/08/16 10: 15 Zosyn 2.25gm Ivpb (Pre-Docked) IVPB 100 mls/hr Q8H-IV [facility] Administration Protocol Amino Acids 1,000 mls @ 84 mls/hr 10/08/16 09:15 10/08/16 10:17 Clinimix - IV 84 mls/hr Q12H [facility] Administration Metoprolol Succinate 25 mg 09/24/16 10:00 10/08/16 10:20 Toprol Xl - PO 25 mg BID [facility] Administration Multivitamins 1 each 09/24/16 10:00 10/08/16 10:25 Total B With C - PO 1 each DAILY [facility] Administration Tamsulosin HCl 0.8 mg 10/07/16 08:30 10/08/16 10:21 Flomax - PO 0.8 mg DAILY@0830 [facility] Administration Venlafaxine HCl 37.5 mg 09/24/16 10:00 10/08/16 10:25 Effexor - PO 37.5 mg BID [facility] Administration Constitutional: Yes: No Distress Eyes: Yes: Conjunctiva Clear HENT: Yes: Atraumatic Neck: Yes: Supple Cardiovascular: Yes: Pulse Irregular Respiratory: Yes: CTA Bilaterally Gastrointestinal Inspection: Yes: Scars (RLQ ileostomy, healed right flank and vertical midline incisions) ...Auscultate: Yes: Normoactive Bowel Sounds ...Palpate: Yes: Soft, Other (nontender) ...Rectal Exam: Yes: Deferred (as rectum is closed) Labs: CBC, BMP 10/07/16 05:35 10/08/16 10:15 INR, PTT INR 3.79 (0.82-1.09) H 10/07/16 05:35 Assessment/Plan I agree that Gm could benefit from continuous enteral nutrition as can be delivered by PEG tube. I did explain that he remains at risk of aspiration of his oral secretions and refluxed feedings or gastric secretions. Will schedule once the INR normalizes. Informed consent has been obtained.
--- NOTE | 2016-10-08 12:23 | PN ---
Progress Note (short form) - Note Progress Note: Renal Follow up for RAMON/Hypernatremia Pt seen and examined at the bedside awake and alert no complaints denies any sob, chest pain poor oral intake on D5W Vital Signs Temperature 98.1 F 10/08/16 10:00 Pulse Rate 75 10/08/16 10:00 Respiratory Rate 20 10/08/16 10:00 Blood Pressure 106/75 10/08/16 10:00 O2 Sat by Pulse Oximetry (%) 94 L 10/07/16 21:00 Intake & Output 10/05/16 10/06/16 10/07/16 10/08/16 23:59 23:59 23:59 23:59 Intake Total 0 1250 2928 581 Output Total 200 200 100 Balance 0 1050 2728 481 Gen: NAD, awake HEENT: Dry MM CVS: irregular, No M/R Lungs: Dec Bs lung bases, no rales or wheeze Abd: soft, No tenderness Ext: No edema, clubbing or cyanosis CBC, BMP 10/07/16 05:35 10/08/16 10:15 Laboratory Tests 10/08/16 10:15 Calcium 8.3 L Current Medications Acetaminophen (Tylenol -) 650 mg PO Q6H PRN PRN Reason: FEVER OR PAIN Last Admin: 09/29/16 17:52 Dose: 650 mg Amiodarone HCl (Cordarone -) 200 mg PO DAILY [facility] Last Admin: 10/08/16 10:20 Dose: 200 mg Aspirin (Asa -) 81 mg PO DAILY [facility] Last Admin: 10/08/16 10:21 Dose: 81 mg Cholecalciferol (Vitamin D3 -) 400 unit PO DAILY [facility] Last Admin: 10/08/16 10:20 Dose: 400 unit Piperacillin Sod/Tazobactam Sod (Zosyn 2.25gm Ivpb (Pre-Docked)) 50 mls @ 100 mls/hr IVPB Q8H-IV [facility] PRN Reason: Protocol Last Admin: 10/08/16 10:15 Dose: 100 mls/hr Amino Acids (Clinimix -) 1,000 mls @ 84 mls/hr IV Q12H [facility] Last Admin: 10/08/16 10:17 Dose: 84 mls/hr Metoprolol Succinate (Toprol Xl -) 25 mg PO BID [facility] Last Admin: 10/08/16 10:20 Dose: 25 mg Multivitamins (Total B With C -) 1 each PO DAILY [facility] Last Admin: 10/08/16 10:25 Dose: 1 each Tamsulosin HCl (Flomax -) 0.8 mg PO DAILY@0830 [facility] Last Admin: 10/08/16 10:21 Dose: 0.8 mg Venlafaxine HCl (Effexor -) 37.5 mg PO BID [facility] Last Admin: 10/08/16 10:25 Dose: 37.5 mg A/P 86 year old Gentleman with PMhx of Afib on Coumadin, CAD s/p stents, CHF, Ulcerative Colitis s/p total colectomy, Kidney stones, Hypertension, Depression presented with focal weakness and found to have acute CVA and now with RAMON with BUN/Cr of 125/3.9 with baseline Cr of 1.3 to 1.5. #Acute on Chronic Renal Insufficiency Renal function improving Urine studies consistent with volume depletion Urine Eios negative off Bactrium continue IVF hydration with D5W at this time #Hyperkalemia Secondary to renal failure +/- Bactrium No improved and stable #Hypernatremia Serum Na improving continue D5W at present rate pt with poor oral intake and likely to have recurrent dehydration if his oral intake does not improve #Acute CVA continue management as per Cardiology and Neurology supportive care ? PEG tube placement Waylon Mcmanus DO
[2016-10-08 13:06] LABS: PROTHROMBIN TIME (PATIENT) 46.2 SEC (9.98-11.88)
[2016-10-08 13:16] LABS: INR 4.08 (0.82-1.09)
--- NOTE | 2016-10-08 14:22 | PN ---
Progress Note, COFFEE SAMPLER - Note Progress Note: MBS reviewed at length with pts daughter, who observed study and Dr. Love on . Oral dryness with orange coating from oral medication. Pending PEG once INR comes down, which may take some time. Clinimix ordered. Reviewed with RD. Trial of Magic cup, reminding pt to swallow until reflex is palpated, in order to continue swallowing function and exercise structures. Maintain hob elevated. If congested, cough, fever, npo.
--- NOTE | 2016-10-08 14:32 | PN ---
Progress Note, Physician History of Present Illness: patient doing much better much more awake and alert - Current Medication List Current Medications: Active Medications Acetaminophen (Tylenol -) 650 mg PO Q6H PRN PRN Reason: FEVER OR PAIN Last Admin: 09/29/16 17:52 Dose: 650 mg Amiodarone HCl (Cordarone -) 200 mg PO DAILY [facility] Last Admin: 10/08/16 10:20 Dose: 200 mg Aspirin (Asa -) 81 mg PO DAILY [facility] Last Admin: 10/08/16 10:21 Dose: 81 mg Cholecalciferol (Vitamin D3 -) 400 unit PO DAILY [facility] Last Admin: 10/08/16 10:20 Dose: 400 unit Piperacillin Sod/Tazobactam Sod (Zosyn 2.25gm Ivpb (Pre-Docked)) 50 mls @ 100 mls/hr IVPB Q8H-IV [facility] PRN Reason: Protocol Last Admin: 10/08/16 10:15 Dose: 100 mls/hr Amino Acids (Clinimix -) 1,000 mls @ 84 mls/hr IV Q12H [facility] Last Admin: 10/08/16 10:17 Dose: 84 mls/hr Metoprolol Succinate (Toprol Xl -) 25 mg PO BID [facility] Last Admin: 10/08/16 10:20 Dose: 25 mg Multivitamins (Total B With C -) 1 each PO DAILY [facility] Last Admin: 10/08/16 10:25 Dose: 1 each Tamsulosin HCl (Flomax -) 0.8 mg PO DAILY@0830 [facility] Last Admin: 10/08/16 10:21 Dose: 0.8 mg Venlafaxine HCl (Effexor -) 37.5 mg PO BID [facility] Last Admin: 10/08/16 10:25 Dose: 37.5 mg - Objective Vital Signs: Vital Signs Temperature 97.8 F 10/08/16 14:00 Pulse Rate 78 10/08/16 14:00 Respiratory Rate 20 10/08/16 14:00 Blood Pressure 98/61 10/08/16 14:00 O2 Sat by Pulse Oximetry (%) 94 L 10/08/16 09:00 Constitutional: Yes: No Distress, Calm Cardiovascular: Yes: Regular Rate and Rhythm Respiratory: Yes: Regular, CTA Bilaterally Gastrointestinal: Yes: Normal Bowel Sounds, Soft Musculoskeletal: Yes: WNL Extremities: Yes: WNL Neurological: Yes: Alert Labs: CBC, BMP 10/07/16 05:35 10/08/16 10:15 INR, PTT INR 4.08 (0.82-1.09) H* 10/08/16 12:28 Assessment/Plan Problem List - Problems (1) Cerebrovascular accident (CVA) Code(s): I63.9 - CEREBRAL INFARCTION, UNSPECIFIED Qualifiers: Qualified Code(s): I63.412 - Cerebral infarction due to embolism of left middle cerebral artery (2) Coronary artery disease Code(s): I25.10 - ATHSCL HEART DISEASE OF THE [place] CORONARY ARTERY W/O ANG PCTRS Qualifiers: Qualified Code(s): I25.10 - Atherosclerotic heart disease of [place] coronary artery without angina pectoris (3) Hyperlipidemia Code(s): E78.5 - HYPERLIPIDEMIA, UNSPECIFIED Qualifiers: Qualified Code(s): E78.0 - Pure hypercholesterolemia (4) Hypertensive cardiomegaly without heart failure Code(s): I11.9 - HYPERTENSIVE HEART DISEASE WITHOUT HEART FAILURE (5) Old anterior myocardial infarction Code(s): I25.2 - OLD MYOCARDIAL INFARCTION (6) Paroxysmal atrial fibrillation Code(s): I48.0 - PAROXYSMAL ATRIAL FIBRILLATION (7) S/P coronary angioplasty Code(s): Z98.61 - CORONARY ANGIOPLASTY STATUS (8) Systolic dysfunction without heart failure Code(s): I51.9 - HEART DISEASE, UNSPECIFIED (9) Biventricular automatic implantable cardioverter defibrillator in situ Code(s): Z95.810 - PRESENCE OF AUTOMATIC (IMPLANTABLE) CARDIAC DEFIBRILLATOR (10) Subtherapeutic anticoagulation Code(s): Z51.81 - ENCOUNTER FOR THERAPEUTIC DRUG LEVEL MONITORING Z79.01 - RECEPTIONIST (CURRENT) USE OF ANTICOAGULANTS (11) Urethral stricture Code(s): N35.9 - URETHRAL STRICTURE, UNSPECIFIED Qualifiers: Qualified Code(s): N35.8 - Other urethral stricture 12 fever 13 rash arf leukocytosis dehydration plan continue abx for today await for wbc tomorrow if normal will stop abx
--- NOTE | 2016-10-08 15:56 | PN ---
Progress Note, Physician History of Present Illness: Continued right-sided hemiplegia, mental status improved today, failed swallow eval. - Current Medication List Current Medications: Active Medications Acetaminophen (Tylenol -) 650 mg PO Q6H PRN PRN Reason: FEVER OR PAIN Last Admin: 09/29/16 17:52 Dose: 650 mg Amiodarone HCl (Cordarone -) 200 mg PO DAILY [facility] Last Admin: 10/08/16 10:20 Dose: 200 mg Aspirin (Asa -) 81 mg PO DAILY [facility] Last Admin: 10/08/16 10:21 Dose: 81 mg Cholecalciferol (Vitamin D3 -) 400 unit PO DAILY [facility] Last Admin: 10/08/16 10:20 Dose: 400 unit Piperacillin Sod/Tazobactam Sod (Zosyn 2.25gm Ivpb (Pre-Docked)) 50 mls @ 100 mls/hr IVPB Q8H-IV [facility] PRN Reason: Protocol Last Admin: 10/08/16 10:15 Dose: 100 mls/hr Amino Acids (Clinimix -) 1,000 mls @ 84 mls/hr IV Q12H [facility] Last Admin: 10/08/16 10:17 Dose: 84 mls/hr Metoprolol Succinate (Toprol Xl -) 25 mg PO BID [facility] Last Admin: 10/08/16 10:20 Dose: 25 mg Multivitamins (Total B With C -) 1 each PO DAILY [facility] Last Admin: 10/08/16 10:25 Dose: 1 each Tamsulosin HCl (Flomax -) 0.8 mg PO DAILY@0830 [facility] Last Admin: 10/08/16 10:21 Dose: 0.8 mg Venlafaxine HCl (Effexor -) 37.5 mg PO BID [facility] Last Admin: 10/08/16 10:25 Dose: 37.5 mg - Objective Vital Signs: Vital Signs Temperature 97.8 F 10/08/16 14:00 Pulse Rate 78 10/08/16 14:00 Respiratory Rate 20 10/08/16 14:00 Blood Pressure 98/61 10/08/16 14:00 O2 Sat by Pulse Oximetry (%) 94 L 10/08/16 10:00 Constitutional: Yes: No Distress, Calm Neck: Yes: Supple Cardiovascular: Yes: Regular Rate and Rhythm Respiratory: Yes: Regular, Diminished Gastrointestinal: Yes: Normal Bowel Sounds, Soft Edema: No Labs: CBC, BMP 10/07/16 05:35 10/08/16 10:15 INR, PTT INR 4.08 (0.82-1.09) H* 10/08/16 12:28 Problem List - Problems (1) Cerebrovascular accident (CVA) Code(s): I63.9 - CEREBRAL INFARCTION, UNSPECIFIED Qualifiers: Qualified Code(s): I63.412 - Cerebral infarction due to embolism of left middle cerebral artery (2) Coronary artery disease Code(s): I25.10 - ATHSCL HEART DISEASE OF [place] CORONARY ARTERY W/O ANG PCTRS Qualifiers: Qualified Code(s): I25.10 - Atherosclerotic heart disease of [place] coronary artery without angina pectoris (3) Hyperlipidemia Code(s): E78.5 - HYPERLIPIDEMIA, UNSPECIFIED Qualifiers: Qualified Code(s): E78.0 - Pure hypercholesterolemia (4) Hypertensive cardiomegaly without heart failure Code(s): I11.9 - HYPERTENSIVE HEART DISEASE WITHOUT HEART FAILURE (5) Old anterior myocardial infarction Code(s): I25.2 - OLD MYOCARDIAL INFARCTION (6) Paroxysmal atrial fibrillation Code(s): I48.0 - PAROXYSMAL ATRIAL FIBRILLATION (7) S/P coronary angioplasty Code(s): Z98.61 - CORONARY ANGIOPLASTY STATUS (8) Systolic dysfunction without heart failure Code(s): I51.9 - HEART DISEASE, UNSPECIFIED (9) Biventricular automatic implantable cardioverter defibrillator in situ Code(s): Z95.810 - PRESENCE OF AUTOMATIC (IMPLANTABLE) CARDIAC DEFIBRILLATOR (10) Subtherapeutic anticoagulation Code(s): Z51.81 - ENCOUNTER FOR THERAPEUTIC DRUG LEVEL MONITORING Z79.01 - 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 Toxic metabolic encephelopathy improving 2. Acute ischemic stroke with slurred speech, left sided facial droop and right sided hemiplegia in context of subtherapeutic INR 3. Paroxysmal atrial fibrillation now with supratherapeutic INR 4. CAD s/p [place], s/p PCI (stent), angina pectoris 5. Severe LV systolic dysfunction 6. Sustained VT s/p OUTPATIENT CODING SPECIALIST-D 7. HTN/HCVD 8. Hyperlipidemia 9. Urethral stricture unsuccessful dilatation 10. Acute on CKD referable to hypovolemia, Bactrim use improving, hypernatremia PLAN: 1. Hold coumadin prior to PEG, ASA 81 mg QD, Amiodarone 200 mg QD, Toprol 25 mg BID, off Lipitor and Questran 2. Off diuretics, volume and free water repletion with f/u renal fxn, electrolytes 3. Empiric abx course for aspiration 4. Recommend PEG once INR acceptable for enteral nutrition and meds as patient remains aspiration risk
[2016-10-08] MEDS ORDERED: PHYTONADIONE 10 MG/1 ML AMP SQ ONE (17:45)
[2016-10-09] MEDS: PIPERACILLIN/TAZOB 2.25 GM 50 ML IVPB SCH ×3 (02:23→17:59)
[2016-10-09 07:02] LABS: MCH 28.5 pg (25.7-33.7); MCHC 31.7 g/dl (32.0-35.9); MEAN CELL VOLUME 89.8 fl (80-96); MEAN PLT VOLUME 8.6 fl (7.5-11.1); PLATELET COUNT 157 K/MM3 (134-434); RDW 14.8 % (11.9-15.9); WHITE BLOOD COUNT 7.1 K/mm3 (4.0-10.0)
[2016-10-09 07:13] LABS: INR 1.6 (0.82-1.09); PROTHROMBIN TIME (PATIENT) 17.8 SEC (9.98-11.88)
[2016-10-09 07:22] LABS: ALBUMIN 2.6 g/dl (3.4-5.0); BILIRUBIN,TOTAL 0.6 mg/dL (0.2-1.0); CALCIUM 8.2 mg/dL (8.5-10.1); CREATININE 1.4 mg/dL (0.7-1.3); MAGNESIUM 2.2 mg/dL (1.8-2.4); PHOSPHOROUS 1.9 mg/dL (2.5-4.9); TOT PROT 5.5 g/dl (6.4-8.2)
--- NOTE | 2016-10-09 08:39 | PN ---
Progress Note, Physician Chief Complaint: No complaints History of Present Illness: Scheduled for peg insertion INR was running high,gave 5mg Vit K yesterday ,INR today is 1.6 Discussed with BLANCA Chang ,will need IV heparin,cardiology will orders - Current Medication List Current Medications: Active Medications Acetaminophen (Tylenol -) 650 mg PO Q6H PRN PRN Reason: FEVER OR PAIN Last Admin: 09/29/16 17:52 Dose: 650 mg Amiodarone HCl (Cordarone -) [address] [facility] Last Admin: 10/08/16 10:20 Dose: 200 mg Aspirin (Asa -) [address] [facility] Last Admin: 10/08/16 10:21 Dose: 81 mg Cholecalciferol (Vitamin D3 -) [address] [facility] Last Admin: 10/08/16 10:20 Dose: 400 unit Piperacillin Sod/Tazobactam Sod (Zosyn 2.25gm Ivpb (Pre-Docked)) 50 mls @ 100 mls/hr IVPB Q8H-IV [facility] PRN Reason: Protocol Last Admin: 10/09/16 02:23 Dose: 100 mls/hr Amino Acids (Clinimix -) 1,000 mls @ 84 mls/hr IV Q12H [facility] Last Admin: 10/08/16 23:32 Dose: 84 mls/hr Metoprolol Succinate (Toprol Xl -) [address] [facility] Last Admin: 10/08/16 21:46 Dose: 25 mg Multivitamins (Total B With C -) [address] [facility] Last Admin: 10/08/16 10:25 Dose: 1 each Tamsulosin HCl (Flomax -) 0.8 mg PO DAILY@0830 [facility] Last Admin: 10/08/16 10:21 Dose: 0.8 mg Venlafaxine HCl (Effexor -) 37.[address] [facility] Last Admin: 10/08/16 21:46 Dose: 37.5 mg - Objective Vital Signs: Vital Signs Temperature 97.9 F 10/09/16 06:00 Pulse Rate 70 10/09/16 06:00 Respiratory Rate 20 10/09/16 06:00 Blood Pressure 123/71 10/09/16 06:00 O2 Sat by Pulse Oximetry (%) 94 L 10/08/16 21:00 Constitutional: Yes: No Distress Eyes: Yes: WNL HENT: Yes: WNL Neck: Yes: WNL Cardiovascular: Yes: WNL Respiratory: Yes: Regular Gastrointestinal: Yes: Normal Bowel Sounds ...Rectal Exam: Yes: Deferred Neurological: Yes: Alert, Other (Rt hemiplegia) Labs: CBC, BMP 10/09/16 06:00 10/09/16 06:00 INR, PTT INR 1.60 (0.82-1.09) H D 10/09/16 06:00 Assessment/Plan Continue present Trt
[2016-10-09] MEDS: AMIODARONE HCL 200 MG TABLET (FP) PO SCH (09:46)
[2016-10-09] MEDS: METOPROLOL SUCCINATE 25 MG TAB.SR.24H (FP) PO SCH ×2 (09:46→21:02)
[2016-10-09] MEDS: CHOLECALCIFEROL (VITAMIN D3) 400 UNIT TABLET (FP) PO SCH (09:46)
[2016-10-09] MEDS: VENLAFAXINE HCL 37.5 MG TABLET PO SCH ×2 (09:46→21:02)
[2016-10-09] MEDS: VITAMIN B COMPLEX W/C COMBO TABLET (FP) PO SCH (09:46)
[2016-10-09] MEDS: ASPIRIN 81 MG CHEWABLE TABLETS PO SCH (09:46)
[2016-10-09] MEDS: TAMSULOSIN HCL 0.4 MG CAP.ER.24H (FP) PO SCH (09:46)
[2016-10-09] MEDS: AMINO ACIDS 4.25%/D5W 1,000 ML IV SCH ×2 (11:46→21:12)
--- NOTE | 2016-10-09 12:07 | PN ---
Progress Note (short form) - Note Progress Note: Renal Follow up for RAMON/Hypernatremia Pt seen and examined at the bedside awake and alert on IVF denies sob, chest pain good urine output Vital Signs Temperature 97.9 F 10/09/16 06:00 Pulse Rate 70 10/09/16 06:00 Respiratory Rate 20 10/09/16 06:00 Blood Pressure 123/71 10/09/16 06:00 O2 Sat by Pulse Oximetry (%) 94 L 10/08/16 21:00 Intake & Output 10/06/16 10/07/16 10/08/16 10/09/16 23:59 23:59 23:59 23:59 Intake Total 1250 2928 1481 1058 Output Total 200 200 100 Balance 1050 2728 1381 1058 Gen: NAD, awake HEENT: Dry MM CVS: irregular, No M/R Lungs: Dec Bs lung bases, no rales or wheeze Abd: soft, No tenderness Ext: No edema, clubbing or cyanosis CBC, BMP 10/09/16 06:00 10/09/16 06:00 Laboratory Tests 10/09/16 06:00 Phosphorus 1.9 L D Magnesium 2.2 D Albumin 2.6 L Current Medications Acetaminophen (Tylenol -) 650 mg PO Q6H PRN PRN Reason: FEVER OR PAIN Last Admin: 09/29/16 17:52 Dose: 650 mg Amiodarone HCl (Cordarone -) 200 mg PO DAILY [facility] Last Admin: 10/09/16 09:46 Dose: 200 mg Aspirin (Asa -) 81 mg PO DAILY [facility] Last Admin: 10/09/16 09:46 Dose: 81 mg Cholecalciferol (Vitamin D3 -) 400 unit PO DAILY [facility] Last Admin: 10/09/16 09:46 Dose: 400 unit Piperacillin Sod/Tazobactam Sod (Zosyn 2.25gm Ivpb (Pre-Docked)) 50 mls @ 100 mls/hr IVPB Q8H-IV [facility] PRN Reason: Protocol Last Admin: 10/09/16 09:46 Dose: 100 mls/hr Amino Acids (Clinimix -) 1,000 mls @ 84 mls/hr IV Q12H [facility] Last Admin: 10/09/16 11:46 Dose: 84 mls/hr Potassium Phosphate 30 mm/ (Dextrose) 260 mls @ 62.5 mls/hr IVPB ONCE ONE Stop: 10/09/16 16:14 Metoprolol Succinate (Toprol Xl -) 25 mg PO BID [facility] Last Admin: 10/09/16 09:46 Dose: 25 mg Multivitamins (Total B With C -) 1 each PO DAILY [facility] Last Admin: 10/09/16 09:46 Dose: 1 each Tamsulosin HCl (Flomax -) 0.8 mg PO DAILY@0830 [facility] Last Admin: 10/09/16 09:46 Dose: 0.8 mg Venlafaxine HCl (Effexor -) 37.5 mg PO BID [facility] Last Admin: 10/09/16 09:46 Dose: 37.5 mg A/P 86 year old Gentleman with PMhx of Afib on Coumadin, CAD s/p stents, CHF, Ulcerative Colitis s/p total colectomy, Kidney stones, Hypertension, Depression presented with focal weakness and found to have acute CVA and now with RAMON with BUN/Cr of 125/3.9 with baseline Cr of 1.3 to 1.5. #Acute on Chronic Renal Insufficiency Renal function improving Urine studies consistent with volume depletion Continue Gentle IVF #Hyperkalemia Secondary to renal failure +/- Bactrium No improved and stable #Hypernatremia Serum Na improving now on Clinimix Trend Na water intake as tolerated #Acute CVA continue management as per Cardiology and Neurology supportive care ? PEG tube placement #Hypophospathemia from poor oral intake Give IV K-phos today Trend Phos Waylon Mcmanus DO
--- NOTE | 2016-10-09 12:08 | PN ---
Progress Note (short form) - Note Progress Note: NEUROLOGY 86 year old male, with a significant past medical history of AFib(on coumadin and aspirin), CAD, FL (stents), CHF, ulcerative colitis(total colectomy and ileostomy), kidney stones, HTN, HLD, anxiety, and depression, was admitted for sudden right side weakness. He was seen by Dr. Meng and then Dr. Cobb. Today , I was called due to change in mental status. Reportedly was less responsive and had undergoing care for CVA. Ct head completed and showed hypodensity in L capsule. On ASA 81mg, and spoke with PCP and patient is already on Warfarin. It was not on med list due to high INR and therefore, would not want to increase bleed risk with Aggrenox. Also Getting Zosyn for infection which may be causing mental status change as well. Very well appearing today, interactive with examiner and family at bedside. Being considered for PEG tube but waiting for INR to normalize and likely for Tuesday. Active Medications Acetaminophen (Tylenol -) 650 mg PO Q6H PRN PRN Reason: FEVER OR PAIN Last Admin: 09/29/16 17:52 Dose: 650 mg Amiodarone HCl (Cordarone -) 200 mg PO DAILY [facility] Last Admin: 10/09/16 09:46 Dose: 200 mg Aspirin (Asa -) 81 mg PO DAILY [facility] Last Admin: 10/09/16 09:46 Dose: 81 mg Cholecalciferol (Vitamin D3 -) 400 unit PO DAILY [facility] Last Admin: 10/09/16 09:46 Dose: 400 unit Piperacillin Sod/Tazobactam Sod (Zosyn 2.25gm Ivpb (Pre-Docked)) 50 mls @ 100 mls/hr IVPB Q8H-IV [facility] PRN Reason: Protocol Last Admin: 10/09/16 09:46 Dose: 100 mls/hr Amino Acids (Clinimix -) 1,000 mls @ 84 mls/hr IV Q12H [facility] Last Admin: 10/09/16 11:46 Dose: 84 mls/hr Potassium Phosphate 30 mm/ (Dextrose) 260 mls @ 62.5 mls/hr IVPB ONCE ONE Stop: 10/09/16 16:14 Metoprolol Succinate (Toprol Xl -) 25 mg PO BID [facility] Last Admin: 02/18/17 09:46 Dose: 25 mg Multivitamins (Total B With C -) 1 each PO DAILY [facility] Last Admin: 10/09/16 09:46 Dose: 1 each Tamsulosin HCl (Flomax -) 0.8 mg PO DAILY@0830 [facility] Last Admin: 10/09/16 09:46 Dose: 0.8 mg Venlafaxine HCl (Effexor -) 37.5 mg PO BID [facility] Last Admin: 10/09/16 09:46 Dose: 37.5 mg Physical Exam-Neuro Last Vital Signs Temp Pulse Resp BP Pulse Ox 97.9 F 70 20 123/71 94 L 10/09/16 06:00 10/09/16 06:00 10/09/16 06:00 10/09/16 06:00 10/08/16 21:00 Constitutional: Yes: Well Nourished, No Distress, Calm Neck: Yes: Supple, Trachea Midline Cardiovascular: Yes: Regular Rate and Rhythm, S1, S2 Respiratory: Yes: Regular, CTA Bilaterally Gastrointestinal: Yes: WNL, Normal Bowel Sounds, Soft Renal/: Yes: WNL Musculoskeletal: Yes: WNL Edema: Yes Edema: LLE: 1+ Psychiatric: Yes: Alert Labs: CBCD WBC 7.1 K/mm3 (4.0-10.0) D 10/09/16 06:00 RBC 4.22 M/mm3 (4.00-5.60) 10/09/16 06:00 Hgb 12.0 GM/dL (11.7-16.9) 10/09/16 06:00 Hct 37.9 % (35.4-49) 10/09/16 06:00 MCV 89.8 fl (80-96) 10/09/16 06:00 MCHC 31.7 g/dl (32.0-35.9) L 10/09/16 06:00 RDW 14.8 % (11.9-15.9) 10/09/16 06:00 Plt Count 157 K/MM3 (134-434) 10/09/16 06:00 MPV 8.6 fl (7.5-11.1) 10/09/16 06:00 CMP Sodium 153 mmol/L (136-145) H 10/09/16 06:00 Potassium 3.7 mmol/L (3.5-5.1) 10/09/16 06:00 Chloride 123 mmol/L (98-107) H 10/09/16 06:00 Carbon Dioxide 22 mmol/L (21-32) 10/09/16 06:00 Anion Gap 8 (8-16) 10/09/16 06:00 BUN 41 mg/dL (7-18) H 10/09/16 06:00 Creatinine 1.4 mg/dL (0.7-1.3) H D 10/09/16 06:00 Creat Clearance w eGFR 48.16 (>60) 10/09/16 06:00 Calcium 8.2 mg/dL (8.5-10.1) L 10/09/16 06:00 Total Bilirubin 0.6 mg/dL (0.2-1.0) 10/09/16 06:00 AST 49 U/L (15-37) H D 10/09/16 06:00 ALT 120 U/L (12-78) H D 10/09/16 06:00 Alkaline Phosphatase 49 U/L (45-117) 10/09/16 06:00 Total Protein 5.5 g/dl (6.4-8.2) L 10/09/16 06:00 Albumin 2.6 g/dl (3.4-5.0) L 10/09/16 06:00 - Neuro Exam Level Of Consciousness: Yes: Awake and alert Eyes: Yes: PERRLA Speech: Broca's Aphasia Dominant Hand: Right Cranial Nerves II-XII Intact: No (right dense hemiplegia, slurred speech dysarthria, expressive aphasi.facial droop) Babinski: Absent Response to light touch: Abnormal Response to pain prick: Abnormal Response to temperature: Abnormal Coordination: Normal: Finger to Nose Motor Strength: 0/5: Right Arm, 1/5: Right Leg, 5/5: Left Arm, Left Leg Gait: Ataxia, Deferred Assessment/Plan 86 year old male, with a significant past medical history of AFib(on coumadin and aspirin), CAD, [place] (stents), CHF, ulcerative colitis(total colectomy and ileostomy), kidney stones, HTN, HLD, anxiety, and depression, was admitted for sudden right side weakness. He was seen by Dr. Meng and then Dr. Cobb. Today , I was called due to change in mental status. Reportedly was less responsive and had undergoing care for CVA. Ct head completed and showed hypodensity in L capsule, new since CT 2 weeks ago. On ASA 81mg, and spoke with PCP and patient is already on Warfarin. It was not on med list due to high INR and therefore, would not want to increase bleed risk with Aggrenox. Also Getting Zosyn for infection which may be causing mental status change as well. Very well appearing today, interactive with examiner. Continue medical mgmt of infection. Monitor electrolyte disturbances. Fall precautions.
[2016-10-09] MEDS ORDERED: HEPARIN NA (PORCINE) 5,000 UNITS/ML 1ML VIAL IVPUSH PRN ×2 (12:13)
[2016-10-09] MEDS ORDERED: POTASSIUM PHOSPHATE 30 MM in DEXTROSE 5%-WATER - 500 ML IVPB ONE (13:00)
[2016-10-09 13:06] LABS: INR 1.35 (0.82-1.09); PROTHROMBIN TIME (PATIENT) 14.9 SEC (9.98-11.88)
--- NOTE | 2016-10-09 14:16 | PN ---
Progress Note, Physician Chief Complaint: Right sided hemiparesis and dysarthria persists History of Present Illness: Patient was seen and examined. Awake and alert. Chart was reviewed Denies chest pain or SOB Heparin started due to INR<2.0 - Current Medication List Current Medications: Active Medications Acetaminophen (Tylenol -) 650 mg PO Q6H PRN PRN Reason: FEVER OR PAIN Last Admin: 09/29/16 17:52 Dose: 650 mg Amiodarone HCl (Cordarone -) 200 mg PO DAILY [facility] Last Admin: 10/09/16 09:46 Dose: 200 mg Aspirin (Asa -) 81 mg PO DAILY [facility] Last Admin: 10/09/16 09:46 Dose: 81 mg Cholecalciferol (Vitamin D3 -) 400 unit PO DAILY [facility] Last Admin: 10/09/16 09:46 Dose: 400 unit Heparin Sodium (Porcine) (Heparin -) 5,000 unit IVPUSH PRN PRN Heparin Sodium (Porcine) (Heparin -) 1,000 unit IVPUSH PRN PRN Piperacillin Sod/Tazobactam Sod (Zosyn 2.25gm Ivpb (Pre-Docked)) 50 mls @ 100 mls/hr IVPB Q8H-IV [facility] PRN Reason: Protocol Last Admin: 10/09/16 09:46 Dose: 100 mls/hr Amino Acids (Clinimix -) 1,000 mls @ 84 mls/hr IV Q12H [facility] Last Admin: 10/09/16 11:46 Dose: 84 mls/hr Potassium Phosphate 30 mm/ (Dextrose) 510 mls @ 63.75 mls/hr IVPB ONCE ONE Stop: 10/09/16 20:59 Heparin Sodium/Dextrose (Heparin Infusion -) 500 mls @ 20 mls/hr IVPB TITR [facility] ; 1,000 UNITS/HR PRN Reason: Protocol Metoprolol Succinate (Toprol Xl -) 25 mg PO BID [facility] Last Admin: 10/09/16 09:46 Dose: 25 mg Multivitamins (Total B With C -) 1 each PO DAILY [facility] Last Admin: 10/09/16 09:46 Dose: 1 each Tamsulosin HCl (Flomax -) 0.8 mg PO DAILY@0830 [facility] Last Admin: 10/09/16 09:46 Dose: 0.8 mg Venlafaxine HCl (Effexor -) 37.5 mg PO BID [facility] Last Admin: 10/09/16 09:46 Dose: 37.5 mg - Objective Vital Signs: Vital Signs Temperature 97.9 F 10/09/16 06:00 Pulse Rate 70 10/09/16 06:00 Respiratory Rate 20 10/09/16 10:00 Blood Pressure 123/71 10/09/16 06:00 O2 Sat by Pulse Oximetry (%) 95 10/09/16 10:00 Neck: Yes: Supple Cardiovascular: Yes: Regular Rate and Rhythm, S1, S2 Respiratory: Yes: Diminished Edema: No Labs: CBC, BMP 10/09/16 06:00 10/09/16 06:00 INR, PTT INR 1.35 (0.82-1.09) H 10/09/16 12:30 Assessment/Plan 1. Acute ischemic stroke with slurred speech, left sided facial droop and right sided hemiplegia in context of subtherapeutic INR 2. Paroxysmal atrial fibrillation 3. CAD s/p IN, s/p PCI (stent), angina pectoris 4. Severe LV systolic dysfunction 5. Sustained VT s/p C[employer]-D 6. HTN/HCVD 7. Hyperlipidemia 8. Urethral stricture unsuccessful dilatation 9. Acute on CKD improved PLAN: 1. Coumadin held and as INR<1.6, would bridge with Heparin with caution. Continue ASA 81 mg QD, Amiodarone 200 mg QD and Toprol 25 mg BID 2. Antibiotics coverage 3. Neuro input noted 4. Await PEG Further plans are to follow Alberto Cabral MD
[2016-10-09] MEDS: HEPARIN INFUSION - 500 ML IVPB SCH (14:32)
--- NOTE | 2016-10-09 14:44 | PN ---
Progress Note, Physician History of Present Illness: stable denies any issues awake and alert - Current Medication List Current Medications: Active Medications Acetaminophen (Tylenol -) 650 mg PO Q6H PRN PRN Reason: FEVER OR PAIN Last Admin: 09/29/16 17:52 Dose: 650 mg Amiodarone HCl (Cordarone -) 200 mg PO DAILY [facility] Last Admin: 10/09/16 09:46 Dose: 200 mg Aspirin (Asa -) 81 mg PO DAILY [facility] Last Admin: 10/09/16 09:46 Dose: 81 mg Cholecalciferol (Vitamin D3 -) 400 unit PO DAILY [facility] Last Admin: 10/09/16 09:46 Dose: 400 unit Heparin Sodium (Porcine) (Heparin -) 5,000 unit IVPUSH PRN PRN Heparin Sodium (Porcine) (Heparin -) 1,000 unit IVPUSH PRN PRN Piperacillin Sod/Tazobactam Sod (Zosyn 2.25gm Ivpb (Pre-Docked)) 50 mls @ 100 mls/hr IVPB Q8H-IV [facility] PRN Reason: Protocol Last Admin: 10/09/16 09:46 Dose: 100 mls/hr Amino Acids (Clinimix -) 1,000 mls @ 84 mls/hr IV Q12H [facility] Last Admin: 10/09/16 11:46 Dose: 84 mls/hr Potassium Phosphate 30 mm/ (Dextrose) 510 mls @ 63.75 mls/hr IVPB ONCE ONE Stop: 10/09/16 20:59 Last Admin: 10/09/16 14:32 Dose: 63.75 mls/hr Heparin Sodium/Dextrose (Heparin Infusion -) 500 mls @ 20 mls/hr IVPB TITR [facility] ; 1,000 UNITS/HR PRN Reason: Protocol Last Admin: 10/09/16 14:32 Dose: 20 mls/hr Metoprolol Succinate (Toprol Xl -) 25 mg PO BID [facility] Last Admin: 10/09/16 09:46 Dose: 25 mg Multivitamins (Total B With C -) 1 each PO DAILY [facility] Last Admin: 10/09/16 09:46 Dose: 1 each Tamsulosin HCl (Flomax -) 0.8 mg PO DAILY@0830 [facility] Last Admin: 10/09/16 09:46 Dose: 0.8 mg Venlafaxine HCl (Effexor -) 37.5 mg PO BID [facility] Last Admin: 10/09/16 09:46 Dose: 37.5 mg - Objective Vital Signs: Vital Signs Temperature 97.9 F 10/09/16 06:00 Pulse Rate 70 10/09/16 06:00 Respiratory Rate 20 10/09/16 10:00 Blood Pressure 123/71 10/09/16 06:00 O2 Sat by Pulse Oximetry (%) 95 10/09/16 10:00 Constitutional: Yes: No Distress, Calm Respiratory: Yes: Regular, CTA Bilaterally Gastrointestinal: Yes: Normal Bowel Sounds, Soft Musculoskeletal: Yes: WNL Extremities: Yes: Other Neurological: Yes: Alert Psychiatric: Yes: Alert Labs: CBC, BMP 10/09/16 06:00 10/09/16 06:00 INR, PTT INR 1.35 (0.82-1.09) H 10/09/16 12:30 Assessment/Plan Problem List - Problems (1) Cerebrovascular accident (CVA) Code(s): I63.9 - CEREBRAL INFARCTION, UNSPECIFIED Qualifiers: Qualified Code(s): I63.412 - Cerebral infarction due to embolism of left middle cerebral artery (2) Coronary artery disease Code(s): I25.10 - ATHSCL HEART DISEASE OF [place] CORONARY ARTERY W/O ANG PCTRS Qualifiers: Qualified Code(s): I25.10 - Atherosclerotic heart disease of [place] coronary artery without angina pectoris (3) Hyperlipidemia Code(s): E78.5 - HYPERLIPIDEMIA, UNSPECIFIED Qualifiers: Qualified Code(s): E78.0 - Pure hypercholesterolemia (4) Hypertensive cardiomegaly without heart failure Code(s): I11.9 - HYPERTENSIVE HEART DISEASE WITHOUT HEART FAILURE (5) Old anterior myocardial infarction Code(s): I25.2 - OLD MYOCARDIAL INFARCTION (6) Paroxysmal atrial fibrillation Code(s): I48.0 - PAROXYSMAL ATRIAL FIBRILLATION (7) S/P coronary angioplasty Code(s): Z98.61 - CORONARY ANGIOPLASTY STATUS (8) Systolic dysfunction without heart failure Code(s): I51.9 - HEART DISEASE, UNSPECIFIED (9) Biventricular automatic implantable cardioverter defibrillator in situ Code(s): Z95.810 - PRESENCE OF AUTOMATIC (IMPLANTABLE) CARDIAC DEFIBRILLATOR (10) Subtherapeutic anticoagulation Code(s): Z51.81 - ENCOUNTER FOR THERAPEUTIC DRUG LEVEL MONITORING Z79.01 - FPC (CURRENT) USE OF ANTICOAGULANTS (11) Urethral stricture Code(s): N35.9 - URETHRAL STRICTURE, UNSPECIFIED Qualifiers: Qualified Code(s): N35.8 - Other urethral stricture 12 fever 13 rash arf leukocytosis dehydration plan will stop abx tomorrow continue as per renal
[2016-10-09] MEDS ORDERED: PT OWN MED DRAWER 7, Y5N ONE (21:00)
[2016-10-10] MEDS: PIPERACILLIN/TAZOB 2.25 GM 50 ML IVPB SCH ×2 (02:56→09:25)
[2016-10-10 09:20] LABS: CALCIUM 7.9 mg/dL (8.5-10.1); CREATININE 1.3 mg/dL (0.7-1.3); PHOSPHOROUS 2.6 mg/dL (2.5-4.9)
[2016-10-10 09:28] LABS: INR 1.24 (0.82-1.09); PROTHROMBIN TIME (PATIENT) 13.7 SEC (9.98-11.88)
[2016-10-10] MEDS: TAMSULOSIN HCL 0.4 MG CAP.ER.24H (FP) PO SCH (09:39)
[2016-10-10] MEDS: AMINO ACIDS 4.25%/D5W 1,000 ML IV SCH (09:39)
[2016-10-10] MEDS: METOPROLOL SUCCINATE 25 MG TAB.SR.24H (FP) PO SCH ×2 (09:40→21:16)
[2016-10-10] MEDS: AMIODARONE HCL 200 MG TABLET (FP) PO SCH (09:40)
[2016-10-10] MEDS: VENLAFAXINE HCL 37.5 MG TABLET PO SCH ×2 (09:40→21:16)
[2016-10-10] MEDS: VITAMIN B COMPLEX W/C COMBO TABLET (FP) PO SCH (09:40)
[2016-10-10] MEDS: ASPIRIN 81 MG CHEWABLE TABLETS PO SCH (09:40)
[2016-10-10] MEDS: CHOLECALCIFEROL (VITAMIN D3) 400 UNIT TABLET (FP) PO SCH (09:40)
[2016-10-10] MEDS ORDERED: AMINO ACIDS 4.25%/D5W 1,000 ML IV SCH (12:30)
[2016-10-10 13:37] LABS: INR 1.19 (0.82-1.09); PROTHROMBIN TIME (PATIENT) 13.1 SEC (9.98-11.88)
[2016-10-10] MEDS: HEPARIN INFUSION - 500 ML IVPB SCH (15:27)
[2016-10-10] MEDS: POTASSIUM CHLORIDE 10 MEQ in AMINO ACIDS 4.25%/D5W 1,000 ML IVPB SCH (16:00)
--- NOTE | 2016-10-10 16:54 | PN ---
Progress Note, Physician History of Present Illness: stable much better - Current Medication List Current Medications: Active Medications Acetaminophen (Tylenol -) 650 mg PO Q6H PRN PRN Reason: FEVER OR PAIN Last Admin: 09/29/16 17:52 Dose: 650 mg Amiodarone HCl (Cordarone -) 200 mg PO DAILY [facility] Last Admin: 10/10/16 09:40 Dose: 200 mg Aspirin (Asa -) 81 mg PO DAILY [facility] Last Admin: 10/10/16 09:40 Dose: 81 mg Cholecalciferol (Vitamin D3 -) 400 unit PO DAILY [facility] Last Admin: 10/10/16 09:40 Dose: 400 unit Heparin Sodium (Porcine) (Heparin -) 5,000 unit IVPUSH PRN PRN Heparin Sodium (Porcine) (Heparin -) 1,000 unit IVPUSH PRN PRN Last Admin: 10/09/16 22:46 Dose: 1,000 unit Heparin Sodium/Dextrose (Heparin Infusion -) 500 mls @ 20 mls/hr IVPB TITR [facility] ; 1,000 UNITS/HR PRN Reason: Protocol Last Admin: 10/10/16 15:27 Dose: Not Given Potassium Chloride 10 meq/ (Amino Acids) 1,005 mls @ 84 mls/hr IVPB Q12H [facility] Metoprolol Succinate (Toprol Xl -) 25 mg PO BID [facility] Last Admin: 10/10/16 09:40 Dose: 25 mg Multivitamins (Total B With C -) 1 each PO DAILY [facility] Last Admin: 10/10/16 09:40 Dose: 1 each Tamsulosin HCl (Flomax -) 0.8 mg PO DAILY@0830 [facility] Last Admin: 10/10/16 09:39 Dose: 0.8 mg Venlafaxine HCl (Effexor -) 37.5 mg PO BID [facility] Last Admin: 10/10/16 09:40 Dose: 37.5 mg - Objective Vital Signs: Vital Signs Temperature 98.0 F 10/10/16 14:00 Pulse Rate 76 10/10/16 14:00 Respiratory Rate 18 10/10/16 14:00 Blood Pressure 100/51 10/10/16 14:00 O2 Sat by Pulse Oximetry (%) 97 10/10/16 10:00 Constitutional: Yes: No Distress, Calm Cardiovascular: Yes: Regular Rate and Rhythm Respiratory: Yes: Regular, Poor Air Entry Gastrointestinal: Yes: Normal Bowel Sounds, Soft Musculoskeletal: Yes: WNL Extremities: Yes: WNL Neurological: Yes: Alert Psychiatric: Yes: Alert Labs: CBC, BMP 10/09/16 06:00 10/10/16 06:15 INR, PTT INR 1.19 (0.82-1.09) H 10/10/16 12:51 Assessment/Plan Problem List - Problems (1) Cerebrovascular accident (CVA) Code(s): I63.9 - CEREBRAL INFARCTION, UNSPECIFIED Qualifiers: Qualified Code(s): I63.412 - Cerebral infarction due to embolism of left middle cerebral artery (2) Coronary artery disease Code(s): I25.10 - ATHSCL HEART DISEASE OF [place] CORONARY ARTERY W/O ANG PCTRS Qualifiers: Qualified Code(s): I25.10 - Atherosclerotic heart disease of [place] coronary artery without angina pectoris (3) Hyperlipidemia Code(s): E78.5 - HYPERLIPIDEMIA, UNSPECIFIED Qualifiers: Qualified Code(s): E78.0 - Pure hypercholesterolemia (4) Hypertensive cardiomegaly without heart failure Code(s): I11.9 - HYPERTENSIVE HEART DISEASE WITHOUT HEART FAILURE (5) Old anterior myocardial infarction Code(s): I25.2 - OLD MYOCARDIAL INFARCTION (6) Paroxysmal atrial fibrillation Code(s): I48.0 - PAROXYSMAL ATRIAL FIBRILLATION (7) S/P coronary angioplasty Code(s): Z98.61 - CORONARY ANGIOPLASTY STATUS (8) Systolic dysfunction without heart failure Code(s): I51.9 - HEART DISEASE, UNSPECIFIED (9) Biventricular automatic implantable cardioverter defibrillator in situ Code(s): Z95.810 - PRESENCE OF AUTOMATIC (IMPLANTABLE) CARDIAC DEFIBRILLATOR (10) Subtherapeutic anticoagulation Code(s): Z51.81 - ENCOUNTER FOR THERAPEUTIC DRUG LEVEL MONITORING Z79.01 - [place] (CURRENT) USE OF ANTICOAGULANTS (11) Urethral stricture Code(s): N35.9 - URETHRAL STRICTURE, UNSPECIFIED Qualifiers: Qualified Code(s): N35.8 - Other urethral stricture 12 fever 13 rash arf leukocytosis dehydration plan stopped abx no new events
--- NOTE | 2016-10-10 19:16 | PN ---
Progress Note, Physician Chief Complaint: Right sided hemiparesis and dysarthria persists History of Present Illness: Patient was seen and examined. Awake and alert. Chart was reviewed Denies chest pain or SOB Currently on Heparin drip - Current Medication List Current Medications: Active Medications Acetaminophen (Tylenol -) 650 mg PO Q6H PRN PRN Reason: FEVER OR PAIN Last Admin: 09/29/16 17:52 Dose: 650 mg Amiodarone HCl (Cordarone -) 200 mg PO DAILY [facility] Last Admin: 10/10/16 09:40 Dose: 200 mg Aspirin (Asa -) 81 mg PO DAILY [facility] Last Admin: 10/10/16 09:40 Dose: 81 mg Cholecalciferol (Vitamin D3 -) 400 unit PO DAILY [facility] Last Admin: 10/10/16 09:40 Dose: 400 unit Heparin Sodium (Porcine) (Heparin -) 5,000 unit IVPUSH PRN PRN Heparin Sodium (Porcine) (Heparin -) 1,000 unit IVPUSH PRN PRN Last Admin: 10/09/16 22:46 Dose: 1,000 unit Heparin Sodium/Dextrose (Heparin Infusion -) 500 mls @ 20 mls/hr IVPB TITR [facility] ; 1,000 UNITS/HR PRN Reason: Protocol Last Admin: 10/10/16 15:27 Dose: Not Given Potassium Chloride 10 meq/ (Amino Acids) 1,005 mls @ 84 mls/hr IVPB Q12H [facility] Last Admin: 10/10/16 16:00 Dose: 84 mls/hr Metoprolol Succinate (Toprol Xl -) 25 mg PO BID [facility] Last Admin: 10/10/16 09:40 Dose: 25 mg Multivitamins (Total B With C -) 1 each PO DAILY [facility] Last Admin: 10/10/16 09:40 Dose: 1 each Tamsulosin HCl (Flomax -) 0.8 mg PO DAILY@0830 [facility] Last Admin: 10/10/16 09:39 Dose: 0.8 mg Venlafaxine HCl (Effexor -) 37.5 mg PO BID [facility] Last Admin: 10/10/16 09:40 Dose: 37.5 mg - Objective Vital Signs: Vital Signs Temperature 98.0 F 10/10/16 14:00 Pulse Rate 76 10/10/16 14:00 Respiratory Rate 18 10/10/16 14:00 Blood Pressure 100/51 10/10/16 14:00 O2 Sat by Pulse Oximetry (%) 97 10/10/16 10:00 Neck: Yes: Supple Cardiovascular: Yes: Regular Rate and Rhythm, S1, S2 Respiratory: Yes: Diminished Gastrointestinal: Yes: Normal Bowel Sounds, Soft. No: Tenderness Edema: No Labs: CBC, BMP 10/09/16 06:00 10/10/16 06:15 INR, PTT INR 1.19 (0.82-1.09) H 10/10/16 12:51 Assessment/Plan 1. Acute ischemic stroke with slurred speech, left sided facial droop and right sided hemiplegia in context of subtherapeutic INR 2. Paroxysmal atrial fibrillation 3. CAD s/p [place], s/p PCI (stent), angina pectoris 4. Severe LV systolic dysfunction 5. Sustained VT s/p MANAGER OF TRAINING AND DEVELOPMENT-D 6. HTN/HCVD 7. Hyperlipidemia 8. Urethral stricture unsuccessful dilatation 9. Acute on CKD improved PLAN: 1. Coumadin held and currently bridged with Heparin with caution. Continue ASA 81 mg QD, Amiodarone 200 mg QD and Toprol XL 25 mg BID 2. Antibiotics was stopped 3. Neuro input to follow 4. Await PEG Further plans are to follow Alberto Cabral MD
[2016-10-10] MEDS ORDERED: PT OWN MED DRAWER 7, Y5N ONE (21:15)
[2016-10-11] MEDS: POTASSIUM CHLORIDE 10 MEQ in AMINO ACIDS 4.25%/D5W 1,000 ML IVPB SCH ×2 (03:53→16:10)
[2016-10-11 08:41] LABS: INR 1.17 (0.82-1.09); PROTHROMBIN TIME (PATIENT) 12.9 SEC (9.98-11.88)
--- NOTE | 2016-10-11 08:44 | PN ---
Progress Note, Physician Chief Complaint: Talking ,no new complaints History of Present Illness: CVA and dysphagia For possible PEG today - Current Medication List Current Medications: Active Medications Acetaminophen (Tylenol -) 650 mg PO Q6H PRN PRN Reason: FEVER OR PAIN Last Admin: 09/29/16 17:52 Dose: 650 mg Amiodarone HCl (Cordarone -) 200 mg PO DAILY [facility] Last Admin: 10/10/16 09:40 Dose: 200 mg Aspirin (Asa -) 81 mg PO DAILY [facility] Last Admin: 10/10/16 09:40 Dose: 81 mg Cholecalciferol (Vitamin D3 -) 400 unit PO DAILY [facility] Last Admin: 10/10/16 09:40 Dose: 400 unit Heparin Sodium (Porcine) (Heparin -) 5,000 unit IVPUSH PRN PRN Heparin Sodium (Porcine) (Heparin -) 1,000 unit IVPUSH PRN PRN Last Admin: 10/09/16 22:46 Dose: 1,000 unit Heparin Sodium/Dextrose (Heparin Infusion -) 500 mls @ 20 mls/hr IVPB TITR [facility] ; 1,000 UNITS/HR PRN Reason: Protocol Last Admin: 10/10/16 15:27 Dose: Not Given Potassium Chloride 10 meq/ (Amino Acids) 1,005 mls @ 84 mls/hr IVPB Q12H [facility] Last Admin: 10/11/16 03:53 Dose: 84 mls/hr Metoprolol Succinate (Toprol Xl -) 25 mg PO BID [facility] Last Admin: 10/10/16 21:16 Dose: 25 mg Multivitamins (Total B With C -) 1 each PO DAILY [facility] Last Admin: 10/10/16 09:40 Dose: 1 each Tamsulosin HCl (Flomax -) 0.8 mg PO DAILY@0830 [facility] Last Admin: 10/10/16 09:39 Dose: 0.8 mg Venlafaxine HCl (Effexor -) 37.5 mg PO BID [facility] Last Admin: 10/10/16 21:16 Dose: 37.5 mg - Objective Vital Signs: Vital Signs Temperature 97.4 F L 10/11/16 06:00 Pulse Rate 71 10/11/16 06:00 Respiratory Rate 18 10/11/16 06:00 Blood Pressure 143/85 10/11/16 06:00 O2 Sat by Pulse Oximetry (%) 98 10/10/16 21:00 Constitutional: Yes: No Distress Eyes: Yes: WNL HENT: Yes: WNL Neck: Yes: WNL Cardiovascular: Yes: Pulse Irregular Respiratory: Yes: Regular Gastrointestinal: Yes: Normal Bowel Sounds ...Rectal Exam: Yes: Deferred Integumentary: Yes: WNL Neurological: Yes: Weakness, Other (Rt hemiplegia) Labs: CBC, BMP 10/09/16 06:00 10/10/16 06:15 INR, PTT INR 1.19 (0.82-1.09) H 10/10/16 12:51 Assessment/Plan PEG insertion
--- NOTE | 2016-10-11 09:41 | PN ---
Progress Note, Physician Chief Complaint: Right sided hemiparesis and dysarthria persists History of Present Illness: Patient was seen and examined. Awake and alert. Chart was reviewed Denies chest pain or SOB Currently on Heparin drip - PEG rescheduled for tomorrow. Heparin is to be stopped prior to procedure - Current Medication List Current Medications: Active Medications Acetaminophen (Tylenol -) 650 mg PO Q6H PRN PRN Reason: FEVER OR PAIN Last Admin: 09/29/16 17:52 Dose: 650 mg Amiodarone HCl (Cordarone -) 200 mg PO DAILY [facility] Last Admin: 10/10/16 09:40 Dose: 200 mg Aspirin (Asa -) 81 mg PO DAILY [facility] Last Admin: 10/10/16 09:40 Dose: 81 mg Cholecalciferol (Vitamin D3 -) 400 unit PO DAILY [facility] Last Admin: 10/10/16 09:40 Dose: 400 unit Heparin Sodium (Porcine) (Heparin -) 5,000 unit IVPUSH PRN PRN Heparin Sodium (Porcine) (Heparin -) 1,000 unit IVPUSH PRN PRN Last Admin: 10/09/16 22:46 Dose: 1,000 unit Heparin Sodium/Dextrose (Heparin Infusion -) 500 mls @ 20 mls/hr IVPB TITR [facility] ; 1,000 UNITS/HR PRN Reason: Protocol Last Admin: 10/10/16 15:27 Dose: Not Given Potassium Chloride 10 meq/ (Amino Acids) 1,005 mls @ 84 mls/hr IVPB Q12H [facility] Last Admin: 10/11/16 03:53 Dose: 84 mls/hr Metoprolol Succinate (Toprol Xl -) 25 mg PO BID [facility] Last Admin: 10/10/16 21:16 Dose: 25 mg Multivitamins (Total B With C -) 1 each PO DAILY [facility] Last Admin: 10/10/16 09:40 Dose: 1 each Tamsulosin HCl (Flomax -) 0.8 mg PO DAILY@0830 [facility] Last Admin: 10/10/16 09:39 Dose: 0.8 mg Venlafaxine HCl (Effexor -) 37.5 mg PO BID [facility] Last Admin: 10/10/16 21:16 Dose: 37.5 mg - Objective Vital Signs: Vital Signs Temperature 97.4 F L 10/11/16 06:00 Pulse Rate 71 10/11/16 06:00 Respiratory Rate 18 10/11/16 06:00 Blood Pressure 143/85 10/11/16 06:00 O2 Sat by Pulse Oximetry (%) 98 10/10/16 21:00 Neck: Yes: Supple Cardiovascular: Yes: Regular Rate and Rhythm, S1, S2 Respiratory: Yes: Diminished Gastrointestinal: Yes: Normal Bowel Sounds, Soft. No: Tenderness Edema: No Labs: CBC, BMP 10/09/16 06:00 10/10/16 06:15 INR, PTT INR 1.17 (0.82-1.09) H 10/11/16 06:05 Assessment/Plan 1. Acute ischemic stroke with slurred speech, left sided facial droop and right sided hemiplegia in context of subtherapeutic INR 2. Paroxysmal atrial fibrillation 3. CAD s/p [place], s/p PCI (stent), angina pectoris 4. Severe LV systolic dysfunction 5. 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 HTN/HCVD 7. Hyperlipidemia 8. Urethral stricture unsuccessful dilatation 9. Acute on CKD improved PLAN: 1. Coumadin held and currently bridged with Heparin with caution. Continue ASA 81 mg QD, Amiodarone 200 mg QD and Toprol XL 25 mg BID. Restart Coumadin once PEG is inserted 2. Antibiotics was stopped as per ID service 3. Neuro input to follow 4. Await PEG - tentatively tomorrow as per GI Further plans are to follow Alberto Cabral MD
[2016-10-11 10:06] LABS: CALCIUM 8.1 mg/dL (8.5-10.1); MAGNESIUM 1.9 mg/dL (1.8-2.4)
[2016-10-11] MEDS ORDERED: PT OWN MED DRAWER 7, Y5N ONE (11:20)
[2016-10-11] MEDS: AMIODARONE HCL 200 MG TABLET (FP) PO SCH (11:21)
[2016-10-11] MEDS: TAMSULOSIN HCL 0.4 MG CAP.ER.24H (FP) PO SCH (11:21)
[2016-10-11] MEDS: ASPIRIN 81 MG CHEWABLE TABLETS PO SCH (11:21)
[2016-10-11] MEDS: METOPROLOL SUCCINATE 25 MG TAB.SR.24H (FP) PO SCH ×2 (11:22→21:56)
[2016-10-11] MEDS: CHOLECALCIFEROL (VITAMIN D3) 400 UNIT TABLET (FP) PO SCH (11:22)
[2016-10-11] MEDS: VITAMIN B COMPLEX W/C COMBO TABLET (FP) PO SCH (11:22)
[2016-10-11] MEDS: VENLAFAXINE HCL 37.5 MG TABLET PO SCH ×2 (11:22→21:56)
--- NOTE | 2016-10-11 12:08 | PN ---
Progress Note (short form) - Note Progress Note: GI NOte: PEG postponed until tomorrow when I discovered that Gm had been started on heparin. I informed his daughter by phone. Rescheduled for tomorrow after interruption of heparin.
--- NOTE | 2016-10-11 12:27 | PN ---
Progress Note, Physician History of Present Illness: patient doing well grand daughter in room stable awaiting peg placement - Current Medication List Current Medications: Active Medications Acetaminophen (Tylenol -) 650 mg PO Q6H PRN PRN Reason: FEVER OR PAIN Last Admin: 09/29/16 17:52 Dose: 650 mg Amiodarone HCl (Cordarone -) 200 mg PO DAILY [facility] Last Admin: 10/11/16 11:21 Dose: 200 mg Aspirin (Asa -) 81 mg PO DAILY [facility] Last Admin: 10/11/16 11:21 Dose: 81 mg Cholecalciferol (Vitamin D3 -) 400 unit PO DAILY [facility] Last Admin: 10/11/16 11:22 Dose: 400 unit Heparin Sodium (Porcine) (Heparin -) 5,000 unit IVPUSH PRN PRN Heparin Sodium (Porcine) (Heparin -) 1,000 unit IVPUSH PRN PRN Last Admin: 10/09/16 22:46 Dose: 1,000 unit Heparin Sodium/Dextrose (Heparin Infusion -) 500 mls @ 20 mls/hr IVPB TITR [facility] ; 1,000 UNITS/HR PRN Reason: Protocol Stop: 10/12/16 04:00 Last Admin: 10/10/16 15:27 Dose: Not Given Potassium Chloride 10 meq/ (Amino Acids) 1,005 mls @ 84 mls/hr IVPB Q12H [facility] Last Admin: 10/11/16 03:53 Dose: 84 mls/hr Metoprolol Succinate (Toprol Xl -) 25 mg PO BID [facility] Last Admin: 10/11/16 11:22 Dose: 25 mg Multivitamins (Total B With C -) 1 each PO DAILY [facility] Last Admin: 10/11/16 11:22 Dose: 1 each Tamsulosin HCl (Flomax -) 0.8 mg PO DAILY@0830 [facility] Last Admin: 10/11/16 11:21 Dose: 0.8 mg Venlafaxine HCl (Effexor -) 37.5 mg PO BID [facility] Last Admin: 10/11/16 11:22 Dose: 37.5 mg - Objective Vital Signs: Vital Signs Temperature 98.7 F 10/11/16 10:00 Pulse Rate 70 10/11/16 10:00 Respiratory Rate 20 10/11/16 10:00 Blood Pressure 120/70 10/11/16 10:00 O2 Sat by Pulse Oximetry (%) 98 10/10/16 21:00 Constitutional: Yes: No Distress, Calm Cardiovascular: Yes: Regular Rate and Rhythm Respiratory: Yes: Regular Gastrointestinal: Yes: Normal Bowel Sounds, Soft Musculoskeletal: Yes: Other Extremities: Yes: Other Neurological: Yes: Alert, Oriented Psychiatric: Yes: Alert Labs: CBC, BMP 10/09/16 06:00 10/11/16 09:40 INR, PTT INR 1.17 (0.82-1.09) H 10/11/16 06:05 Assessment/Plan Problem List - Problems (1) Cerebrovascular accident (CVA) Code(s): I63.9 - CEREBRAL INFARCTION, UNSPECIFIED Qualifiers: Qualified Code(s): I63.412 - Cerebral infarction due to embolism of left middle cerebral artery (2) Coronary artery disease Code(s): I25.10 - ATHSCL HEART DISEASE OF [place] CORONARY ARTERY W/O ANG PCTRS Qualifiers: Qualified Code(s): I25.10 - Atherosclerotic heart disease of [place] coronary artery without angina pectoris (3) Hyperlipidemia Code(s): E78.5 - HYPERLIPIDEMIA, UNSPECIFIED Qualifiers: Qualified Code(s): E78.0 - Pure hypercholesterolemia (4) Hypertensive cardiomegaly without heart failure Code(s): I11.9 - HYPERTENSIVE HEART DISEASE WITHOUT HEART FAILURE (5) Old anterior myocardial infarction Code(s): I25.2 - OLD MYOCARDIAL INFARCTION (6) Paroxysmal atrial fibrillation Code(s): I48.0 - PAROXYSMAL ATRIAL FIBRILLATION (7) S/P coronary angioplasty Code(s): Z98.61 - CORONARY ANGIOPLASTY STATUS (8) Systolic dysfunction without heart failure Code(s): I51.9 - HEART DISEASE, UNSPECIFIED (9) Biventricular automatic implantable cardioverter defibrillator in situ Code(s): Z95.810 - PRESENCE OF AUTOMATIC (IMPLANTABLE) CARDIAC DEFIBRILLATOR (10) Subtherapeutic anticoagulation Code(s): Z51.81 - ENCOUNTER FOR THERAPEUTIC DRUG LEVEL MONITORING Z79.01 - FDC (CURRENT) USE OF ANTICOAGULANTS (11) Urethral stricture Code(s): N35.9 - URETHRAL STRICTURE, UNSPECIFIED Qualifiers: Qualified Code(s): N35.8 - Other urethral stricture 12 fever 13 rash arf leukocytosis dehydration plan stopped abx no new events patient stable peg tube placement
--- NOTE | 2016-10-11 12:50 | PN ---
Progress Note, ADMINISTRATIVE SUPPORT MANAGER - Note Progress Note: Magic cup trial initiated in hope to increase swallow efficiency and reduce duration of onset, while waiting for INR to improve so that PEG can be done. Selected Entries 10/10/16 10/10/16 10/10/16 02:00 06:00 10:00 Temperature 97.8 F 97.4 F L 98.0 F 10/10/16 10/10/16 10/10/16 14:00 18:00 22:00 Temperature 98.0 F 99.0 F 98.8 F 10/11/16 10/11/16 10/11/16 02:00 06:00 10:00 Temperature 97.5 F L 97.4 F L 98.7 F Laboratory Tests 10/09/16 06:00 WBC 7.1 D Pt has been accepting Magic cup, with no congestion noted. However, insufficient nutritional intake persists. PEG still indicated for improved nutritional intake, hydration, medication. Hopefully, with continued swallowing rehabilitation, PO intake will improve and pt can be weaned from PEG in future. Educated pt's daughter and reviewed with GI.
[2016-10-11] MEDS: HEPARIN INFUSION - 500 ML IVPB SCH (14:11)
--- NOTE | 2016-10-11 15:34 | PN ---
Progress Note, Physician Chief Complaint: Patient is seen in his bed. Seems comfortable. Clinimix infusing. Urine output acceptable. Incontinent. Awake, alert. - Current Medication List Current Medications: Active Medications Acetaminophen (Tylenol -) 650 mg PO Q6H PRN PRN Reason: FEVER OR PAIN Last Admin: 09/29/16 17:52 Dose: 650 mg Amiodarone HCl (Cordarone -) 200 mg PO DAILY [facility] [place] Last Admin: 10/11/16 11:21 Dose: 200 mg Aspirin (Asa -) 81 mg PO DAILY [facility] [place] Last Admin: 10/11/16 11:21 Dose: 81 mg Cholecalciferol (Vitamin D3 -) 400 unit PO DAILY [facility] [place] Last Admin: 10/11/16 11:22 Dose: 400 unit Heparin Sodium (Porcine) (Heparin -) 5,000 unit IVPUSH PRN PRN Heparin Sodium (Porcine) (Heparin -) 1,000 unit IVPUSH PRN PRN Last Admin: 10/09/16 22:46 Dose: 1,000 unit Heparin Sodium/Dextrose (Heparin Infusion -) 500 mls @ 20 mls/hr IVPB TITR [facility] ; 1,000 UNITS/HR PRN Reason: Protocol Stop: 10/12/16 04:00 Last Admin: 10/11/16 14:11 Dose: 22 mls/hr Potassium Chloride 10 meq/ (Amino Acids) 1,005 mls @ 84 mls/hr IVPB Q12H [facility] [place] Last Admin: 10/11/16 03:53 Dose: 84 mls/hr Metoprolol Succinate (Toprol Xl -) 25 mg PO BID [facility] [place] Last Admin: 10/11/16 11:22 Dose: 25 mg Multivitamins (Total B With C -) 1 each PO DAILY [facility] [place] Last Admin: 10/11/16 11:22 Dose: 1 each Tamsulosin HCl (Flomax -) 0.8 mg PO DAILY@0830 [facility] [place] Last Admin: 10/11/16 11:21 Dose: 0.8 mg Venlafaxine HCl (Effexor -) 37.5 mg PO BID [facility] [place] Last Admin: 10/11/16 11:22 Dose: 37.5 mg - Objective Vital Signs: Vital Signs Temperature 98.8 F 10/11/16 15:24 Pulse Rate 74 10/11/16 15:24 Respiratory Rate 20 10/11/16 15:24 Blood Pressure 122/74 10/11/16 15:24 O2 Sat by Pulse Oximetry (%) 97 10/11/16 10:00 Constitutional: Yes: Anxious, Mild Distress Eyes: Yes: WNL Neck: Yes: Trachea Midline, Decreased ROM Cardiovascular: Yes: S1, S2, S3 Respiratory: Yes: CTA Bilaterally, Diminished Gastrointestinal: Yes: Normal Bowel Sounds, Soft Neurological: Yes: Alert, Weakness Labs: CBC, BMP 10/09/16 06:00 10/11/16 09:40 INR, PTT INR 1.17 (0.82-1.09) H 10/11/16 06:05 Assessment/Plan The patient's renal functions slowly improving. Resolving Hypernatremia. Current IV fluids well tolerated. Hypophosphatemia, most likely nutritional. Will supplement Will monitor the renal functions with you. Marguerite Lucio MD
[2016-10-11] MEDS ORDERED: POTASSIUM PHOSPHATE 15 MM in DEXTROSE 5%-WATER - 250 ML IVPB ONE (16:15)
[2016-10-12] MEDS: POTASSIUM CHLORIDE 10 MEQ in AMINO ACIDS 4.25%/D5W 1,000 ML IVPB SCH ×2 (03:36→12:01)
[2016-10-12 07:47] LABS: INR 1.12 (0.82-1.09); PROTHROMBIN TIME (PATIENT) 12.3 SEC (9.98-11.88)
[2016-10-12 07:59] LABS: ALBUMIN 2.6 g/dl (3.4-5.0); ALK PHOS 48 U/L (45-117); ANION GAP 10 (8-16); BILIRUBIN,TOTAL 0.3 mg/dL (0.2-1.0); CALCIUM 7.9 mg/dL (8.5-10.1); CO2 18 mmol/L (21-32); CREATININE 0.9 mg/dL (0.7-1.3); GLUCOSE,RANDOM 106 mg/dL (74-106); MAGNESIUM 1.6 mg/dL (1.8-2.4); SGOT/AST 30 U/L (15-37); SGPT/ALT 57 U/L (12-78); TOT PROT 5.3 g/dl (6.4-8.2)
--- NOTE | 2016-10-12 08:56 | PN ---
Progress Note (short form) - Note Progress Note: EGD/PEG report in front of physical chart and to be scanned into [facility] Follow post PEG instructions per procedure report and as outlined in order section
[2016-10-12] MEDS ORDERED: CEFAZOLIN 1 GM in DEXTROSE 5%-WATER - 50 ML IVPB ONE (09:08)
[2016-10-12] MEDS ORDERED: ceFAZolin SODIUM 1 GM VIAL ONE (09:09)
--- NOTE | 2016-10-12 09:13 | PN ---
Progress Note, Physician Chief Complaint: Right sided hemiparesis and dysarthria persists S/P PEG today History of Present Illness: Patient was seen and examined. Awake and alert. Chart was reviewed Denies chest pain or SOB Heparin drip is to be restarted - Current Medication List Current Medications: Active Medications Acetaminophen (Tylenol -) 650 mg PO Q6H PRN PRN Reason: FEVER OR PAIN Last Admin: 09/29/16 17:52 Dose: 650 mg Amiodarone HCl (Cordarone -) 200 mg PO DAILY [facility] Last Admin: 10/11/16 11:21 Dose: 200 mg Aspirin (Asa -) 81 mg PO DAILY [facility] Last Admin: 10/11/16 11:21 Dose: 81 mg Bacitracin (Bacitracin -) 1 applic TP BID [facility] Stop: 10/17/16 09:59 Cholecalciferol (Vitamin D3 -) 400 unit PO DAILY [facility] Last Admin: 10/11/16 11:22 Dose: 400 unit Heparin Sodium (Porcine) (Heparin -) 5,000 unit IVPUSH PRN PRN Heparin Sodium (Porcine) (Heparin -) 1,000 unit IVPUSH PRN PRN Last Admin: 10/09/16 22:46 Dose: 1,000 unit Potassium Chloride 10 meq/ (Amino Acids) 1,005 mls @ 84 mls/hr IVPB Q12H [facility] Last Admin: 10/12/16 03:36 Dose: 84 mls/hr Cefazolin Sodium 1 gm/ (Dextrose) 50 mls @ 100 mls/hr IVPB ONCE ONE Stop: 10/12/16 09:37 Metoprolol Succinate (Toprol Xl -) 25 mg PO BID [facility] Last Admin: 10/11/16 21:56 Dose: 25 mg Multivitamins (Total B With C -) 1 each PO DAILY [facility] Last Admin: 10/11/16 11:22 Dose: 1 each Tamsulosin HCl (Flomax -) 0.8 mg PO DAILY@0830 [facility] Last Admin: 10/11/16 11:21 Dose: 0.8 mg Venlafaxine HCl (Effexor -) 37.5 mg PO BID [facility] Last Admin: 10/11/16 21:56 Dose: 37.5 mg - Objective Vital Signs: Vital Signs Temperature 97.8 F 10/12/16 06:00 Pulse Rate 71 10/12/16 06:00 Respiratory Rate 20 0221/17 06:00 Blood Pressure 139/81 10/12/16 06:00 O2 Sat by Pulse Oximetry (%) 95 10/11/16 21:00 Neck: Yes: Supple Cardiovascular: Yes: Regular Rate and Rhythm, S1, S2 Respiratory: Yes: Diminished Gastrointestinal: Yes: Normal Bowel Sounds, Soft. No: Tenderness Edema: No Labs: CBC, BMP 10/09/16 06:00 10/12/16 05:35 INR, PTT INR 1.12 (0.82-1.09) 10/12/16 05:35 Assessment/Plan 1. Acute ischemic stroke with slurred speech, left sided facial droop and right sided hemiplegia in context of subtherapeutic INR 2. Paroxysmal atrial fibrillation 3. CAD s/p AK, s/p PCI (stent), angina pectoris 4. Severe LV systolic dysfunction 5. 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 HTN/HCVD 7. Hyperlipidemia 8. Urethral stricture unsuccessful dilatation 9. Acute on CKD improved PLAN: 1. Post PEG today. Restart Coumadin and bridge again with Heparin drip (to be restarted ) 2. Follow neuro check 3. PEG tube management 4. Continue Amiodarone, Metoprolol and ASA as tolerated Further plans are to follow Alberto Cabral MD
--- NOTE | 2016-10-12 09:37 | PN ---
Progress Note, Physician History of Present Illness: S/P peg insertion. Tolerated the procedure well - Current Medication List Current Medications: Active Medications Acetaminophen (Tylenol -) 650 mg PO Q6H PRN PRN Reason: FEVER OR PAIN Last Admin: 09/29/16 17:52 Dose: 650 mg Amiodarone HCl (Cordarone -) 200 mg PO DAILY [facility] Last Admin: 10/11/16 11:21 Dose: 200 mg Aspirin (Asa -) 81 mg PO DAILY [facility] Last Admin: 10/11/16 11:21 Dose: 81 mg Bacitracin (Bacitracin -) 1 applic TP BID [facility] Stop: 10/17/16 09:59 Cholecalciferol (Vitamin D3 -) 400 unit PO DAILY [facility] Last Admin: 10/11/16 11:22 Dose: 400 unit Heparin Sodium (Porcine) (Heparin -) 5,000 unit IVPUSH PRN PRN Heparin Sodium (Porcine) (Heparin -) 1,000 unit IVPUSH PRN PRN Last Admin: 10/09/16 22:46 Dose: 1,000 unit Potassium Chloride 10 meq/ (Amino Acids) 1,005 mls @ 84 mls/hr IVPB Q12H [facility] Last Admin: 10/12/16 03:36 Dose: 84 mls/hr Cefazolin Sodium 1 gm/ (Dextrose) 50 mls @ 100 mls/hr IVPB ONCE ONE Stop: 10/12/16 09:37 Last Admin: 10/12/16 09:26 Dose: 100 mls/hr Metoprolol Succinate (Toprol Xl -) 25 mg PO BID [facility] Last Admin: 10/11/16 21:56 Dose: 25 mg Multivitamins (Total B With C -) 1 each PO DAILY [facility] Last Admin: 10/11/16 11:22 Dose: 1 each Tamsulosin HCl (Flomax -) 0.8 mg PO DAILY@0830 [facility] Last Admin: 10/11/16 11:21 Dose: 0.8 mg Venlafaxine HCl (Effexor -) 37.5 mg PO BID [facility] Last Admin: 10/11/16 21:56 Dose: 37.5 mg - Objective Vital Signs: Vital Signs Temperature 97.8 F 10/12/16 06:00 Pulse Rate 71 10/12/16 06:00 Respiratory Rate 20 10/12/16 06:00 Blood Pressure 139/81 10/12/16 06:00 O2 Sat by Pulse Oximetry (%) 95 10/11/16 21:00 Constitutional: Yes: No Distress Eyes: Yes: WNL HENT: Yes: WNL Neck: Yes: WNL Cardiovascular: Yes: WNL Respiratory: Yes: WNL Gastrointestinal: Yes: Hypoactive Bowel Sounds Neurological: Yes: Pre-Existing Deficit Psychiatric: Yes: Alert Labs: CBC, BMP 10/09/16 06:00 10/12/16 05:35 INR, PTT INR 1.12 (0.82-1.09) 10/12/16 05:35 Assessment/Plan Cntinue IV heparin
[2016-10-12] MEDS ORDERED: PT OWN MED DRAWER 7, Y5N ONE ×2 (10:16→22:50)
[2016-10-12] MEDS: ASPIRIN 81 MG CHEWABLE TABLETS PO SCH (10:26)
[2016-10-12] MEDS: CHOLECALCIFEROL (VITAMIN D3) 400 UNIT TABLET (FP) PO SCH (10:26)
[2016-10-12] MEDS: METOPROLOL SUCCINATE 25 MG TAB.SR.24H (FP) PO SCH ×2 (10:26→23:06)
[2016-10-12] MEDS: AMIODARONE HCL 200 MG TABLET (FP) PO SCH (10:26)
[2016-10-12] MEDS: TAMSULOSIN HCL 0.4 MG CAP.ER.24H (FP) PO SCH (10:26)
[2016-10-12] MEDS: BACITRACIN 30 GM TUBE TOPICAL OINTMENT TP SCH ×2 (10:26→23:06)
[2016-10-12] MEDS: VITAMIN B COMPLEX W/C COMBO TABLET (FP) PO SCH (10:27)
[2016-10-12] MEDS: VENLAFAXINE HCL 37.5 MG TABLET PO SCH (10:27)
[2016-10-12] MEDS ORDERED: MAGNESIUM SULF 50% (8.12 MEQ/2 ML-1 GM VIAL) IVPB ONE (11:00)
[2016-10-12] MEDS ORDERED: POTASSIUM PHOSPHATE 30 MM in SODIUM CHLORIDE 500 ML IVPB ONE (11:30)
--- NOTE | 2016-10-12 14:21 | PN ---
Progress Note (short form) - Note Progress Note: Renal Follow up for RAMON/Hypernatremia Pt seen and examined at the bedside no overnight events for peg tube placement today pt without complaints on Clinimix Vital Signs Temperature 97.4 F L 10/12/16 10:00 Pulse Rate 70 10/12/16 10:00 Respiratory Rate 18 10/12/16 10:00 Blood Pressure 116/62 10/12/16 10:00 O2 Sat by Pulse Oximetry (%) 95 10/12/16 10:00 Intake & Output 10/09/16 10/10/16 10/11/16 10/12/16 23:59 23:59 23:59 23:59 Intake Total 2758 1794 2714 200 Balance 2758 1794 2714 200 Weight 155 lb 6.4 oz Gen: NAD, awake HEENT: Dry MM CVS: irregular, No M/R Lungs: Dec Bs lung bases, no rales or wheeze Abd: soft, No tenderness Ext: No edema, clubbing or cyanosis CBC, BMP 10/09/16 06:00 10/12/16 05:35 Laboratory Tests 10/12/16 05:35 Phosphorus 2.0 L Magnesium 1.6 L Albumin 2.6 L Current Medications Acetaminophen (Tylenol -) 650 mg PO Q6H PRN PRN Reason: FEVER OR PAIN Last Admin: 09/29/16 17:52 Dose: 650 mg Amiodarone HCl (Cordarone -) 200 mg PO DAILY [facility] Last Admin: 10/12/16 10:26 Dose: 200 mg Aspirin (Asa -) 81 mg PO DAILY [facility] Last Admin: 10/12/16 10:26 Dose: 81 mg Bacitracin (Bacitracin -) 1 applic TP BID [facility] Stop: 10/17/16 09:59 Last Admin: 10/12/16 10:26 Dose: 1 applic Cholecalciferol (Vitamin D3 -) 400 unit PO DAILY [facility] Last Admin: 10/12/16 10:26 Dose: 400 unit Heparin Sodium (Porcine) (Heparin -) 5,000 unit IVPUSH PRN PRN Heparin Sodium (Porcine) (Heparin -) 1,000 unit IVPUSH PRN PRN Last Admin: 10/09/16 22:46 Dose: 1,000 unit Potassium Phosphate 30 mm/ (Sodium Chloride) 510 mls @ 63.75 mls/hr IVPB ONCE ONE Stop: 10/12/16 19:29 Potassium Chloride 10 meq/ (Amino Acids) 1,005 mls @ 60 mls/hr IVPB Q16H [facility] Last Admin: 10/12/16 12:01 Dose: 60 mls/hr Metoprolol Succinate (Toprol Xl -) 25 mg PO BID [facility] Last Admin: 10/12/16 10:26 Dose: 25 mg Multivitamins (Total B With C -) 1 each PO DAILY [facility] Last Admin: 10/12/16 10:27 Dose: 1 each Sodium Bicarbonate (Sodium Bicarbonate -) 650 mg GT BID [facility] Tamsulosin HCl (Flomax -) 0.8 mg PO DAILY@0830 [facility] Last Admin: 10/12/16 10:26 Dose: 0.8 mg Venlafaxine HCl (Effexor -) 37.5 mg PO BID [facility] Last Admin: 10/12/16 10:27 Dose: 37.5 mg A/P 86 year old Gentleman with PMhx of Afib on Coumadin, CAD s/p stents, CHF, Ulcerative Colitis s/p total colectomy, Kidney stones, Hypertension, Depression presented with focal weakness and found to have acute CVA and now with RAMON with BUN/Cr of 125/3.9 with baseline Cr of 1.3 to 1.5. #Acute on Chronic Renal Insufficiency Renal function stable #Hypernatremia Serum Na now WNL on Clinimix start tube feeds with free water s/p G-tube insertion #Metabolic Acidosis Start sodium bicarb 650mg BID #Acute CVA continue management as per Cardiology and Neurology supportive care #Hypophospathemia Give IV K-phos today trend with G-tube feeds #Hypomagnesemia GIve Mag sulfate 2g IV x 1 Waylon Mcmanus DO
--- NOTE | 2016-10-12 14:48 | PN ---
Progress Note, Physician History of Present Illness: stable says he is doing well no issues peg placed today - Current Medication List Current Medications: Active Medications Acetaminophen (Tylenol -) 650 mg PO Q6H PRN PRN Reason: FEVER OR PAIN Last Admin: 09/29/16 17:52 Dose: 650 mg Amiodarone HCl (Cordarone -) 200 mg PO DAILY [facility] Last Admin: 10/12/16 10:26 Dose: 200 mg Aspirin (Asa -) 81 mg PO DAILY [facility] Last Admin: 10/12/16 10:26 Dose: 81 mg Bacitracin (Bacitracin -) 1 applic TP BID [facility] Stop: 10/17/16 09:59 Last Admin: 10/12/16 10:26 Dose: 1 applic Cholecalciferol (Vitamin D3 -) 400 unit PO DAILY [facility] Last Admin: 10/12/16 10:26 Dose: 400 unit Heparin Sodium (Porcine) (Heparin -) 5,000 unit IVPUSH PRN PRN Heparin Sodium (Porcine) (Heparin -) 1,000 unit IVPUSH PRN PRN Last Admin: 10/09/16 22:46 Dose: 1,000 unit Potassium Phosphate 30 mm/ (Sodium Chloride) 510 mls @ 63.75 mls/hr IVPB ONCE ONE Stop: 10/12/16 19:29 Potassium Chloride 10 meq/ (Amino Acids) 1,005 mls @ 60 mls/hr IVPB Q16H [facility] Last Admin: 10/12/16 12:01 Dose: 60 mls/hr Metoprolol Succinate (Toprol Xl -) 25 mg PO BID [facility] Last Admin: 10/12/16 10:26 Dose: 25 mg Multivitamins (Total B With C -) 1 each PO DAILY [facility] Last Admin: 10/12/16 10:27 Dose: 1 each Sodium Bicarbonate (Sodium Bicarbonate -) 650 mg GT BID [facility] Tamsulosin HCl (Flomax -) 0.8 mg PO DAILY@0830 [facility] Last Admin: 10/12/16 10:26 Dose: 0.8 mg Venlafaxine HCl (Effexor -) 37.5 mg PO BID [facility] Last Admin: 10/12/16 10:27 Dose: 37.5 mg - Objective Vital Signs: Vital Signs Temperature 97.4 F L 10/12/16 10:00 Pulse Rate 70 10/12/16 10:00 Respiratory Rate 18 10/12/16 10:00 Blood Pressure 116/62 10/12/16 10:00 O2 Sat by Pulse Oximetry (%) 95 10/12/16 10:00 Constitutional: Yes: No Distress, Calm Cardiovascular: Yes: Regular Rate and Rhythm Respiratory: Yes: Regular, CTA Bilaterally Gastrointestinal: Yes: Normal Bowel Sounds, Soft, Other (peg in place) Musculoskeletal: Yes: Other (rt sided presis) Extremities: Yes: Other Neurological: Yes: Alert, Oriented Psychiatric: Yes: Alert Labs: CBC, BMP 10/09/16 06:00 10/12/16 05:35 INR, PTT INR 1.12 (0.82-1.09) 10/12/16 05:35 Assessment/Plan Problem List - Problems (1) Cerebrovascular accident (CVA) Code(s): I63.9 - CEREBRAL INFARCTION, UNSPECIFIED Qualifiers: Qualified Code(s): I63.412 - Cerebral infarction due to embolism of left middle cerebral artery (2) Coronary artery disease Code(s): I25.10 - ATHSCL HEART DISEASE OF [place] CORONARY ARTERY W/O ANG PCTRS Qualifiers: Qualified Code(s): I25.10 - Atherosclerotic heart disease of [place] coronary artery without angina pectoris (3) Hyperlipidemia Code(s): E78.5 - HYPERLIPIDEMIA, UNSPECIFIED Qualifiers: Qualified Code(s): E78.0 - Pure hypercholesterolemia (4) Hypertensive cardiomegaly without heart failure Code(s): I11.9 - HYPERTENSIVE HEART DISEASE WITHOUT HEART FAILURE (5) Old anterior myocardial infarction Code(s): I25.2 - OLD MYOCARDIAL INFARCTION (6) Paroxysmal atrial fibrillation Code(s): I48.0 - PAROXYSMAL ATRIAL FIBRILLATION (7) S/P coronary angioplasty Code(s): Z98.61 - CORONARY ANGIOPLASTY STATUS (8) Systolic dysfunction without heart failure Code(s): I51.9 - HEART DISEASE, UNSPECIFIED (9) Biventricular automatic implantable cardioverter defibrillator in situ Code(s): Z95.810 - PRESENCE OF AUTOMATIC (IMPLANTABLE) CARDIAC DEFIBRILLATOR (10) Subtherapeutic anticoagulation Code(s): Z51.81 - ENCOUNTER FOR THERAPEUTIC DRUG LEVEL MONITORING Z79.01 - SENIOR CARE (CURRENT) USE OF ANTICOAGULANTS (11) Urethral stricture Code(s): N35.9 - URETHRAL STRICTURE, UNSPECIFIED Qualifiers: Qualified Code(s): N35.8 - Other urethral stricture 12 fever 13 rash arf leukocytosis dehydration plan stable doing well peg in place continue current mgmt
[2016-10-12 16:56] LABS: BASOPHIL 0.4 % (0-2.0); EOSINOPHIL 3.1 % (0-4.5); MCH 28.8 pg (25.7-33.7); MCHC 32.7 g/dl (32.0-35.9); MEAN CELL VOLUME 88.1 fl (80-96); MEAN PLT VOLUME 9.2 fl (7.5-11.1); NEUTROPHILS 77.5 % (42.8-82.8); PLATELET COUNT 147 K/MM3 (134-434); RDW 14.6 % (11.9-15.9); WHITE BLOOD COUNT 6.7 K/mm3 (4.0-10.0)
[2016-10-12] MEDS: CEFAZOLIN (PRE-DOCKED) 50 ML IVPB SCH (17:46)
[2016-10-12] MEDS: SODIUM BICARBONATE 650 MG TABLET GT SCH (23:06)
[2016-10-13] MEDS: VENLAFAXINE HCL 37.5 MG TABLET PO SCH ×3 (01:19→22:35)
[2016-10-13] MEDS: CEFAZOLIN (PRE-DOCKED) 50 ML IVPB SCH (02:39)
[2016-10-13] MEDS: POTASSIUM CHLORIDE 10 MEQ in AMINO ACIDS 4.25%/D5W 1,000 ML IVPB SCH (02:39)
[2016-10-13] MEDS: HEPARIN INFUSION - 500 ML IVPB SCH (06:08)
[2016-10-13 08:00] LABS: BASOPHIL 0.5 % (0-2.0); EOSINOPHIL 2.9 % (0-4.5); MCH 28.5 pg (25.7-33.7); MCHC 32.2 g/dl (32.0-35.9); MEAN CELL VOLUME 88.4 fl (80-96); MEAN PLT VOLUME 8.9 fl (7.5-11.1); NEUTROPHILS 78.5 % (42.8-82.8); PLATELET COUNT 141 K/MM3 (134-434)
[2016-10-13 08:33] LABS: CREATININE 0.9 mg/dL (0.7-1.3)
[2016-10-13 08:34] LABS: CALCIUM 7.7 mg/dL (8.5-10.1)
--- NOTE | 2016-10-13 09:08 | PN ---
Progress Note, Physician Chief Complaint: No complaints History of Present Illness: S/P peg insertion - Current Medication List Current Medications: Active Medications Acetaminophen (Tylenol -) 650 mg PO Q6H PRN PRN Reason: FEVER OR PAIN Last Admin: 09/29/16 17:52 Dose: 650 mg Amiodarone HCl (Cordarone -) 200 mg PO DAILY [facility] Last Admin: 10/12/16 10:26 Dose: 200 mg Aspirin (Asa -) 81 mg PO DAILY [facility] Last Admin: 10/12/16 10:26 Dose: 81 mg Bacitracin (Bacitracin -) 1 applic TP BID [facility] Stop: 10/17/16 09:59 Last Admin: 10/12/16 23:06 Dose: 1 applic Cholecalciferol (Vitamin D3 -) 400 unit PO DAILY [facility] Last Admin: 10/12/16 10:26 Dose: 400 unit Heparin Sodium (Porcine) (Heparin -) 5,000 unit IVPUSH PRN PRN Heparin Sodium (Porcine) (Heparin -) 1,000 unit IVPUSH PRN PRN Last Admin: 10/09/16 22:46 Dose: 1,000 unit Potassium Chloride 10 meq/ (Amino Acids) 1,005 mls @ 60 mls/hr IVPB Q16H [facility] Last Admin: 10/13/16 02:39 Dose: 60 mls/hr Heparin Sodium/Dextrose (Heparin Infusion -) 500 mls @ 20 mls/hr IVPB TITR [facility] ; 1,000 UNITS/HR PRN Reason: Protocol Last Admin: 10/13/16 06:08 Dose: 20 mls/hr Metoprolol Succinate (Toprol Xl -) 25 mg PO BID [facility] Last Admin: 10/12/16 23:06 Dose: 25 mg Multivitamins (Total B With C -) 1 each PO DAILY [facility] Last Admin: 10/12/16 10:27 Dose: 1 each Sodium Bicarbonate (Sodium Bicarbonate -) 650 mg GT BID [facility] Last Admin: 10/12/16 23:06 Dose: 650 mg Tamsulosin HCl (Flomax -) 0.8 mg PO DAILY@0830 [facility] Last Admin: 10/12/16 10:26 Dose: 0.8 mg Venlafaxine HCl (Effexor -) 37.5 mg PO BID [facility] Last Admin: 10/13/16 01:19 Dose: Not Given - Objective Vital Signs: Vital Signs Temperature 98.4 F 10/13/16 06:43 Pulse Rate 79 10/13/16 06:43 Respiratory Rate 18 10/13/16 06:43 Blood Pressure 119/83 10/13/16 06:43 O2 Sat by Pulse Oximetry (%) 95 10/12/16 22:00 Constitutional: Yes: Calm Eyes: Yes: WNL HENT: Yes: WNL Neck: Yes: WNL Cardiovascular: Yes: Regular Rate and Rhythm Respiratory: Yes: WNL Gastrointestinal: Yes: Normal Bowel Sounds ...Rectal Exam: Yes: Deferred Genitourinary: Yes: Incontinence Edema: No Wound/Incision: Yes: Clean/Dry Neurological: Yes: Alert, Other (Rt hehiplegia) Labs: CBC, BMP 10/13/16 06:00 10/13/16 06:00 INR, PTT INR 1.12 (0.82-1.09) 10/12/16 05:35 Assessment/Plan Start coumadin,start Peg feeding after GI clears
[2016-10-13] MEDS ORDERED: PT OWN MED DRAWER 7, Y5N ONE ×2 (09:47→22:32)
[2016-10-13] MEDS: ASPIRIN 81 MG CHEWABLE TABLETS PO SCH (09:52)
[2016-10-13] MEDS: CHOLECALCIFEROL (VITAMIN D3) 400 UNIT TABLET (FP) PO SCH (09:52)
[2016-10-13] MEDS: SODIUM BICARBONATE 650 MG TABLET GT SCH ×2 (09:52→22:34)
[2016-10-13] MEDS: VITAMIN B COMPLEX W/C COMBO TABLET (FP) PO SCH (09:53)
[2016-10-13] MEDS: BACITRACIN 30 GM TUBE TOPICAL OINTMENT TP SCH ×2 (09:53→22:35)
[2016-10-13] MEDS: AMIODARONE HCL 200 MG TABLET (FP) PO SCH (09:54)
[2016-10-13] MEDS: TAMSULOSIN HCL 0.4 MG CAP.ER.24H (FP) PO SCH (09:54)
--- NOTE | 2016-10-13 10:24 | PN ---
Progress Note (short form) - Note Progress Note: S: 86 year old gentleman, history of paroxysmal atrial fibrillation, CAD s/p extensive anterior wall myocardial infarction, s/p PCI/stenting, severe left ventricular systolic dysfunction, s/p ICD/D, hypertension, hyerlipidemia, history of TIA, s/p total colectomy of colitis, s/p iliostomy. Patient was admitted with an acute CVA with right hemipeligia and severe speech disturbance. Underwent a gastric PEG. He denies having chest pain or discomfort, no shortness of breath was reported. Waiting for transfer to a intermediate facility for rehab. Active Medications Generic Name Dose Route Start Last Admin Trade Name Freq PRN Reason Stop Dose Admin Acetaminophen 650 mg 09/29/16 17:37 09/29/16 17:52 Tylenol - PO 650 mg Q6H PRN Administration FEVER OR PAIN Amiodarone HCl 200 mg 09/24/16 10:00 10/13/16 09:54 Cordarone - PO 200 mg DAILY [facility] Administration Aspirin 81 mg 09/24/16 10:00 10/13/16 09:52 Asa - PO 81 mg DAILY [facility] Administration Bacitracin 1 applic 10/12/16 10:00 10/13/16 09:53 Bacitracin - TP 10/17/16 09:59 1 applic BID [facility] Administration Cholecalciferol 400 unit 09/24/16 10:00 10/13/16 09:52 Vitamin D3 - PO 400 unit DAILY [facility] Administration Heparin Sodium (Porcine) 5,000 unit 10/09/16 12:13 Heparin - IVPUSH PRN PRN Heparin Sodium (Porcine) 1,000 unit 10/09/16 12:13 10/09/16 22:46 Heparin - IVPUSH 1,000 unit PRN PRN Administration Potassium Chloride 10 meq/ 1,005 mls @ 60 mls/hr 10/12/16 11:07 10/13/16 02:39 Amino Acids IVPB 60 mls/hr Q16H [facility] Administration Heparin Sodium/Dextrose 500 mls @ 20 mls/hr 10/13/16 06:00 10/13/16 06:08 Heparin Infusion - IVPB 20 mls/hr TITR [facility] Administration Protocol 1,000 UNITS/HR Metoprolol Succinate 25 mg 09/24/16 10:00 10/12/16 23:06 Toprol Xl - PO 25 mg BID [facility] Administration Multivitamins 1 each 09/24/16 10:00 10/13/16 09:53 Total B With C - PO 1 each DAILY [facility] Administration Sodium Bicarbonate 650 mg 10/12/16 22:00 10/13/16 09:52 Sodium Bicarbonate - GT 650 mg BID [facility] Administration Tamsulosin HCl 0.8 mg 10/07/16 08:30 10/13/16 09:54 Flomax - PO 0.8 mg DAILY@0830 [facility] Administration Venlafaxine HCl 37.5 mg 09/24/16 10:00 10/13/16 09:53 Effexor - PO 37.5 mg BID [facility] Administration Warfarin Sodium 10 mg 10/13/16 18:00 Coumadin - PO 10/13/16 18:01 ONCE@1800 ONE O: 86 year old male was in no acute distress, no pallor, cyanosis, clubbing, or jaundice. Last Vital Signs Temp Pulse Resp BP Pulse Ox 98.4 F 79 18 119/83 95 10/13/16 06:43 10/13/16 06:43 10/13/16 06:43 10/13/16 06:43 10/12/16 22:00 Neck: Supple, no JVD, negative HJR, carotids were equal and upstrokes were normal, no thyromegaly appreciated. Heart: PMI was in the 5th intercostal space, no heaves or thrills, S1 and S2 were normal. Grade I/ apical systolic murmur. No gallops were heard. Lungs: Clear on auscultation bilaterally. Abdomen: Soft, nontender, no hepatosplenomegaly appreciated, and no palpable masses were felt. A function iliostomy and a PEG insertion. Extremities: No calf tenderness or dependent edema. Pulses are normal. CBC, BMP 10/13/16 06:00 10/13/16 06:00 Laboratory Results - last 24 hr 10/12/16 10/13/16 10/13/16 15:30 06:00 06:00 WBC 6.7 7.0 RBC 3.97 L 4.20 Hgb 11.4 L 12.0 Hct 35.0 L 37.2 MCV 88.1 88.4 MCHC 32.7 32.2 RDW 14.6 15.0 Plt Count 147 141 MPV 9.2 8.9 Neutrophils % 77.5 78.5 Lymphocytes % 11.9 D 10.6 Monocytes % 7.1 7.5 Eosinophils % 3.1 2.9 Basophils % 0.4 0.5 Sodium 135 L Potassium 4.0 Chloride 105 Carbon Dioxide 19 L Anion Gap 11 BUN 26 H D Creatinine 0.9 Random Glucose 212 H D Calcium 7.7 L Phosphorus 2.0 L Magnesium 2.0 D Impression: (1) Cerebrovascular accident (CVA) with right hemiplegia Code(s): I63.9 - CEREBRAL INFARCTION, UNSPECIFIED Qualifiers: Qualified Code(s): I63.412 - Cerebral infarction due to embolism of left middle cerebral artery (2) Coronary artery disease s/p anterior wall myocardial infarction. Code(s): I25.10 - ATHSCL HEART DISEASE OF [place] CORONARY ARTERY W/O ANG PCTRS Qualifiers: Qualified Code(s): I25.10 - Atherosclerotic heart disease of [place] coronary artery without angina pectoris (3) Hyperlipidemia Code(s): E78.5 - HYPERLIPIDEMIA, UNSPECIFIED Qualifiers: Qualified Code(s): E78.0 - Pure hypercholesterolemia (4) Hypertensive cardiomegaly without heart failure Code(s): I11.9 - HYPERTENSIVE HEART DISEASE WITHOUT HEART FAILURE (5) Old anterior myocardial infarction Code(s): I25.2 - OLD MYOCARDIAL INFARCTION (6) Paroxysmal atrial fibrillation Code(s): I48.0 - PAROXYSMAL ATRIAL FIBRILLATION (7) S/P coronary angioplasty Code(s): Z98.61 - CORONARY ANGIOPLASTY STATUS (8) Systolic dysfunction without heart failure Code(s): I51.9 - HEART DISEASE, UNSPECIFIED (9) Biventricular automatic implantable cardioverter defibrillator in situ Code(s): Z95.810 - PRESENCE OF AUTOMATIC (IMPLANTABLE) CARDIAC DEFIBRILLATOR (10) Subtherapeutic anticoagulation Code(s): Z51.81 - ENCOUNTER FOR THERAPEUTIC DRUG LEVEL MONITORING Z79.01 - [employer] (CURRENT) USE OF ANTICOAGULANTS (11) Urethral stricture Code(s): N35.9 - URETHRAL STRICTURE, UNSPECIFIED Recommendations: 1. Patient is being recoumandized. 2. Bed side PT. 3. Continue current medications. Attestation: Documentation prepared by Oli Naik, acting as medical office assistant instructor for Melvin Ramirez MD.
--- NOTE | 2016-10-13 12:04 | PN ---
GI Progress Note Subjective: GI NOte: Afebrile since PEG placed. - Objective Vital Signs: Vital Signs Temperature 98.4 F 10/13/16 06:43 Pulse Rate 79 10/13/16 06:43 Respiratory Rate 18 10/13/16 06:43 Blood Pressure 119/83 10/13/16 06:43 O2 Sat by Pulse Oximetry (%) 95 10/12/16 22:00 Constitutional: No Distress Gastrointestinal Inspection: Yes: Other (PEG site cleansed. NO purulance of fluctuance. New dressing placed.) ...Auscultate: Yes: Hypoactive Bowel Sounds ...Palpate: Yes: Other (nontender) Labs: CBC, BMP 10/13/16 06:00 10/13/16 06:00 INR, PTT INR 1.12 (0.82-1.09) 10/12/16 05:35 Assessment/Plan Day 1 s/p PEG insertion. Will start feedings and advance as tolerated.
--- NOTE | 2016-10-13 12:40 | PN ---
Progress Note, CLIENT SUCCESS SPECIALIST - Note Progress Note: PEG placed. Selected Entries 10/11/16 10/11/16 10/11/16 02:00 06:00 10:00 Temperature 97.5 F L 97.4 F L 98.7 F 10/11/16 10/11/16 10/12/16 15:24 22:00 02:00 Temperature 98.8 F 98.3 F 97.9 F 10/12/16 10/12/16 10/12/16 06:00 08:55 10:00 Temperature 97.8 F 97.2 F L 97.4 F L 10/12/16 10/12/16 10/12/16 14:22 18:35 22:00 Temperature 97.9 F 97.4 F L 97.9 F 10/13/16 10/13/16 02:03 06:43 Temperature 98.2 F 98.4 F Laboratory Tests 10/12/16 10/13/16 15:30 06:00 WBC 6.7 7.0 Consider continuation of Magic cup to increase swallow efficiency and reduce duration of onset Speech/swallowing rehabilitation to cvontinue upon d/c.
--- NOTE | 2016-10-13 16:00 | PN ---
Progress Note, Physician History of Present Illness: stable says he is doing well no issues plan to start feeding today - Current Medication List Current Medications: Active Medications Acetaminophen (Tylenol -) 650 mg PO Q6H PRN PRN Reason: FEVER OR PAIN Last Admin: 09/29/16 17:52 Dose: 650 mg Amiodarone HCl (Cordarone -) 200 mg PO DAILY [facility] Last Admin: 10/13/16 09:54 Dose: 200 mg Aspirin (Asa -) 81 mg PO DAILY [facility] Last Admin: 10/13/16 09:52 Dose: 81 mg Bacitracin (Bacitracin -) 1 applic TP BID [facility] Stop: 10/17/16 09:59 Last Admin: 10/13/16 09:53 Dose: 1 applic Cholecalciferol (Vitamin D3 -) 400 unit PO DAILY [facility] Last Admin: 10/13/16 09:52 Dose: 400 unit Heparin Sodium (Porcine) (Heparin -) 5,000 unit IVPUSH PRN PRN Heparin Sodium (Porcine) (Heparin -) 1,000 unit IVPUSH PRN PRN Last Admin: 10/09/16 22:46 Dose: 1,000 unit Potassium Chloride 10 meq/ (Amino Acids) 1,005 mls @ 60 mls/hr IVPB Q16H [facility] Last Admin: 10/13/16 02:39 Dose: 60 mls/hr Heparin Sodium/Dextrose (Heparin Infusion -) 500 mls @ 20 mls/hr IVPB TITR [facility] ; 1,000 UNITS/HR PRN Reason: Protocol Last Admin: 10/13/16 06:08 Dose: 20 mls/hr Metoprolol Succinate (Toprol Xl -) 25 mg PO BID [facility] Last Admin: 10/12/16 23:06 Dose: 25 mg Multivitamins (Total B With C -) 1 each PO DAILY [facility] Last Admin: 10/13/16 09:53 Dose: 1 each Sodium Bicarbonate (Sodium Bicarbonate -) 650 mg GT BID [facility] Last Admin: 10/13/16 09:52 Dose: 650 mg Tamsulosin HCl (Flomax -) 0.8 mg PO DAILY@0830 [facility] Last Admin: 10/13/16 09:54 Dose: 0.8 mg Venlafaxine HCl (Effexor -) 37.5 mg PO BID [facility] Last Admin: 10/13/16 09:53 Dose: 37.5 mg Warfarin Sodium (Coumadin -) 10 mg PO ONCE@1800 [facility] Stop: 10/13/16 18:01 - Objective Vital Signs: Vital Signs Temperature 98.3 F 10/13/16 14:24 Pulse Rate 70 10/13/16 14:24 Respiratory Rate 19 10/13/16 14:24 Blood Pressure 115/60 10/13/16 14:24 O2 Sat by Pulse Oximetry (%) 96 10/13/16 10:00 Constitutional: Yes: No Distress, Calm Neck: Yes: Supple Cardiovascular: Yes: S1, S2 Respiratory: Yes: Regular, CTA Bilaterally Gastrointestinal: Yes: Normal Bowel Sounds, Soft, Other (peg in place) Musculoskeletal: Yes: WNL Extremities: Yes: Other Neurological: Yes: Alert, Oriented Psychiatric: Yes: Alert Labs: CBC, BMP 10/13/16 06:00 10/13/16 06:00 INR, PTT INR 1.12 (0.82-1.09) 10/12/16 05:35 Assessment/Plan Problem List - Problems (1) Cerebrovascular accident (CVA) Code(s): I63.9 - CEREBRAL INFARCTION, UNSPECIFIED Qualifiers: Qualified Code(s): I63.412 - Cerebral infarction due to embolism of left middle cerebral artery (2) Coronary artery disease Code(s): I25.10 - ATHSCL HEART DISEASE OF [place] CORONARY ARTERY W/O ANG PCTRS Qualifiers: Qualified Code(s): I25.10 - Atherosclerotic heart disease of [place] coronary artery without angina pectoris (3) Hyperlipidemia Code(s): E78.5 - HYPERLIPIDEMIA, UNSPECIFIED Qualifiers: Qualified Code(s): E78.0 - Pure hypercholesterolemia (4) Hypertensive cardiomegaly without heart failure Code(s): I11.9 - HYPERTENSIVE HEART DISEASE WITHOUT HEART FAILURE (5) Old anterior myocardial infarction Code(s): I25.2 - OLD MYOCARDIAL INFARCTION (6) Paroxysmal atrial fibrillation Code(s): I48.0 - PAROXYSMAL ATRIAL FIBRILLATION (7) S/P coronary angioplasty Code(s): Z98.61 - CORONARY ANGIOPLASTY STATUS (8) Systolic dysfunction without heart failure Code(s): I51.9 - HEART DISEASE, UNSPECIFIED (9) Biventricular automatic implantable cardioverter defibrillator in situ Code(s): Z95.810 - PRESENCE OF AUTOMATIC (IMPLANTABLE) CARDIAC DEFIBRILLATOR (10) Subtherapeutic anticoagulation Code(s): Z51.81 - ENCOUNTER FOR THERAPEUTIC DRUG LEVEL MONITORING Z79.01 - C[employer]OL[employer] WORKER (CURRENT) USE OF ANTICOAGULANTS (11) Urethral stricture Code(s): N35.9 - URETHRAL STRICTURE, UNSPECIFIED Qualifiers: Qualified Code(s): N35.8 - Other urethral stricture 12 fever 13 rash arf leukocytosis dehydration plan stable doing well peg in place continue current mgmt patient plan to be transferred to rehab
--- NOTE | 2016-10-13 16:54 | PN ---
Progress Note (short form) - Note Progress Note: Renal Follow up for RAMON/Hypernatremia Pt seen and examined at the bedside s/p PEG placement pt without any acute complaints denie any sob or chest pain Vital Signs Temperature 98.3 F 10/13/16 14:24 Pulse Rate 70 10/13/16 14:24 Respiratory Rate 19 10/13/16 14:24 Blood Pressure 115/60 10/13/16 14:24 O2 Sat by Pulse Oximetry (%) 96 10/13/16 10:00 Intake & Output 10/10/16 10/11/16 10/12/16 10/13/16 23:59 23:59 23:59 23:59 Intake Total 1794 2714 200 740 Balance 1794 2714 200 740 Weight 155 lb 6.4 oz Gen: NAD, awake HEENT: Dry MM CVS: irregular, No M/R Lungs: Dec Bs lung bases, no rales or wheeze Abd: soft, No tenderness Ext: No edema, clubbing or cyanosis CBC, BMP 10/13/16 06:00 10/13/16 06:00 Current Medications Acetaminophen (Tylenol -) 650 mg PO Q6H PRN PRN Reason: FEVER OR PAIN Last Admin: 09/29/16 17:52 Dose: 650 mg Amiodarone HCl (Cordarone -) 200 mg PO DAILY [facility] Last Admin: 10/13/16 09:54 Dose: 200 mg Aspirin (Asa -) 81 mg PO DAILY [facility] Last Admin: 10/13/16 09:52 Dose: 81 mg Bacitracin (Bacitracin -) 1 applic TP BID [facility] Stop: 10/17/16 09:59 Last Admin: 10/13/16 09:53 Dose: 1 applic Cholecalciferol (Vitamin D3 -) 400 unit PO DAILY [facility] Last Admin: 10/13/16 09:52 Dose: 400 unit Heparin Sodium (Porcine) (Heparin -) 5,000 unit IVPUSH PRN PRN Heparin Sodium (Porcine) (Heparin -) 1,000 unit IVPUSH PRN PRN Last Admin: 10/09/16 22:46 Dose: 1,000 unit Heparin Sodium/Dextrose (Heparin Infusion -) 500 mls @ 20 mls/hr IVPB TITR [facility] ; 1,000 UNITS/HR PRN Reason: Protocol Last Admin: 10/13/16 06:08 Dose: 20 mls/hr Metoprolol Succinate (Toprol Xl -) 25 mg PO BID [facility] Last Admin: 10/12/16 23:06 Dose: 25 mg Multivitamins (Total B With C -) 1 each PO DAILY [facility] Last Admin: 10/13/16 09:53 Dose: 1 each Sodium Bicarbonate (Sodium Bicarbonate -) 650 mg GT BID [facility] Last Admin: 10/13/16 09:52 Dose: 650 mg Tamsulosin HCl (Flomax -) 0.8 mg PO DAILY@0830 [facility] Last Admin: 10/13/16 09:54 Dose: 0.8 mg Venlafaxine HCl (Effexor -) 37.5 mg PO BID [facility] Last Admin: 10/13/16 09:53 Dose: 37.5 mg Warfarin Sodium (Coumadin -) 10 mg PO ONCE@1800 [facility] Stop: 10/13/16 18:01 A/P 86 year old Gentleman with PMhx of Afib on Coumadin, CAD s/p stents, CHF, Ulcerative Colitis s/p total colectomy, Kidney stones, Hypertension, Depression presented with focal weakness and found to have acute CVA and now with RAMON with BUN/Cr of 125/3.9 with baseline Cr of 1.3 to 1.5. #Acute on Chronic Renal Insufficiency Renal function stable #Hypernatremia Na improved and stable on Clinimix Will discontinue IV Clinimix and start on tube feeds with free water Trend Na Q24hrs Titrate free water as needed #Metabolic Acidosis Continue sodium bicarb 650mg BID #Acute CVA continue management as per Cardiology and Neurology supportive care #Hypophospathemia Give Neutraphos via G-tube Waylon Mcmanus DO
[2016-10-13] MEDS: METOPROLOL SUCCINATE 25 MG TAB.SR.24H (FP) PO SCH ×2 (17:11→22:35)
[2016-10-13] MEDS ORDERED: WARFARIN NA 10 MG TABLET (FP) PO ONE (18:00)
[2016-10-13] MEDS: NAPH,MB-DB/K PH,MBDB POWDER PACKET GT SCH (22:35)
[2016-10-14] MEDS: HEPARIN INFUSION - 500 ML IVPB SCH ×2 (03:25→06:52)
[2016-10-14] MEDS: NAPH,MB-DB/K PH,MBDB POWDER PACKET GT SCH ×3 (06:52→22:39)
[2016-10-14 08:30] LABS: CALCIUM 8.1 mg/dL (8.5-10.1); MAGNESIUM 1.9 mg/dL (1.8-2.4); PHOSPHOROUS 2.2 mg/dL (2.5-4.9)
[2016-10-14 08:35] LABS: INR 1.2 (0.82-1.09); PROTHROMBIN TIME (PATIENT) 13.2 SEC (9.98-11.88)
--- NOTE | 2016-10-14 09:18 | PN ---
Progress Note, Physician Chief Complaint: Feels OK History of Present Illness: S/P peg ,started on feeding INR 1,2 - Current Medication List Current Medications: Active Medications Acetaminophen (Tylenol -) 650 mg PO Q6H PRN PRN Reason: FEVER OR PAIN Last Admin: 09/29/16 17:52 Dose: 650 mg Amiodarone HCl (Cordarone -) 200 mg PO DAILY [facility] Last Admin: 10/13/16 09:54 Dose: 200 mg Aspirin (Asa -) 81 mg PO DAILY [facility] Last Admin: 10/13/16 09:52 Dose: 81 mg Bacitracin (Bacitracin -) 1 applic TP BID [facility] Stop: 10/17/16 09:59 Last Admin: 10/13/16 22:35 Dose: 1 applic Cholecalciferol (Vitamin D3 -) 400 unit PO DAILY [facility] Last Admin: 10/13/16 09:52 Dose: 400 unit Heparin Sodium (Porcine) (Heparin -) 5,000 unit IVPUSH PRN PRN Heparin Sodium (Porcine) (Heparin -) 1,000 unit IVPUSH PRN PRN Last Admin: 10/09/16 22:46 Dose: 1,000 unit Heparin Sodium/Dextrose (Heparin Infusion -) 500 mls @ 20 mls/hr IVPB TITR [facility] ; 1,000 UNITS/HR PRN Reason: Protocol Last Admin: 10/14/16 06:52 Dose: Not Given Metoprolol Succinate (Toprol Xl -) 25 mg PO BID [facility] Last Admin: 10/13/16 22:35 Dose: 25 mg Multivitamins (Total B With C -) 1 each PO DAILY [facility] Last Admin: 10/13/16 09:53 Dose: 1 each Potassium Phos/Sodium Phos (Phos-Nak Packet -) 1 packet GT TID [facility] Stop: 10/14/16 14:01 Last Admin: 10/14/16 06:52 Dose: 1 packet Sodium Bicarbonate (Sodium Bicarbonate -) 650 mg GT BID [facility] Last Admin: 10/13/16 22:34 Dose: 650 mg Tamsulosin HCl (Flomax -) 0.8 mg PO DAILY@0830 [facility] Last Admin: 10/13/16 09:54 Dose: 0.8 mg Venlafaxine HCl (Effexor -) 37.5 mg PO BID [facility] Last Admin: 10/13/16 22:35 Dose: 37.5 mg - Objective Vital Signs: Vital Signs Temperature 97.2 F L 10/14/16 06:56 Pulse Rate 74 10/14/16 06:56 Respiratory Rate 18 10/14/16 06:56 Blood Pressure 125/67 10/14/16 06:56 O2 Sat by Pulse Oximetry (%) 96 10/13/16 22:00 Constitutional: Yes: No Distress Eyes: Yes: WNL HENT: Yes: WNL Neck: Yes: WNL Cardiovascular: Yes: WNL Respiratory: Yes: WNL Gastrointestinal: Yes: Other (On PEG feeding) Genitourinary: Yes: Incontinence Neurological: Yes: Pre-Existing Deficit Psychiatric: Yes: Alert Labs: CBC, BMP 10/13/16 06:00 10/14/16 07:00 INR, PTT INR 1.20 (0.82-1.09) H 10/14/16 07:00 Assessment/Plan coumadin ordered [facility] in am
[2016-10-14] MEDS: AMIODARONE HCL 200 MG TABLET (FP) PO SCH (10:26)
[2016-10-14] MEDS: METOPROLOL SUCCINATE 25 MG TAB.SR.24H (FP) PO SCH ×2 (10:26→22:39)
[2016-10-14] MEDS: ASPIRIN 81 MG CHEWABLE TABLETS PO SCH (10:27)
[2016-10-14] MEDS: CHOLECALCIFEROL (VITAMIN D3) 400 UNIT TABLET (FP) PO SCH (10:27)
[2016-10-14] MEDS: SODIUM BICARBONATE 650 MG TABLET GT SCH ×2 (10:27→22:39)
[2016-10-14] MEDS: TAMSULOSIN HCL 0.4 MG CAP.ER.24H (FP) PO SCH (10:27)
[2016-10-14] MEDS: BACITRACIN 30 GM TUBE TOPICAL OINTMENT TP SCH ×2 (10:27→22:40)
[2016-10-14] MEDS: VENLAFAXINE HCL 37.5 MG TABLET PO SCH ×2 (10:28→22:39)
[2016-10-14] MEDS: VITAMIN B COMPLEX W/C COMBO TABLET (FP) PO SCH (10:28)
--- NOTE | 2016-10-14 11:35 | PN ---
Progress Note, Physician History of Present Illness: Continued right-sided hemiplegia, mental status improved to baseline, tolerating enteral feeds and hydration. - Current Medication List Current Medications: Active Medications Acetaminophen (Tylenol -) 650 mg PO Q6H PRN PRN Reason: FEVER OR PAIN Last Admin: 09/29/16 17:52 Dose: 650 mg Amiodarone HCl (Cordarone -) 200 mg PO DAILY [facility] Last Admin: 10/14/16 10:26 Dose: 200 mg Aspirin (Asa -) 81 mg PO DAILY [facility] Last Admin: 10/14/16 10:27 Dose: 81 mg Bacitracin (Bacitracin -) 1 applic TP BID [facility] Stop: 10/17/16 09:59 Last Admin: 10/14/16 10:27 Dose: 1 applic Cholecalciferol (Vitamin D3 -) 400 unit PO DAILY [facility] Last Admin: 10/14/16 10:27 Dose: 400 unit Heparin Sodium (Porcine) (Heparin -) 5,000 unit IVPUSH PRN PRN Heparin Sodium (Porcine) (Heparin -) 1,000 unit IVPUSH PRN PRN Last Admin: 10/09/16 22:46 Dose: 1,000 unit Heparin Sodium/Dextrose (Heparin Infusion -) 500 mls @ 20 mls/hr IVPB TITR [facility] ; 1,000 UNITS/HR PRN Reason: Protocol Last Titration: 10/14/16 10:21 Dose: 1,000 units/hr Metoprolol Succinate (Toprol Xl -) 25 mg PO BID [facility] Last Admin: 10/14/16 10:26 Dose: 25 mg Multivitamins (Total B With C -) 1 each PO DAILY [facility] Last Admin: 10/14/16 10:28 Dose: 1 each Potassium Phos/Sodium Phos (Phos-Nak Packet -) 1 packet GT TID [facility] Stop: 10/14/16 14:01 Last Admin: 10/14/16 06:52 Dose: 1 packet Sodium Bicarbonate (Sodium Bicarbonate -) 650 mg GT BID [facility] Last Admin: 10/14/16 10:27 Dose: 650 mg Tamsulosin HCl (Flomax -) 0.8 mg PO DAILY@0830 [facility] Last Admin: 10/14/16 10:27 Dose: 0.8 mg Venlafaxine HCl (Effexor -) 37.5 mg PO BID [facility] Last Admin: 10/14/16 10:28 Dose: 37.5 mg Warfarin Sodium (Coumadin -) 10 mg PO ONCE [facility] Stop: 10/14/16 18:01 - Objective Vital Signs: Vital Signs Temperature 97.2 F L 10/14/16 10:17 Pulse Rate 76 10/14/16 10:17 Respiratory Rate 19 10/14/16 10:17 Blood Pressure 111/60 10/14/16 10:17 O2 Sat by Pulse Oximetry (%) 96 10/13/16 22:00 Constitutional: Yes: No Distress, Calm Neck: Yes: Supple Cardiovascular: Yes: Regular Rate and Rhythm Respiratory: Yes: Regular, Diminished Gastrointestinal: Yes: Normal Bowel Sounds, Soft Edema: No Neurological: Yes: Weakness (Right hemiplegia) Labs: CBC, BMP 10/13/16 06:00 10/14/16 07:00 INR, PTT INR 1.20 (0.82-1.09) H 10/14/16 07:00 - ....Imaging EKG: Report Reviewed (PAF v-paced) Problem List - Problems (1) Cerebrovascular accident (CVA) Code(s): I63.9 - CEREBRAL INFARCTION, UNSPECIFIED Qualifiers: Qualified Code(s): I63.412 - Cerebral infarction due to embolism of left middle cerebral artery (2) Coronary artery disease Code(s): I25.10 - ATHSCL HEART DISEASE OF [place] CORONARY ARTERY W/O ANG PCTRS Qualifiers: Qualified Code(s): I25.10 - Atherosclerotic heart disease of [place] coronary artery without angina pectoris (3) Hyperlipidemia Code(s): E78.5 - HYPERLIPIDEMIA, UNSPECIFIED Qualifiers: Qualified Code(s): E78.0 - Pure hypercholesterolemia (4) Hypertensive cardiomegaly without heart failure Code(s): I11.9 - HYPERTENSIVE HEART DISEASE WITHOUT HEART FAILURE (5) Old anterior myocardial infarction Code(s): I25.2 - OLD MYOCARDIAL INFARCTION (6) Paroxysmal atrial fibrillation Code(s): I48.0 - PAROXYSMAL ATRIAL FIBRILLATION (7) S/P coronary angioplasty Code(s): Z98.61 - CORONARY ANGIOPLASTY STATUS (8) Systolic dysfunction without heart failure Code(s): I51.9 - HEART DISEASE, UNSPECIFIED (9) Biventricular automatic implantable cardioverter defibrillator in situ Code(s): Z95.810 - PRESENCE OF AUTOMATIC (IMPLANTABLE) CARDIAC DEFIBRILLATOR (10) Subtherapeutic anticoagulation Code(s): Z51.81 - ENCOUNTER FOR THERAPEUTIC DRUG LEVEL MONITORING Z79.01 - PENITENTIARY (CURRENT) USE OF ANTICOAGULANTS (11) Urethral stricture Code(s): N35.9 - URETHRAL STRICTURE, UNSPECIFIED Qualifiers: Qualified Code(s): N35.8 - Other urethral stricture Assessment/Plan 1. Acute ischemic stroke with slurred speech, left sided facial droop and right sided hemiplegia in context of subtherapeutic INR 2. Paroxysmal atrial fibrillation 3. CAD s/p [place], s/p PCI (stent), angina pectoris 4. Severe LV systolic dysfunction 5. Sustained VT s/p NURSING STAFF DEVELOPMENT COORDINATOR-D 6. HTN/HCVD 7. Hyperlipidemia 8. Urethral stricture unsuccessful dilatation 9. Acute on CKD improved PLAN: 1. Continue Heparin-> Coumadin per INR 2. PEG tube management 3. Continue Amiodarone 200 qd, Metoprolol 25 bid, and d/c ASA 81 qd while on coumadin as CAD is stable 4. D/c planning to [facility]
--- NOTE | 2016-10-14 13:47 | PN ---
Progress Note (short form) - Note Progress Note: Renal Follow up for RAMON/Hypernatremia Pt seen and examined at the bedside awake and alert no acute complaints on G-tube feeds Vital Signs Temperature 97.2 F L 10/14/16 10:17 Pulse Rate 76 10/14/16 10:17 Respiratory Rate 19 10/14/16 10:17 Blood Pressure 111/60 10/14/16 10:17 O2 Sat by Pulse Oximetry (%) 96 10/13/16 22:00 Intake & Output 10/11/16 10/12/16 10/13/16 10/14/16 23:59 23:59 23:59 23:59 Intake Total 2714 200 1030 880 Balance 2714 200 1030 880 Weight 155 lb 6.4 oz Gen: NAD, awake HEENT: Dry MM CVS: irregular, No M/R Lungs: Dec Bs lung bases, no rales or wheeze Abd: soft, No tenderness Ext: No edema, clubbing or cyanosis CBC, BMP 10/13/16 06:00 10/14/16 07:00 Laboratory Tests 10/13/16 10/14/16 06:00 07:00 Calcium 8.1 L Phosphorus 2.0 L 2.2 L Magnesium 2.0 D 1.9 Current Medications Acetaminophen (Tylenol -) 650 mg PO Q6H PRN PRN Reason: FEVER OR PAIN Last Admin: 09/29/16 17:52 Dose: 650 mg Amiodarone HCl (Cordarone -) 200 mg PO DAILY [facility] Last Admin: 10/14/16 10:26 Dose: 200 mg Bacitracin (Bacitracin -) 1 applic TP BID [facility] Stop: 10/17/16 09:59 Last Admin: 10/14/16 10:27 Dose: 1 applic Cholecalciferol (Vitamin D3 -) 400 unit PO DAILY [facility] Last Admin: 10/14/16 10:27 Dose: 400 unit Heparin Sodium (Porcine) (Heparin -) 5,000 unit IVPUSH PRN PRN Heparin Sodium (Porcine) (Heparin -) 1,000 unit IVPUSH PRN PRN Last Admin: 10/09/16 22:46 Dose: 1,000 unit Heparin Sodium/Dextrose (Heparin Infusion -) 500 mls @ 20 mls/hr IVPB TITR [facility] ; 1,000 UNITS/HR PRN Reason: Protocol Last Titration: 10/14/16 10:21 Dose: 1,000 units/hr Metoprolol Succinate (Toprol Xl -) 25 mg PO BID [facility] Last Admin: 10/14/16 10:26 Dose: 25 mg Multivitamins (Total B With C -) 1 each PO DAILY [facility] Last Admin: 10/14/16 10:28 Dose: 1 each Potassium Phos/Sodium Phos (Phos-Nak Packet -) 1 packet GT TID [facility] Stop: 10/14/16 14:01 Last Admin: 10/14/16 06:52 Dose: 1 packet Sodium Bicarbonate (Sodium Bicarbonate -) 650 mg GT BID [facility] Last Admin: 10/14/16 10:27 Dose: 650 mg Tamsulosin HCl (Flomax -) 0.8 mg PO DAILY@0830 [facility] Last Admin: 10/14/16 10:27 Dose: 0.8 mg Venlafaxine HCl (Effexor -) 37.5 mg PO BID [facility] Last Admin: 10/14/16 10:28 Dose: 37.5 mg Warfarin Sodium (Coumadin -) 10 mg PO ONCE ONE Stop: 10/14/16 18:01 A/P 86 year old Gentleman with PMhx of Afib on Coumadin, CAD s/p stents, CHF, Ulcerative Colitis s/p total colectomy, Kidney stones, Hypertension, Depression presented with focal weakness and found to have acute CVA and now with RAMON with BUN/Cr of 125/3.9 with baseline Cr of 1.3 to 1.5. #Acute on Chronic Renal Insufficiency Renal function stable #Hypernatremia continue free water via G-tube Trend Na levels #Metabolic Acidosis Continue sodium bicarb 650mg BID goal bicarb > 22 #Acute CVA continue management as per Cardiology and Neurology supportive care #Hypophospathemia Continue Neutraphos TID via G-tube Waylon Mcmanus DO
--- NOTE | 2016-10-14 15:06 | PN ---
Progress Note, Physician History of Present Illness: stable no new events - Current Medication List Current Medications: Active Medications Acetaminophen (Tylenol -) 650 mg PO Q6H PRN PRN Reason: FEVER OR PAIN Last Admin: 09/29/16 17:52 Dose: 650 mg Amiodarone HCl (Cordarone -) 200 mg PO DAILY [facility] Last Admin: 10/14/16 10:26 Dose: 200 mg Bacitracin (Bacitracin -) 1 applic TP BID [facility] Stop: 10/17/16 09:59 Last Admin: 10/14/16 10:27 Dose: 1 applic Cholecalciferol (Vitamin D3 -) 400 unit PO DAILY [facility] Last Admin: 10/14/16 10:27 Dose: 400 unit Heparin Sodium (Porcine) (Heparin -) 5,000 unit IVPUSH PRN PRN Heparin Sodium (Porcine) (Heparin -) 1,000 unit IVPUSH PRN PRN Last Admin: 10/09/16 22:46 Dose: 1,000 unit Heparin Sodium/Dextrose (Heparin Infusion -) 500 mls @ 20 mls/hr IVPB TITR [facility] ; 1,000 UNITS/HR PRN Reason: Protocol Last Titration: 10/14/16 10:21 Dose: 1,000 units/hr Metoprolol Succinate (Toprol Xl -) 25 mg PO BID [facility] Last Admin: 10/14/16 10:26 Dose: 25 mg Multivitamins (Total B With C -) 1 each PO DAILY [facility] Last Admin: 10/14/16 10:28 Dose: 1 each Potassium Phos/Sodium Phos (Phos-Nak Packet -) 1 packet GT TID [facility] Stop: 10/15/16 14:01 Last Admin: 10/14/16 14:20 Dose: 1 packet Sodium Bicarbonate (Sodium Bicarbonate -) 650 mg GT BID [facility] Last Admin: 10/14/16 10:27 Dose: 650 mg Tamsulosin HCl (Flomax -) 0.8 mg PO DAILY@0830 [facility] Last Admin: 10/14/16 10:27 Dose: 0.8 mg Venlafaxine HCl (Effexor -) 37.5 mg PO BID [facility] Last Admin: 10/14/16 10:28 Dose: 37.5 mg Warfarin Sodium (Coumadin -) 10 mg PO ONCE ONE Stop: 10/14/16 18:01 - Objective Vital Signs: Vital Signs Temperature 97.2 F L 10/14/16 10:17 Pulse Rate 76 10/14/16 10:17 Respiratory Rate 19 10/14/16 10:17 Blood Pressure 111/60 10/14/16 10:17 O2 Sat by Pulse Oximetry (%) 96 10/13/16 22:00 Constitutional: Yes: No Distress, Calm Gastrointestinal: Yes: Normal Bowel Sounds, Soft Musculoskeletal: Yes: WNL Extremities: Yes: WNL Neurological: Yes: Alert, Oriented Psychiatric: Yes: Alert Labs: CBC, BMP 10/13/16 06:00 10/14/16 07:00 INR, PTT INR 1.20 (0.82-1.09) H 10/14/16 07:00 Assessment/Plan Problem List - Problems (1) Cerebrovascular accident (CVA) Code(s): I63.9 - CEREBRAL INFARCTION, UNSPECIFIED Qualifiers: Qualified Code(s): I63.412 - Cerebral infarction due to embolism of left middle cerebral artery (2) Coronary artery disease Code(s): I25.10 - ATHSCL HEART DISEASE OF [place] CORONARY ARTERY W/O ANG PCTRS Qualifiers: Qualified Code(s): I25.10 - Atherosclerotic heart disease of [place] coronary artery without angina pectoris (3) Hyperlipidemia Code(s): E78.5 - HYPERLIPIDEMIA, UNSPECIFIED Qualifiers: Qualified Code(s): E78.0 - Pure hypercholesterolemia (4) Hypertensive cardiomegaly without heart failure Code(s): I11.9 - HYPERTENSIVE HEART DISEASE WITHOUT HEART FAILURE (5) Old anterior myocardial infarction Code(s): I25.2 - OLD MYOCARDIAL INFARCTION (6) Paroxysmal atrial fibrillation Code(s): I48.0 - PAROXYSMAL ATRIAL FIBRILLATION (7) S/P coronary angioplasty Code(s): Z98.61 - CORONARY ANGIOPLASTY STATUS (8) Systolic dysfunction without heart failure Code(s): I51.9 - HEART DISEASE, UNSPECIFIED (9) Biventricular automatic implantable cardioverter defibrillator in situ Code(s): Z95.810 - PRESENCE OF AUTOMATIC (IMPLANTABLE) CARDIAC DEFIBRILLATOR (10) Subtherapeutic anticoagulation Code(s): Z51.81 - ENCOUNTER FOR THERAPEUTIC DRUG LEVEL MONITORING Z79.01 - LONGTERM (CURRENT) USE OF ANTICOAGULANTS (11) Urethral stricture Code(s): N35.9 - URETHRAL STRICTURE, UNSPECIFIED Qualifiers: Qualified Code(s): N35.8 - Other urethral stricture 12 fever 13 rash arf leukocytosis dehydration plan stable doing well peg in place continue current mgmt patient plan to be transferred to rehab
[2016-10-14] MEDS ORDERED: WARFARIN NA 10 MG TABLET (FP) PO ONE (18:00)
[2016-10-14] MEDS ORDERED: PT OWN MED DRAWER 7, Y5N ONE (22:36)
[2016-10-15] MEDS: HEPARIN INFUSION - 500 ML IVPB SCH ×2 (01:59→09:04)
[2016-10-15 02:18] VITALS: TEMP 97.5
[2016-10-15] MEDS: NAPH,MB-DB/K PH,MBDB POWDER PACKET GT SCH (05:02)
[2016-10-15 07:20] LABS: INR 1.25 (0.82-1.09); PROTHROMBIN TIME (PATIENT) 13.8 SEC (9.98-11.88)
[2016-10-15 08:00] LABS: ACTIVATED PTT 64.5 SECONDS (26.9-34.4)
[2016-10-15] MEDS: TAMSULOSIN HCL 0.4 MG CAP.ER.24H (FP) PO SCH (09:05)
--- NOTE | 2016-10-15 09:16 | DS ---
Physical Examination Vital Signs: Vital Signs Temperature 97.5 F L 10/15/16 02:00 Pulse Rate 73 10/15/16 02:00 Respiratory Rate 20 10/15/16 02:00 Blood Pressure 127/60 10/15/16 02:00 O2 Sat by Pulse Oximetry (%) 96 10/14/16 21:00 Findings/Remarks: S/P CVA with Rt hemipleagia,Afib on GT feeding Constitutional: Yes: Calm Eyes: Yes: WNL HENT: Yes: WNL Neck: Yes: WNL Cardiovascular: Yes: Regular Rate and Rhythm Respiratory: Yes: WNL Gastrointestinal: Yes: Normal Bowel Sounds ...Rectal Exam: Yes: Deferred Renal/: Yes: WNL, Incontinence Musculoskeletal: Yes: Muscle Weakness Neurological: Yes: Alert, Pre-Existing Deficit Labs: CBC, BMP 10/13/16 06:00 10/14/16 07:00 Discharge Summary Reason For Visit: CEREBROVASCULAR ACCIDENT(CVA0 Current Active Problems Biventricular automatic implantable cardioverter defibrillator in situ (Acute) Cerebrovascular accident (CVA) (Acute) Subtherapeutic anticoagulation (Acute) Urethral stricture (Acute) Condition: Stable - Instructions Referrals: Douglas Love MD [Primary Care Provider] - Disposition: [facility]ILITY - Home Medications Comprehensive Discharge Medication List: Ambulatory Orders Aspirin Coated [Ecotrin -] 81 mg PO DAILY 12/12/13 Furosemide [Lasix -] 20 mg PO DAILY 12/12/13 Simvastatin [Zocor -] 20 mg PO HS 12/12/13 Dicyclomine HCl [Bentyl] 20 mg PO DAILY 12/20/14 Spironolactone 25 mg PO DAILY 01/13/15 Venlafaxine HCl ER [Effexor Xr -] 37.5 mg PO BID 01/13/15 Warfarin Sodium [Coumadin] 5 mg PO [id number] 01/13/15 Cholestyramine (with Sugar) [Cholestyramine Powder] 378 gm PO BID 03/17/16 Vitamin B Complex [B Complex] 1 each PO DAILY 03/17/16 Tamsulosin HCl [Flomax] 0.4 mg PO DAILY 08/03/16 Metoprolol Succinate [Toprol XL -] 25 mg PO BID #30 tab.sr.24h 08/26/16 Acetaminophen [Tylenol -] 500 mg PO Q4H PRN 09/23/16 Alprazolam [Alprazolam Xr] 0.5 mg PO BID 09/23/16 Amiodarone HCl 200 mg PO DAILY 09/23/16 Cholecalciferol (Vitamin D3) [Vitamin D3 -] 400 unit PO DAILY 09/23/16 Warfarin Sodium [Coumadin] 2.5 mg PO SUTUTH 09/23/16
[2016-10-15 10:11] VITALS: BP 118/59; PULSE 83
[2016-10-15] MEDS: AMIODARONE HCL 200 MG TABLET (FP) PO SCH (10:21)
[2016-10-15] MEDS: CHOLECALCIFEROL (VITAMIN D3) 400 UNIT TABLET (FP) PO SCH (10:21)
[2016-10-15] MEDS: METOPROLOL SUCCINATE 25 MG TAB.SR.24H (FP) PO SCH (10:22)
[2016-10-15] MEDS: SODIUM BICARBONATE 650 MG TABLET GT SCH (10:22)
[2016-10-15] MEDS: VENLAFAXINE HCL 37.5 MG TABLET PO SCH (10:28)
[2016-10-15] MEDS: VITAMIN B COMPLEX W/C COMBO TABLET (FP) PO SCH (10:28)
[2016-10-15] MEDS: BACITRACIN 30 GM TUBE TOPICAL OINTMENT TP SCH (10:28)
--- NOTE | 2016-10-15 12:26 | PN ---
Progress Note (short form) - Note Progress Note: Renal Follow up for RAMON/Hypernatremia Pt seen and examined at the bedside awake and alert no complaints awaiting discharge to [facility] Vital Signs Temperature 97.5 F L 10/15/16 10:10 Pulse Rate 83 10/15/16 10:10 Respiratory Rate 20 10/15/16 10:10 Blood Pressure 118/59 10/15/16 10:10 O2 Sat by Pulse Oximetry (%) 96 10/15/16 10:20 Intake & Output 10/12/16 10/13/16 10/14/16 10/15/16 23:59 23:59 23:59 23:59 Intake Total 200 1030 960 Balance 200 1030 960 Weight 155 lb 6.4 oz Gen: NAD, awake HEENT: Dry MM CVS: irregular, No M/R Lungs: Dec Bs lung bases Abd: soft, No tenderness Ext: No edema, clubbing or cyanosis CBC, BMP 10/13/16 06:00 10/14/16 07:00 Laboratory Tests 10/14/16 07:00 Phosphorus 2.2 L Magnesium 1.9 Current Medications Acetaminophen (Tylenol -) 650 mg PO Q6H PRN PRN Reason: FEVER OR PAIN Last Admin: 09/29/16 17:52 Dose: 650 mg Amiodarone HCl (Cordarone -) 200 mg PO DAILY [facility] Last Admin: 10/15/16 10:21 Dose: 200 mg Bacitracin (Bacitracin -) 1 applic TP BID [facility] Stop: 10/17/16 09:59 Last Admin: 10/15/16 10:28 Dose: 1 applic Cholecalciferol (Vitamin D3 -) 400 unit PO DAILY [facility] Last Admin: 10/15/16 10:21 Dose: 400 unit Heparin Sodium (Porcine) (Heparin -) 5,000 unit IVPUSH PRN PRN Heparin Sodium (Porcine) (Heparin -) 1,000 unit IVPUSH PRN PRN Last Admin: 10/09/16 22:46 Dose: 1,000 unit Heparin Sodium/Dextrose (Heparin Infusion -) 500 mls @ 20 mls/hr IVPB TITR ELFEGO ; 1,000 UNITS/HR PRN Reason: Protocol Last Admin: 10/15/16 09:04 Dose: 20 mls/hr Metoprolol Succinate (Toprol Xl -) 25 mg PO BID [facility] Last Admin: 10/15/16 10:22 Dose: 25 mg Multivitamins (Total B With C -) 1 each PO DAILY [facility] Last Admin: 10/15/16 10:28 Dose: 1 each Potassium Phos/Sodium Phos (Phos-Nak Packet -) 1 packet GT TID [facility] Stop: 10/15/16 14:01 Last Admin: 10/15/16 05:02 Dose: 1 packet Sodium Bicarbonate (Sodium Bicarbonate -) 650 mg GT BID [facility] Last Admin: 10/15/16 10:22 Dose: 650 mg Tamsulosin HCl (Flomax -) 0.8 mg PO DAILY@0830 [facility] Last Admin: 10/15/16 09:05 Dose: 0.8 mg Venlafaxine HCl (Effexor -) 37.5 mg PO BID [facility] Last Admin: 10/15/16 10:28 Dose: 37.5 mg A/P 86 year old Gentleman with PMhx of Afib on Coumadin, CAD s/p stents, CHF, Ulcerative Colitis s/p total colectomy, Kidney stones, Hypertension, Depression presented with focal weakness and found to have acute CVA and now with RAMON with BUN/Cr of 125/3.9 with baseline Cr of 1.3 to 1.5. #Acute on Chronic Renal Insufficiency Renal function stable repeat labs as outpatient #Hypernatremia free water surinder G-tube #Metabolic Acidosis Continue sodium bicarb 650mg BID goal bicarb > 22 #Acute CVA continue management as per Cardiology and Neurology supportive care #Hypophospathemia Diet via the G-tube repeat labs as outpatient Waylon Mcmanus DO
== END 2016-10-15 12:50 | DRG 64 ==
LOC: JER 19:32 → JERBED 20:03 → J4S 23:25
PROVIDERS: ADMIT Internal Medicine; ATTEND Internal Medicine
PROC: 3E033GC Introduction of Other Therapeutic Substance into Peripheral Vein, Percutaneous Approach (ICD-10-PCS; 2016-10-09)
PROC: 0DH63UZ Insertion of Feeding Device into Stomach, Percutaneous Approach (ICD-10-PCS; principal; 2016-10-12 08:00)
PROC: 3E0G76Z Introduction of Nutritional Substance into Upper GI, Via Natural or Artificial Opening (ICD-10-PCS; 2016-10-13)
DX: I63.412 Cerebral infarction due to embolism of left middle cerebral artery (principal); G92 Toxic encephalopathy; G81.91 Hemiplegia, unspecified affecting right dominant side; N17.9 Acute kidney failure, unspecified; E87.0 Hyperosmolality and hypernatremia; E87.2 Acidosis; Z95.5 Presence of coronary angioplasty implant and graft; I48.0 Paroxysmal atrial fibrillation; Z79.01 Long term (current) use of anticoagulants; I25.2 Old myocardial infarction; E78.5 Hyperlipidemia, unspecified; R29.718 NIHSS score 18; K21.9 Gastro-esophageal reflux disease without esophagitis; R29.810 Facial weakness; I11.9 Hypertensive heart disease without heart failure; N35.8 Other urethral stricture; I25.119 Atherosclerotic heart disease of native coronary artery with unspecified angina pectoris; I12.9 Hypertensive chronic kidney disease with stage 1 through stage 4 chronic kidney disease, or unspecified chronic kidney disease; N18.9 Chronic kidney disease, unspecified; Z95.810 Presence of automatic (implantable) cardiac defibrillator; R47.1 Dysarthria and anarthria; D72.829 Elevated white blood cell count, unspecified; E86.0 Dehydration; R32 Unspecified urinary incontinence; F32.9 Major depressive disorder, single episode, unspecified; E87.5 Hyperkalemia; R79.1 Abnormal coagulation profile; R13.12 Dysphagia, oropharyngeal phase; Z90.5 Acquired absence of kidney; E83.39 Other disorders of phosphorus metabolism
CPT/HCPCS: 36415; 70450-TC; 71010-TC; 74230-TC; 76775-TC; 76856-TC; 80048; 80053; 81003; 81015; 82465; 82550; 82570; 83718; 83721; 83735; 83930; 83935; 84100; 84156; 84300; 84443; 84478; 84484; 84540; 85025; 85027; 85610; 85730; 86850; 86870; 86900; 86901; 86902; 87040; 87086; 87205; 92611-GN; 93005; 93010; 93306-TC; 97162-PG; 99285-25; J1644

== ENCOUNTER 2018-01-03 12:39 | Observation (INO) | payer OTHER, BC ==
--- NOTE | 2018-01-03 13:14 | PDOC ---
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 The patient reports that he was being taken down 5 stairs by 2 transporters when the transporter on the top of the stairs slipped and fell on the second stair, while the bottom transporter held on the wheel chair, causing the patient to hit the back of his head on the back of the wheelchair. He reports right sided dorsal head pain. The patient's daughter reports the patient had a stroke in 2017 and had right-sided paralysis. The patient reports associated symptom of a headache. Of note, the patient is currently on Coumadin. The patient denies loss of consciousness, chest pain, shortness of breath, headache, and dizziness. Denies fevers, chills, nausea, vomiting, diarrhea, and constipation. Denies dysuria, frequency, urgency, and hematuria. Allergies: Azithromycin, codeine, dust. Past surgical history: Abdominal surgery, pacemaker/defibrillator 2008, total colectomy. Social history: Former smoker. No reported alcohol or drug use. <Bryan Leong - Last Filed: 01/03/18 14:20> <Vishal Grove - Last Filed: 01/03/18 17:30> - General Chief Complaint: Injury Stated Complaint: FALL Time Seen by Provider: 01/03/18 13:13 Past History <Bryan Leong - Last Filed: 01/03/18 14:20> - Past Medical History Anemia: No Asthma: No Cancer: Yes (MOLE TO BACK: 1972) Cardiac Disorders: Yes (CAD, [place] w/ stents) CVA: No COPD: No CHF: Yes Dementia: No Diabetes: No GI Disorders: Yes (ulcerative colitis with total colectomy and ileostomy) Disorders: Yes (kidney stones) HTN: Yes Hypercholesterolemia: Yes Liver Disease: No Psychiatric Problems: Yes (ANXIETY/DEPRESSION.) Seizures: No Thyroid Disease: No - Surgical History Abdominal Surgery: Yes Appendectomy: No Cardiac Surgery: Yes (pacemaker/defibrillator 2008) Cholecystectomy: No GI Surgery: Yes (total colectomy.) Lung Surgery: No Neurologic Surgery: No Orthopedic Surgery: Yes (PINS IN FRACTURED ARM AND WRIST) - Immunization History Immunization Up to Date: Yes - Suicide/Smoking/Psychosocial Hx Smoking Status: Yes Smoking History: Former smoker Have you smoked in the past 12 months: No Number of Cigarettes Smoked Daily: 0 If you are a former smoker, when did you quit?: 1972 Information on smoking cessation initiated: No Hx Alcohol Use: No Drug/Substance Use Hx: No Substance Use Type: None Hx Substance Use Treatment: No <Vishal Grove - Last Filed: 01/03/18 17:30> - Past Medical History Allergies/Adverse Reactions: Allergies Allergy/AdvReac Type Severity Reaction Status Date / Time azithromycin [From Zithromax] AdvReac Mild Vomiting Verified 09/23/16 19:53 codeine [Codeine] AdvReac Mild Verified 09/23/16 19:53 dust Allergy Severe Itching Uncoded 09/23/16 19:53 Home Medications: Ambulatory Orders Aspirin Coated [Ecotrin -] 81 mg PO DAILY 12/12/13 Furosemide [Lasix -] 20 mg PO DAILY 12/12/13 Simvastatin [Zocor -] 20 mg PO HS 12/12/13 Dicyclomine HCl [Bentyl] 20 mg PO DAILY 12/20/14 Spironolactone 25 mg PO DAILY 01/13/15 Venlafaxine HCl ER [Effexor Xr -] 37.5 mg PO BID 01/13/15 Warfarin Sodium [Coumadin] 5 mg PO MOWEFRSA 01/13/15 Cholestyramine (with Sugar) [Cholestyramine Powder] 378 gm PO BID 03/17/16 Vitamin B Complex [B Complex] 1 each PO DAILY 03/17/16 Tamsulosin HCl [Flomax] 0.4 mg PO DAILY 08/03/16 Metoprolol Succinate [Toprol XL -] 25 mg PO BID #30 tab.sr.24h 08/26/16 Acetaminophen [Tylenol -] 500 mg PO Q4H PRN 09/23/16 Alprazolam [Alprazolam Xr] 0.5 mg PO BID 09/23/16 Amiodarone HCl 200 mg PO DAILY 09/23/16 Cholecalciferol (Vitamin D3) [Vitamin D3 -] 400 unit PO DAILY 09/23/16 Warfarin Sodium [Coumadin] 2.5 mg PO SUTUTH 09/23/16 Acetaminophen [Tylenol .Regular Strength -] 650 mg PO Q6H PRN #0 tablet Amiodarone HCl [Cordarone -] 200 mg PO DAILY tablet 10/15/16 Aspirin [ASA -] 81 mg PO DAILY tab.chew 10/15/16 Bacitracin - [Bacitracin Topical Ointment -] 1 applic TP BID tube 10/15/16 Metoprolol Succinate [Toprol XL -] 25 mg PO BID tab.sr.24h 10/15/16 Tamsulosin HCl [Flomax -] 0.8 mg PO DAILY@0830 cap.er.24h 10/15/16 Vitamin B Comp W-C [Total B with C -] 1 each PO DAILY tablet 10/15/16 Review of Systems - Review of Systems Able to Perform ROS?: Yes Comments:: A complete review of 10 out of 10 review of systems is taken and is negative apart from what is previously mentioned below and in the HPI. <Bryan Leong - Last Filed: 01/03/18 14:20> *Physical Exam - Vital Signs Last Vital Signs Temp Pulse Resp BP Pulse Ox 98 F 108 H 20 144/83 100 01/03/18 13:01 01/03/18 13:12 01/03/18 13:01 01/03/18 13:01 01/03/18 13:01 - Physical Exam Comments: Vitals: Triage Vital signs reviewed General Appearance: no acute distress, well nourished well developed, Head: (+)hematoma to dorsal side of head. Eyes: Pupils equal reactive round, extraocular movement intact Nose: Nares patent bilaterally. Neck: Supple;No Nuchal rigidity Chest Wall: Nontender Cardiac: Regular rate and rhythm, no murmurs, no rubs, no gallops, Lungs: Clear to auscultation bilateral, good air movement bilaterally, Abdomen: Soft, nondistended, normal bowel sounds, nontender to palpation Rectal: Exam deferred Extremities: Full range of motion to all extremities, no cyanosis, clubbing, or edema Skin: Warm and dry, no rashes or lesions, no petechiae Neuro: (+)right sided hemiparesis. Psych: normal mood, normal affect. <Bryan Leong - Last Filed: 01/03/18 14:20> - Vital Signs Last Vital Signs Temp Pulse Resp BP Pulse Ox 98 F 108 H 20 144/83 100 01/03/18 13:01 01/03/18 13:12 01/03/18 13:01 01/03/18 13:01 01/03/18 13:01 <Vishal Grove - Last Filed: 01/03/18 17:30> Heart Score/ECG Review - ECG Impressions Comment:: 01/03/18 15:45 AV dual paced rhythm. 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 Plan: Head CT Chest x-ray Lumbar Labs PT/INR <Bryan Leong - Last Filed: 01/03/18 14:20> - Medical Decision Making Slightly supratherapeutic INR. Slight renal insufficiency baseline creatinine 0.8 0.9 today 1.4. Given head injury on Coumadin with supratherapeutic INR increased risk of delayed bleed despite negative head CT Case discussed with Dr. Love. We'll observe overnight hold Coumadin recheck creatinine in the morning after gentle hydration overnight and repeat neurologic exam. Repeat head CT for any clinical indication 01/03/18 17:29 <Vishal Grove - Last Filed: 01/03/18 17:30> *DC/Admit/Observation/Transfer - Attestations Scribe Attestion: Documentation prepared by Bryan Leong, acting as caregivers non medical for Vishal Grove MD. <Bryan Leong - Last Filed: 01/03/18 14:20> - Discharge Dispostion Decision to Admit order: Yes <Vishal Grove - Last Filed: 01/03/18 17:30> Diagnosis at time of Disposition: Renal insufficiency, mild Head injury Qualifiers: Encounter type: initial encounter Qualified Code(s): S09.90XA - Unspecified injury of head, initial encounter - Discharge Dispostion Condition at time of disposition: Stable
[2018-01-03 14:00] LABS: BASO % 0.5 % (0-2.0); HEMATOCRIT 39.1 % (35.4-49); HEMOGLOBIN 12.7 GM/dL (11.7-16.9); LYMPH % 19.3 % (8-40); MCH 27.7 pg (25.7-33.7); MCHC 32.4 g/dl (32.0-35.9); MEAN CELL VOLUME 85.5 fl (80-96); MEAN PLT VOLUME 8.6 fl (7.5-11.1); NEUT % 65.2 % (42.8-82.8); PLATELET COUNT 141 K/MM3 (134-434); RBC 4.57 M/mm3 (4.00-5.60); RDW 15.1 % (11.9-15.9); WHITE BLOOD COUNT 5.5 K/mm3 (4.0-10.0)
[2018-01-03 14:13] LABS: INR 3.61 (0.82-1.09); PROTHROMBIN TIME (PATIENT) 40.8 SEC (9.7-13.0)
[2018-01-03 14:16] LABS: ACTIVATED PTT 38.8 SECONDS (26.9-34.4)
[2018-01-03] MEDS ORDERED: ACETAMINOPHEN 1000 MG/100 ML VIAL (NON FORMULARY) IVPB ONE (14:20)
[2018-01-03 14:32] LABS: ALBUMIN 3.3 g/dl (3.4-5.0); ANION GAP 8 (8-16); BILIRUBIN,TOTAL 0.5 mg/dL (0.2-1.0); BLOOD UREA NITROGEN 23 mg/dL (7-18); CALCIUM 8.6 mg/dL (8.5-10.1); CHLORIDE 109 mmol/L (98-107); CO2 24 mmol/L (21-32); CREATININE 1.4 mg/dL (0.7-1.3); GLUCOSE,RANDOM 65 mg/dL (74-106); POTASSIUM 4.4 mmol/L (3.5-5.1); SGOT/AST 24 U/L (15-37); SGPT/ALT 26 U/L (12-78); SODIUM 141 mmol/L (136-145); TOT PROT 6.5 g/dl (6.4-8.2)
[2018-01-03 14:34] LABS: ALK PHOS 72 U/L (45-117)
[2018-01-03] MEDS ORDERED: ACETAMINOPHEN INJECTION 100 ML IVPB ONE (14:34)
[2018-01-03] MEDS ORDERED: SODIUM CHLORIDE 0.9% 1000 ML INFUS.BAG IV ONE (15:44)
--- NOTE | 2018-01-03 17:07 | EKG ---
Test Reason : Blood Pressure : / mmHG Vent. Rate : 070 BPM Atrial Rate : 070 BPM P-R Int : 126 ms QRS Dur : 194 ms QT Int : 508 ms P-R-T Axes : 022 206 093 degrees QTc Int : 548 ms AV dual-paced rhythm Biventricular pacemaker detected ABNORMAL ECG Confirmed by MD IDALMIS, ANDREINA ([id number]) on 01/03/2018 5:06:49 PM Referred By: Confirmed By:ANDREINA RAYGOZA MD
[2018-01-03 18:32] VITALS: BMI 21.9
[2018-01-03] MEDS ORDERED: ATORVASTATIN CA 20 MG TABLET (FP) PO SCH (22:00)
[2018-01-03] MEDS ORDERED: PT OWN MED DRAWER 7, Y5N ONE (22:23)
[2018-01-04 07:11] LABS: HEMATOCRIT 36.5 % (35.4-49); HEMOGLOBIN 12.1 GM/dL (11.7-16.9); MCH 28.3 pg (25.7-33.7); MCHC 33.1 g/dl (32.0-35.9); MEAN CELL VOLUME 85.4 fl (80-96); MEAN PLT VOLUME 8.7 fl (7.5-11.1); PLATELET COUNT 119 K/MM3 (134-434); RBC 4.28 M/mm3 (4.00-5.60); RDW 15.2 % (11.9-15.9); WHITE BLOOD COUNT 4.9 K/mm3 (4.0-10.0)
[2018-01-04 07:16] LABS: INR 3.58 (0.82-1.09); PROTHROMBIN TIME (PATIENT) 40.5 SEC (9.7-13.0)
[2018-01-04] MEDS ORDERED: TAMSULOSIN HCL 0.4 MG CAP.ER.24H (FP) PO SCH (08:30)
[2018-01-04 09:42] VITALS: BP 116/58; PULSE 70; TEMP 98
[2018-01-04] MEDS ORDERED: PT OWN MED DRAWER 7, Y5N ONE (09:44)
[2018-01-04] MEDS ORDERED: ASPIRIN COATED 81 MG TABLET.EC PO SCH (10:00)
[2018-01-04] MEDS ORDERED: metoPROLOL SUCCINATE 25 MG TAB.SR.24H (FP) PO SCH (10:00)
[2018-01-04] MEDS ORDERED: FLUoxetine HCL 10 MG CAPSULE (FP) PO SCH (10:00)
--- NOTE | 2018-01-04 10:14 | HP ---
DATE OF ADMISSION: 01/03/2018 DATE OF DICTATION: 01/04/2018 HISTORY OF PRESENT ILLNESS: This is an 87-year-old male status post CVA with a left hemiparesis known to me for many years. He is on Coumadin for atrial fibrillation. Yesterday, while they were transporting him, he fell and hit his head, and he was brought to the emergency room. CT scan in the emergency room was negative. There was no acute hemorrhage. Patients INR was more than a little high, so, he got admitted for observation. This morning, patient is doing normal now. No significant changes. PHYSICAL EXAMINATION: General: Unremarkable. Vital signs: BP 130/80, pulse of 72, respirations 20, temperature 98. HEENT: Scalp with no evidence of any hematoma. Pupils are reacting, equal both sides. Lungs: Clear. Heart: S1, S2 normal. No S3, S4. Abdomen: Soft. Extremities: Legs with no edema. LABORATORY REPORTS: Patients INR came down to 3.65. , he is stable. FINAL DIAGNOSIS: Head trauma, atrial fibrillation. PLAN: Patient can be discharged home. Trying to reach his family. Rinku [id number]
== END 2018-01-04 15:54 | disposition home or self-care (01) ==
LOC: JER 12:39 → JERBED 15:47 → J5S 18:11
PROVIDERS: ADMIT Internal Medicine; ATTEND Internal Medicine
PROC: 3E033GC Introduction of Other Therapeutic Substance into Peripheral Vein, Percutaneous Approach (ICD-10-PCS; principal; 2018-01-03)
PROC: 3E0337Z Introduction of Electrolytic and Water Balance Substance into Peripheral Vein, Percutaneous Approach (ICD-10-PCS; 2018-01-03)
DX: S09.90XA Unspecified injury of head, initial encounter (principal); N28.9 Disorder of kidney and ureter, unspecified; I10 Essential (primary) hypertension; E78.5 Hyperlipidemia, unspecified; I25.10 Atherosclerotic heart disease of native coronary artery without angina pectoris; I25.2 Old myocardial infarction; I50.9 Heart failure, unspecified; I69.354 Hemiplegia and hemiparesis following cerebral infarction affecting left non-dominant side; I48.91 Unspecified atrial fibrillation; F41.9 Anxiety disorder, unspecified; F32.9 Major depressive disorder, single episode, unspecified; Z87.442 Personal history of urinary calculi; Z85.828 Personal history of other malignant neoplasm of skin; Z79.01 Long term (current) use of anticoagulants; Z95.810 Presence of automatic (implantable) cardiac defibrillator; Z87.891 Personal history of nicotine dependence; Z88.1 Allergy status to other antibiotic agents; Z90.49 Acquired absence of other specified parts of digestive tract; Z95.5 Presence of coronary angioplasty implant and graft; Z79.82 Long term (current) use of aspirin; W22.8XXA Striking against or struck by other objects, initial encounter; Y93.89 Activity, other specified; Y92.89 Other specified places as the place of occurrence of the external cause
CPT/HCPCS: 36415; 70450-TC; 71045-TC-FY; 72100-TC-FY; 80053; 84484; 85025; 85027; 85610; 85730; 93005; 93010; 96374; 99283-25; G0378; J0131; J7030

== ENCOUNTER 2018-04-12 14:57 | Inpatient (IN) | payer OTHER, BC ==
--- NOTE | 2018-04-12 15:08 | PDOC ---
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 Denies nausea, vomiting, diarrhea, fevers, chills, cough, sob, or other symptoms. 04/12/18 15:20 Past History - Past Medical History Allergies/Adverse Reactions: Allergies Allergy/AdvReac Type Severity Reaction Status Date / Time cefazolin [From Ancef] Allergy Verified 04/12/18 19:04 azithromycin [From Zithromax] AdvReac Mild Vomiting Verified 04/12/18 18:59 codeine [Codeine] AdvReac Mild Verified 04/12/18 18:59 dust Allergy Severe Itching Uncoded 09/23/16 19:53 Home Medications: Ambulatory Orders Aspirin [Aspirin EC] 81 mg PO DAILY 04/12/18 Atorvastatin Ca [Lipitor] 20 mg PO HS 04/12/18 Cholecalciferol (Vitamin D3) [Vitamin D3] 5,000 unit PO DAILY 04/12/18 Cholestyramine (with Sugar) [Cholestyramine Packet] 0 gm PO BID 04/12/18 Fluoxetine HCl [Prozac -] 10 mg PO DAILY 04/12/18 Methenamine Hippurate [Hiprex [Nf] -] 1 gm PO DAILY 04/12/18 Metoprolol Succinate [Toprol Xl] 25 mg PO AM 04/12/18 Tamsulosin HCl 0.4 mg PO AM 04/12/18 Warfarin Na [Coumadin] 4 mg PO DAILY 04/12/18 Anemia: No Asthma: No Cancer: Yes (MOLE TO BACK: 1972) Cardiac Disorders: Yes (CAD, [place] w/ stents) CVA: No COPD: No CHF: Yes Dementia: No Diabetes: No GI Disorders: Yes (ulcerative colitis with total colectomy and ileostomy) Disorders: Yes (kidney stones) HTN: Yes Hypercholesterolemia: Yes Liver Disease: No Psychiatric Problems: Yes (ANXIETY/DEPRESSION.) Seizures: No Thyroid Disease: No - Surgical History Abdominal Surgery: Yes Appendectomy: No Cardiac Surgery: Yes (pacemaker/defibrillator 2008) Cholecystectomy: No GI Surgery: Yes (total colectomy.) Lung Surgery: No Neurologic Surgery: No Orthopedic Surgery: Yes (PINS IN FRACTURED ARM AND WRIST) - Immunization History Immunization Up to Date: Yes - Suicide/Smoking/Psychosocial Hx Smoking Status: Yes Smoking History: Former smoker Have you smoked in the past 12 months: No Number of Cigarettes Smoked Daily: 0 If you are a former smoker, when did you quit?: 1959 Information on smoking cessation initiated: No Hx Alcohol Use: No Drug/Substance Use Hx: No Substance Use Type: None Hx Substance Use Treatment: No Review of Systems - Review of Systems Constitutional: No: Chills, Diaphoresis, Fever HEENTM: No: Blurred Vision Respiratory: No: Cough, Shortness of Breath, Productive cough Cardiac (ROS): No: Chest Pain, Irregular Heart Rate, Palpitations ABD/GI: No: Diarrhea, Nausea, Vomiting : No: Dysuria, Discharge Musculoskeletal: No: Back Pain Integumentary: No: Bruising, Erythema Neurological: Yes: Pre-Existing Deficit. No: Headache, Numbness, Paresthesia *Physical Exam - Vital Signs Last Vital Signs Temp Pulse Resp BP Pulse Ox 98.1 F 70 20 108/65 98 04/12/18 15:04 04/12/18 15:04 04/12/18 15:04 04/12/18 15:04 04/12/18 15:04 - Physical Exam General Appearance: Yes: Nourished, Appropriately Dressed. No: Apparent Distress HEENT: positive: EOMI, KELY, Normal ENT Inspection, Normal Voice Neck: positive: Trachea midline, Normal Thyroid, Supple. negative: Tender, Rigid Respiratory/Chest: positive: Lungs Clear, Normal Breath Sounds. negative: Chest Tender, Respiratory Distress, Accessory Muscle Use Cardiovascular: positive: Regular Rhythm, Regular Rate Gastrointestinal/Abdominal: positive: Normal Bowel Sounds, Flat, Soft, Other ( cholostomy bag in place). negative: Tender Lymphatic: positive: Adenopathy. negative: Tenderness Musculoskeletal: positive: Decreased Range of Motion, Other (right arm flaccid without any movemnt. RLE slightly weaker than left. No new focal deficit. ). negative: Normal Inspection, CVA Tenderness Extremity: positive: Normal Capillary Refill. negative: Normal Inspection, Normal Range of Motion Integumentary: positive: Normal Color, Dry, Warm Neurologic: positive: Fully Oriented, Alert, Normal Mood/Affect. negative: Motor Strength 5/5 (globally weak) ED Treatment Course - LABORATORY CBC & Chemistry Diagram: 04/12/18 14:45 04/12/18 14:45 Medical Decision Making - Medical Decision Making 87 year old with weakness and headache for the past few hours. Patient's head CT negative and UA demonstrating UTI. Patient allergic to Keflex according to information from so ceftriaxone cancelled. Will give one dose of Aztreonam because of allergy. Signed out to Douglas Love for full admission because patient is very weak, has supratherapetuic INR, and is overall a fall risk. 04/12/18 19:09 *DC/Admit/Observation/Transfer Diagnosis at time of Disposition: Weakness, Supratherapeutic INR UTI (urinary tract infection) Qualifiers: Urinary tract infection type: acute cystitis Hematuria presence: without hematuria Qualified Code(s): N30.00 - Acute cystitis without hematuria - Discharge Dispostion Decision to Admit order: Yes - Referrals - Patient Instructions - Post Discharge Activity
--- NOTE | 2018-04-12 16:07 | PDOC ---
Attending Attestation - [facility] HPI: 04/12/18 16:57 The patient is an 87 year old male with a significant past medical history of right sided paralysis s/p prior stroke, CAD, [place] with stents (on Coumadin), s/p pacemaker/defibrillator 2008, cancerous mole to back in 1972, ulcerative colitis with total colectomy and ileostomy, hypertension, hyperlipidemia, right eye blindness, TEJON, anxiety, and depression who presents to the emergency department with complaint of headache and generalized weakness today. The patient's CHAINST[employer] FELLED SEAM OPERATOR, Sharon, states she had to sit the patient for about 25 minutes before he was able to stand which is unusual for the patient. The CHAINSTITCH FELLED SEAM OPERATOR states he did improve, however, reports the patient went to therapy around 3PM, developed a posterior headache which has been constant since and was "too weak" to perform. The CHAINSTITCH FELLED SEAM OPERATOR also states the stool in the ostomy bag was more liquid and yellow today. The patient denies loss of consciousness, chest pain, shortness of breath, and dizziness. The patient denies any localized weakness. The patient denies any changes in vision. The patient denies fevers, chills, nausea, vomiting, diarrhea , and constipation. The patient denies dysuria, frequency, urgency, and hematuria. Allergies: Azithromycin, codeine, dust. Past surgical history: Abdominal surgery, pacemaker/defibrillator 2008, total colectomy. Social history: Former smoker. No reported alcohol or drug use. - Physicial Exam PE: 04/12/18 17:17 Constitutional: Awake, alert, oriented. No acute distress. Head: Normocephalic. Atraumatic Eyes: (+) right eye blindness. PERRL. EOMI. Conjunctivae are not pale. ENT: (+) TEJON with hearing aide in left ear. Mucous membranes are moist and intact. Posterior pharynx without exudates or erythema. Uvula midline. Neck: Supple. Full ROM. No lymphadenopathy. Cardiovascular: (+) Irregular rhythm. Regular rate. S1, S2 regular. Distal pulses are 2+ and symmetric. Pulmonary/Chest: No evidence of respiratory distress. Clear to auscultation bilaterally No wheezing, rales or rhonchi. Abdominal: Soft and non-distended. There is no tenderness. No rebound, guarding or rigidity. No organomegaly. No palpable masses. Good bowel sounds. Back: No CVA tenderness. Musculoskeletal: (+) Paralysis to RUE with sensation intact. Sensation intact to right lower extremity with baseline 4/5 strength residual from prior stroke. No edema. No cyanosis. No clubbing. Nocalf tenderness. Radial/pedal pulses are intact and 2+ bilaterally Skin: Skin is warm and dry. No petechiae. No purpura. Neurological: Alert and oriented to person, place, and time. Cranial nerves II -XII are grossly intact. Normal speech. Strength is grossly symmetric. No sensory deficits. Psychiatric: Good eye contact. Normal interaction, affect and behavior. - Medical Decision Making 04/12/18 17:21 Documentation prepared by Princess Medina, acting as medical support specialist for Sienna Benavides DO 04/12/18 17:49 -Dr. Love was paged at this time <Princess Medina - Last Filed: 04/12/18 17:49> - Resident Resident Name: Kendra Molina - ED Attending Attestation I have performed the following: I have examined & evaluated the patient, The case was reviewed & discussed with the resident, I agree w/resident's findings & plan, Exceptions are as noted - Medical Decision Making 04/12/18 16:07 I, Dr. Sienna Benavides, DO, attest that this document has been prepared under my direction and personally reviewed by me in its entirety. I further attest, that it accurately reflects all work, treatment, procedures and medical decision -making performed by me. 04/12/18 16:51 a/p; 87yo male with onset of LEBRON and generalized weakness around 1p today -pt denies blurred vision, no new paresthesias, no new weakness -no focal deficits -paralysis to RUE that is chronic from a prior stroke, 4/5 weakness to RLE from prior cva -elevated INR on outpt labs yesterday to 5.4, held coumadin last night -Dr. Ramirez is cards -no trauma -no f/c -no recent infections -no cough, congestion, urinary freq/hesitancy, n/v/d -per aide - darker urine outpt than normal -will obtain head ct, labs, ua/ucx, ekg, cxr -will monitor and reassess -will most likely need obs 04/12/18 17:45 pt with UTI, will start abx will call pmd - dr. love will place in obs pending repeat eval and abx for uti 04/12/18 17:46 no acute findings on cxr, cardiomegaly 04/12/18 18:02 resident discussed case with doc covering Dr. Love who accepts pt to service 04/12/18 18:25 dr. love requests admission <Sienna Benavides - Last Filed: 04/12/18 18:25> Heart Score/ECG Review - ECG Intrepretation Comment:: 04/12/18 18:25 av paced at 70 <Sienna Benavides - Last Filed: 04/12/18 18:25>
[2018-04-12 16:41] LABS: BASO % 0.8 % (0-2.0); EOS % 6.1 % (0-4.5); HEMATOCRIT 32.9 % (35.4-49); HEMOGLOBIN 11.1 GM/dL (11.7-16.9); LYMPH % 16.7 % (8-40); MCH 28.2 pg (25.7-33.7); MCHC 33.8 g/dl (32.0-35.9); MEAN CELL VOLUME 83.4 fl (80-96); MEAN PLT VOLUME 9.2 fl (7.5-11.1); MONO % 9.6 % (3.8-10.2); NEUT % 66.8 % (42.8-82.8); PLATELET COUNT 129 K/MM3 (134-434); RBC 3.95 M/mm3 (4.00-5.60); RDW 15.1 % (11.9-15.9)
[2018-04-12 16:55] LABS: PROTHROMBIN TIME (PATIENT) 46.2 SEC (9.7-13.0)
[2018-04-12 16:57] LABS: INR 4.09 (0.83-1.09)
[2018-04-12 17:19] LABS: ALK PHOS 76 U/L (45-117); ANION GAP 9 MMOL/L (8-16); BILIRUBIN,TOTAL 0.5 mg/dL (0.2-1.0); BLOOD UREA NITROGEN 23 mg/dL (7-18); CHLORIDE 110 mmol/L (98-107); CO2 19 mmol/L (21-32); CREATININE 1.4 mg/dL (0.7-1.3); GLUCOSE,RANDOM 95 mg/dL (74-106); POTASSIUM 4.2 mmol/L (3.5-5.1); SGOT/AST 15 U/L (15-37); SGPT/ALT 13 U/L (12-78); SODIUM 138 mmol/L (136-145); TOT PROT 5.8 g/dl (6.4-8.2)
[2018-04-12 17:23] LABS: URINE APPEARANCE CLEAR; URINE BILIRUBIN NEGATIVE (<2.0 mg/dL); URINE COLOR LTYELLOW; URINE GLUCOSE (UA) NEGATIVE (NEGATIVE); URINE KETONE NEGATIVE (NEGATIVE); URINE NITRITE NEGATIVE (NEGATIVE); URINE PROTEIN NEGATIVE (NEGATIVE); URINE UROBILINOGEN NEGATIVE mg/dL (0.2-1.0)
[2018-04-12 17:24] LABS: URINE LEUK ESTERASE 2+ (NEGATIVE)
[2018-04-12 17:26] LABS: URINE MUCUS RARE
[2018-04-12] MEDS ORDERED: ACETAMINOPHEN 1000 MG/100 ML VIAL (NON FORMULARY) IVPB ONE (17:42)
[2018-04-12] MEDS ORDERED: SODIUM CHLORIDE 0.9% 1000 ML INFUS.BAG IV ONE (17:42)
[2018-04-12] MEDS ORDERED: METOCLOPRAMIDE HCL INJECTION 10 MG/2 ML VIAL IVPUSH ONE (17:42)
[2018-04-12] MEDS ORDERED: CEFTRIAXONE 1,000 MG in DEXTROSE 5%-WATER - 50 ML IVPB ONE (17:43)
[2018-04-12] MEDS ORDERED: ACETAMINOPHEN INJECTION 100 ML IVPB ONE (18:36)
[2018-04-12] MEDS ORDERED: METOCLOPRAMIDE HCL INJECTION 10 MG/2 ML VIAL ONE (18:36)
[2018-04-12] MEDS ORDERED: CEFTRIAXONE 1 GM/50 ML BAG ONE (18:37)
[2018-04-12] MEDS ORDERED: AZTREONAM 1 GM in DEXTROSE 5%-WATER - 50 ML IVPB ONE (19:12)
[2018-04-12 23:00] VITALS: BMI 25.2
--- NOTE | 2018-04-13 10:21 | HP ---
DATE OF ADMISSION: DATE OF DICTATION: 04/13/2018 HISTORY OF PRESENT ILLNESS: This is an 87-year-old male known to me for many years status post CVA with left hemiparesis, taken care of by family and home health aide at home. Yesterday when he was at PT he had a near syncopal episode and was transferred to emergency room. In the emergency room our workup was negative other than that patient may have a urinary infection and was started on IV antibiotics. Patient's INR also was borderline high, 4.09. So Coumadin was held and he was admitted to ICU since there was no bed on the Medical [facility]. This morning he is awake and talking to me. He says he is hungry. He wants to eat his breakfast. known to have atrial fibrillation, on Coumadin at home. He has a pacemaker inserted. Had a total colectomy done. SOCIAL HISTORY: Was a smoker in the past. No alcohol abuse. No drug abuse. PHYSICAL EXAMINATION: Vital Signs: This morning his blood pressure is 150/70, pulse 70, respirations 20, temperature 98. HEENT: Unremarkable. General: Awake. Neck: Supple. No JVD. Lungs: Clear. Heart: S1, S2 normal. No S3, S4. Abdomen: Soft. Extremities: Legs no edema. Neurological: Left hemiparesis present. CT scan of the head was done which is no acute changes. LABORATORY REPORTS: INR 4.09. Chemistry: Sodium 138, potassium 4.2, chloride 110, BUN 23, creatinine 1.4, calcium 8, albumin 3. Hematology: WBC 5, hemoglobin 11, hematocrit 32, platelet 129. Urine: Blood 1+, leukocyte esterase 2+. IMPRESSION: 1. Urinary tract infection. 2. Syncope. 3. Atrial fibrillation. 4. Cerebrovascular accident with left hemiparesis. PLAN: Transfer to regular floor. Cardiology consult by Dr. Ramirez. Will start Coumadin back after INR checking. Continue IV antibiotics. CORY PEDROZA M.D. [id number]
--- NOTE | 2018-04-13 15:49 | EKG ---
Test Reason : Blood Pressure : / mmHG Vent. Rate : 070 BPM Atrial Rate : 070 BPM P-R Int : 126 ms QRS Dur : 182 ms QT Int : 494 ms P-R-T Axes : 070 256 097 degrees QTc Int : 533 ms POOR DATA QUALITY, INTERPRETATION MAY BE ADVERSELY AFFECTED AV dual-paced rhythm Biventricular pacemaker detected ABNORMAL ECG WHEN COMPARED WITH ECG OF 03-JAN-2018 14:29, NO SIGNIFICANT CHANGE WAS FOUND Confirmed by Elke Medrano ([id number]) on 04/13/2018 3:49:36 PM Referred By: Confirmed By:Elke Medrano
--- NOTE | 2018-04-13 19:37 | CONS ---
DATE OF CONSULTATION: DATE OF DICTATION: 04/13/2018 CARDIOLOGY CONSULTATION REQUESTING PHYSICIAN: Douglas Love M.D. CHIEF COMPLAINT: 1. Occipital headaches. 2. Generalized weakness. 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 Patient was admitted with recurring occipital headaches and generalized lethargy and weakness. On the day of admission apparently had a near syncopal episode. There is no history of seizures. There is no history of chest pain or discomfort either at rest or with exertion, no history of dyspnea, paroxysmal nocturnal dyspnea, or orthopnea. Patient was diagnosed to have a urinary tract infection and is currently treated with antibiotics. PAST HISTORY: As mentioned in the history of present illness. SURGICAL HISTORY: 1. Status post total colectomy and ileostomy. 2. Status post green light laser for BPH. 3. History of surgery for arm fracture. SOCIAL HISTORY: He is presently. He is disabled due to a cerebrovascular accident. There is no history of smoking or ethanol use. No history of excessive use of caffeine or harpreet. FAMILY HISTORY: Not available. ALLERGIES: 1. ANCEF. 2. Intolerance to ZITHROMAX, CODEINE, and DUST. HOME MEDICATIONS: Were as follows. 1. Aspirin 81 mg p.o. daily. 2. Atorvastatin 25 mg p.o. daily. 3. Vitamin D3 5000 international units p.o. daily. 4. Cholestyramine 1 packet b.i.d. 5. Prozac 10 mg p.o. daily. 6. 1 g p.o. daily. 7. Metoprolol succinate 25 mg p.o. daily. 8. Flomax 0.4 mg p.o. daily. 9. Warfarin dose being adjusted according to INR, recently had elevated INR. REVIEW OF SYSTEMS: Constitutional: No history of chills, fever, or night sweats reported. No history of unintentional weight loss. Cardiovascular: See history of present illness. Respiratory: No history of cough, expectoration or hemoptysis. Gastrointestinal: See history of present illness. No history of nausea, vomiting, melena or hematemesis. No history of loss of appetite. No history of abdominal pain or discomfort. Neurological: History of right hemiplegia. No history of seizures or syncope. Genitourinary: No history of dysuria, frequency, or hematuria report. Endocrine: No history of polyuria, polydipsia. No history of intolerance to cold or warm weather. Hematological: History of anemia, bleeding, or ecchymosis. PHYSICAL EXAMINATION: General: An 87-year-old alert gentleman with no acute distress, no pallor, cyanosis, clubbing, or jaundice. Vital signs: Blood pressure 121/51 mmHg, pulse 74 beats per minute and regular, temperature 97.9 degrees Fahrenheit, respirations 18 per minute. Weight 156.3 pounds. Neck: Supple. No jugulovenous distention. Carotids were equal and upstrokes were normal, no bruits were heard, and no thyromegaly was present. Heart: No heaves or thrills. S1 and S2 were normal. Grade 1/6 decrescendo systolic murmur was heard at the apex. No diastolic murmur or gallops were heard. Lungs: Clear on auscultation. Chest: Normal AP diameter. Expansion was symmetrical. Abdomen: Soft. Nontender. No hepatosplenomegaly or palpable masses were felt. There was a functioning ileostomy. Extremities: No calf tenderness or dependent edema, pulses were equal, dorsalis pedis and posterior tibial pulses were weak. LABORATORY DATA: CBC: WBC count 5000, hemoglobin 11.1 g/dL, platelets 129,000. Differential revealed elevated eosinophils of 6.1%. Sodium 138, potassium 4.2, chloride 110, CO2 of 90 mmol/L, BUN 23, creatinine 1.4 mg/dL, calcium 8.0 mg/dL. Normal liver function tests. CK was 54, troponin was 0.03. X-ray chest, impression: 1. No significant interval change from January 03, 2018. 2. Moderate cardiomegaly without evidence of acute lung disease. CT of the head, impression: 1. No CT evidence of acute intracranial pathology. 2. There has been no definite interval change in comparison to prior CT scan of January 03, 2018. 3. Chronic left cerebral infarct. 4. Moderate periventricular and subcortical chronic microvascular ischemic changes. ECG: Sinus rhythm, AV sequential pacemaker was seen functioning appropriately. Baseline artifacts were recorded. Urinalysis revealed 1+ blood, 2+ urine, leukocyte esterase. 35 WBCs. 1 RBC. Rare mucus. IMPRESSION: 1. Occipital headaches, etiology to be determined. 2. History of urinary tract infection. 3. Coronary artery disease, status post anterior wall myocardial infarction, status post percutaneous coronary intervention/stenting. 4. Severe left ventricular systolic dysfunction. 5. Status post implantable cardioverter/defibrillator and cardiac resynchronization therapy. 6. Hypertension, hypertensive cardiovascular disease, currently normotensive. 7. Hyperlipidemia. 8. Status post cerebrovascular accident with right hemiplegia. 9. History of depression and anxiety disorder. 10. Status post ileostomy. 11. Hypercholesterolemia. 12. History of paroxysmal atrial fibrillation, currently in sinus rhythm. 13. Chronic kidney disease. 14. Anemia, most likely related to chronic kidney disease. RECOMMENDATION: 1. Resume all home medications. 2. Request family to bring all his medications for reconciliation. 3. Increase ambulation. 4. Close followup of INR patient is on antibiotics. 5. Pacemaker interrogation according to protocol. 6. . Thank you for your referral. Yours sincerely, IDALIA DAWN M.D. [id number]
[2018-04-13] MEDS ORDERED: ATORVASTATIN CA 20 MG TABLET (FP) PO SCH (22:00)
[2018-04-13] MEDS: CHOLESTYRAMINE/SUCROSE 4 GM PACKET PO SCH (22:49)
[2018-04-14] MEDS ORDERED: TAMSULOSIN HCL 0.4 MG CAP.ER.24H (FP) PO SCH (08:30)
--- NOTE | 2018-04-14 08:41 | PN ---
Progress Note, Physician Chief Complaint: Feels better History of Present Illness: Dr Arango cardiology consult appreciated - Current Medication List Current Medications: Active Medications Aspirin (Asa -) 81 mg PO DAILY [facility] Atorvastatin Calcium (Lipitor -) 20 mg PO HS [facility] Last Admin: 04/13/18 22:49 Dose: 20 mg Cholecalciferol (Vitamin D3 -) 5,000 unit PO DAILY [facility] Cholestyramine Resin (Questran Packet -) 4 gm PO BID [facility] Last Admin: 04/13/18 22:49 Dose: 4 gm Fluoxetine HCl (Prozac -) 10 mg PO DAILY [facility] Non-Formulary Med ( (Methenamine 1g)) 1 each PO DAILY [facility] Tamsulosin HCl (Flomax -) 0.4 mg PO DAILY@0830 [facility] - Objective Vital Signs: Vital Signs Temperature 97.7 F 04/14/18 07:57 Pulse Rate 76 04/14/18 07:57 Respiratory Rate 20 04/14/18 07:57 Blood Pressure 144/82 04/14/18 07:57 O2 Sat by Pulse Oximetry (%) 96 04/13/18 21:00 Constitutional: Yes: No Distress Eyes: Yes: WNL HENT: Yes: WNL Neck: Yes: WNL Cardiovascular: Yes: WNL Respiratory: Yes: Regular Gastrointestinal: Yes: Normal Bowel Sounds ...Rectal Exam: Yes: Deferred Genitourinary: Yes: WNL Neurological: Yes: Alert, Pre-Existing Deficit Labs: CBC, BMP 04/12/18 14:45 04/12/18 14:45 INR, PTT INR 4.09 (0.83-1.09) H* 04/12/18 14:45
[2018-04-14 09:11] VITALS: BP 145/78; PULSE 70; TEMP 97.4
[2018-04-14] MEDS ORDERED: METHENAMINE 1 GM PO SCH (10:00)
[2018-04-14] MEDS ORDERED: FLUoxetine HCL 10 MG CAPSULE (FP) PO SCH (10:00)
[2018-04-14] MEDS ORDERED: CHOLECALCIFEROL (VITAMIN D3) 1,000 UNIT TABLET (FP) PO SCH (10:00)
[2018-04-14] MEDS ORDERED: ASPIRIN 81 MG CHEWABLE TABLETS PO SCH (10:00)
[2018-04-14] MEDS ORDERED: PT OWN MED DRAWER 7, Y5N ONE (10:11)
[2018-04-14] MEDS: CHOLESTYRAMINE/SUCROSE 4 GM PACKET PO SCH (10:15)
== END 2018-04-14 11:21 | disposition home or self-care (01) | DRG 690 ==
LOC: JER 14:57 → JERBED 17:44 → J2W 22:12 → J5S 04-13 13:54
PROVIDERS: ADMIT Internal Medicine; ATTEND Internal Medicine
DX: N39.0 Urinary tract infection, site not specified (principal); I69.351 Hemiplegia and hemiparesis following cerebral infarction affecting right dominant side; R51 Headache; I25.10 Atherosclerotic heart disease of native coronary artery without angina pectoris; I25.2 Old myocardial infarction; Z95.0 Presence of cardiac pacemaker; Z85.828 Personal history of other malignant neoplasm of skin; E78.5 Hyperlipidemia, unspecified; F41.9 Anxiety disorder, unspecified; F32.9 Major depressive disorder, single episode, unspecified; I50.9 Heart failure, unspecified; H54.61 Unqualified visual loss, right eye, normal vision left eye; Z87.891 Personal history of nicotine dependence; Z90.49 Acquired absence of other specified parts of digestive tract
CPT/HCPCS: 36415; 70450-TC; 71045-TC-FY; 80053; 81003; 81015; 82550; 84484; 85025; 85610; 87086; 93005; 93010; 99282-25; 99285-25; J0131; J7030

== ENCOUNTER 2019-04-05 13:17 | Inpatient (IN) | payer OTHER, BC, MEDICARE ==
--- NOTE | 2019-04-05 13:31 | PDOC ---
History of Present Illness <Annamaria Jaramillo - Last Filed: 04/05/19 16:28> - General History Source: Patient, Family (Patient's son) - History of Present Illness Initial Comments: 04/05/19 Mr. Wheeler is an 88 y/o man with hx afib (on coumadin), recurrent UTIs, chronic indwelling franklin catheter presenting with one day of bright red hematuria in the franklin bag. He is accompanied by his son who assisted with the history. The franklin was most recently changed on Tuesday, and has been draining without difficulty or change in color until his home health aid discovered the hematuria this morning. He was seen yesterday at his PCP office ( Dr. Love) and his urine was its normal appearance at that time. He denies any pressure or pain at the franklin site or in his pelvis. He denies any symptoms at this time, and reports that he "feels completely normal". He denies any dizziness, confusion, fatigue, vertigo, weakness, paresthesias. 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 PCP - Dr. Love Urology - Dr. Escobar Cardiology - Dr. 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) Cardiac Disorders: Yes (CAD, MS w/ stents) CVA: No COPD: No CHF: Yes Dementia: No Diabetes: No GI Disorders: Yes (ulcerative colitis with total colectomy and ileostomy) Disorders: Yes (kidney stones) HTN: Yes Hypercholesterolemia: Yes Liver Disease: No Psychiatric Problems: Yes (ANXIETY/DEPRESSION.) Seizures: No Thyroid Disease: No - Surgical History Abdominal Surgery: Yes Appendectomy: No Cardiac Surgery: Yes (pacemaker/defibrillator 2008) Cholecystectomy: No GI Surgery: Yes (total colectomy.) Lung Surgery: No Neurologic Surgery: No Orthopedic Surgery: Yes (PINS IN FRACTURED ARM AND WRIST) - Immunization History Immunization Up to Date: Yes - Suicide/Smoking/Psychosocial Hx Smoking Status: Yes Smoking History: Never smoked Have you smoked in the past 12 months: No Number of Cigarettes Smoked Daily: 0 If you are a former smoker, when did you quit?: 1960 Hx Alcohol Use: No Drug/Substance Use Hx: No Substance Use Type: None Hx Substance Use Treatment: No <Eitan Maddox - Last Filed: 04/05/19 23:35> - Past Medical History Allergies/Adverse Reactions: Allergies Allergy/AdvReac Type Severity Reaction Status Date / Time cefazolin [From Ancef] Allergy Verified 04/05/19 20:11 cephalexin [From Keflex] Allergy Verified 04/05/19 20:11 azithromycin [From Zithromax] AdvReac Mild Vomiting Verified 04/05/19 20:11 codeine [Codeine] AdvReac Mild Verified 04/05/19 20:11 dust Allergy Severe Itching Uncoded 04/05/19 20:11 Home Medications: Ambulatory Orders Aspirin [Aspirin EC] 81 mg PO DAILY 04/12/18 Cholecalciferol (Vitamin D3) [Vitamin D3] 5,000 unit PO DAILY 04/12/18 Methenamine Hippurate [Hiprex [Nf] -] 1 gm PO DAILY 04/12/18 Metoprolol Succinate [Toprol Xl] 25 mg PO AM 04/12/18 Warfarin Na [Coumadin -] 3 mg PO DAILY 04/12/18 Atorvastatin Ca [Lipitor] 20 mg PO HS tablet 04/14/18 Cholestyramine/Sucrose [Questran Packet -] 4 gm PO BID packet 04/14/18 Tamsulosin HCl [Flomax -] 0.4 mg PO DAILY@0830 cap.er.24h 04/14/18 Escitalopram Oxalate [Lexapro -] 5 mg PO DAILY 04/05/19 Review of Systems - Review of Systems Able to Perform ROS?: Yes Comments:: 04/05/19 ROS: GENERAL/CONSTITUTIONAL: No fever or chills. No weakness. HEAD, EYES, EARS, NOSE AND THROAT: No change in vision. No ear pain or discharge. No sore throat. CARDIOVASCULAR: No chest pain or shortness of breath RESPIRATORY: No cough, wheezing, or hemoptysis. GASTROINTESTINAL: No nausea, vomiting, diarrhea or constipation. GENITOURINARY: Hematuria. No dysuria, frequency, or change in urination. MUSCULOSKELETAL: No joint or muscle swelling or pain. No neck or back pain. SKIN: No rash NEUROLOGIC: No headache, vertigo, loss of consciousness, or change in strength/ sensation. ENDOCRINE: No increased thirst. No abnormal weight change HEMATOLOGIC/LYMPHATIC: No anemia, easy bleeding, or history of blood clots. ALLERGIC/IMMUNOLOGIC: No hives or skin allergy. <Eitan Maddox - Last Filed: 04/05/19 23:35> *Physical Exam - Vital Signs Last Vital Signs Temp Pulse Resp BP Pulse Ox 97.9 F 50 L 18 109/56 L 100 04/05/19 13:24 04/05/19 13:24 04/05/19 13:24 04/05/19 13:24 04/05/19 13:24 <Annamaria Jaramillo - Last Filed: 04/05/19 16:28> - Vital Signs Last Vital Signs Temp Pulse Resp BP Pulse Ox 97.9 F 50 L 18 109/56 L 100 04/05/19 13:24 04/05/19 13:24 04/05/19 13:24 04/05/19 13:24 04/05/19 13:24 - Physical Exam Comments: 04/05/19 PE: GENERAL: Awake, alert, and fully oriented, in no acute distress HEAD: No signs of trauma, normocephalic, atraumatic EYES: PERRLA, EOMI, sclera anicteric, conjunctiva clear ENT: Auricles normal inspection, hearing grossly normal, nares patent, oropharynx clear without exudates. Moist mucosa NECK: Normal ROM, supple, no lymphadenopathy, JVD, or masses LUNGS: No distress, speaks full sentences, clear to auscultation bilaterally HEART: Regular rate and rhythm, normal S1 and S2, no murmurs, rubs or gallops, peripheral pulses normal and equal bilaterally. ABDOMEN: Soft, nontender, normoactive bowel sounds. No guarding, no rebound. No masses : Indwelling franklin. Approx 700cc gross blood in franklin bag. No tenderness over bladder. Franklin draining appropriately. EXTREMITIES : Normal inspection, Normal range of motion, no edema. No clubbing or cyanosis. NEUROLOGICAL: Normal speech. Hard of hearing. R sided paralysis. R eye blindness /prosthetic eye. Fully alert and oriented. SKIN: Warm, Dry, normal turgor, no rashes or lesions noted <VarshaEitan - Last Filed: 04/05/19 23:35> ED Treatment Course - LABORATORY CBC & Chemistry Diagram: 04/05/19 15:28 04/05/19 15:28 - ADDITIONAL ORDERS Additional order review: Laboratory Results 04/05/19 04/05/19 04/05/19 15:28 15:28 14:27 PT with INR 39.80 H INR 3.33 H Sodium 139 Potassium 3.9 Chloride 114 H Carbon Dioxide 16 L Anion Gap 9 BUN 20.6 H Creatinine 1.5 H Est GFR (CKD-EPI)AfAm 47.83 Est GFR (CKD-EPI)NonAf 41.27 Random Glucose 92 Calcium 7.6 L Total Bilirubin 0.4 AST 38 H ALT 38 Alkaline Phosphatase 297 H Total Protein 5.2 L Albumin 2.8 L Urine Color Red Urine Appearance Bloody Urine pH No Result Required. Ur Specific Boron No Result Required. Urine Protein No Result Required. Urine Glucose (UA) No Result Required. Urine Ketones No Result Required. Urine Blood No Result Required. Urine Nitrite No Result Required. Urine Bilirubin No Result Required. Urine Urobilinogen No Result Required. Ur Leukocyte Esterase No Result Required. Urine WBC (Auto) 2-5 Urine RBC (Auto) >100 U Epithel Cells (Auto) Occ Urine Bacteria (Auto) 1 Urine Yeast (Auto) Yeast=1+ <Annamaria Jaramillo - Last Filed: 04/05/19 16:28> - LABORATORY CBC & Chemistry Diagram: 04/05/19 15:28 04/05/19 15:28 <Eitan Maddox - Last Filed: 04/05/19 23:35> Medical Decision Making - Medical Decision Making 88 y/o M with hx afib on coumadin, recurrent UTI, indwelling franklin p/w acute bright red hematuria in franklin bag, asymptomatic at this time. Differential includes acute UTI, bladder CA, or bleeding secondary to coumadin/elevated INR. Plan: - CBC - CMP - PT/INR, PTT - Type and Screen - UA - Urine culture - EKG - CXR 04/05/19 18:[address] Campbell (covering Dr. Escobar, urology). Plan to hold coumadin given bleeding, initiate heparin drip in preparation for inpatient cystoscopy. Heparin drip ordered. Dr. Love paged again, plan for admission once discussed with Dr. Love. 04/05/19 18:[address] Love, plan for admission to his service. He will consult with urology. Plan to hold heparin at this time. <Eitan Maddox - Last Filed: 04/05/19 23:35> *DC/Admit/Observation/Transfer <Annamaria Jaramillo - Last Filed: 04/05/19 16:28> - Discharge Dispostion Decision to Admit order: Yes <Eitan Maddox - Last Filed: 04/05/19 23:35> Diagnosis at time of Disposition: Hematuria Qualifiers: Hematuria type: gross Qualified Code(s): R31.0 - Gross hematuria - Discharge Dispostion Condition at time of disposition: Stable
--- NOTE | 2019-04-05 14:49 | PDOC ---
Attending Attestation - Resident Resident Name: Eitan Maddox - ED Attending Attestation I have performed the following: I have examined & evaluated the patient, The case was reviewed & discussed with the resident, I agree w/resident's findings & plan, Exceptions are as noted - HPI HPI: 88 yo M history HTN, recurrent UTIs, paroxysmal afib, ulcerative colitis s/p colostomy, urethral stricture presents with painless hematuria. He is currently on abx for a UTI, started as an outpatient a few days ago. Denies abd pain, N/V/ D, fever. - Physicial Exam PE: GENERAL: Awake, alert, and fully oriented, in no acute distress HEAD: No signs of trauma EYES: L eye reactive with EOMI. R eye prosthetic. ENT: Auricles normal inspection, nares patent, oropharynx clear without exudates. Moist mucosa. Hard of hearing. NECK: Normal ROM, supple, no lymphadenopathy, JVD, or masses LUNGS: Breath sounds equal, clear to auscultation bilaterally. No wheezes, and no crackles HEART: Regular rate and rhythm, normal S1 and S2, no murmurs, rubs or gallops ABDOMEN: Soft, nontender, normoactive bowel sounds. No guarding, no rebound. No masses EXTREMITIES: Normal range of motion, no edema. No clubbing or cyanosis. No cords, erythema, or tenderness NEUROLOGICAL: +R sided paralysis. Normal phonation. SKIN: Warm, dry, normal turgor, no rashes or lesions noted. - Medical Decision Making Pt presents with painless hematuria. History of afib on coumadin. Will check UA , as this may be result of UTI. Will check labs for H&H, INR. If supratherapeutic will give vitamin K to help stop the bleeding. Will d/w urologist.
[2019-04-05 15:05] LABS: URINE APPEARANCE BLOODY; URINE COLOR RED
[2019-04-05 15:06] LABS: EPI CELLS OCC /HPF (0-5/HPF); URINE BACTERIA 1 /hpf (NEGATIVE); URINE RBC >100 /hpf (0-4); YEAST YEAST=1+ (NEGATIVE)
[2019-04-05 15:48] LABS: BASO % 0.7 % (0-2.0); EOS % 4.8 % (0-4.5); HEMATOCRIT 25.8 % (35.4-49); HEMOGLOBIN 8.3 GM/dL (11.7-16.9); LYMPH % 10.8 % (8-40); MCHC 32.1 g/dl (32.0-35.9); MEAN CELL VOLUME 87.1 fl (80-96); MEAN PLT VOLUME 8.8 fl (7.5-11.1); MONO % 9.9 % (3.8-10.2); NEUT % 73.8 % (42.8-82.8); PLATELET COUNT 144 K/MM3 (134-434); RBC 2.96 M/mm3 (4.00-5.60); RDW 16.8 % (11.9-15.9); WHITE BLOOD COUNT 4.9 K/mm3 (4.0-10.0)
[2019-04-05 16:12] LABS: ALBUMIN 2.8 g/dl (3.4-5.0); BILIRUBIN,TOTAL 0.4 mg/dL (0.2-1); BLOOD UREA NITROGEN 20.6 mg/dL (7-18); CALCIUM 7.6 mg/dL (8.5-10.1); CREATININE 1.5 mg/dL (0.55-1.3); POTASSIUM 3.9 mmol/L (3.5-5.1); TOT PROT 5.2 g/dl (6.4-8.2)
[2019-04-05 16:16] LABS: INR 3.33 (0.83-1.09); PROTHROMBIN TIME (PATIENT) 39.8 SEC (9.7-13.0)
[2019-04-05] MEDS ORDERED: HEPARIN NA (PORCINE) 5,000 UNITS/ML 1ML VIAL IVPUSH PRN ×2 (18:11)
[2019-04-05] MEDS ORDERED: HEPARIN - 25,000 UNIT in SODIUM CHLORIDE 495 ML IV SCH (18:15)
[2019-04-05] MEDS ORDERED: HEPARIN INFUSION - 25,000 UNITS/500 ML INFUS.BAG IVPB ONE (18:34)
[2019-04-05] MEDS ORDERED: HEPARIN NA (PORCINE) 5,000 UNITS/ML 1ML VIAL ONE (18:34)
[2019-04-06] MEDS: TAMSULOSIN HCL 0.4 MG CAP PO SCH (08:53)
[2019-04-06] MEDS ORDERED: PT OWN MED DRAWER 7, Y5N ONE (09:17)
--- NOTE | 2019-04-06 09:21 | CONSULT ---
Consult Consult Specialty:: UROLOGY Reason for Consultation:: Gross hematuria - History of Present Illness History of Present Illness: 88 Y/O Male patient with history of CVA, AF, Rt prosthesis eye, UC total colectomy and Rt side ileostomy. single kidney, BPH on indwelling franklin catheter developed gross hematuria, no incontinence no pain. O/E franklin catheter draining pinkish urine, no palpable bladder, Rt side ileostomy bag. WBC 4. BUN 20.6 S.CREAT 1.5 BGH 8.3 - Past Medical History [employer]: Yes: CVA (left internal capsule and putamen) Cardio/Vascular: Yes: AFIB, CAD, CHF, HTN, AR (09/01), Other (Defibrillator/PPM) Pulmonary: Yes: Other (right lung nodule) Gastrointestinal: Yes: GERD, Inflamatory Bowel Disease (ulcerative colitis leading to total colectomy and Happy's ileostomy) Renal/: Yes: BPH, Cancer (right renal cancer excision), Renal Calculi, Other ( urethral stricture dilations) Musculoskeletal: Yes: Osteoarthritis, Other (lumbar spinal stenosis) - Past Surgical History Past Surgical History: Yes: Colectomy (ulcerative colitis leading to total colectomy and Happy's ileostomy), Nephrectomy (Right ), Permanent Pacemaker, Stent, TURP (green light turp 01/03 with urethral dilation), Upper Endoscopy - Alcohol/Substance Use Hx Alcohol Use: No - Smoking History Smoking history: Never smoked Have you smoked in the past 12 months: No Aproximately how many cigarettes per day: 0 If you are a former smoker, when did you quit?: 1959 - Social History Usual Living Arrangement: With Spouse ADL: Independent 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 History of Recent Travel: No Home Medications - Allergies Allergies/Adverse Reactions: Allergies Allergy/AdvReac Type Severity Reaction Status Date / Time cefazolin [From Ancef] Allergy Verified 04/05/19 20:11 cephalexin [From Keflex] Allergy Verified 04/05/19 20:11 azithromycin [From Zithromax] AdvReac Mild Vomiting Verified 04/05/19 20:11 codeine [Codeine] AdvReac Mild Verified 04/05/19 20:11 dust Allergy Severe Itching Uncoded 04/05/19 20:11 - Home Medications Home Medications: Ambulatory Orders Aspirin [Aspirin EC] 81 mg PO DAILY 04/12/18 Cholecalciferol (Vitamin D3) [Vitamin D3] 5,000 unit PO DAILY 04/12/18 Methenamine Hippurate [Hiprex [Nf] -] 1 gm PO DAILY 04/12/18 Metoprolol Succinate [Toprol Xl] 25 mg PO AM 04/12/18 Warfarin Na [Coumadin -] 3 mg PO DAILY 04/12/18 Atorvastatin Ca [Lipitor] 20 mg PO HS tablet 04/14/18 Cholestyramine/Sucrose [Questran Packet -] 4 gm PO BID packet 04/14/18 Tamsulosin HCl [Flomax -] 0.4 mg PO DAILY@0830 cap.er.24h 04/14/18 Escitalopram Oxalate [Lexapro -] 5 mg PO DAILY 04/05/19 Family Disease History - Family Disease History Family Disease History: Heart Disease: Father ( AR 70), Mother (colon cancer 86), CA: Mother, Brother (pancreatic cancer, cerebral aneurysm), Other: Brother Physical Exam Vital Signs: Vital Signs Temperature 98.4 F 04/06/19 07:56 Pulse Rate 75 04/06/19 07:56 Respiratory Rate 20 04/06/19 07:56 Blood Pressure 135/67 04/06/19 07:56 O2 Sat by Pulse Oximetry (%) 95 04/05/19 21:00 Labs: CBC, BMP 04/05/19 15:28 04/05/19 15:28 Assessment/Plan Gross hematuria BPH single kidney- other side nephrectomy-CA Plan: Renal and Pelvic US Keep franklin with increase fluid intake Once his medical conditions allows we will do Cystoscopy
[2019-04-06] MEDS: metoPROLOL SUCCINATE 25 MG TAB.SR.24H (FP) PO SCH (09:23)
[2019-04-06] MEDS: ESCITALOPRAM OXALATE 10 MG TABLET (FP) PO SCH (09:24)
[2019-04-06] MEDS: CHOLESTYRAMINE/ASPARTAME 4 GM PACKET PO SCH ×2 (09:25→22:14)
--- NOTE | 2019-04-06 10:53 | HP ---
DATE OF ADMISSION: 04/05/2019 HISTORY OF PRESENT ILLNESS: This is an 88-year-old male status post CVA, right hemiparesis, home-bound, taken care of by his family and home health aide. He had his kidney removed for CA 15 years ago, CVA with right hemiparesis. He had hematuria before last week, then, Pandya was inserted. I saw him in the office after that. Pandya urine was clear. He was sent home. He is on Coumadin and aspirin. Yesterday, he came to the ER with complaints of hematuria. So, he got admitted. His INR was 3.33. Today, he is feeling okay, no pain, alert, oriented, and talking. PHYSICAL EXAMINATION: Vital signs: BP 135/70, pulse 75, respirations 20, temperature 98.4. HEENT: Unremarkable. Neck: Supple. No JVD. Lungs: Clear. Heart: S1, S2 normal. No S3, S4. Abdomen: Soft, has Pandya catheter which has blood in the urine. Neurologic: Right hemiparesis. LABORATORY REPORTS: Sodium 139, potassium 3.9, chloride 114, BUN 20.6, creatinine 1.5. WBC 4.9, hemoglobin 8.3, hematocrit 25.8. INR 3.33. Chest x-ray clear lungs. IMPRESSION: Final diagnosis hematuria status post cerebrovascular accident. PLAN: consult, Dr. Molina, cardiology consult, Dr. Ramirez. Hold his Coumadin and aspirin. Continue other medications. Will give him regular diet. If hemoglobin is low, may transfuse. Rinku [id number]
--- NOTE | 2019-04-06 11:42 | EKG ---
Test Reason : Blood Pressure : / mmHG Vent. Rate : 073 BPM Atrial Rate : 070 BPM P-R Int : 126 ms QRS Dur : 170 ms QT Int : 510 ms P-R-T Axes : -43 256 082 degrees QTc Int : 561 ms Biventricular pacemaker detected ABNORMAL ECG WHEN COMPARED WITH ECG OF 12-APR-2018 18:16, PREMATURE VENTRICULAR COMPLEXES ARE NOW PRESENT VENT. RATE HAS INCREASED BY 3 BPM Confirmed by AAKASH DOVE, CRISELDA ([id number]) on 04/06/2019 11:41:42 AM Referred By: Confirmed By:CRISELDA FINN MD
[2019-04-06 12:48] LABS: HEMATOCRIT 25.1 % (35.4-49); HEMOGLOBIN 8.1 GM/dL (11.7-16.9); MCHC 32.5 g/dl (32.0-35.9); MEAN CELL VOLUME 86.3 fl (80-96); MEAN PLT VOLUME 9.3 fl (7.5-11.1); PLATELET COUNT 147 K/MM3 (134-434)
--- NOTE | 2019-04-06 15:47 | CON.CARD ---
Consult Consult Specialty:: Cardiology Referred by:: Dr. Douglas Love - History of Present Illness History of Present Illness: CHIEF COMPLAINT: 1. Hematuria. 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 Patient was admitted with gross and painless hematuria apparently had the franklin catheter changed recently. No history of chest pain or discomfort either at rest or with exertion, no exertional dyspnea, paroxysmal nocturnal dyspnea or orthopnea. No history of palpitations, lightheadedness, dizziness and presyncope or syncope. No cough or expectoration and no side effects to medicines were reported. Coumadin and Aspirin has been discontinued. PAST HISTORY: As mentioned in the history of present illness. History of urethral stricture. History of carcinoma of the right kidney. SURGICAL HISTORY: 1. Status post total colectomy and ileostomy. 2. Status post green light laser for BPH. 3. History of surgery for arm fracture. 4. History of urethral dilation. 5. Status post right nephrectomy. SOCIAL HISTORY: He is disabled. There is no history of smoking and has a rare drink. No history of excessive use of caffeine or harpreet. FAMILY HISTORY: Not available. ALLERGIES: 1. ANCEF. 2. Intolerance to ZITHROMAX, 3. CODEINE 4. Intolerance to DUST. 5. Cephalexin. Active In Hospital Medications: Cholestyramine Resin (Questran Light Packet -) 4 gm PO BID [facility] Last Admin: 04/06/19 09:25 Dose: 4 gm Escitalopram Oxalate (Lexapro -) 5 mg PO DAILY [facility] Last Admin: 04/06/19 09:24 Dose: 5 mg Metoprolol Succinate (Toprol Xl -) 25 mg PO DAILY [facility] Last Admin: 04/06/19 09:23 Dose: 25 mg Tamsulosin HCl (Flomax -) 0.4 mg PO DAILY@0830 [facility] Last Admin: 04/06/19 08:53 Dose: 0.4 mg REVIEW OF SYSTEMS: Constitutional: No history of chills, fever, or night sweats reported. No history of unintentional weight loss. Cardiovascular: See history of present illness. Respiratory: No history of cough, expectoration or hemoptysis. Gastrointestinal: See history of present illness. No history of nausea, vomiting, melena or hematemesis. No history of loss of appetite. No history of abdominal pain or discomfort. Neurological: History of right hemiplegia. No history of seizures or syncope. Genitourinary: See history of present illness. Endocrine: No history of polyuria, polydipsia. No history of intolerance to cold or warm weather. Hematological: History of anemia, bleeding, or ecchymosis. PHYSICAL EXAMINATION: General: 88-year-old alert gentleman with no acute distress, no pallor, cyanosis, clubbing, or jaundice. Last Vital Signs Temp Pulse Resp BP Pulse Ox 98.4 F 75 20 135/67 95 04/06/19 07:56 04/06/19 07:56 04/06/19 07:56 04/06/19 07:56 04/05/19 21:00 Neck: Supple. No jugulovenous distention. Carotids were equal and upstrokes were normal, no bruits were heard, and no thyromegaly was present. Heart: No heaves or thrills. S1 and S2 were normal. Grade 1/6 decrescendo systolic murmur was heard at the apex. No diastolic murmur or gallops were heard. Lungs: Clear on auscultation. Chest: Normal AP diameter. Expansion was symmetrical. Abdomen: Soft. Nontender. No hepatosplenomegaly or palpable masses were felt. There was a functioning ileostomy. Extremities: No calf tenderness or dependent edema, pulses were equal, dorsalis pedis and posterior tibial pulses were weak. Laboratory Results - last 24 hr 04/05/19 04/05/19 04/05/19 15:28 15:28 15:28 WBC 4.9 RBC 2.96 L Hgb 8.3 L Hct 25.8 L D MCV 87.1 MCH 28.0 MCHC 32.1 RDW 16.8 H Plt Count 144 MPV 8.8 Absolute Neuts (auto) 3.6 Neutrophils % 73.8 Lymphocytes % 10.8 D Monocytes % 9.9 Eosinophils % 4.8 H Basophils % 0.7 Nucleated RBC % 0 PT with INR 39.80 H INR 3.33 H Sodium 139 Potassium 3.9 Chloride 114 H Carbon Dioxide 16 L Anion Gap 9 BUN 20.6 H Creatinine 1.5 H Est GFR (CKD-EPI)AfAm 47.83 Est GFR (CKD-EPI)NonAf 41.27 Random Glucose 92 Calcium 7.6 L Total Bilirubin 0.4 AST 38 H ALT 38 Alkaline Phosphatase 297 H Total Protein 5.2 L Albumin 2.8 L Blood Type Antibody Screen Antibody Identification Antigen Identification 04/05/19 04/06/19 15:28 11:35 WBC 4.0 RBC 2.90 L Hgb 8.1 L Hct 25.1 L MCV 86.3 MCH 28.0 MCHC 32.5 RDW 17.0 H Plt Count 147 MPV 9.3 Absolute Neuts (auto) Neutrophils % Lymphocytes % Monocytes % Eosinophils % Basophils % Nucleated RBC % PT with INR INR Sodium Potassium Chloride Carbon Dioxide Anion Gap BUN Creatinine Est GFR (CKD-EPI)AfAm Est GFR (CKD-EPI)NonAf Random Glucose Calcium Total Bilirubin AST ALT Alkaline Phosphatase Total Protein Albumin Blood Type A POSITIVE Antibody Screen Positive Antibody Identification Fya Antigen Identification No Result Required. X-ray chest Dated: 04/05/19 2 views of the chest reveal a weak inspiration with clear lungs, large heart, aorta and multi lead pacemaker. An acute chest process is not seen. The angles are sharp. The bones and soft tissues are intact. Since 04/12/2018, there is no change of an adverse nature. Correlation recommended. ECG: Dated 04/05/19 Atrial rhythm was uncertain, AV sequential pacemaker sensing and pacing appropriately, rare single ventricular ectopic beats. Baseline artifacts were recorded. IMPRESSION: 1. Gross, painless hematuria etiology: a). Possibly related to trauma induced by franklin catheter. b). UTI needs exclusion. c). Secondary to and/or aggravated by anticoagulation. 2. Coronary artery disease, status post anterior wall myocardial infarction, status post percutaneous coronary intervention/stenting. 3. Severe left ventricular systolic dysfunction. 4. Status post implantable cardioverter/defibrillator and cardiac resynchronization therapy. 5. Anemia, most likely partly related to hematuria and chronic kidney disease. 6. Hypertension, hypertensive cardiovascular disease, currently normotensive. 7. Hyperlipidemia. 8. Status post cerebrovascular accident with right hemiplegia. 9. History of depression and anxiety disorder. 10. Status post ileostomy. 11. Hypercholesterolemia. 12. History of paroxysmal atrial fibrillation, currently in sinus rhythm. RECOMMENDATION: 1. Urological workup in progress. 2. Patient is at a high risk for cardiopulmonary event because of multiple comorbid conditions and will require close cardiopulmonary monitoring in case he requires a surgical procedure. 3. Continue cardiac medications as outlined. Thank you for your referral. Yours sincerely, IDALIA DAWN M.D. - Past Medical History COMB WINDER: Yes: CVA (left internal capsule and putamen) Cardio/Vascular: Yes: AFIB, CAD, CHF, HTN, [place] (09/01), Other (Defibrillator/PPM) Pulmonary: Yes: Other (right lung nodule) Gastrointestinal: Yes: GERD, Inflamatory Bowel Disease (ulcerative colitis leading to total colectomy and [place]'s ileostomy) Renal/: Yes: BPH, Cancer (right renal cancer excision), Renal Calculi, Other ( urethral stricture dilations) Musculoskeletal: Yes: Osteoarthritis, Other (lumbar spinal stenosis) - Past Surgical History Past Surgical History: Yes: Colectomy (ulcerative colitis leading to total colectomy and [place]'s ileostomy), Nephrectomy (Right ), Permanent Pacemaker, Stent, TURP (green light turp 01/03 with urethral dilation), Upper Endoscopy - Alcohol/Substance Use Hx Alcohol Use: No - Smoking History Smoking history: Never smoked Have you smoked in the past 12 months: No Aproximately how many cigarettes per day: 0 If you are a former smoker, when did you quit?: 1959 - Social History Usual Living Arrangement: With Spouse ADL: Independent 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 History of Recent Travel: No Home Medications - Allergies Allergies/Adverse Reactions: Allergies Allergy/AdvReac Type Severity Reaction Status Date / Time cefazolin [From Ancef] Allergy Verified 04/05/19 20:11 cephalexin [From Keflex] Allergy Verified 04/05/19 20:11 azithromycin [From Zithromax] AdvReac Mild Vomiting Verified 04/05/19 20:11 codeine [Codeine] AdvReac Mild Verified 04/05/19 20:11 dust Allergy Severe Itching Uncoded 04/05/19 20:11 - Home Medications Home Medications: Ambulatory Orders Aspirin [Aspirin EC] 81 mg PO DAILY 04/12/18 Cholecalciferol (Vitamin D3) [Vitamin D3] 5,000 unit PO DAILY 04/12/18 Methenamine Hippurate [Hiprex [Nf] -] 1 gm PO DAILY 04/12/18 Metoprolol Succinate [Toprol Xl] 25 mg PO AM 04/12/18 Warfarin Na [Coumadin -] 3 mg PO DAILY 04/12/18 Atorvastatin Ca [Lipitor] 20 mg PO HS tablet 04/14/18 Cholestyramine/Sucrose [Questran Packet -] 4 gm PO BID packet 04/14/18 Tamsulosin HCl [Flomax -] 0.4 mg PO DAILY@0830 cap.er.24h 04/14/18 Escitalopram Oxalate [Lexapro -] 5 mg PO DAILY 04/05/19 Family Disease History - Family Disease History Family Disease History: Heart Disease: Father ( [place] 70), Mother (colon cancer 86), CA: Mother, Brother (pancreatic cancer, cerebral aneurysm), Other: Brother Vital Signs: Vital Signs Temperature 98.4 F 04/06/19 07:56 Pulse Rate 75 04/06/19 07:56 Respiratory Rate 20 04/06/19 07:56 Blood Pressure 135/67 04/06/19 07:56 O2 Sat by Pulse Oximetry (%) 95 04/05/19 21:00 - Other Data Labs, Other Data: CBC, BMP 04/06/19 11:35 04/05/19 15:28 INR, PTT INR 3.33 (0.83-1.09) H 04/05/19 15:28
[2019-04-06] MEDS ORDERED: SODIUM CHLORIDE 500 ML IV STA ×2 (18:37→19:16)
--- NOTE | 2019-04-06 18:50 | RAPID ---
Physical Examination Vital Signs: Rapid response called at 6:28 PM. Arrived at bedside with nurse present. pt with hypotension 66/39BP with continuing hematuria in the franklin w/o clots. Pt in no acute distress and no complaints, including cp, sob, dizziness, LEBRON. On exam, cardiac exam pt in regular rate and rythym, lung exam was cta b/l, no peripheral edema on LE's, franklin in place and bag full of gross hematuria with no clots. 500CC bolus NS ordered with suboptimal improvement in BP to 90/50. Another 500cc bolus ordered. CBC was ordered stat, w Hb 8.2 (stable), Spoke with the patients doctor Maria A and does not believe pt needs a CBI due to pt not showing any signs of clots in urine and pt urinating fine, wanted renal and pelvis US ordered. Discussed case with PMD Dr Jacobs and he wants two PRBC's given so order was placed. Primary team to follow patient. Continue monitoring BP. Constitutional: Yes: Well Nourished HENT: Yes: WNL Neck: Yes: WNL Cardiovascular: Yes: WNL Labs: CBC, BMP 04/06/19 11:35 04/05/19 15:28
[2019-04-06 19:00] LABS: BASO % 0.6 % (0-2.0); EOS % 4.9 % (0-4.5); HEMATOCRIT 25.8 % (35.4-49); HEMOGLOBIN 8.2 GM/dL (11.7-16.9); LYMPH % 12.8 % (8-40); MCH 27.4 pg (25.7-33.7); MCHC 31.6 g/dl (32.0-35.9); MEAN CELL VOLUME 86.7 fl (80-96); MEAN PLT VOLUME 9.1 fl (7.5-11.1); MONO % 8.3 % (3.8-10.2); NEUT % 73.4 % (42.8-82.8); PLATELET COUNT 134 K/MM3 (134-434); RBC 2.98 M/mm3 (4.00-5.60); RDW 16.8 % (11.9-15.9); WHITE BLOOD COUNT 4.1 K/mm3 (4.0-10.0)
--- NOTE | 2019-04-06 19:35 | PN ---
Progress Note (short form) - Note Progress Note: Had rapid response Still bleeding Patient examined at bed side,stable Hb 8.1 ,2unit blood transfussion ordered Will do kidney ultrasound in AM
[2019-04-06 23:21] LABS: INR 2.09 (0.83-1.09); PROTHROMBIN TIME (PATIENT) 24.9 SEC (9.7-13.0)
[2019-04-07 08:33] LABS: HEMATOCRIT 27.7 % (35.4-49); MCHC 32.3 g/dl (32.0-35.9); MEAN CELL VOLUME 86.7 fl (80-96); MEAN PLT VOLUME 9.1 fl (7.5-11.1); PLATELET COUNT 154 K/MM3 (134-434); RDW 16.7 % (11.9-15.9); WHITE BLOOD COUNT 4.2 K/mm3 (4.0-10.0)
[2019-04-07] MEDS: TAMSULOSIN HCL 0.4 MG CAP PO SCH (08:50)
--- NOTE | 2019-04-07 09:01 | PN ---
Progress Note, Physician Chief Complaint: Feels OK,blood transfusion in progress History of Present Illness: Admitted with gross hematuria No active bleeding now - Current Medication List Current Medications: Active Medications Cholestyramine Resin (Questran Light Packet -) 4 gm PO BID [facility] Last Admin: 04/06/19 22:14 Dose: 4 gm Escitalopram Oxalate (Lexapro -) 5 mg PO DAILY [facility] Last Admin: 04/06/19 09:24 Dose: 5 mg Metoprolol Succinate (Toprol Xl -) 25 mg PO DAILY [facility] Last Admin: 04/06/19 09:23 Dose: 25 mg Methenamine Hippurate 1gm Tab Pt Own Med (Pyxis) 1 each PO DAILY [facility] Tamsulosin HCl (Flomax -) 0.4 mg PO DAILY@0830 [facility] Last Admin: 04/07/19 08:50 Dose: 0.4 mg - Objective Vital Signs: Vital Signs Temperature 97.5 F L 04/07/19 05:00 Pulse Rate 73 04/07/19 05:00 Respiratory Rate 18 04/07/19 05:00 Blood Pressure 134/62 04/07/19 05:00 O2 Sat by Pulse Oximetry (%) 95 04/05/19 21:00 Constitutional: Yes: Calm Eyes: Yes: WNL HENT: Yes: WNL Neck: Yes: WNL Cardiovascular: Yes: WNL Respiratory: Yes: WNL Gastrointestinal: Yes: Normal Bowel Sounds ...Rectal Exam: Yes: Deferred Genitourinary: Yes: Pandya Present Breast(s): Yes: WNL Edema: No Neurological: Yes: Alert, Pre-Existing Deficit Psychiatric: Yes: Alert Labs: CBC, BMP 04/07/19 07:40 04/05/19 15:28 INR, PTT INR 2.09 (0.83-1.09) H 04/06/19 22:40 Assessment/Plan Hb this AM is 9 , no active bleeding blood transfusion in progress
[2019-04-07] MEDS ORDERED: PT OWN MED DRAWER 7, Y5N ONE (09:19)
[2019-04-07] MEDS: ESCITALOPRAM OXALATE 10 MG TABLET (FP) PO SCH (09:24)
[2019-04-07] MEDS: CHOLESTYRAMINE/ASPARTAME 4 GM PACKET PO SCH ×2 (09:25→21:13)
[2019-04-07] MEDS: METHENAMINE HIPPURATE 1 GM PO SCH (09:25)
[2019-04-07] MEDS: metoPROLOL SUCCINATE 25 MG TAB.SR.24H (FP) PO SCH (09:25)
[2019-04-07] MEDS ORDERED: ACETAMINOPHEN 325 MG TABLET (FP) PO PRN (17:10)
[2019-04-08 08:47] LABS: HEMATOCRIT 31.3 % (35.4-49); HEMOGLOBIN 10.1 GM/dL (11.7-16.9); MCH 27.9 pg (25.7-33.7); MCHC 32.4 g/dl (32.0-35.9); MEAN PLT VOLUME 9.4 fl (7.5-11.1); PLATELET COUNT 158 K/MM3 (134-434); RBC 3.64 M/mm3 (4.00-5.60); RDW 16.7 % (11.9-15.9); WHITE BLOOD COUNT 5.1 K/mm3 (4.0-10.0)
[2019-04-08] MEDS: TAMSULOSIN HCL 0.4 MG CAP PO SCH (08:48)
[2019-04-08] MEDS ORDERED: PT OWN MED DRAWER 7, Y5N ONE ×2 (09:33→21:48)
[2019-04-08] MEDS: ESCITALOPRAM OXALATE 10 MG TABLET (FP) PO SCH (09:34)
[2019-04-08] MEDS: METHENAMINE HIPPURATE 1 GM PO SCH (09:36)
[2019-04-08] MEDS: metoPROLOL SUCCINATE 25 MG TAB.SR.24H (FP) PO SCH (09:36)
[2019-04-08] MEDS: CHOLESTYRAMINE/ASPARTAME 4 GM PACKET PO SCH ×2 (09:36→22:04)
[2019-04-08 09:48] LABS: ALBUMIN 2.7 g/dl (3.4-5.0); BILIRUBIN,TOTAL 1.3 mg/dL (0.2-1); BLOOD UREA NITROGEN 18.2 mg/dL (7-18); CALCIUM 8.1 mg/dL (8.5-10.1); CREATININE 1.3 mg/dL (0.55-1.3); POTASSIUM 3.7 mmol/L (3.5-5.1); TOT PROT 5.2 g/dl (6.4-8.2)
--- NOTE | 2019-04-08 13:35 | PN ---
Progress Note, Physician Chief Complaint: Feels OK History of Present Illness: urine blood tinged ultrasound of bladder showed 3x2 cm mass posterior wall Will discuss with urology - Current Medication List Current Medications: Active Medications Acetaminophen (Tylenol -) 650 mg PO Q4H PRN PRN Reason: PAIN LEVEL 6-10 Last Admin: 04/07/19 17:32 Dose: 650 mg Cholestyramine Resin (Questran Light Packet -) 4 gm PO BID [facility] Last Admin: 04/08/19 09:36 Dose: 4 gm Escitalopram Oxalate (Lexapro -) 5 mg PO DAILY [facility] Last Admin: 04/08/19 09:34 Dose: 5 mg Metoprolol Succinate (Toprol Xl -) 25 mg PO DAILY [facility] Last Admin: 04/08/19 09:36 Dose: 25 mg Methenamine Hippurate 1gm Tab Pt Own Med (Pyxis) 1 each PO DAILY [facility] Last Admin: 04/08/19 09:36 Dose: 1 each Tamsulosin HCl (Flomax -) 0.4 mg PO DAILY@0830 [facility] Last Admin: 04/08/19 08:48 Dose: 0.4 mg - Objective Vital Signs: Vital Signs Temperature 98 F 04/08/19 08:55 Pulse Rate 71 04/08/19 08:55 Respiratory Rate 18 04/08/19 08:55 Blood Pressure 116/62 04/08/19 08:55 O2 Sat by Pulse Oximetry (%) 95 04/05/19 21:00 Constitutional: Yes: No Distress Eyes: Yes: WNL HENT: Yes: WNL Neck: Yes: WNL Cardiovascular: Yes: WNL Respiratory: Yes: WNL Gastrointestinal: Yes: WNL ...Rectal Exam: Yes: Deferred Genitourinary: Yes: Hematuria Breast(s): Yes: WNL Musculoskeletal: Yes: WNL Neurological: Yes: Pre-Existing Deficit Labs: CBC, BMP 04/08/19 07:26 04/08/19 07:26 INR, PTT INR 2.09 (0.83-1.09) H 04/06/19 22:40 Assessment/Plan will discuss urology
[2019-04-09 07:27] LABS: HEMATOCRIT 29.4 % (35.4-49); HEMOGLOBIN 9.7 GM/dL (11.7-16.9); MCH 28.4 pg (25.7-33.7); MEAN PLT VOLUME 9.3 fl (7.5-11.1); PLATELET COUNT 154 K/MM3 (134-434); RBC 3.42 M/mm3 (4.00-5.60); RDW 16.3 % (11.9-15.9); WHITE BLOOD COUNT 5.9 K/mm3 (4.0-10.0)
--- NOTE | 2019-04-09 09:28 | PN ---
Progress Note, Physician Chief Complaint: Feels OK History of Present Illness: Pandya blood stained urine - Current Medication List Current Medications: Active Medications Acetaminophen (Tylenol -) 650 mg PO Q4H PRN PRN Reason: PAIN LEVEL 6-10 Last Admin: 04/07/19 17:32 Dose: 650 mg Cholestyramine Resin (Questran Light Packet -) 4 gm PO BID [facility] Last Admin: 04/08/19 22:04 Dose: 4 gm Escitalopram Oxalate (Lexapro -) 5 mg PO DAILY [facility] Last Admin: 04/08/19 09:34 Dose: 5 mg Metoprolol Succinate (Toprol Xl -) 25 mg PO DAILY [facility] Last Admin: 04/08/19 09:36 Dose: 25 mg Methenamine Hippurate 1gm Tab Pt Own Med (Pyxis) 1 each PO DAILY [facility] Last Admin: 04/08/19 09:36 Dose: 1 each Tamsulosin HCl (Flomax -) 0.4 mg PO DAILY@0830 [facility] Last Admin: 04/08/19 08:48 Dose: 0.4 mg - Objective Vital Signs: Vital Signs Temperature 97.6 F 04/09/19 06:00 Pulse Rate 73 04/09/19 06:00 Respiratory Rate 20 04/09/19 06:00 Blood Pressure 124/79 04/09/19 06:00 O2 Sat by Pulse Oximetry (%) 95 04/05/19 21:00 Constitutional: Yes: No Distress Eyes: Yes: WNL HENT: Yes: WNL Neck: Yes: WNL Cardiovascular: Yes: WNL Respiratory: Yes: WNL Gastrointestinal: Yes: WNL, Tenderness, Rebound Genitourinary: Yes: Hematuria Musculoskeletal: Yes: Muscle Weakness Neurological: Yes: Alert, Pre-Existing Deficit Psychiatric: Yes: Alert Labs: CBC, BMP 04/09/19 05:25 04/08/19 07:26 INR, PTT INR 2.09 (0.83-1.09) H 04/06/19 22:40 Assessment/Plan Will discuss with urology OOB in chair
[2019-04-09] MEDS: TAMSULOSIN HCL 0.4 MG CAP PO SCH (09:35)
[2019-04-09] MEDS ORDERED: PT OWN MED DRAWER 7, Y5N ONE ×3 (09:39→23:28)
[2019-04-09] MEDS: METHENAMINE HIPPURATE 1 GM PO SCH (09:40)
[2019-04-09] MEDS: metoPROLOL SUCCINATE 25 MG TAB.SR.24H (FP) PO SCH (09:40)
[2019-04-09] MEDS: CHOLESTYRAMINE/ASPARTAME 4 GM PACKET PO SCH ×2 (09:40→23:31)
[2019-04-09] MEDS: ESCITALOPRAM OXALATE 10 MG TABLET (FP) PO SCH (09:40)
--- NOTE | 2019-04-09 11:53 | PN ---
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 Continues to have hematuria and is being considered for cystoscopy and TURP. ALLERGIES: 1. ANCEF. 2. Intolerance to ZITHROMAX, 3. CODEINE 4. Intolerance to DUST. 5. Cephalexin. Active Medications Acetaminophen (Tylenol -) 650 mg PO Q4H PRN PRN Reason: PAIN LEVEL 6-10 Last Admin: 04/07/19 17:32 Dose: 650 mg Cholestyramine Resin (Questran Light Packet -) 4 gm PO BID [facility] Last Admin: 04/09/19 09:40 Dose: 4 gm Escitalopram Oxalate (Lexapro -) 5 mg PO DAILY [facility] Last Admin: 04/09/19 09:40 Dose: 5 mg Metoprolol Succinate (Toprol Xl -) 25 mg PO DAILY [facility] Last Admin: 04/09/19 09:40 Dose: 25 mg Methenamine Hippurate 1gm Tab Pt Own Med (Pyxis) 1 each PO DAILY [facility] Last Admin: 04/09/19 09:40 Dose: 1 each Tamsulosin HCl (Flomax -) 0.4 mg PO DAILY@0830 [facility] Last Admin: 04/09/19 09:35 Dose: 0.4 mg PHYSICAL EXAMINATION: General: 88-year-old alert gentleman with no acute distress, no pallor, cyanosis, clubbing, or jaundice. Last Vital Signs Temp Pulse Resp BP Pulse Ox 97.6 F 73 20 124/79 95 04/09/19 06:00 04/09/19 06:00 04/09/19 06:00 04/09/19 06:00 04/05/19 21:00 Neck: Supple. No jugulovenous distention. Carotids were equal and upstrokes were normal, no bruits were heard, and no thyromegaly was present. Heart: No heaves or thrills. S1 and S2 were normal. Grade 1/6 decrescendo systolic murmur was heard at the apex. No diastolic murmur or gallops were heard. Lungs: Clear on auscultation. Chest: Normal AP diameter. Expansion was symmetrical. Abdomen: Soft. Nontender. No hepatosplenomegaly or palpable masses were felt. There was a functioning ileostomy. Extremities: No calf tenderness or dependent edema, pulses were equal, dorsalis pedis and posterior tibial pulses were weak. CBC, BMP 04/09/19 05:25 04/08/19 07:26 IMPRESSION: 1. Gross, painless hematuria etiology: a). Possibly related to trauma induced by franklin catheter. b). UTI needs exclusion. c). Secondary to and/or aggravated by anticoagulation. 2. Coronary artery disease, status post anterior wall myocardial infarction, status post percutaneous coronary intervention/stenting. 3. Severe left ventricular systolic dysfunction. 4. Status post implantable cardioverter/defibrillator and cardiac resynchronization therapy. 5. Anemia, most likely partly related to hematuria and chronic kidney disease. 6. Hypertension, hypertensive cardiovascular disease, currently normotensive. 7. Hyperlipidemia. 8. Status post cerebrovascular accident with right hemiplegia. 9. History of depression and anxiety disorder. 10. Status post ileostomy. 11. Hypercholesterolemia. 12. History of paroxysmal atrial fibrillation, currently in sinus rhythm. RECOMMENDATION: 1. Patient remains a high risk for a cardiopulmonary event in view of the above mentioned diagnosis and this needs to be discussed with patient and his family members. 2. Continue current cardiac therapy. 3. Anticoagulation will need to be resumed as soon as possible and patient should be considered for possible Watchman Device to occlude the left atrial appendage. IDALIA DAWN M.D.
--- NOTE | 2019-04-09 14:07 | PN ---
Progress Note (short form) - Note Progress Note: Urology follow up. Will schedule pt. for cysto possible TUR BT. Needs medical clearance and cardilogy clearance. Needs to stop all anticoagulants. Tentatively scheduled for Tuesday. Will discuss with Dr. Love
--- NOTE | 2019-04-09 18:11 | CONS ---
DATE OF CONSULTATION: DATE OF DICTATION: 04/09/2019 Patient is an 88-year-old male with history of gross total painless hematuria. A Pandya catheter is present. The urine is dark red. There are no clots. Abdomen is soft. There is no CVA tenderness. An ultrasound of the bladder revealed an irregular mass-like density in the posterior aspect of the bladder adherent to its posterior wall, measuring 2.8 x 2.1 cm. 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 Patient is on anticoagulation. He will need a cystoscopy with TUR of bladder tumor. I would suggest holding Coumadin and commencing IV heparin. Will discuss the case with Dr. Love to prep the patient for the procedure. This was explained fully and in detail to the patient. SAMMIE FRANKEL M.D. [id number]
[2019-04-10 07:05] LABS: HEMATOCRIT 29.3 % (35.4-49); HEMOGLOBIN 9.5 GM/dL (11.7-16.9); MCH 27.9 pg (25.7-33.7); MCHC 32.6 g/dl (32.0-35.9); MEAN CELL VOLUME 85.8 fl (80-96); MEAN PLT VOLUME 8.9 fl (7.5-11.1); PLATELET COUNT 159 K/MM3 (134-434); RBC 3.41 M/mm3 (4.00-5.60); RDW 16.6 % (11.9-15.9); WHITE BLOOD COUNT 5.2 K/mm3 (4.0-10.0)
[2019-04-10] MEDS: TAMSULOSIN HCL 0.4 MG CAP PO SCH (08:41)
--- NOTE | 2019-04-10 09:34 | PN ---
Progress Note, Physician Chief Complaint: Feels OK History of Present Illness: Scheduled for cysto and BT resection for tuesday - Current Medication List Current Medications: Active Medications Acetaminophen (Tylenol -) 650 mg PO Q4H PRN PRN Reason: PAIN LEVEL 6-10 Last Admin: 04/07/19 17:32 Dose: 650 mg Cholestyramine Resin (Questran Light Packet -) 4 gm PO BID [facility] Last Admin: 04/09/19 23:31 Dose: 4 gm Escitalopram Oxalate (Lexapro -) 5 mg PO DAILY [facility] Last Admin: 04/09/19 09:40 Dose: 5 mg Metoprolol Succinate (Toprol Xl -) 25 mg PO DAILY [facility] Last Admin: 04/09/19 09:40 Dose: 25 mg Methenamine Hippurate 1gm Tab Pt Own Med (Pyxis) 1 each PO DAILY [facility] Last Admin: 04/09/19 09:40 Dose: 1 each Tamsulosin HCl (Flomax -) 0.4 mg PO DAILY@0830 [facility] Last Admin: 04/10/19 08:41 Dose: 0.4 mg - Objective Vital Signs: Vital Signs Temperature 99.5 F 04/09/19 22:00 Pulse Rate 70 04/09/19 22:00 Respiratory Rate 18 04/09/19 22:00 Blood Pressure 139/62 04/09/19 22:00 O2 Sat by Pulse Oximetry (%) 95 04/05/19 21:00 Constitutional: Yes: No Distress Eyes: Yes: WNL HENT: Yes: WNL Neck: Yes: WNL Cardiovascular: Yes: WNL Respiratory: Yes: WNL Gastrointestinal: Yes: Normal Bowel Sounds ...Rectal Exam: Yes: Deferred Genitourinary: Yes: Pandya Present Breast(s): Yes: WNL Musculoskeletal: Yes: Muscle Weakness Integumentary: Yes: WNL Neurological: Yes: Alert Psychiatric: Yes: WNL Labs: CBC, BMP 04/10/19 06:38 04/08/19 07:26 INR, PTT INR 2.09 (0.83-1.09) H 04/06/19 22:40 Assessment/Plan No hematuria today Needs cardiac clearance
[2019-04-10] MEDS: ESCITALOPRAM OXALATE 10 MG TABLET (FP) PO SCH (10:15)
[2019-04-10] MEDS: CHOLESTYRAMINE/ASPARTAME 4 GM PACKET PO SCH ×2 (10:17→22:41)
[2019-04-10] MEDS: METHENAMINE HIPPURATE 1 GM PO SCH (10:17)
[2019-04-10] MEDS: metoPROLOL SUCCINATE 25 MG TAB.SR.24H (FP) PO SCH (10:17)
--- NOTE | 2019-04-10 16:48 | PN ---
Progress Note (short form) - Note Progress Note: Discussed the case with Dr. Love. Pt will undergo cysto tomorrow to determine the cause of bleeding. According to Dr. Love, pt will be cleared only for cysto and possible biopsy.
[2019-04-10] MEDS ORDERED: PT OWN MED DRAWER 7, Y5N ONE (22:17)
[2019-04-11 07:46] LABS: HEMATOCRIT 30.8 % (35.4-49); MCH 28.1 pg (25.7-33.7); MCHC 32.7 g/dl (32.0-35.9); MEAN PLT VOLUME 8.9 fl (7.5-11.1); PLATELET COUNT 153 K/MM3 (134-434); RBC 3.58 M/mm3 (4.00-5.60); RDW 16.8 % (11.9-15.9); WHITE BLOOD COUNT 5.4 K/mm3 (4.0-10.0)
[2019-04-11] MEDS: TAMSULOSIN HCL 0.4 MG CAP PO SCH (09:38)
[2019-04-11] MEDS: CHOLESTYRAMINE/ASPARTAME 4 GM PACKET PO SCH ×2 (09:39→21:38)
[2019-04-11] MEDS: METHENAMINE HIPPURATE 1 GM PO SCH (09:39)
[2019-04-11] MEDS: ESCITALOPRAM OXALATE 10 MG TABLET (FP) PO SCH (09:39)
--- NOTE | 2019-04-11 09:39 | PN ---
Progress Note, Physician Chief Complaint: Feels OK History of Present Illness: Scheduled for cysto today - Current Medication List Current Medications: Active Medications Acetaminophen (Tylenol -) 650 mg PO Q4H PRN PRN Reason: PAIN LEVEL 6-10 Last Admin: 04/07/19 17:32 Dose: 650 mg Cholestyramine Resin (Questran Light Packet -) 4 gm PO BID [facility] Last Admin: 04/10/19 22:41 Dose: 4 gm Escitalopram Oxalate (Lexapro -) 5 mg PO DAILY [facility] Last Admin: 04/10/19 10:15 Dose: 5 mg Metoprolol Succinate (Toprol Xl -) 25 mg PO DAILY [facility] Last Admin: 04/10/19 10:17 Dose: 25 mg Methenamine Hippurate 1gm Tab Pt Own Med (Pyxis) 1 each PO DAILY [facility] Last Admin: 04/10/19 10:17 Dose: 1 each Tamsulosin HCl (Flomax -) 0.4 mg PO DAILY@0830 [facility] Last Admin: 04/10/19 08:41 Dose: 0.4 mg - Objective Vital Signs: Vital Signs Temperature 98.5 F 04/11/19 06:00 Pulse Rate 74 04/11/19 06:00 Respiratory Rate 18 04/11/19 06:00 Blood Pressure 126/63 04/11/19 06:00 O2 Sat by Pulse Oximetry (%) 95 04/05/19 21:00 Constitutional: Yes: No Distress Eyes: Yes: WNL HENT: Yes: WNL Neck: Yes: WNL Cardiovascular: Yes: WNL Respiratory: Yes: WNL Gastrointestinal: Yes: Normal Bowel Sounds ...Rectal Exam: Yes: Deferred Genitourinary: Yes: Pandya Present Breast(s): Yes: WNL Musculoskeletal: Yes: WNL Extremities: Yes: WNL Neurological: Yes: Alert, Pre-Existing Deficit Labs: CBC, BMP 04/11/19 07:25 04/08/19 07:26 INR, PTT INR 2.09 (0.83-1.09) H 04/06/19 22:40 Assessment/Plan Cleared for the procedure
[2019-04-11] MEDS: metoPROLOL SUCCINATE 25 MG TAB.SR.24H (FP) PO SCH (09:41)
[2019-04-11] MEDS ORDERED: LIDOCAINE HCL 2% JELLY 10 ML CARTRIDGE ONE (12:53)
[2019-04-11] MEDS ORDERED: MIDAZOLAM HCL 2 MG/2 ML SINGLE DOSE VIAL ONE (12:56)
[2019-04-11] MEDS ORDERED: SUCCINYLCHOLINE CHLORIDE 200 MG/10 ML SYRINGE ONE (12:56)
--- NOTE | 2019-04-11 14:00 | OP ---
Operative Note - Note: Operative Date: 04/11/19 Pre-Operative Diagnosis: gross total hematuria Operation: cysto,bladder biopsy and fulgeration Findings: Bladder lesion at lt. postereor wall Post-Operative Diagnosis: Same as Pre-op Surgeon: Tu Tao Anesthesia: General Specimens Removed: urine for u/a and cytology and bladder mucosa Estimated Blood Loss (mls): 0 Drains, Volume Out (mls): 0 Blood Volume Replaced (mls): 0 Fluid Volume Replaced (mls): 0 Operative Report Dictated: Yes
--- NOTE | 2019-04-11 15:46 | PN ---
Progress Note (short form) - Note Progress Note: s: no cp sob palps dizzy Current Medications Generic Name Dose Route Start Last Admin Trade Name Freq PRN Reason Stop Dose Admin Acetaminophen 650 mg 04/07/19 17:10 04/07/19 17:32 Tylenol - PO 650 mg Q4H PRN Administration PAIN LEVEL 6-10 Cholestyramine Resin 4 gm 04/06/19 10:00 04/11/19 09:39 Questran Light Packet - PO Not Given BID [facility] Escitalopram Oxalate 5 mg 04/06/19 10:00 04/11/19 09:39 Lexapro - PO Not Given DAILY [facility] Fentanyl 25 mcg 04/11/19 14:02 04/11/19 14:15 Sublimaze Injection - IVPUSH 25 mcg [id number] PRN Administration PAIN-PACU ORDER X 4 DOSES ONLY Levofloxacin 500 mg 04/12/19 10:00 Levaquin - PO DAILY [facility] Metoprolol Succinate 25 mg 04/06/19 10:00 04/11/19 09:41 Toprol Xl - PO 25 mg DAILY [facility] Administration Methenamine 1 each 04/06/19 10:00 04/11/19 09:39 Hippurate 1gm Tab Pt PO Not Given Own Med (Pyxis) DAILY [facility] Tamsulosin HCl 0.4 mg 04/06/19 08:30 04/11/19 09:38 Flomax - PO 0.4 mg DAILY@0830 [facility] Administration Vital Signs Period Temp Pulse Resp BP Sys/Martin Pulse Ox Last 24 Hr 97.6 F-98.5 F 70-83 18-20 100-126/48-73 98-99 Neck: Supple. No jugulovenous distention. Carotids were equal and upstrokes were normal, no bruits were heard, and no thyromegaly was present. Heart: No heaves or thrills. S1 and S2 were normal. Grade 1/6 decrescendo systolic murmur was heard at the apex. No diastolic murmur or gallops were heard. Lungs: Clear on auscultation. Chest: Normal AP diameter. Expansion was symmetrical. Abdomen: Soft. Nontender. No hepatosplenomegaly or palpable masses were felt. There was a functioning ileostomy. Extremities: No calf tenderness or dependent edema, pulses were equal, dorsalis pedis and posterior tibial pulses were weak. no jaundice diaphoresis CBC, BMP 08/21/19 07:25 04/08/19 07:26 IMPRESSION: 1. Gross, painless hematuria etiology: a). Possibly related to trauma induced by franklin catheter. b). UTI needs exclusion. c). Secondary to and/or aggravated by anticoagulation. 2. Coronary artery disease, status post anterior wall myocardial infarction, status post percutaneous coronary intervention/stenting. 3. Severe left ventricular systolic dysfunction. 4. Status post implantable cardioverter/defibrillator and cardiac resynchronization therapy. 5. Anemia, most likely partly related to hematuria and chronic kidney disease. 6. Hypertension, hypertensive cardiovascular disease, currently normotensive. 7. Hyperlipidemia. 8. Status post cerebrovascular accident with right hemiplegia. 9. History of depression and anxiety disorder. 10. Status post ileostomy. 11. Hypercholesterolemia. 12. History of paroxysmal atrial fibrillation, currently in sinus rhythm. RECOMMENDATION: 1. s/p procedure today, has franklin catheter. plans per . 2. Continue current cardiac therapy. 3. Anticoagulation will need to be resumed as soon as possible post procedure
--- NOTE | 2019-04-11 16:30 | PN ---
Progress Note (short form) - Note Progress Note: urology note. h/o rt. uvj-stone with hydro. repeat sonogram,no hydro and no stone seen. pt. with retovesicle mass will need electrical systems designer evaluation and gi consult.
--- NOTE | 2019-04-11 16:35 | PN ---
Progress Note (short form) - Note Progress Note: UROLOGY NOTE. PLEASE DISREGARD ABOVE NOTE, WAS WRONG PT.
--- NOTE | 2019-04-11 16:49 | CONS ---
DATE OF CONSULTATION: DATE OF DICTATION: 04/11/2019 HISTORY OF PRESENT ILLNESS: The patient is an 88-year-old male with a history of atrial fibrillation and history of a CVA in the past. He presents with gross total painless hematuria. A CT scan of his abdomen including a renal and pelvic ultrasound simple renal cyst. There is an irregular mass-like density in the posterior aspect of the urinary bladder adherent to its posterior wall measuring 2.8 x 2.1 cm which most likely is a tumor, allow for other causes. Patient is to undergo a cystoscopy with possible biopsy today. His PT and INR are still slightly elevated and a PT of 24.9 and an INR of 2.09. The patient's hemoglobin and hematocrit are 8.2 over 25.8, white count 4.1. The procedure was explained to the patient in detail, and he agrees. SAMMIE FRANKEL M.D. [id number]
[2019-04-11] MEDS ORDERED: PT OWN MED DRAWER 7, Y5N ONE (21:19)
[2019-04-12] MEDS: TAMSULOSIN HCL 0.4 MG CAP PO SCH (08:54)
[2019-04-12] MEDS ORDERED: PT OWN MED DRAWER 7, Y5N ONE ×3 (09:29→21:22)
[2019-04-12] MEDS: CHOLESTYRAMINE/ASPARTAME 4 GM PACKET PO SCH ×2 (09:35→21:28)
[2019-04-12] MEDS: metoPROLOL SUCCINATE 25 MG TAB.SR.24H (FP) PO SCH (09:35)
[2019-04-12] MEDS: ESCITALOPRAM OXALATE 10 MG TABLET (FP) PO SCH (09:35)
[2019-04-12] MEDS: METHENAMINE HIPPURATE 1 GM PO SCH (09:35)
--- NOTE | 2019-04-12 09:38 | PN ---
Progress Note, Physician Chief Complaint: Feels better History of Present Illness: S/P cystoscopy,findings to be discussed with N Ernesto - Current Medication List Current Medications: Active Medications Acetaminophen (Tylenol -) 650 mg PO Q4H PRN PRN Reason: PAIN LEVEL 6-10 Last Admin: 04/07/19 17:32 Dose: 650 mg Cholestyramine Resin (Questran Light Packet -) 4 gm PO BID [facility] Last Admin: 04/11/19 21:38 Dose: 4 gm Escitalopram Oxalate (Lexapro -) 5 mg PO DAILY [facility] Last Admin: 04/11/19 09:39 Dose: Not Given Fentanyl (Sublimaze Injection -) 25 mcg IVPUSH [id number] PRN PRN Reason: PAIN-PACU ORDER X 4 DOSES ONLY Last Admin: 04/11/19 14:15 Dose: 25 mcg Levofloxacin (Levaquin -) 500 mg PO DAILY [facility] Metoprolol Succinate (Toprol Xl -) 25 mg PO DAILY [facility] Last Admin: 04/11/19 09:41 Dose: 25 mg Methenamine Hippurate 1gm Tab Pt Own Med (Pyxis) 1 each PO DAILY [facility] Last Admin: 04/11/19 09:39 Dose: Not Given Tamsulosin HCl (Flomax -) 0.4 mg PO DAILY@0830 [facility] Last Admin: 04/12/19 08:54 Dose: 0.4 mg - Objective Vital Signs: Vital Signs Temperature 98.4 F 04/12/19 05:36 Pulse Rate 98 H 04/12/19 05:36 Respiratory Rate 20 04/12/19 05:36 Blood Pressure 109/69 04/12/19 05:36 O2 Sat by Pulse Oximetry (%) 98 04/11/19 20:56 Constitutional: Yes: No Distress Eyes: Yes: WNL HENT: Yes: WNL Neck: Yes: WNL Cardiovascular: Yes: WNL Respiratory: Yes: WNL Gastrointestinal: Yes: Normal Bowel Sounds ...Rectal Exam: Yes: WNL Genitourinary: Yes: Pandya Present Edema: No Neurological: Yes: Alert Labs: CBC, BMP 04/11/19 07:25 04/08/19 07:26 INR, PTT INR 2.09 (0.83-1.09) H 04/06/19 22:40 Assessment/Plan PT Will discuss with urology
[2019-04-12 11:56] VITALS: BMI 22.2
--- NOTE | 2019-04-12 11:58 | OP ---
DATE OF OPERATION: 04/11/2019 PREOPERATIVE DIAGNOSIS: Gross hematuria, bladder lesion. POSTOPERATIVE DIAGNOSIS: Bladder lesion. OPERATIVE PROCEDURE: Cystourethroscopy, bladder biopsy and fulguration. ANESTHESIA: General. Under above-stated anesthesia, patient was prepped and draped in the usual sterile manner. He was placed in the dorsal lithotomy position. Pandya catheter was removed. Cystoscopy revealed a normal anterior urethra. Prostatic urethra was wide open. Bladder was entered and 200 mL of clear urine was drained. This was sent for C&S as well as cytology. Inspection of the bladder revealed a grade 2 to 3 trabeculation with multiple saccules. Ureteral orifices were within normal limits with efflux of clear urine. A hyperemic elevated plaque-like 1-cm lesion was seen distal to the left ureteral orifice. No other lesions were seen. Therefore a biopsy forceps was introduced and the area was biopsied. A Bugbee was then introduced and the area was fulgurated for hemostasis. No active bleeding was noted. Therefore the bladder was emptied, the scope was removed, a 20-Bulgarian Pandya was inserted. This was connected to a drainage bag. The patient tolerated the procedure well. He returned to the recovery room in good condition. Rinku [id number]
[2019-04-12] MEDS ORDERED: diphenhydrAMINE HCL 25 MG CAPSULE (FP) PO ONE (14:30)
--- NOTE | 2019-04-12 15:39 | PN ---
Progress Note (short form) - Note Progress Note: s: no cp sob palps dizzy Current Medications Acetaminophen (Tylenol -) 650 mg PO Q4H PRN PRN Reason: PAIN LEVEL 6-10 Last Admin: 04/07/19 17:32 Dose: 650 mg Cholestyramine Resin (Questran Light Packet -) 4 gm PO BID [facility] Last Admin: 04/12/19 09:35 Dose: 4 gm Escitalopram Oxalate (Lexapro -) 5 mg PO DAILY [facility] Last Admin: 04/12/19 09:35 Dose: 5 mg Fentanyl (Sublimaze Injection -) 25 mcg IVPUSH [id number] PRN PRN Reason: PAIN-PACU ORDER X 4 DOSES ONLY Last Admin: 04/11/19 14:15 Dose: 25 mcg Levofloxacin (Levaquin -) 500 mg PO DAILY [facility] Metoprolol Succinate (Toprol Xl -) 25 mg PO DAILY [facility] Last Admin: 04/12/19 09:35 Dose: 25 mg Methenamine Hippurate 1gm Tab Pt Own Med (Pyxis) 1 each PO DAILY [facility] Last Admin: 04/12/19 09:35 Dose: 1 each Tamsulosin HCl (Flomax -) 0.4 mg PO DAILY@0830 [facility] Last Admin: 04/12/19 08:54 Dose: 0.4 mg Vital Signs Period Temp Pulse Resp BP Sys/Martin Pulse Ox Last 24 Hr 97.4 F-99 F 70-98 16-20 74-114/45-69 98-98 Neck: Supple. No jugulovenous distention. Carotids were equal and upstrokes were normal, no bruits were heard, and no thyromegaly was present. Heart: No heaves or thrills. S1 and S2 were normal. Grade 1/6 decrescendo systolic murmur was heard at the apex. No diastolic murmur or gallops were heard. Lungs: Clear on auscultation. Chest: Normal AP diameter. Expansion was symmetrical. Abdomen: Soft. Nontender. No hepatosplenomegaly or palpable masses were felt. There was a functioning ileostomy. Extremities: No calf tenderness or dependent edema, pulses were equal, dorsalis pedis and posterior tibial pulses were weak. no jaundice diaphoresis IMPRESSION: 1. Gross, painless hematuria etiology: a). Possibly related to trauma induced by franklin catheter. b). UTI needs exclusion. c). Secondary to and/or aggravated by anticoagulation. 2. Coronary artery disease, status post anterior wall myocardial infarction, status post percutaneous coronary intervention/stenting. 3. Severe left ventricular systolic dysfunction. 4. Status post implantable cardioverter/defibrillator and cardiac resynchronization therapy. 5. Anemia, most likely partly related to hematuria and chronic kidney disease. 6. Hypertension, hypertensive cardiovascular disease, currently normotensive. 7. Hyperlipidemia. 8. Status post cerebrovascular accident with right hemiplegia. 9. History of depression and anxiety disorder. 10. Status post ileostomy. 11. Hypercholesterolemia. 12. History of paroxysmal atrial fibrillation, currently in sinus rhythm. RECOMMENDATION: 1. s/p procedure, has franklin catheter. plans per . 2. Continue current cardiac therapy. 3. Anticoagulation will need to be resumed as soon as possible when cleared per
--- NOTE | 2019-04-12 21:12 | PN ---
Progress Note (short form) - Note Progress Note: UROLOGY NOTE. POD#1 S/P CYSTO AND BLADDER BX. FOLET-CLEAR,NO CLOTS, ABD.-SOFT,N/ T, BS++.PLAN-D/C TOMPKINS. CLEARED FOR D/C IN AM. j
--- NOTE | 2019-04-13 09:33 | DS ---
Physical Examination Vital Signs: Vital Signs Temperature 97.8 F 04/13/19 06:12 Pulse Rate 70 04/12/19 21:02 Respiratory Rate 16 04/13/19 06:12 Blood Pressure 130/78 04/13/19 06:12 O2 Sat by Pulse Oximetry (%) 98 04/12/19 21:00 Findings/Remarks: Admitted with hematuria Cystoscopy showed some active bleeding area which was cauterized Pandya removed,urinating OK Constitutional: Yes: No Distress Eyes: Yes: WNL HENT: Yes: WNL Neck: Yes: WNL Cardiovascular: Yes: WNL Respiratory: Yes: WNL Gastrointestinal: Yes: Normal Bowel Sounds ...Rectal Exam: Yes: Deferred Musculoskeletal: Yes: Muscle Weakness Edema: No Neurological: Yes: Alert, Pre-Existing Deficit Labs: CBC, BMP 04/11/19 07:25 04/08/19 07:26 Discharge Summary Reason For Visit: HEMATURIA Current Active Problems Hematuria (Acute) Condition: Stable - Instructions - Home Medications Comprehensive Discharge Medication List: Ambulatory Orders Aspirin [Aspirin EC] 81 mg PO DAILY 04/12/18 Cholecalciferol (Vitamin D3) [Vitamin D3] 5,000 unit PO DAILY 04/12/18 Methenamine Hippurate [Hiprex [Nf] -] 1 gm PO DAILY 04/12/18 Metoprolol Succinate [Toprol Xl] 25 mg PO AM 04/12/18 Warfarin Na [Coumadin -] 3 mg PO DAILY 04/12/18 Atorvastatin Ca [Lipitor] 20 mg PO HS tablet 04/14/18 Cholestyramine/Sucrose [Questran Packet -] 4 gm PO BID packet 04/14/18 Tamsulosin HCl [Flomax -] 0.4 mg PO DAILY@0830 cap.er.24h 04/14/18 Escitalopram Oxalate [Lexapro -] 5 mg PO DAILY 04/05/19 Acetaminophen [Tylenol .Regular Strength -] 650 mg PO Q4H PRN tablet 04/13/19 Cholestyramine/Aspartame [Questran Light Packet -] 4 gm PO BID packet 04/13/19 Escitalopram Oxalate [Lexapro -] 5 mg PO DAILY tablet 04/13/19 Metoprolol Succinate [Toprol XL -] 25 mg PO DAILY tab.sr.24h 04/13/19 Pt Own Med (Pyxis) 1 each PO DAILY box 04/13/19 Tamsulosin HCl [Flomax -] 0.4 mg PO DAILY@0830 cap.er.24h 04/13/19 Warfarin Na [Coumadin -] 3 mg PO DAILY@1800 tablet 04/13/19
[2019-04-13] MEDS ORDERED: PT OWN MED DRAWER 7, Y5N ONE (10:24)
[2019-04-13] MEDS: TAMSULOSIN HCL 0.4 MG CAP PO SCH (10:25)
[2019-04-13] MEDS: ESCITALOPRAM OXALATE 10 MG TABLET (FP) PO SCH (10:25)
[2019-04-13] MEDS: metoPROLOL SUCCINATE 25 MG TAB.SR.24H (FP) PO SCH ×3 (10:26→15:47)
[2019-04-13] MEDS: CHOLESTYRAMINE/ASPARTAME 4 GM PACKET PO SCH (10:26)
[2019-04-13] MEDS: METHENAMINE HIPPURATE 1 GM PO SCH (10:26)
--- NOTE | 2019-04-13 15:47 | PN ---
Progress Note (short form) - Note Progress Note: s: no cp sob palps dizzy Current Medications Acetaminophen (Tylenol -) 650 mg PO Q4H PRN PRN Reason: PAIN LEVEL 6-10 Last Admin: 04/07/19 17:32 Dose: 650 mg Cholestyramine Resin (Questran Light Packet -) 4 gm PO BID [facility] Last Admin: 04/13/19 10:26 Dose: 4 gm Escitalopram Oxalate (Lexapro -) 5 mg PO DAILY [facility] Last Admin: 04/13/19 10:25 Dose: 5 mg Fentanyl (Sublimaze Injection -) 25 mcg IVPUSH [id number] PRN PRN Reason: PAIN-PACU ORDER X 4 DOSES ONLY Last Admin: 04/11/19 14:15 Dose: 25 mcg Levofloxacin (Levaquin -) 250 mg PO DAILY@0600 [facility] Metoprolol Succinate (Toprol Xl -) 25 mg PO DAILY [facility] Last Admin: 04/13/19 10:27 Dose: Not Given Methenamine Hippurate 1gm Tab Pt Own Med (Pyxis) 1 each PO DAILY [facility] Last Admin: 04/13/19 10:26 Dose: 1 each Tamsulosin HCl (Flomax -) 0.4 mg PO DAILY@0830 [facility] Last Admin: 04/13/19 10:25 Dose: 0.4 mg Warfarin Sodium (Coumadin -) 3 mg PO DAILY@1800 [facility] Vital Signs Period Temp Pulse Resp BP Sys/Martin Pulse Ox Last 24 Hr 97.6 F-98.4 F 70-70 16-20 120-135/55-78 98 Neck: Supple. No jugulovenous distention. Carotids were equal and upstrokes were normal, no bruits were heard, and no thyromegaly was present. Heart: No heaves or thrills. S1 and S2 were normal. Grade 1/6 decrescendo systolic murmur was heard at the apex. No diastolic murmur or gallops were heard. Lungs: Clear on auscultation. Chest: Normal AP diameter. Expansion was symmetrical. Abdomen: Soft. Nontender. No hepatosplenomegaly or palpable masses were felt. There was a functioning ileostomy. Extremities: No calf tenderness or dependent edema, pulses were equal, dorsalis pedis and posterior tibial pulses were weak. no jaundice diaphoresis IMPRESSION: 1. Gross, painless hematuria etiology: a). Possibly related to trauma induced by franklin catheter. b). UTI needs exclusion. c). Secondary to and/or aggravated by anticoagulation. 2. Coronary artery disease, status post anterior wall myocardial infarction, status post percutaneous coronary intervention/stenting. 3. Severe left ventricular systolic dysfunction. 4. Status post implantable cardioverter/defibrillator and cardiac resynchronization therapy. 5. Anemia, most likely partly related to hematuria and chronic kidney disease. 6. Hypertension, hypertensive cardiovascular disease, currently normotensive. 7. Hyperlipidemia. 8. Status post cerebrovascular accident with right hemiplegia. 9. History of depression and anxiety disorder. 10. Status post ileostomy. 11. Hypercholesterolemia. 12. History of paroxysmal atrial fibrillation, currently in sinus rhythm. RECOMMENDATION: 1. s/p procedure, has franklin catheter. plans per . 2. Continue current cardiac therapy. 3. Anticoagulation resumed, cont warfarin
[2019-04-13 16:27] VITALS: BP 148/78; PULSE 86; TEMP 98.5
[2019-04-13] MEDS ORDERED: WARFARIN NA 3 MG TABLET PO SCH (18:00)
== END 2019-04-13 16:22 | disposition home or self-care (01) | DRG 982 ==
LOC: JER 13:17 → JERBED 19:00 → J8W 20:37
PROVIDERS: ADMIT Internal Medicine; ATTEND Internal Medicine
PROC: 0T578ZZ Destruction of Left Ureter, Via Natural or Artificial Opening Endoscopic (ICD-10-PCS; 2019-04-11)
PROC: 0TB78ZX Excision of Left Ureter, Via Natural or Artificial Opening Endoscopic, Diagnostic (ICD-10-PCS; principal; 2019-04-11 12:30)
DX: D68.32 Hemorrhagic disorder due to extrinsic circulating anticoagulants (principal); I69.359 Hemiplegia and hemiparesis following cerebral infarction affecting unspecified side; N39.0 Urinary tract infection, site not specified; N28.89 Other specified disorders of kidney and ureter; I25.10 Atherosclerotic heart disease of native coronary artery without angina pectoris; I11.0 Hypertensive heart disease with heart failure; I50.9 Heart failure, unspecified; I25.2 Old myocardial infarction; I95.89 Other hypotension; T45.515A Adverse effect of anticoagulants, initial encounter; H54.40 Blindness, one eye, unspecified eye; F41.8 Other specified anxiety disorders; E78.00 Pure hypercholesterolemia, unspecified; I48.0 Paroxysmal atrial fibrillation; R91.1 Solitary pulmonary nodule; K21.9 Gastro-esophageal reflux disease without esophagitis; R31.0 Gross hematuria; N40.0 Benign prostatic hyperplasia without lower urinary tract symptoms; M48.061 Spinal stenosis, lumbar region without neurogenic claudication; Z90.5 Acquired absence of kidney; Z90.49 Acquired absence of other specified parts of digestive tract; Z95.5 Presence of coronary angioplasty implant and graft; Z79.01 Long term (current) use of anticoagulants; Z95.810 Presence of automatic (implantable) cardiac defibrillator; Z85.53 Personal history of malignant neoplasm of renal pelvis; D63.1 Anemia in chronic kidney disease
CPT/HCPCS: 36415; 36430; 36511; 71046-TC-FY; 76775-TC; 76856-TC; 80053; 81003; 84443; 85025; 85027; 85610; 85730; 86850; 86870; 86900; 86901; 86902; 86922; 87086; 87186; 88108; 88305-TC; 93005; 93010; 94010; 94760; 97116-GP; 97161-GP; 99284-25; J1644; P9038; P9058